=== PATIENT | female | born 1965 | race African-American/Black ===

== ENCOUNTER 2016-08-27 08:11 | Outpatient (CLI) | payer MEDICARE, OTHER ==
[~2016-08-27] VITALS: Ht 160 cm; Wt 45.4 kg
[~2016-08-27 08:11] MED LIST: ALBU2.5V13 NEB; AMLO10TA2 PO; AMLO10TA4 PO; BISA-42 PO; CALC667C6 PO; CARV12.5 PO; CARV25TA2 PO; CARV6.25 PO; CLON0.1T PO; DARB60DI SQ; DIPH25CA58 PO; DOCU-27 PO; DOXY100T PO; FAMO20TA5 PO; FERR-26 PO; FLUT1DIS3 INH; FOLI1TAB16 PO; FURO-68 PO; FURO-69 PO; Guaifenesin PO; HYDR100T24 PO; HYDR25TA9 PO; Hydralazine Hcl PO; IPRA3AMP NEB; IPRA4AER IH; LEVO500T38 PO; LISI-334 PO; Lactulose PO; METO-269 PO; OMEP20CA9 PO; OXYC30TA64 PO; OXYC5TAB PO; OXYC5TAB88 PO; PRED-220 PO; PRED20TA PO; QUET25TA PO; QUET25TA5 PO; SODI650T PO; SPIR50TA2 PO; Sodium Bicarbonate PO; TRAM-29 PO; TRAM50TA PO; TRAZ50TA15 PO; ZOLP10TA PO; ZOLP10TA4 PO
[2016-08-27 08:54] LABS: BASO # 0.1 x10^3/uL (0.0-0.2); BASO % 1 % (0-3); EOS % 2 % (0-3); HEMATOCRIT 28.8 % (36.0-47.0); HEMOGLOBIN 9.5 g/dL (12.0-15.5); LYMPH # 2.2 x10^3/uL (1.0-4.8); LYMPH % 22 % (24-48); MEAN CORPUSCULAR HEMOGLOBIN 34 pg (25-35); MEAN CORPUSCULAR HGB CONC 33 g/dL (31-37); MEAN CORPUSCULAR VOLUME 102 fL (79-100); MONO % 7 % (0-9); NEUT % 69 % (31-73); PLATELET COUNT 238 x10^3/uL (140-400); RED BLOOD COUNT 2.81 x10^6/uL (3.50-5.40); RED CELL DISTRIBUTION WIDTH 17.9 % (11.5-14.5)
[2016-08-27 08:55] VITALS: BP 137/81
[2016-08-27 09:05] LABS: INR 1.1 (0.8-1.1); PROTHROMBIN TIME PATIENT 13.8 SEC (11.7-14.0)
[2016-08-27] MEDS ORDERED: LIDOCAINE 1% / SOD BICARB 8.4% 20 ML VIAL. IJ ONE (11:34)
[2016-08-27] MEDS ORDERED: FENTANYL PF 100 MCG/2 ML VIAL. ONE (12:48)
[2016-08-27] MEDS ORDERED: MIDAZOLAM HCL 2 MG/2 ML VIAL. ONE (12:48)
--- NOTE | 2016-08-27 14:43 | RAD ---
Indication: Ascites. Axial imaging through the abdomen and pelvis was performed without contrast. Correlation is made with prior CT from 02/02/2016. Minimal atelectasis in both lung bases is seen. Trace perihepatic ascites is noted, similar to prior CT. Liver is unremarkable. There is moderate distention to the gallbladder, similar to prior. No stones are detected. The pancreas and spleen are unremarkable. No adrenal mass is detected. The kidneys are unremarkable. The small and large bowel loops appear to be normal caliber. The aorta and iliac vessels are heavily calcified but nonaneurysmal. Imaging through the pelvis shows moderate free fluid. There is no free air. No well-formed fluid collection is identified. Impression: Abdominal and pelvic ascites. No other significant abnormality is identified. PQRS Compliance Statement: One or more of the following individualized dose reduction techniques were utilized for this examination: 1. Automated exposure control 2. Adjustment of the mA and/or kV according to patient size 3. Use of iterative reconstruction technique
[2016-08-27] MEDS ORDERED: OXYC10TA PO (16:09)
== END 2016-08-27 13:35 | disposition home or self-care (01) ==
LOC: INTRAD 08:11
PROVIDERS: ATTEND Internal Medicine Gastroenterology
DX: R18.8 Other ascites (principal)
CPT/HCPCS: 36415; 74150; 85027; 85610

== ENCOUNTER 2016-10-16 16:42 | Emergency (ER) | payer MEDICARE, OTHER ==
[~2016-10-16] VITALS: Ht 160 cm; Wt 42.6 kg
[~2016-10-16 16:42] MED LIST changes: -ALBU2.5V13 NEB; +ALBU2.5V14 NEB; +OXYC10TA PO
[2016-10-16 17:52] VITALS: BP 88/59
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
[2016-10-16] MEDS ORDERED: MORPHINE SULFATE 4 MG/ML DISP.SYRIN. IM ONE (20:15)
[2016-10-16] MEDS ORDERED: OXYC5TAB PO (20:30)
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
== END 2016-10-16 20:45 | disposition home or self-care (01) ==
LOC: ER 16:42
DX: M54.9 Dorsalgia, unspecified (principal); M54.2 Cervicalgia; I12.9 Hypertensive chronic kidney disease with stage 1 through stage 4 chronic kidney disease, or unspecified chronic kidney disease; N18.9 Chronic kidney disease, unspecified; F17.200 Nicotine dependence, unspecified, uncomplicated; F12.10 Cannabis abuse, uncomplicated; G44.319 Acute post-traumatic headache, not intractable; Z88.0 Allergy status to penicillin; Z88.6 Allergy status to analgesic agent; V89.2XXA Person injured in unspecified motor-vehicle accident, traffic, initial encounter; Y92.413 State road as the place of occurrence of the external cause; Y93.89 Activity, other specified; Y99.8 Other external cause status
CPT/HCPCS: 70450; 72072; 72100; 72125; 96372; 99284; J2270

== ENCOUNTER 2017-01-30 09:57 | Inpatient (IN) | payer MEDICARE, OTHER ==
[~2017-01-30] VITALS: Ht 160 cm; Wt 47.7 kg
[2017-01-30] VITALS (12 sets, daily range): BP systolic 98–122; BP diastolic 52–71
[~2017-01-30 09:57] MED LIST changes: +DOCU-109 PO; -DOCU-27 PO; -LEVO500T38 PO; +LEVO500T59 PO; -TRAM-29 PO; +TRAM-48 PO
--- NOTE | 2017-01-30 10:44 | RAD ---
Indication: Shortness of air. Time of exam 10:37 AM Correlation is made with prior study from 02/02/2016. The heart size is stable. There are nodular densities identified in the left midlung field, new since prior exam. Slightly nodular densities in the right lung base and left base near the costophrenic angle are also seen. Upper lung mccarthy are clear. No effusion is seen. Impression: Development of nodular densities in both lungs, new since study one year earlier. Further evaluation with CT of the chest would be useful for better characterization.
--- NOTE | 2017-01-30 10:48 | EKG ---
[facility] [address] [place] [address] Test Date: 2017-01-30 Test Time: 10:24:34 Pat Name: KESHA PERKINS Department: Room: Gender: F [employer] Layer: : 1965 Requested By: YFN BERNSTEIN Order Number: [id number] Reading MD: Rosalva Isaac Measurements Intervals [place] Rate: 91 P: 63 NE: 136 QRS: 22 QRSD: 68 T: 47 QT: 390 QTc: 481 Interpretive Statements SINUS RHYTHM LEFT ATRIAL ABNORMALITY QRS(T) CONTOUR ABNORMALITY CONSIDER ANTEROLATERAL MYOCARDIAL DAMAGE Electronically Signed On 02-02-2017 13:41:38 CDT by Rosalva Isaac
--- NOTE | 2017-01-30 10:51 | PHYS DOC ---
Past Medical History Past Medical History: Hypertension, Liver Disease, Renal Failure Additional Past Medical Histor: Hepatitis C and B, dialysis, drug and ETOH use Past Surgical History: Other Additional Past Surgical Histo: permacath, paracentesis, lt arm fistula Alcohol Use: Occasionally Drug Use: Marijuana Adult General Chief Complaint Chief Complaint: SHORTNESS OF BREATH HPI HPI Patient is a 51 year old -[place] female who presents with was of breath over the last several days. She states this started over the weekend and she's been a dialysis on Saturday and this did not help. States she's had a nonproductive cough and some intermittent pain in her sternal area is been going on for last month. She also complains of back pain that is worse today since she ran out of her oxycodone yesterday. She denies any fevers or chills. She's been using her albuterol inhaler at home and states is not working. Review of Systems Review of Systems Constitutional: Denies fever or chills [] Eyes: Denies change in visual acuity, redness, or eye pain [] HENT: Denies nasal congestion or sore throat [] Respiratory: Positive for cough and shortness of breath [] Cardiovascular: No additional information not addressed in HPI [] GI: Denies abdominal pain, nausea, vomiting, bloody stools or diarrhea [] : Denies dysuria or hematuria [] Musculoskeletal: Denies back pain or joint pain [] Integument: Denies rash or skin lesions [] Neurologic: Denies headache, focal weakness or sensory changes [] Endocrine: Denies polyuria or polydipsia [] Current Medications Current Medications Current Medications Medications (Trade) Dose Ordered Sig/Carmenza Start Time Stop Time Status Last Admin Dose Admin Albuterol/ Ipratropium (Duoneb) 3 ml 1X ONCE 01/30/17 11:00 01/30/17 11:01 DC 01/30/17 11:06 3 ML Morphine Sulfate 2 mg PRN Q15MIN PRN 01/30/17 11:00 01/31/17 10:59 01/30/17 11:22 2 MG Allergies Allergies Allergies Coded Allergies Type Severity Reaction Last Updated Verified Penicillins Allergy Unknown UNKNOWN 08/27/16 Yes acetaminophen Adverse Reaction Severe increased liver enzymes 07/31/15 Yes Physical Exam Physical Exam Constitutional: Well developed, well nourished, no acute distress, non-toxic appearance. [] HENT: Normocephalic, atraumatic, bilateral external ears normal, oropharynx moist, no oral exudates, nose normal. [] Eyes: PERRLA, EOMI, conjunctiva normal, no discharge. [] Neck: Normal range of motion, no tenderness, supple, no stridor. [] Cardiovascular:Heart rate regular rhythm, no murmur [] Lungs & Thorax: Bilateral breath sounds diminished with expiratory wheezing Abdomen: Bowel sounds normal, soft, mild tenderness to palpation in the epigastric area no rebound or guarding, no masses, no pulsatile masses. [] Skin: Warm, dry, no erythema, no rash. [] Back: No tenderness, no CVA tenderness. [] Extremities: No tenderness, no cyanosis, no clubbing, ROM intact, no edema. [] Neurologic: Alert and oriented X 3, normal motor function, normal sensory function, no focal deficits noted. [] Psychologic: Affect normal, judgement normal, mood normal. [] Current Patient Data Vital Signs Vital Signs Date Time Temp Pulse Resp B/P (MAP) Pulse Ox O2 Delivery O2 Flow Rate FiO2 01/30/17 12:01 90 18 85/53 (64) 99 Room Air 01/30/17 10:02 98.1 98.1 Lab Values Laboratory Tests Test 01/30/17 11:15 White Blood Count 23.8 x10^3/uL (4.0-11.0) H Red Blood Count 2.06 x10^6/uL (3.50-5.40) L Hemoglobin 6.7 g/dL (12.0-15.5) *L Hematocrit 20.0 % (36.0-47.0) *L Mean Corpuscular Volume 97 fL (79-100) Mean Corpuscular Hemoglobin 33 pg (25-35) Mean Corpuscular Hemoglobin Concent 34 g/dL (31-37) Red Cell Distribution Width 17.3 % (11.5-14.5) H Platelet Count 243 x10^3/uL (140-400) Neutrophils (%) (Auto) 87 % (31-73) H Lymphocytes (%) (Auto) 7 % (24-48) L Monocytes (%) (Auto) 5 % (0-9) Eosinophils (%) (Auto) 1 % (0-3) Basophils (%) (Auto) 0 % (0-3) Neutrophils # (Auto) 20.8 x10^3uL (1.8-7.7) H Lymphocytes # (Auto) 1.7 x10^3/uL (1.0-4.8) Monocytes # (Auto) 1.2 x10^3/uL (0.0-1.1) H Eosinophils # (Auto) 0.1 x10^3/uL (0.0-0.7) Basophils # (Auto) 0.1 x10^3/uL (0.0-0.2) Platelet Estimate Pending Prothrombin Time 16.5 SEC (11.7-14.0) H Prothrombin Time INR 1.4 (0.8-1.1) H Sodium Level 140 mmol/L (136-145) Potassium Level 4.1 mmol/L (3.5-5.1) Chloride Level 99 mmol/L (98-107) Carbon Dioxide Level 23 mmol/L (21-32) Anion Gap 18 (6-14) H Blood Urea Nitrogen 93 mg/dL (7-20) H Creatinine 7.4 mg/dL (0.6-1.0) H Estimated GFR (Cockcroft-Gault) 7.0 Glucose Level 113 mg/dL (70-99) H Calcium Level 8.1 mg/dL (8.5-10.1) L Magnesium Level 1.7 mg/dL (1.8-2.4) L Total Bilirubin 4.4 mg/dL (0.2-1.0) H Direct Bilirubin 0.6 mg/dL (0.0-0.2) H Aspartate Amino Transferase (AST) 45 U/L (15-37) H Alanine Aminotransferase (ALT) 22 U/L (14-59) Alkaline Phosphatase 185 U/L (46-116) H Creatine Kinase 91 U/L (26-192) Creatine Kinase MB (Mass) 2.5 ng/mL (0.0-3.6) Creatine Kinase MB Relative Index 2.7 % (0-4) Troponin I Quantitative < 0.017 ng/mL (0.000-0.055) IY-Ipe-K-Type Natriuretic Peptide 27179 pg/mL (0-124) H Total Protein 7.0 g/dL (6.4-8.2) Albumin 1.9 g/dL (3.4-5.0) L Lipase 51 U/L (73-393) L Thyroid Stimulating Hormone (TSH) 0.848 uIU/mL (0.358-3.74) Laboratory Tests 01/30/17 11:15 Laboratory Tests 01/30/17 11:15 EKG EKG EKG shows sinus rhythm with rate of [address] elevations or T-wave inversions, normal axis, QTC 481 ms, as interpreted by me. Radiology/Procedures Radiology/Procedures [facility] [address] [place] [address] IMAGING REPORT Signed PATIENT: KESHA PERKINS ACCOUNT: [id number] : 1965 LOCATION: ER AGE: 51 SEX: F EXAM STATUS: PRE ER ORD. PHYSICIAN: YFN BERNSTEIN MD REASON: soa PROCEDURE: PORTABLE CHEST 1V Indication: Shortness of air. Time of exam 10:37 AM Correlation is made with prior study from 02/02/2016. The heart size is stable. There are nodular densities identified in the left midlung field, new since prior exam. Slightly nodular densities in the right lung base and left base near the costophrenic angle are also seen. Upper lung mccarthy are clear. No effusion is seen. Impression: Development of nodular densities in both lungs, new since study one year earlier. Further evaluation with CT of the chest would be useful for better characterization. DICTATED and SIGNED BY: RACHELLE MYERS MD DATE: 01/30/17 1040 CC: SHARAD MURRAY MD; YFN BERNSTEIN MD ~ Impressions: Anemia Shortness of breath End-stage renal disease Chronic pain Course & Med Decision Making Course & Med Decision Making Pertinent Labs and Imaging studies reviewed. (See chart for details) Patient presents with shortness of breath which could be a mild COPD exacerbation. Her hemoglobin 6.7 will go and type and screen and give 2 units of blood. Spoke with Dr. Murray regarding admission. Patient's agreeable plans being admitted with Solu-Medrol, breathing treatments and blood ordered. Critical care time: 55 minutes of critical care time was used on this patient excluding procedures. Dragon Disclaimer Dragon Disclaimer This electronic medical record was generated, in whole or in part, using a voice recognition dictation system. Departure Departure Referrals: SHARAD MURRAY MD (PCP) YFN BERNSTEIN MD Jan 30, 2017 10:51
[2017-01-30] MEDS ORDERED: IPRATRPIUM/ALBUTEROL 0.5/2.5MG 3 ML NEBU. NEB ONE (11:00)
[2017-01-30] MEDS ORDERED: MORPHINE SULFATE 2 MG/ML DISP.SYRIN. IV/SQ PRN (11:00)
[2017-01-30 11:32] LABS: BASO # 0.1 x10^3/uL (0.0-0.2); BASO % 0 % (0-3); EOS % 1 % (0-3); LYMPH # 1.7 x10^3/uL (1.0-4.8); LYMPH % 7 % (24-48); MEAN CORPUSCULAR HEMOGLOBIN 33 pg (25-35); MEAN CORPUSCULAR HGB CONC 34 g/dL (31-37); MEAN CORPUSCULAR VOLUME 97 fL (79-100); MONO % 5 % (0-9); NEUT % 87 % (31-73); PLATELET COUNT 243 x10^3/uL (140-400); RED BLOOD COUNT 2.06 x10^6/uL (3.50-5.40); RED CELL DISTRIBUTION WIDTH 17.3 % (11.5-14.5); WHITE BLOOD COUNT 23.8 x10^3/uL (4.0-11.0)
[2017-01-30 11:35] LABS: CALCIUM 8.1 mg/dL (8.5-10.1); CREATININE 7.4 mg/dL (0.6-1.0); POTASSIUM 4.1 mmol/L (3.5-5.1)
[2017-01-30 11:41] LABS: ALBUMIN 1.9 g/dL (3.4-5.0); DIRECT BILIRUBIN 0.6 mg/dL (0.0-0.2); HEMOGLOBIN 6.7 g/dL (12.0-15.5); MAGNESIUM 1.7 mg/dL (1.8-2.4); TOTAL BILIRUBIN 4.4 mg/dL (0.2-1.0)
[2017-01-30 11:45] LABS: INR 1.4 (0.8-1.1); PROTHROMBIN TIME PATIENT 16.5 SEC (11.7-14.0)
[2017-01-30 11:56] LABS: CKMB MASS 2.5 ng/mL (0.0-3.6)
[2017-01-30] MEDS ORDERED: ONDANSETRON PF 4 MG/2 ML VIAL. IV PRN (12:45)
[2017-01-30 12:57] LABS: ANISOCYTOSIS SLIGHT; PLT ESTIMATE ADEQUATE (ADEQUATE)
[2017-01-30] MEDS: fentaNYL PF VIAL 100 MCG/2 ML VIAL IV PRN ×2 (12:58→14:46)
[2017-01-30] MEDS ORDERED: IPRATRPIUM/ALBUTEROL 0.5/2.5MG 3 ML NEBU. NEB PRN (13:00)
[2017-01-30] MEDS ORDERED: methylPREDNISolone SOD SUCC PF 125 MG/2 ML VIAL. IV ONE (13:00)
--- NOTE | 2017-01-30 14:34 | ACF ---
Admit Criteria Forms Admit Criteria Forms Admit Criteria Forms ANEMIA Clinical Indications for Inpatient Care (Place 'X' for any and all applicable criteria) Ongoing inpatient care may be needed for anemia with 1 or more of the following (1)(2)(3)(4)(18)(37): [X]I. Severe signs or symptoms unresponsive to transfusion or volume replacement, including ANY ONE of the following: []a) Heart failure []b) Chest pain []c) Myocardial ischemia [X]d) Exertional dyspnea []e) Syncope []f) Acute peripheral ischemia (eg, pulseless, cool, mottled, or cyanotic extremity) []g) Other severe signs or symptoms []II. Cognitive impairment []III. Active hemorrhage []IV.Active hemolysis with rapidly progressive anemia []V. Hemodynamic instability Extended stay beyond goal length of stay for the primary condition may be needed until ALL of the following are present (1)(2)(3)(4): []a) Hemodynamic stability []b) Any active blood loss controlled []c) Severe signs or symptoms resolved []d) Mental status normal or at baseline []e) Stable hemoglobin after transfusion []f) Any underlying disorder or complications of treatment controlled The original [employer] content created by [employer] has been revised. The portions of the content which have been revised are identified through the use of italic text or in bold, and [employer] [facility] [email or web address] has neither reviewed nor approved the modified material. All other unmodified content is copyright [employer]. Please see references footnoted in the original [employer] edition 2016 TAYLOR WILLIAM Jan 30, 2017 14:34
[2017-01-30] MEDS ORDERED: ALBUTEROL SULFATE 2.5 MG/3 ML NEBU. NEB PRN (15:45)
[2017-01-30] MEDS ORDERED: oxyCODONE IR 5 MG TABLET PO PRN (15:45)
[2017-01-30] MEDS: IPRATRPIUM/ALBUTEROL 0.5/2.5MG 3 ML NEBU. NEB SCH ×2 (15:53→19:48)
[2017-01-30] MEDS: MORPHINE SULFATE 2 MG/ML DISP.SYRIN. IV PRN ×3 (16:10→21:41)
--- NOTE | 2017-01-30 17:05 | PDOC1 ---
History and Physical Date of Admission Date of Admission DATE: 01/30/17 Identification/Chief Complaint Chief Complaint Shortness of air, fatigue Problems: Source Source: Patient History of Present Illness History of Present Illness Pt states that she noticed acute shortness of air over the past 2-3 days. She has also noticed increased fatigue. Pt has also had all over body pain, was out of her pain medication and knew that she would not be given early refills at the clinic so came to the hospital. She was found to be acutely anemic. Pt has elevated white count but does not have any infectious complaints. She has had some moderate abdominal pain. Past Medical History Cardiovascular: CAD, CHF, HTN, Hyperlipidemia, Other Pulmonary: Asthma, Bronchitis, COPD, Pneumonia, Other GI: GERD Heme/Onc: Anemia NOS Hepatobiliary: Cirrhosis, Hep A/B/C Psych: Anxiety, Addictions, Depression Musculoskeletal: low back pain, Bursitis, Other Rheumatologic: No pertinent hx Infectious disease: Other Renal/: Chronic renal failure, UTI Endocrine: Diabetes, Hyperparathyroidism Past Surgical History Past Surgical History: Other Family History Family History: Diabetes, Heart Disease, Hypertension Social History Smoke: 1 pack per day ALCOHOL: occassional Drugs: None Current Medications Current Medications Current Medications Albuterol/ Ipratropium (Duoneb) 3 ml 1X ONCE NEB Last administered on 11:06; Start 01/30/17 at 11:00; Stop 01/30/17 at 11:01; Status DC Morphine Sulfate 2 mg PRN Q15MIN PRN IV/SQ PAIN GREATER THAN 3/10 Last administered on 01/30/17 11:22; Start 01/30/17 at 11:00; Stop 01/31/17 at 10:59 Ondansetron HCl (Zofran) 4 mg PRN Q8HRS PRN IV NAUSEA/VOMITING Last administered on 01/30/17 16:16; Start 01/30/17 at 12:45; Stop 01/31/17 at 12:44 Fentanyl Citrate (Fentanyl 2ml Vial) 25 mcg PRN Q1HR PRN IV PAIN Last administered on 01/30/17 14:46; Start 01/30/17 at 12:45; Stop 01/30/17 at 15:43 ; Status DC Methylprednisolone Sodium Succinate (SOLU-Medrol 125MG VIAL) 125 mg 1X ONCE IV Last administered on 01/30/17 12:58; Start 01/30/17 at 13:00; Stop 01/30/17 at 13:01; Status DC Albuterol/ Ipratropium (Duoneb) 3 ml Q6HRS PRN NEB soa; Start 01/30/17 at 13:00 ; Stop 01/30/17 at 15:46; Status DC Albuterol/ Ipratropium (Duoneb) 3 ml RTQID NEB Last administered on 01/30/17 15:53; Start 01/30/17 at 16:00 Oxycodone HCl (Roxicodone) 15 mg PRN Q6HRS PRN PO PAIN Last administered on 16:11; Start 01/30/17 at 15:45; Stop 01/30/17 at 17:03; Status DC Budesonide (Pulmicort) 0.5 mg RTBID NEB ; Start 01/30/17 at 20:00 Albuterol Sulfate (Ventolin Neb Soln) 2.5 mg PRN Q4HRS PRN NEB SHORTNESS OF BREATH; Start 01/30/17 at 15:45 Pantoprazole Sodium (Protonix) 40 mg DAILYAC PO ; Start 01/31/17 at 07:30; Stop 01/31/17 at 07:30; Status DC Zolpidem Tartrate (Ambien) 5 mg PRN QHS PRN PO INSOMNIA, MAY REPEAT X1; Start 01/30/17 at 15:45 Morphine Sulfate 2 mg PRN Q2HR PRN IV PAIN not controlled with Oxy Last administered on 01/30/17 16:10; Start 01/30/17 at 15:45 Oxycodone HCl (Roxicodone) 15 mg PRN Q4HRS PRN PO PAIN; Start 01/30/17 at 20:00 Pantoprazole Sodium (Protonix) 40 mg DAILYAC PO ; Start 01/30/17 at 17:30 Guaifenesin (Robitussin) 200 mg PRN Q4HRS PRN PO COUGH; Start 01/30/17 at 17:15 Active Scripts Active Oxycodone Hcl 5 Mg Tablet 5 Mg PO Q4-6HRS PRN Oxycodone Hcl 10 Mg Tablet 1 Tab PO TID Oxycodone Hcl 5 Mg Tablet 15 Mg PO PRN Q6HRS PRN AD Days Duoneb 0.5-3(2.5) Mg/3 Ml (Albuterol/Ipratropium) 3 Ml Ampul.neb 3 Ml NEB RTQID 30 Days Advair 250-50 Diskus (Fluticasone/Salmeterol) 1 Puff Puff 1 Puff INH BID 30 Days Aranesp Syringe (Darbepoetin Norris In Polysorbat) 60 Mcg/0.3 Ml Disp.syrin 60 Mcg SQ WEEKLYHS 30 Days Albuterol Sulfate Conc Neb Soln (Albuterol Sulfate) 2.5 Mg/0.5 Ml Vial.neb 1 Vial NEB Q4HRS PRN Reported Ambien (Zolpidem Tartrate) 10 Mg Tablet 1 Tab PO QHS Omeprazole 20 Mg Capsule.dr 20 Mg PO DAILY Carvedilol 25 Mg Tablet 25 Mg PO BID Amlodipine Besylate 10 Mg Tablet 10 Mg PO DAILY Allergies Allergies: Coded Allergies: Penicillins (Verified Allergy, Unknown, UNKNOWN, 08/27/16) acetaminophen (Verified Adverse Reaction, Severe, increased liver enzymes , 07/31/15) ROS General: YES: Chills, Fatigue, No: Night Sweats PSYCHOLOGICAL ROS: No: Anxiety, Depression Eyes: Yes Decreased vision (following with optho), No Eye Pain HEENT: No: Nasal congestion, Sore Throat ALLERGY AND IMMUNOLOGY: YES: Post Nasal Drip, No: Hives Hematological and Lymphatic: No: Bleeding Problems, Blood Clots Respiratory: YES: Cough, Shortness of breath, No: Sputum Changes Cardiovascular: No Chest Pain, No Palpitations, No Edema Gastrointestinal: Yes Nausea, Yes Abdominal Pain, No Vomiting, No Diarrhea, No Constipation Genitourinary: No Dysuria, No Urgency Musculoskeletal: Yes Joint Pain, Yes Muscle Pain Neurological: No Impaired Coord/balance, No Numbness/Tingling Skin: No Rash, No Skin Lesion Changes Physical Exam General: Alert, Oriented X3, Cooperative, No acute distress HEENT: Atraumatic, PERRLA, EOMI, Mucous membr. moist/pink Lungs: Other (rhonchi throughout) Heart: RRR, no rubs, no gallops, no murmurs Abdomen: Normal bowel sounds, Other (epigastric tenderness) Extremities: No clubbing, No cyanosis, No edema Skin: No rashes, No breakdown, No significant lesion Neuro: Normal speech, Normal tone, Cranial nerves 3-12 NL Psych/Mental Status: Mental status NL, Mood NL Vitals Vitals Vital Signs Date Time Temp Pulse Resp B/P (MAP) Pulse Ox O2 Delivery O2 Flow Rate FiO2 01/30/17 16:26 Room Air 01/30/17 16:11 99 01/30/17 16:04 97.7 93 20 114/63 97.7 Labs Labs Laboratory Tests Test 01/30/17 11:15 01/30/17 16:05 White Blood Count 23.8 x10^3/uL (4.0-11.0) Red Blood Count 2.06 x10^6/uL (3.50-5.40) Hemoglobin 6.7 g/dL (12.0-15.5) Hematocrit 20.0 % (36.0-47.0) Mean Corpuscular Volume 97 fL (79-100) Mean Corpuscular Hemoglobin 33 pg (25-35) Mean Corpuscular Hemoglobin Concent 34 g/dL (31-37) Red Cell Distribution Width 17.3 % (11.5-14.5) Platelet Count 243 x10^3/uL (140-400) Neutrophils (%) (Auto) 87 % (31-73) Lymphocytes (%) (Auto) 7 % (24-48) Monocytes (%) (Auto) 5 % (0-9) Eosinophils (%) (Auto) 1 % (0-3) Basophils (%) (Auto) 0 % (0-3) Neutrophils # (Auto) 20.8 x10^3uL (1.8-7.7) Lymphocytes # (Auto) 1.7 x10^3/uL (1.0-4.8) Monocytes # (Auto) 1.2 x10^3/uL (0.0-1.1) Eosinophils # (Auto) 0.1 x10^3/uL (0.0-0.7) Basophils # (Auto) 0.1 x10^3/uL (0.0-0.2) Segmented Neutrophils % 90 % (35-66) Band Neutrophils % 1 % (0-9) Lymphocytes % 3 % (24-48) Monocytes % 6 % (0-10) Platelet Estimate Adequate (ADEQUATE) Anisocytosis Slight Prothrombin Time 16.5 SEC (11.7-14.0) Prothromb Time International Ratio 1.4 (0.8-1.1) Sodium Level 140 mmol/L (136-145) Potassium Level 4.1 mmol/L (3.5-5.1) Chloride Level 99 mmol/L (98-107) Carbon Dioxide Level 23 mmol/L (21-32) Anion Gap 18 (6-14) Blood Urea Nitrogen 93 mg/dL (7-20) Creatinine 7.4 mg/dL (0.6-1.0) Estimated GFR (Cockcroft-Gault) 7.0 Glucose Level 113 mg/dL (70-99) Calcium Level 8.1 mg/dL (8.5-10.1) Magnesium Level 1.7 mg/dL (1.8-2.4) Total Bilirubin 4.4 mg/dL (0.2-1.0) Direct Bilirubin 0.6 mg/dL (0.0-0.2) Aspartate Amino Transf (AST/SGOT) 45 U/L (15-37) Alanine Aminotransferase (ALT/SGPT) 22 U/L (14-59) Alkaline Phosphatase 185 U/L (46-116) Creatine Kinase 91 U/L (26-192) Creatine Kinase MB (Mass) 2.5 ng/mL (0.0-3.6) Creatine Kinase MB Relative Index 2.7 % (0-4) Troponin I Quantitative < 0.017 ng/mL (0.000-0.055) GZ-Nmv-C-Type Natriuretic Peptide 28877 pg/mL (0-124) Total Protein 7.0 g/dL (6.4-8.2) Albumin 1.9 g/dL (3.4-5.0) Lipase 51 U/L (73-393) Thyroid Stimulating Hormone (TSH) 0.848 uIU/mL (0.358-3.74) Lactic Acid Level 1.2 mmol/L (0.4-2.0) Laboratory Tests Test 01/30/17 11:15 01/30/17 16:05 White Blood Count 23.8 x10^3/uL (4.0-11.0) Red Blood Count 2.06 x10^6/uL (3.50-5.40) Hemoglobin 6.7 g/dL (12.0-15.5) Hematocrit 20.0 % (36.0-47.0) Mean Corpuscular Volume 97 fL (79-100) Mean Corpuscular Hemoglobin 33 pg (25-35) Mean Corpuscular Hemoglobin Concent 34 g/dL (31-37) Red Cell Distribution Width 17.3 % (11.5-14.5) Platelet Count 243 x10^3/uL (140-400) Neutrophils (%) (Auto) 87 % (31-73) Lymphocytes (%) (Auto) 7 % (24-48) Monocytes (%) (Auto) 5 % (0-9) Eosinophils (%) (Auto) 1 % (0-3) Basophils (%) (Auto) 0 % (0-3) Neutrophils # (Auto) 20.8 x10^3uL (1.8-7.7) Lymphocytes # (Auto) 1.7 x10^3/uL (1.0-4.8) Monocytes # (Auto) 1.2 x10^3/uL (0.0-1.1) Eosinophils # (Auto) 0.1 x10^3/uL (0.0-0.7) Basophils # (Auto) 0.1 x10^3/uL (0.0-0.2) Segmented Neutrophils % 90 % (35-66) Band Neutrophils % 1 % (0-9) Lymphocytes % 3 % (24-48) Monocytes % 6 % (0-10) Platelet Estimate Adequate (ADEQUATE) Anisocytosis Slight Prothrombin Time 16.5 SEC (11.7-14.0) Prothromb Time International Ratio 1.4 (0.8-1.1) Sodium Level 140 mmol/L (136-145) Potassium Level 4.1 mmol/L (3.5-5.1) Chloride Level 99 mmol/L (98-107) Carbon Dioxide Level 23 mmol/L (21-32) Anion Gap 18 (6-14) Blood Urea Nitrogen 93 mg/dL (7-20) Creatinine 7.4 mg/dL (0.6-1.0) Estimated GFR (Cockcroft-Gault) 7.0 Glucose Level 113 mg/dL (70-99) Calcium Level 8.1 mg/dL (8.5-10.1) Magnesium Level 1.7 mg/dL (1.8-2.4) Total Bilirubin 4.4 mg/dL (0.2-1.0) Direct Bilirubin 0.6 mg/dL (0.0-0.2) Aspartate Amino Transf (AST/SGOT) 45 U/L (15-37) Alanine Aminotransferase (ALT/SGPT) 22 U/L (14-59) Alkaline Phosphatase 185 U/L (46-116) Creatine Kinase 91 U/L (26-192) Creatine Kinase MB (Mass) 2.5 ng/mL (0.0-3.6) Creatine Kinase MB Relative Index 2.7 % (0-4) Troponin I Quantitative < 0.017 ng/mL (0.000-0.055) UK-Whf-M-Type Natriuretic Peptide 12559 pg/mL (0-124) Total Protein 7.0 g/dL (6.4-8.2) Albumin 1.9 g/dL (3.4-5.0) Lipase 51 U/L (73-393) Thyroid Stimulating Hormone (TSH) 0.848 uIU/mL (0.358-3.74) Lactic Acid Level 1.2 mmol/L (0.4-2.0) VTE Prophylaxis Ordered VTE Prophylaxis Devices: Yes VTE Pharmacological Prophylaxi: No Assessment/Plan Assessment/Plan Pt is a 51yo AAF admitted for acute anemia 1)Acute on chronic anemia- 2/2 CKD, no active bleeding per pt. S/p 2 units PRBCs. CTM 2)ESRD- will consult Renal 3)Cirrhosis 2/2 Hepatitis C and alcoholism- with ascites. Pt wondering if she can get a therapeutic paracentesis, will get U/S to see if there is enough fluid. Most of abdominal area feels more solid with not a large fluid shift 4)GERD 5)OA- pt's home pain medication increased in frequency to Oxycodone 15mg Q4H instead of q6H 6)Tobaccoism- patch started 7)PEM-moderate 8)CHF- diastolic, compensated 9)COPD- will resume pt's nebulizers 10)Lung nodules- will get CT Chest 11)Hx of HTN- pt currently hypotensive; will continue to hold pt's blood pressure medication SHARAD COULTER MD Jan 30, 2017 17:05
[2017-01-30] MEDS: PANTOPRAZOLE 40 MG TABLET.DR. PO SCH (17:15)
[2017-01-30] MEDS: NICOTINE 21MG PATCH. TD SCH (17:15)
[2017-01-30] MEDS: MAG HYDROX/ALUMINUM HYD/SIMETH 30 ML ORAL.SUSP PO PRN ×2 (19:26→21:40)
[2017-01-30] MEDS: BUDESONIDE 0.5 MG/2 ML NEBU. NEB SCH (19:48)
[2017-01-30] MEDS: ZOLPIDEM 5 MG TABLET. PO PRN (21:40)
[2017-01-30] MEDS: oxyCODONE IR 5 MG TABLET PO PRN (21:41)
[2017-01-31] MEDS: MORPHINE SULFATE 2 MG/ML DISP.SYRIN. IV PRN ×7 (00:18→23:41)
[2017-01-31] MEDS: MAG HYDROX/ALUMINUM HYD/SIMETH 30 ML ORAL.SUSP PO PRN ×2 (00:40→21:18)
[2017-01-31] MEDS: oxyCODONE IR 5 MG TABLET PO PRN ×3 (04:28→19:38)
[2017-01-31 06:45] LABS: BASO % 0 % (0-3); EOS % 0 % (0-3); HEMATOCRIT 28.8 % (36.0-47.0); HEMOGLOBIN 9.6 g/dL (12.0-15.5); LYMPH # 1.4 x10^3/uL (1.0-4.8); LYMPH % 7 % (24-48); MEAN CORPUSCULAR HEMOGLOBIN 31 pg (25-35); MEAN CORPUSCULAR HGB CONC 33 g/dL (31-37); MEAN CORPUSCULAR VOLUME 94 fL (79-100); MONO % 2 % (0-9); NEUT % 92 % (31-73); PLATELET COUNT 236 x10^3/uL (140-400); RED BLOOD COUNT 3.08 x10^6/uL (3.50-5.40); RED CELL DISTRIBUTION WIDTH 17.7 % (11.5-14.5); WHITE BLOOD COUNT 21.9 x10^3/uL (4.0-11.0)
[2017-01-31 07:04] LABS: CALCIUM 7.5 mg/dL (8.5-10.1); GFR 6.4
[2017-01-31 07:06] LABS: POTASSIUM 5.6 mmol/L (3.5-5.1)
[2017-01-31 07:20] VITALS: BP 104/60
[2017-01-31] MEDS ORDERED: PANTOPRAZOLE 40 MG TABLET.DR. PO SCH (07:30)
[2017-01-31] MEDS: PANTOPRAZOLE 40 MG TABLET.DR. PO SCH (08:06)
[2017-01-31] MEDS: NICOTINE 21MG PATCH. TD SCH (08:07)
--- NOTE | 2017-01-31 08:49 | PDOC ---
SUBJECTIVE Subjective Pt states that her breathing has improved today. Having IV Morphine has been helpful for her pain. Still having abdominal pain. Still having chest congestion. OBJECTIVE Vital Signs Vital Signs Date Time Temp Pulse Resp B/P (MAP) Pulse Ox O2 Delivery O2 Flow Rate FiO2 01/31/17 08:07 92 Room Air 01/31/17 07:20 98.1 81 20 104/60 (75) 92 Room Air 98.1 01/31/17 05:25 16 Room Air 01/31/17 04:56 Room Air 01/31/17 04:28 16 Room Air 01/31/17 04:26 16 Room Air 01/31/17 03:45 16 Room Air 01/31/17 00:48 14 01/31/17 00:18 16 Room Air 01/30/17 23:09 97.9 95 20 110/71 (84) 99 Room Air 97.9 01/30/17 21:41 18 Room Air 01/30/17 21:41 19 Room Air 01/30/17 20:26 97.7 94 18 112/65 97.7 01/30/17 20:00 Room Air 01/30/17 19:50 100 Room Air 01/30/17 19:49 100 Room Air 01/30/17 19:37 98.3 94 18 113/68 (83) 97 Room Air 98.3 01/30/17 19:37 18 Room Air 01/30/17 19:25 98.3 94 18 113/68 98.3 01/30/17 18:32 99 01/30/17 18:25 97.9 86 19 112/70 97.9 01/30/17 17:27 97.7 83 20 116/63 97.7 01/30/17 17:07 98.2 94 20 108/66 98.2 01/30/17 16:26 Room Air 01/30/17 16:11 99 01/30/17 16:10 99 01/30/17 16:04 97.7 93 20 114/63 97.7 01/30/17 15:55 Room Air 01/30/17 15:13 99 01/30/17 15:13 99 01/30/17 15:00 98.3 94 20 109/60 (76) 97 Room Air 98.3 01/30/17 15:00 98.7 84 20 122/68 (86) 95 Room Air 98.7 01/30/17 14:55 98.3 90 20 109/60 98.3 01/30/17 14:46 99 01/30/17 13:55 97.5 72 17 98/52 97.5 01/30/17 13:48 97.5 89 17 96/56 (69) 99 Room Air 97.5 01/30/17 13:37 98.3 89 16 102/55 98.3 01/30/17 13:33 98.0 89 16 102/55 (71) 100 Room Air 98.0 01/30/17 13:13 100 Room Air 01/30/17 13:05 89 17 100/58 (72) 99 Room Air 01/30/17 12:58 99 01/30/17 12:35 91 16 82/51 (61) 100 Room Air 01/30/17 12:25 92 16 86/54 (65) 99 Room Air 01/30/17 12:01 90 18 85/53 (64) 99 Room Air 01/30/17 11:22 16 01/30/17 11:06 100 Room Air 01/30/17 11:05 80 18 88/52 (64) 100 01/30/17 10:02 98.1 96 26 104/56 (72) 93 Room Air 98.1 I & O Intake and Output 01/31/17 06:59 Intake Total 1005 ml Output Total 0 ml Balance 1005 ml Intake Oral 620 ml Blood Product IV Normal Saline Flush 385 ml Output Urine Total 0 ml # Voids 1 # Bowel Movements 1 PHYSICAL EXAM Physical Exam General: Alert, Oriented X3, Cooperative, No acute distress HEENT: Atraumatic, PERRLA, EOMI, Mucous membr. moist/pink Lungs: Other (rhonchi throughout), some squeaks heard throughout as well Heart: RRR, no rubs, no gallops, no murmurs Abdomen: Normal bowel sounds, Other (epigastric tenderness) Extremities: No clubbing, No cyanosis, No edema Skin: No rashes, No breakdown, No significant lesion Neuro: Normal speech, Normal tone, Cranial nerves 3-12 NL Psych/Mental Status: Mental status NL, Mood NL ASSESSMENT/PLAN Assessment/Plan Pt is a 51yo AAF admitted for acute anemia 1)Acute on chronic anemia- 2/2 CKD, no active bleeding per pt. S/p 2 units PRBCs, Hb improved 2)ESRD- Renal consulted 3)Cirrhosis 2/2 Hepatitis C and alcoholism- with ascites. Pt wondering if she can get a therapeutic paracentesis, U/S ordered, read pending. Most of abdominal area feels more solid with not a large fluid shift 4)GERD 5)OA- pt's home pain medication increased in frequency to Oxycodone 15mg Q4H instead of q6H 6)Tobaccoism- patch started 7)PEM-severe 8)CHF- diastolic, decompensated. Pt is due for dialysis today. 9)COPD- resumed pt's nebulizers, considering starting oral Prednisone 10)Lung nodules- CT Chest ordered, results pending 11)Hx of HTN- pt currently hypotensive; will continue to hold pt's blood pressure medication 12)Leukocytosis- pt not having any other symptoms of infection currently. Blood cultures pending from yesterday. CTM Problems: COMMENT Lab Laboratory Tests Test 01/30/17 11:15 01/30/17 16:05 01/31/17 06:05 White Blood Count 23.8 x10^3/uL (4.0-11.0) 21.9 x10^3/uL (4.0-11.0) Red Blood Count 2.06 x10^6/uL (3.50-5.40) 3.08 x10^6/uL (3.50-5.40) Hemoglobin 6.7 g/dL (12.0-15.5) 9.6 g/dL (12.0-15.5) Hematocrit 20.0 % (36.0-47.0) 28.8 % (36.0-47.0) Mean Corpuscular Volume 97 fL (79-100) 94 fL (79-100) Mean Corpuscular Hemoglobin 33 pg (25-35) 31 pg (25-35) Mean Corpuscular Hemoglobin Concent 34 g/dL (31-37) 33 g/dL (31-37) Red Cell Distribution Width 17.3 % (11.5-14.5) 17.7 % (11.5-14.5) Platelet Count 243 x10^3/uL (140-400) 236 x10^3/uL (140-400) Neutrophils (%) (Auto) 87 % (31-73) 92 % (31-73) Lymphocytes (%) (Auto) 7 % (24-48) 7 % (24-48) Monocytes (%) (Auto) 5 % (0-9) 2 % (0-9) Eosinophils (%) (Auto) 1 % (0-3) 0 % (0-3) Basophils (%) (Auto) 0 % (0-3) 0 % (0-3) Neutrophils # (Auto) 20.8 x10^3uL (1.8-7.7) 20.1 x10^3uL (1.8-7.7) Lymphocytes # (Auto) 1.7 x10^3/uL (1.0-4.8) 1.4 x10^3/uL (1.0-4.8) Monocytes # (Auto) 1.2 x10^3/uL (0.0-1.1) 0.4 x10^3/uL (0.0-1.1) Eosinophils # (Auto) 0.1 x10^3/uL (0.0-0.7) 0.0 x10^3/uL (0.0-0.7) Basophils # (Auto) 0.1 x10^3/uL (0.0-0.2) 0.0 x10^3/uL (0.0-0.2) Segmented Neutrophils % 90 % (35-66) Band Neutrophils % 1 % (0-9) Lymphocytes % 3 % (24-48) Monocytes % 6 % (0-10) Platelet Estimate Adequate (ADEQUATE) Anisocytosis Slight Prothrombin Time 16.5 SEC (11.7-14.0) Prothromb Time International Ratio 1.4 (0.8-1.1) Sodium Level 140 mmol/L (136-145) 135 mmol/L (136-145) Potassium Level 4.1 mmol/L (3.5-5.1) 5.6 mmol/L (3.5-5.1) Chloride Level 99 mmol/L (98-107) 95 mmol/L (98-107) Carbon Dioxide Level 23 mmol/L (21-32) 21 mmol/L (21-32) Anion Gap 18 (6-14) 19 (6-14) Blood Urea Nitrogen 93 mg/dL (7-20) 122 mg/dL (7-20) Creatinine 7.4 mg/dL (0.6-1.0) 8.0 mg/dL (0.6-1.0) Estimated GFR (Cockcroft-Gault) 7.0 6.4 Glucose Level 113 mg/dL (70-99) 164 mg/dL (70-99) Calcium Level 8.1 mg/dL (8.5-10.1) 7.5 mg/dL (8.5-10.1) Magnesium Level 1.7 mg/dL (1.8-2.4) Total Bilirubin 4.4 mg/dL (0.2-1.0) Direct Bilirubin 0.6 mg/dL (0.0-0.2) Aspartate Amino Transf (AST/SGOT) 45 U/L (15-37) Alanine Aminotransferase (ALT/SGPT) 22 U/L (14-59) Alkaline Phosphatase 185 U/L (46-116) Creatine Kinase 91 U/L (26-192) Creatine Kinase MB (Mass) 2.5 ng/mL (0.0-3.6) Creatine Kinase MB Relative Index 2.7 % (0-4) Troponin I Quantitative < 0.017 ng/mL (0.000-0.055) < 0.017 ng/mL (0.000-0.055) VM-Npa-N-Type Natriuretic Peptide 00010 pg/mL (0-124) Total Protein 7.0 g/dL (6.4-8.2) Albumin 1.9 g/dL (3.4-5.0) Lipase 51 U/L (73-393) Thyroid Stimulating Hormone (TSH) 0.848 uIU/mL (0.358-3.74) Lactic Acid Level 1.2 mmol/L (0.4-2.0) SHARAD COULTER MD Jan 31, 2017 08:49
[2017-01-31] MEDS ORDERED: LIDO:MAALOX:DONNATAL 1:1:1 15 ML SINGLE DOSE SWSW ONE (09:00)
[2017-01-31] MEDS: BUDESONIDE 0.5 MG/2 ML NEBU. NEB SCH ×2 (09:06→19:16)
[2017-01-31] MEDS: IPRATRPIUM/ALBUTEROL 0.5/2.5MG 3 ML NEBU. NEB SCH ×4 (09:06→19:16)
--- NOTE | 2017-01-31 09:25 | RAD ---
Complete abdomen ultrasound study History: Abdominal pain. Hepatitis C. Renal failure. Findings: The pancreas is homogeneous without focal enlargement. The intrahepatic portion of the IVC is unremarkable. No focal aneurysmal dilatation of the proximal or mid abdominal aorta is seen. The distal abdominal aorta is obscured by overlying bowel gas. The liver is homogeneous and no focal hepatic mass is seen. Hepatopedal flow is seen within the main portal vein. The liver measures 20.1 cm in length which is mildly enlarged. There is mild gallbladder wall thickening measuring 4 mm. Gallbladder is not abnormally distended. No gallstones are seen. The extra hepatic bile that measures 3.1 mm in caliber which is normal. The spleen measures 8.3 cm in length which is normal and is homogeneous. The length of the right kidney is 8.9 cm and the length of the left kidney is 7.5 cm. Both kidneys are echogenic. These findings may be seen with chronic medical renal disease. No hydronephrosis or perinephric fluid collection is seen on either side. No renal mass is seen on either side. No ascites is seen. IMPRESSION: Mild hepatomegaly. No focal hepatic mass is seen sonographically. Normal size spleen. Gallbladder wall is thickened. This may be seen with passive venous congestion from chronic liver disease but cholecystitis cannot be excluded. The gallbladder is not distended and no gallstones are seen. No dilatation of the extrahepatic bile duct is seen. Atrophic echogenic kidneys consistent chronic medical renal disease. No hydronephrosis.
--- NOTE | 2017-01-31 09:37 | RAD ---
Chest CT without contrast Clinical indications: Nodules seen on chest x-ray. Technique: Noncontrast helical CT scanning of the chest was performed. Without contrast, the sensitivity to detect organ pathology is decreased. PQRS Compliance Statement: One or more of the following individualized dose reduction techniques were utilized for this examination: 1. Automated exposure control 2. Adjustment of the mA and/or kV according to patient size 3. Use of iterative reconstruction technique Comparison: March 11, 2014. Findings: No enlarging thoracic lymphadenopathy is seen. No focal aneurysmal dilatation of the thoracic aorta is seen. The heart size is within normal limits. Calcified atheromatous disease of the coronary arteries is seen. No pericardial effusion is seen. The adrenal glands are not seen on this study. Multiple bilateral noncalcified lung nodules are seen too numerous to count. Some of these lung nodules have a central bronchovascular distribution with some adjacent ill-defined groundglass lung infiltrates. Therefore, they may represent inflammatory or infectious nodules. Metastatic disease is in the differential diagnosis as well. No pleural effusion or pneumothorax is seen. The proximal bronchial tree is patent. There are compression fractures of T7 and T9 which are new. The T7 vertebral body compression fracture is mottled and therefore metastatic disease is possible. IMPRESSION: Multiple bilateral lung nodules which could be inflammatory or infectious or metastatic in nature. New compression fractures of T7 and T9. The T7 compression fracture is mottled and therefore osseous metastatic disease is a possibility. Normal heart size. Calcified atheromatous disease of the coronary arteries.
[2017-01-31 11:20] VITALS: BP 120/66
[2017-01-31] MEDS ORDERED: IV NORMAL SALINE 1000ML BAG 1,000 ML IV PRN ×2 (12:30)
[2017-01-31] MEDS ORDERED: LIDOCAINE 1% PF 2 ML VIAL. ID STA (12:36)
[2017-01-31] MEDS ORDERED: DIALYSIS PATIENT. MC PRN (12:45)
[2017-01-31] MEDS ORDERED: diphenhydrAMINE 50 MG/ML VIAL IV PRN ×2 (12:45)
--- NOTE | 2017-01-31 13:13 | PDOC2 ---
CONSULT Date of Consult Date of Consult DATE: 01/31/17 TIME: 13:09 Reason for Consult Reason for Consult: ESRD Referring Physician Referring Physician: YFN Identification/Chief Complaint Chief Complaint WEAKNESS AND SOB Problems: Source Source: Chart review, Patient History of Present Illness Reason for Visit: THIS IS A 51 YR OLD ADMITTED WITH SOB AND WEAKNESS AND NOTED TO BE VERY ANEMIA. SHE IS FEELING BETTER AFTER RECEIVING PRBC. DENIED ANY BLOOD LOSS. SHE COMPLAINS OF ABD PAIN. 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 SHE HAS ESRD AND IS ON OP HD ON TTS Past Medical History Cardiovascular: CAD, CHF, HTN, Hyperlipidemia, Other Pulmonary: Asthma, Bronchitis, COPD, Pneumonia, Other GI: GERD Heme/Onc: Anemia NOS Hepatobiliary: Cirrhosis, Hep A/B/C Psych: Anxiety, Addictions, Depression Musculoskeletal: low back pain, Bursitis, Other Rheumatologic: No pertinent hx Infectious disease: Other Renal/: Chronic renal failure, UTI Endocrine: Diabetes, Hyperparathyroidism Past Surgical History Past Surgical History: Other Family History Family History: Diabetes, Heart Disease, Hypertension Social History 1 pack per day ALCOHOL: occassional Drugs: None Lives: Alone Current Problem List Problem List Problems Medical Problems: (1) ESRD (end stage renal disease) Status: Acute (2) Shortness of breath Status: Acute Current Medications Current Medications Current Medications Albuterol/ Ipratropium (Duoneb) 3 ml 1X ONCE NEB Last administered on 11:06; Start 01/30/17 at 11:00; Stop 01/30/17 at 11:01; Status DC Morphine Sulfate 2 mg PRN Q15MIN PRN IV/SQ PAIN GREATER THAN 3/10 Last administered on 01/30/17 11:22; Start 01/30/17 at 11:00; Stop 01/30/17 at 17:05 ; Status DC Ondansetron HCl (Zofran) 4 mg PRN Q8HRS PRN IV NAUSEA/VOMITING Last administered on 01/30/17 16:16; Start 01/30/17 at 12:45; Stop 01/31/17 at 12:44 ; Status DC Fentanyl Citrate (Fentanyl 2ml Vial) 25 mcg PRN Q1HR PRN IV PAIN Last administered on 01/30/17 14:46; Start 01/30/17 at 12:45; Stop 01/30/17 at 15:43 ; Status DC Methylprednisolone Sodium Succinate (SOLU-Medrol 125MG VIAL) 125 mg 1X ONCE IV Last administered on 01/30/17 12:58; Start 01/30/17 at 13:00; Stop 01/30/17 at 13:01; Status DC Albuterol/ Ipratropium (Duoneb) 3 ml Q6HRS PRN NEB soa; Start 01/30/17 at 13:00 ; Stop 01/30/17 at 15:46; Status DC Albuterol/ Ipratropium (Duoneb) 3 ml RTQID NEB Last administered on 01/31/17 11:50; Start 01/30/17 at 16:00 Oxycodone HCl (Roxicodone) 15 mg PRN Q6HRS PRN PO PAIN Last administered on 16:11; Start 01/30/17 at 15:45; Stop 01/30/17 at 17:03; Status DC Budesonide (Pulmicort) 0.5 mg RTBID NEB Last administered on 01/31/17 09:06; Start 01/30/17 at 20:00 Albuterol Sulfate (Ventolin Neb Soln) 2.5 mg PRN Q4HRS PRN NEB SHORTNESS OF BREATH; Start 01/30/17 at 15:45 Pantoprazole Sodium (Protonix) 40 mg DAILYAC PO ; Start 01/31/17 at 07:30; Stop 01/31/17 at 07:30; Status DC Zolpidem Tartrate (Ambien) 5 mg PRN QHS PRN PO INSOMNIA, MAY REPEAT X1 Last administered on 01/30/17 21:40; Start 01/30/17 at 15:45 Morphine Sulfate 2 mg PRN Q2HR PRN IV PAIN not controlled with Oxy Last administered on 01/31/17 12:00; Start 01/30/17 at 15:45 Oxycodone HCl (Roxicodone) 15 mg PRN Q4HRS PRN PO PAIN Last administered on 10:02; Start 01/30/17 at 20:00 Pantoprazole Sodium (Protonix) 40 mg DAILYAC PO Last administered on 01/31/17 08:06; Start 01/30/17 at 17:30 Guaifenesin (Robitussin) 200 mg PRN Q4HRS PRN PO COUGH; Start 01/30/17 at 17:15 Nicotine (Nicoderm Cq 21mg) 1 patch DAILY TD Last administered on 01/31/17 08: 07; Start 01/30/17 at 17:30 Al Hydroxide/Mg Hydroxide (Mylanta Plus Xs) 30 ml PRN Q2HR PRN PO HEARTBURN / GAS Last administered on 01/31/17 00:40; Start 01/30/17 at 19:00 Multi-Ingredient Mouthwash/Gargle (Gi Cocktail Single Dose) 15 ml 1X ONCE SWSW Last administered on 01/31/17 10:01; Start 01/31/17 at 09:00; Stop 01/31/17 at 09:01; Status DC Sodium Chloride 1,000 ml @ 1,000 mls/hr Q1H PRN IV hypotension; Start 01/31/17 at 12:30; Stop 01/31/17 at 23:00 Diphenhydramine HCl (Benadryl) 25 mg 1X PRN PRN IV ITCHING; Start 01/31/17 at 12:45; Stop 01/31/17 at 23:00 Diphenhydramine HCl (Benadryl) 25 mg 1X PRN PRN IV ITCHING; Start 01/31/17 at 12:45; Stop 01/31/17 at 23:00 Sodium Chloride 1,000 ml @ 400 mls/hr Q2H30M PRN IV PATENCY; Start 01/31/17 at 12:30; Stop 02/01/17 at 23:00 Info (PHARMACY MONITORING -- do not chart) 1 each PRN DAILY PRN MC SEE COMMENTS ; Start 01/31/17 at 12:45 Lidocaine HCl (Xylocaine-Mpf 1% Vial) 0.5 ml 1X STAT ID Last administered on 13:01; Start 01/31/17 at 12:36; Stop 01/31/17 at 12:50; Status DC Active Scripts Active Oxycodone Hcl 5 Mg Tablet 5 Mg PO Q4-6HRS PRN Oxycodone Hcl 10 Mg Tablet 1 Tab PO TID Oxycodone Hcl 5 Mg Tablet 15 Mg PO PRN Q6HRS PRN AD Days Duoneb 0.5-3(2.5) Mg/3 Ml (Albuterol/Ipratropium) 3 Ml Ampul.neb 3 Ml NEB RTQID 30 Days Advair 250-50 Diskus (Fluticasone/Salmeterol) 1 Puff Puff 1 Puff INH BID 30 Days Aranesp Syringe (Darbepoetin Norris In Polysorbat) 60 Mcg/0.3 Ml Disp.syrin 60 Mcg SQ WEEKLYHS 30 Days Albuterol Sulfate Conc Neb Soln (Albuterol Sulfate) 2.5 Mg/0.5 Ml Vial.neb 1 Vial NEB Q4HRS PRN Reported Ambien (Zolpidem Tartrate) 10 Mg Tablet 1 Tab PO QHS Omeprazole 20 Mg Capsule.dr 20 Mg PO DAILY Carvedilol 25 Mg Tablet 25 Mg PO BID Amlodipine Besylate 10 Mg Tablet 10 Mg PO DAILY Allergies Allergies: Coded Allergies: Penicillins (Verified Allergy, Unknown, UNKNOWN, 08/27/16) acetaminophen (Verified Adverse Reaction, Severe, increased liver enzymes , 07/31/15) ROS General: YES: Fatigue, Malaise, Appetite PSYCHOLOGICAL ROS: YES: Anxiety Eyes: Yes Decreased vision HEENT: YES: Heacaches Respiratory: YES: Cough, Shortness of breath Cardiovascular: yes Lt Headedness Gastrointestinal: Yes Constipation Genitourinary: YES Other (ANURIA) Musculoskeletal: Yes Muscular Weakness Skin: Yes Dry Skin Physical Exam General: Alert, Oriented X3, Cooperative, No acute distress HEENT: Atraumatic, EOMI Lungs: Normal air movement Heart: Regular rate, Normal S1, Normal S2 Abdomen: Normal bowel sounds, Soft, No tenderness Extremities: No clubbing, No edema Skin: No breakdown Neuro: Normal speech, Cranial nerves 3-12 NL Psych/Mental Status: Mental status NL, Mood NL MUSCULOSKELETAL: No joint tenderness, No deformity Vitals VITALS Vital Signs Date Time Temp Pulse Resp B/P (MAP) Pulse Ox O2 Delivery O2 Flow Rate FiO2 01/31/17 12:00 97 Room Air 01/31/17 11:20 97.6 81 20 120/66 (84) 97.6 Labs Labs Laboratory Tests Test 01/30/17 11:15 01/30/17 16:05 01/31/17 06:05 White Blood Count 23.8 x10^3/uL (4.0-11.0) 21.9 x10^3/uL (4.0-11.0) Red Blood Count 2.06 x10^6/uL (3.50-5.40) 3.08 x10^6/uL (3.50-5.40) Hemoglobin 6.7 g/dL (12.0-15.5) 9.6 g/dL (12.0-15.5) Hematocrit 20.0 % (36.0-47.0) 28.8 % (36.0-47.0) Mean Corpuscular Volume 97 fL (79-100) 94 fL (79-100) Mean Corpuscular Hemoglobin 33 pg (25-35) 31 pg (25-35) Mean Corpuscular Hemoglobin Concent 34 g/dL (31-37) 33 g/dL (31-37) Red Cell Distribution Width 17.3 % (11.5-14.5) 17.7 % (11.5-14.5) Platelet Count 243 x10^3/uL (140-400) 236 x10^3/uL (140-400) Neutrophils (%) (Auto) 87 % (31-73) 92 % (31-73) Lymphocytes (%) (Auto) 7 % (24-48) 7 % (24-48) Monocytes (%) (Auto) 5 % (0-9) 2 % (0-9) Eosinophils (%) (Auto) 1 % (0-3) 0 % (0-3) Basophils (%) (Auto) 0 % (0-3) 0 % (0-3) Neutrophils # (Auto) 20.8 x10^3uL (1.8-7.7) 20.1 x10^3uL (1.8-7.7) Lymphocytes # (Auto) 1.7 x10^3/uL (1.0-4.8) 1.4 x10^3/uL (1.0-4.8) Monocytes # (Auto) 1.2 x10^3/uL (0.0-1.1) 0.4 x10^3/uL (0.0-1.1) Eosinophils # (Auto) 0.1 x10^3/uL (0.0-0.7) 0.0 x10^3/uL (0.0-0.7) Basophils # (Auto) 0.1 x10^3/uL (0.0-0.2) 0.0 x10^3/uL (0.0-0.2) Segmented Neutrophils % 90 % (35-66) Band Neutrophils % 1 % (0-9) Lymphocytes % 3 % (24-48) Monocytes % 6 % (0-10) Platelet Estimate Adequate (ADEQUATE) Anisocytosis Slight Prothrombin Time 16.5 SEC (11.7-14.0) Prothromb Time International Ratio 1.4 (0.8-1.1) Sodium Level 140 mmol/L (136-145) 135 mmol/L (136-145) Potassium Level 4.1 mmol/L (3.5-5.1) 5.6 mmol/L (3.5-5.1) Chloride Level 99 mmol/L (98-107) 95 mmol/L (98-107) Carbon Dioxide Level 23 mmol/L (21-32) 21 mmol/L (21-32) Anion Gap 18 (6-14) 19 (6-14) Blood Urea Nitrogen 93 mg/dL (7-20) 122 mg/dL (7-20) Creatinine 7.4 mg/dL (0.6-1.0) 8.0 mg/dL (0.6-1.0) Estimated GFR (Cockcroft-Gault) 7.0 6.4 Glucose Level 113 mg/dL (70-99) 164 mg/dL (70-99) Calcium Level 8.1 mg/dL (8.5-10.1) 7.5 mg/dL (8.5-10.1) Magnesium Level 1.7 mg/dL (1.8-2.4) Total Bilirubin 4.4 mg/dL (0.2-1.0) Direct Bilirubin 0.6 mg/dL (0.0-0.2) Aspartate Amino Transf (AST/SGOT) 45 U/L (15-37) Alanine Aminotransferase (ALT/SGPT) 22 U/L (14-59) Alkaline Phosphatase 185 U/L (46-116) Creatine Kinase 91 U/L (26-192) Creatine Kinase MB (Mass) 2.5 ng/mL (0.0-3.6) Creatine Kinase MB Relative Index 2.7 % (0-4) Troponin I Quantitative < 0.017 ng/mL (0.000-0.055) < 0.017 ng/mL (0.000-0.055) [id number]-Nlr-G-Type Natriuretic Peptide 24839 pg/mL (0-124) Total Protein 7.0 g/dL (6.4-8.2) Albumin 1.9 g/dL (3.4-5.0) Lipase 51 U/L (73-393) Thyroid Stimulating Hormone (TSH) 0.848 uIU/mL (0.358-3.74) Lactic Acid Level 1.2 mmol/L (0.4-2.0) Laboratory Tests Test 01/30/17 16:05 01/31/17 06:05 Lactic Acid Level 1.2 mmol/L (0.4-2.0) White Blood Count 21.9 x10^3/uL (4.0-11.0) Red Blood Count 3.08 x10^6/uL (3.50-5.40) Hemoglobin 9.6 g/dL (12.0-15.5) Hematocrit 28.8 % (36.0-47.0) Mean Corpuscular Volume 94 fL (79-100) Mean Corpuscular Hemoglobin 31 pg (25-35) Mean Corpuscular Hemoglobin Concent 33 g/dL (31-37) Red Cell Distribution Width 17.7 % (11.5-14.5) Platelet Count 236 x10^3/uL (140-400) Neutrophils (%) (Auto) 92 % (31-73) Lymphocytes (%) (Auto) 7 % (24-48) Monocytes (%) (Auto) 2 % (0-9) Eosinophils (%) (Auto) 0 % (0-3) Basophils (%) (Auto) 0 % (0-3) Neutrophils # (Auto) 20.1 x10^3uL (1.8-7.7) Lymphocytes # (Auto) 1.4 x10^3/uL (1.0-4.8) Monocytes # (Auto) 0.4 x10^3/uL (0.0-1.1) Eosinophils # (Auto) 0.0 x10^3/uL (0.0-0.7) Basophils # (Auto) 0.0 x10^3/uL (0.0-0.2) Sodium Level 135 mmol/L (136-145) Potassium Level 5.6 mmol/L (3.5-5.1) Chloride Level 95 mmol/L (98-107) Carbon Dioxide Level 21 mmol/L (21-32) Anion Gap 19 (6-14) Blood Urea Nitrogen 122 mg/dL (7-20) Creatinine 8.0 mg/dL (0.6-1.0) Estimated GFR (Cockcroft-Gault) 6.4 Glucose Level 164 mg/dL (70-99) Calcium Level 7.5 mg/dL (8.5-10.1) Troponin I Quantitative < 0.017 ng/mL (0.000-0.055) Assessment/Plan Assessment/Plan IMP ESRD ANEMIA LUNG NODULES ? METASTATIC DZ LIVER CIRRHOSIS PLAN HD TODAY UF TO ADDY BAUGH LUNG NODULE WORK UP GI WORK UP VÍCTOR PERRY MD Jan 31, 2017 13:13
[2017-01-31 19:40] VITALS: BP 133/66
[2017-01-31] MEDS ORDERED: DARBEPOETIN ALFA 60 MCG/0.3 ML DISP.SYRIN. SQ SCH (21:00)
[2017-01-31 23:35] VITALS: BP 135/81
[2017-01-31] MEDS: ZOLPIDEM 5 MG TABLET. PO PRN (23:40)
[2017-02-01 07:00] VITALS: BP 125/63
[2017-02-01] MEDS: IPRATRPIUM/ALBUTEROL 0.5/2.5MG 3 ML NEBU. NEB SCH (07:55)
[2017-02-01] MEDS: BUDESONIDE 0.5 MG/2 ML NEBU. NEB SCH (07:55)
[2017-02-01] MEDS ORDERED: LEVO250T25 PO (08:24)
[2017-02-01] MEDS ORDERED: OXYC5TAB PO (08:24)
--- NOTE | 2017-02-01 08:37 | PDOC3 ---
Discharge Summary* Date of Admission: Jan 30, 2017 Date of Discharge: Feb 01, 2017 Admitting Diagnosis Anemia, Shortness of breath Problems: Final Diagnosis Acute on chronic anemia s/p 2 units PRBCs, ESRD, Cirrhosis 2/2 Hepatitis C and alcoholism, GERD, OA, Tobaccoism, PEM-severe, CHF- diastolic initially decompensated, COPD, Lung Nodules, Hx HTN, Leukocytosis, Thoracic vertebra compression fractures, thickened gallbladder wall CONSULTS Renal Consults put in for GI, Pulmonary, Neurosurgery but pt did not want to stay for their evaluation Procedures CXR- new development of nodular densities in both lungs Abdominal U/S- no ascites. Hepatomegaly. Thickened gallbladder wall but no stones seen CT Chest- multiple bilateral lung nodules which could be inflammatory, infectious or metastatic in nature. Compression fracture T7 and T9. T7 is mottled, could be osseous metastatic disease. Brief Hospital Course *Patient is refusing to stay for further workup or treatment. Long discussion was had with patient of the importance of her staying; concerns with lung nodules which could be infectious, inflammatory or metastatic. Pt has new compression fractures, one of which could be an osseous metastasis. Pt has abdominal pain and has thickened gallbladder wall. Elevated white count. Pt refuses to stay and says that she will follow up with me in clinic next week to get referrals DISCHARGE PHYSICAL EXAM General: Alert, Oriented X3, Cooperative, No acute distress HEENT: Atraumatic, PERRLA, EOMI, Mucous membr. moist/pink Lungs: Other (rhonchi throughout), some squeaks heard throughout as well Heart: RRR, no rubs, no gallops, no murmurs Abdomen: Normal bowel sounds, Other (epigastric tenderness) Extremities: No clubbing, No cyanosis, No edema Skin: No rashes, No breakdown, No significant lesion Neuro: Normal speech, Normal tone, Cranial nerves 3-12 NL Psych/Mental Status: Mental status NL, Mood NL Pt is a 51yo AAF admitted for acute anemia 1)Acute on chronic anemia- 2/2 CKD, no active bleeding per pt. S/p 2 units PRBCs, Hb improved 2)ESRD- Renal following, pt received HD yesterday 3)Cirrhosis 2/2 Hepatitis C and alcoholism- Pt wondering if she can get a therapeutic paracentesis, U/S ordered and showed no acute ascites to be drained. 4)GERD 5)OA- pt's home pain medication increased in frequency to Oxycodone 15mg Q4H instead of q6H 6)Tobaccoism- patch started 7)PEM-severe 8)CHF- diastolic, decompensated initially. Improved with HD 9)COPD- resumed pt's nebulizers 10)Lung nodules- CT Chest ordered. Many nodules which could be infectious vs inflammatory vs neoplastic. Pt refuses to stay for further workup. Will start treatment with Levaquin and put in referral to Pulmonary outpatient 11)Hx of HTN- pt currently hypotensive; will continue to hold pt's blood pressure medication 12)Leukocytosis- with unknown source of infection. Possible PNA, possible cholecystitis. Pt has been afebrile. Blood cultures neg x1 day. Starting Levaquin today. Will get GI followup outpatient as pt refuses to stay 13)Thoracic compression fractures- will refer pt to neurosurgery outpatient Disposition/Orders: D/C to Home CONDITION AT DISCHARGE: Stable Diet: Regular Scheduled Amlodipine Besylate (Amlodipine Besylate), 10 MG PO DAILY, (Reported) Carvedilol (Carvedilol), 25 MG PO BID, (Reported) Darbepoetin Norris In Polysorbat (Aranesp Syringe), 60 MCG SQ WEEKLYHS Fluticasone/Salmeterol (Advair 250-50 Diskus), 1 PUFF INH BID Ipratropium/Albuterol Sulfate (Duoneb 0.5-3(2.5) Mg/3 Ml), 3 ML NEB RTQID Omeprazole (Omeprazole), 20 MG PO DAILY, (Reported) Oxycodone Hcl (Oxycodone Hcl), 1 TAB PO TID Zolpidem Tartrate (Ambien), 1 TAB PO QHS, (Reported) Scheduled PRN Albuterol Sulfate (Albuterol Sulfate Conc Neb Soln), 1 VIAL NEB Q4HRS PRN for wheezing/SOA/cough Oxycodone Hcl (Oxycodone Hcl), 15 MG PO PRN Q6HRS PRN for PAIN Oxycodone Hcl (Oxycodone Hcl), 5 MG PO Q4-6HRS PRN for PAIN PCP Follow up with Dr. Coulter early next week Time Spent Total time spent with patient [] minutes for coordination of care, counseling, and education. SHARAD COULTER MD Feb 01, 2017 08:37
[2017-02-01] MEDS: oxyCODONE IR 5 MG TABLET PO PRN (09:21)
[2017-02-01] MEDS: PANTOPRAZOLE 40 MG TABLET.DR. PO SCH (09:22)
[2017-02-01] MEDS: NICOTINE 21MG PATCH. TD SCH (09:22)
--- NOTE | 2017-02-01 09:56 | PDOC2 ---
CONSULT Date of Consult Date of Consult DATE: 02/01/17 TIME: 09:47 Reason for Consult Reason for Consult: abnormal ct chest Referring Physician Referring Physician: Dr Murray History of Present Illness Reason for Visit: Pt states that she noticed acute shortness of air over the past 2-3 days. She has also noticed increased fatigue. Pt has also had all over body pain, was out of her pain medication and knew that she would not be given early refills at the clinic so came to the hospital. She was found to be acutely anemic. Pt has elevated white count but does not have any infectious complaints. She has had some moderate abdominal pain., abdominal distension. Cough ,non productive. She also has unexplained wt loss. no fever, chills. Past Medical History Cardiovascular: CAD, CHF, HTN, Hyperlipidemia, Other Pulmonary: Asthma, Bronchitis, COPD, Pneumonia, Other GI: GERD Heme/Onc: Anemia NOS Hepatobiliary: Cirrhosis, Hep A/B/C Psych: Anxiety, Addictions, Depression Musculoskeletal: low back pain, Bursitis, Other Rheumatologic: No pertinent hx Infectious disease: Other Renal/: Chronic renal failure, UTI Endocrine: Diabetes, Hyperparathyroidism Past Surgical History Past Surgical History: Other Family History Family History: Diabetes, Heart Disease, Hypertension Social History 1 pack per day ALCOHOL: occassional Drugs: None Lives: Alone Current Problem List Problem List Problems Medical Problems: (1) ESRD (end stage renal disease) Status: Acute (2) Shortness of breath Status: Acute Current Medications Current Medications Current Medications Albuterol/ Ipratropium (Duoneb) 3 ml 1X ONCE NEB Last administered on 11:06; Start 01/30/17 at 11:00; Stop 01/30/17 at 11:01; Status DC Morphine Sulfate 2 mg PRN Q15MIN PRN IV/SQ PAIN GREATER THAN 3/10 Last administered on 01/30/17 11:22; Start 01/30/17 at 11:00; Stop 01/30/17 at 17:05 ; Status DC Ondansetron HCl (Zofran) 4 mg PRN Q8HRS PRN IV NAUSEA/VOMITING Last administered on 01/30/17 16:16; Start 01/30/17 at 12:45; Stop 01/31/17 at 12:44 ; Status DC Fentanyl Citrate (Fentanyl 2ml Vial) 25 mcg PRN Q1HR PRN IV PAIN Last administered on 01/30/17 14:46; Start 01/30/17 at 12:45; Stop 01/30/17 at 15:43 ; Status DC Methylprednisolone Sodium Succinate (SOLU-Medrol 125MG VIAL) 125 mg 1X ONCE IV Last administered on 01/30/17 12:58; Start 01/30/17 at 13:00; Stop 01/30/17 at 13:01; Status DC Albuterol/ Ipratropium (Duoneb) 3 ml Q6HRS PRN NEB soa; Start 01/30/17 at 13:00 ; Stop 01/30/17 at 15:46; Status DC Albuterol/ Ipratropium (Duoneb) 3 ml RTQID NEB Last administered on 02/01/17 07:55; Start 01/30/17 at 16:00 Oxycodone HCl (Roxicodone) 15 mg PRN Q6HRS PRN PO PAIN Last administered on 16:11; Start 01/30/17 at 15:45; Stop 01/30/17 at 17:03; Status DC Budesonide (Pulmicort) 0.5 mg RTBID NEB Last administered on 02/01/17 07:55; Start 01/30/17 at 20:00 Albuterol Sulfate (Ventolin Neb Soln) 2.5 mg PRN Q4HRS PRN NEB SHORTNESS OF BREATH; Start 01/30/17 at 15:45 Pantoprazole Sodium (Protonix) 40 mg DAILYAC PO ; Start 01/31/17 at 07:30; Stop 01/31/17 at 07:30; Status DC Zolpidem Tartrate (Ambien) 5 mg PRN QHS PRN PO INSOMNIA, MAY REPEAT X1 Last administered on 01/31/17 23:40; Start 01/30/17 at 15:45 Morphine Sulfate 2 mg PRN Q2HR PRN IV PAIN not controlled with Oxy Last administered on 01/31/17 23:41; Start 01/30/17 at 15:45 Oxycodone HCl (Roxicodone) 15 mg PRN Q4HRS PRN PO PAIN Last administered on 09:21; Start 01/30/17 at 20:00 Pantoprazole Sodium (Protonix) 40 mg DAILYAC PO Last administered on 02/01/17 09:22; Start 01/30/17 at 17:30 Guaifenesin (Robitussin) 200 mg PRN Q4HRS PRN PO COUGH; Start 01/30/17 at 17:15 Nicotine (Nicoderm Cq 21mg) 1 patch DAILY TD Last administered on 02/01/17 09: 22; Start 01/30/17 at 17:30 Al Hydroxide/Mg Hydroxide (Mylanta Plus Xs) 30 ml PRN Q2HR PRN PO HEARTBURN / GAS Last administered on 01/31/17 21:18; Start 01/30/17 at 19:00 Multi-Ingredient Mouthwash/Gargle (Gi Cocktail Single Dose) 15 ml 1X ONCE SWSW Last administered on 01/31/17 10:01; Start 01/31/17 at 09:00; Stop 01/31/17 at 09:01; Status DC Sodium Chloride 1,000 ml @ 1,000 mls/hr Q1H PRN IV hypotension; Start 01/31/17 at 12:30; Stop 01/31/17 at 23:01; Status DC Diphenhydramine HCl (Benadryl) 25 mg 1X PRN PRN IV ITCHING; Start 01/31/17 at 12:45; Stop 01/31/17 at 23:01; Status DC Diphenhydramine HCl (Benadryl) 25 mg 1X PRN PRN IV ITCHING; Start 01/31/17 at 12:45; Stop 01/31/17 at 23:01; Status DC Sodium Chloride 1,000 ml @ 400 mls/hr Q2H30M PRN IV PATENCY; Start 01/31/17 at 12:30; Stop 02/01/17 at 23:00 Info (PHARMACY MONITORING -- do not chart) 1 each PRN DAILY PRN MC SEE COMMENTS ; Start 01/31/17 at 12:45 Lidocaine HCl (Xylocaine-Mpf 1% Vial) 0.5 ml 1X STAT ID Last administered on 13:01; Start 01/31/17 at 12:36; Stop 01/31/17 at 12:50; Status DC Darbepoetin Norris (Aranesp) 60 mcg WEEKLYHS SQ Last administered on 01/31/17 21 :20; Start 01/31/17 at 21:00 Levofloxacin (Levaquin) 500 mg 1X ONCE PO Last administered on 02/01/17 09:22 ; Start 02/01/17 at 08:15; Stop 02/01/17 at 08:16; Status DC Levofloxacin (Levaquin) 250 mg QODAY PO ; Start 02/03/17 at 09:00 Active Scripts Active Oxycodone Hcl 5 Mg Tablet 5 Mg PO Q4-6HRS PRN Oxycodone Hcl 10 Mg Tablet 1 Tab PO TID Oxycodone Hcl 5 Mg Tablet 15 Mg PO PRN Q6HRS PRN AD Days Duoneb 0.5-3(2.5) Mg/3 Ml (Albuterol/Ipratropium) 3 Ml Ampul.neb 3 Ml NEB RTQID 30 Days Advair 250-50 Diskus (Fluticasone/Salmeterol) 1 Puff Puff 1 Puff INH BID 30 Days Aranesp Syringe (Darbepoetin Norris In Polysorbat) 60 Mcg/0.3 Ml Disp.syrin 60 Mcg SQ WEEKLYHS 30 Days Albuterol Sulfate Conc Neb Soln (Albuterol Sulfate) 2.5 Mg/0.5 Ml Vial.neb 1 Vial NEB Q4HRS PRN Reported Ambien (Zolpidem Tartrate) 10 Mg Tablet 1 Tab PO QHS Omeprazole 20 Mg Capsule.dr 20 Mg PO DAILY Carvedilol 25 Mg Tablet 25 Mg PO BID Amlodipine Besylate 10 Mg Tablet 10 Mg PO DAILY Allergies Allergies: Coded Allergies: Penicillins (Verified Allergy, Unknown, UNKNOWN, 08/27/16) acetaminophen (Verified Adverse Reaction, Severe, increased liver enzymes , 07/31/15) ROS General: YES: Fatigue Respiratory: YES: Cough, Shortness of breath Skin: Yes Dry Skin Physical Exam General: Alert, Oriented X3 Heart: Regular rate, Normal S1, Normal S2 Abdomen: Normal bowel sounds, Soft Extremities: No clubbing, No cyanosis, No edema Neuro: Normal gait MUSCULOSKELETAL: No joint tenderness Vitals VITALS Vital Signs Date Time Temp Pulse Resp B/P (MAP) Pulse Ox O2 Delivery O2 Flow Rate FiO2 02/01/17 09:21 94 Room Air 02/01/17 07:00 98.1 97 18 125/63 (83) 98.1 Labs Labs Laboratory Tests Test 01/30/17 11:15 01/30/17 16:05 01/31/17 06:05 White Blood Count 23.8 x10^3/uL (4.0-11.0) 21.9 x10^3/uL (4.0-11.0) Red Blood Count 2.06 x10^6/uL (3.50-5.40) 3.08 x10^6/uL (3.50-5.40) Hemoglobin 6.7 g/dL (12.0-15.5) 9.6 g/dL (12.0-15.5) Hematocrit 20.0 % (36.0-47.0) 28.8 % (36.0-47.0) Mean Corpuscular Volume 97 fL (79-100) 94 fL (79-100) Mean Corpuscular Hemoglobin 33 pg (25-35) 31 pg (25-35) Mean Corpuscular Hemoglobin Concent 34 g/dL (31-37) 33 g/dL (31-37) Red Cell Distribution Width 17.3 % (11.5-14.5) 17.7 % (11.5-14.5) Platelet Count 243 x10^3/uL (140-400) 236 x10^3/uL (140-400) Neutrophils (%) (Auto) 87 % (31-73) 92 % (31-73) Lymphocytes (%) (Auto) 7 % (24-48) 7 % (24-48) Monocytes (%) (Auto) 5 % (0-9) 2 % (0-9) Eosinophils (%) (Auto) 1 % (0-3) 0 % (0-3) Basophils (%) (Auto) 0 % (0-3) 0 % (0-3) Neutrophils # (Auto) 20.8 x10^3uL (1.8-7.7) 20.1 x10^3uL (1.8-7.7) Lymphocytes # (Auto) 1.7 x10^3/uL (1.0-4.8) 1.4 x10^3/uL (1.0-4.8) Monocytes # (Auto) 1.2 x10^3/uL (0.0-1.1) 0.4 x10^3/uL (0.0-1.1) Eosinophils # (Auto) 0.1 x10^3/uL (0.0-0.7) 0.0 x10^3/uL (0.0-0.7) Basophils # (Auto) 0.1 x10^3/uL (0.0-0.2) 0.0 x10^3/uL (0.0-0.2) Segmented Neutrophils % 90 % (35-66) Band Neutrophils % 1 % (0-9) Lymphocytes % 3 % (24-48) Monocytes % 6 % (0-10) Platelet Estimate Adequate (ADEQUATE) Anisocytosis Slight Prothrombin Time 16.5 SEC (11.7-14.0) Prothromb Time International Ratio 1.4 (0.8-1.1) Sodium Level 140 mmol/L (136-145) 135 mmol/L (136-145) Potassium Level 4.1 mmol/L (3.5-5.1) 5.6 mmol/L (3.5-5.1) Chloride Level 99 mmol/L (98-107) 95 mmol/L (98-107) Carbon Dioxide Level 23 mmol/L (21-32) 21 mmol/L (21-32) Anion Gap 18 (6-14) 19 (6-14) Blood Urea Nitrogen 93 mg/dL (7-20) 122 mg/dL (7-20) Creatinine 7.4 mg/dL (0.6-1.0) 8.0 mg/dL (0.6-1.0) Estimated GFR (Cockcroft-Gault) 7.0 6.4 Glucose Level 113 mg/dL (70-99) 164 mg/dL (70-99) Calcium Level 8.1 mg/dL (8.5-10.1) 7.5 mg/dL (8.5-10.1) Magnesium Level 1.7 mg/dL (1.8-2.4) Total Bilirubin 4.4 mg/dL (0.2-1.0) Direct Bilirubin 0.6 mg/dL (0.0-0.2) Aspartate Amino Transf (AST/SGOT) 45 U/L (15-37) Alanine Aminotransferase (ALT/SGPT) 22 U/L (14-59) Alkaline Phosphatase 185 U/L (46-116) Creatine Kinase 91 U/L (26-192) Creatine Kinase MB (Mass) 2.5 ng/mL (0.0-3.6) Creatine Kinase MB Relative Index 2.7 % (0-4) Troponin I Quantitative < 0.017 ng/mL (0.000-0.055) < 0.017 ng/mL (0.000-0.055) AW-Bwy-B-Type Natriuretic Peptide 92942 pg/mL (0-124) Total Protein 7.0 g/dL (6.4-8.2) Albumin 1.9 g/dL (3.4-5.0) Lipase 51 U/L (73-393) Thyroid Stimulating Hormone (TSH) 0.848 uIU/mL (0.358-3.74) Lactic Acid Level 1.2 mmol/L (0.4-2.0) Assessment/Plan Assessment/Plan 1) Abnormal ct chest with bilateral nodules, interstitial and alveolar infiltrates. Inflammatory vs metastatic 2). Compression FX, particularly T-7. suspect mets 3)Acute on chronic anemia- 2/2 CKD, no active bleeding per pt. S/p 2 units PRBCs. 4)ESRD- 5)Cirrhosis 2/2 Hepatitis C and alcoholism- with ascites. Pt wondering if she can get a therapeutic paracentesis, will get U/S to see if there is enough fluid. Most of abdominal area feels more solid with not a large fluid shift 6)GERD 7)Tobaccoism- suspect COPD 8)CHF- diastolic, compensated 9)COPD- PLAN 1. antibiotic 2. If she decides to stay, would recommend biopsy of T-7 Fx 3. f/U CT Chest in 4-6 weeks 4. Tobacco cessation 5. Renal, oncology recommendations RAI RAY MD Feb 01, 2017 09:56
[2017-02-01 11:00] VITALS: BP 146/69
== END 2017-02-01 10:55 | disposition home or self-care (01) | DRG 291 ==
LOC: ER 09:57 → 6 SOUTH 12:43
PROVIDERS: ADMIT Family Medicine; ATTEND Family Medicine
PROC: 30233N1 Transfusion of Nonautologous Red Blood Cells into Peripheral Vein, Percutaneous Approach (ICD-10-PCS; principal; 2017-01-30)
DX: I50.33 Acute on chronic diastolic (congestive) heart failure (principal); N18.6 End stage renal disease; E43 Unspecified severe protein-calorie malnutrition; M48.54XA Collapsed vertebra, not elsewhere classified, thoracic region, initial encounter for fracture; I13.2 Hypertensive heart and chronic kidney disease with heart failure and with stage 5 chronic kidney disease, or end stage renal disease; Z68.1 Body mass index [BMI] 19.9 or less, adult; B19.10 Unspecified viral hepatitis B without hepatic coma; D63.1 Anemia in chronic kidney disease; B19.20 Unspecified viral hepatitis C without hepatic coma; E78.5 Hyperlipidemia, unspecified; F17.210 Nicotine dependence, cigarettes, uncomplicated; D72.829 Elevated white blood cell count, unspecified; I25.10 Atherosclerotic heart disease of native coronary artery without angina pectoris; Z60.2 Problems related to living alone; K70.31 Alcoholic cirrhosis of liver with ascites; M54.5 Low back pain; J44.9 Chronic obstructive pulmonary disease, unspecified; K21.9 Gastro-esophageal reflux disease without esophagitis; E11.22 Type 2 diabetes mellitus with diabetic chronic kidney disease; E21.3 Hyperparathyroidism, unspecified; F32.9 Major depressive disorder, single episode, unspecified; F41.9 Anxiety disorder, unspecified; Z82.49 Family history of ischemic heart disease and other diseases of the circulatory system; Z83.3 Family history of diabetes mellitus; Z87.01 Personal history of pneumonia (recurrent); Z87.440 Personal history of urinary (tract) infections; Z88.0 Allergy status to penicillin; Z88.1 Allergy status to other antibiotic agents; Z99.2 Dependence on renal dialysis; M19.90 Unspecified osteoarthritis, unspecified site; Z71.6 Tobacco abuse counseling
CPT/HCPCS: 36415; 71010; 71250; 76700; 80048; 80076; 82553; 83605; 83690; 83735; 83880; 84443; 84484; 85007; 85027; 85610; 86850; 86900; 86901; 86920; 87040; 93005; 94640; 94760; 96374; 96375; 96376; A6539; J0881; J2270; J2405; J2930; J3010; J7620; J7626; P9016; 99291-25

== ENCOUNTER → 2017-03-18 | Outpatient (CLI) | payer MEDICARE, OTHER ==
[~2017-03-18] MED LIST changes: +LEVO250T25 PO; -OXYC5TAB PO; +OXYC5TAB95 PO
== END | disposition home or self-care (01) ==
LOC: MRI 08:16
PROVIDERS: ATTEND Family Medicine

== ENCOUNTER 2017-04-27 12:15 | Emergency (ER) | payer MEDICARE, OTHER ==
[2017-04-27 13:34] VITALS: BP 171/81
[2017-04-27] MEDS ORDERED: NALOXONE 0.4 MG/ML VIAL. ONE (14:03)
--- NOTE | 2017-04-27 14:12 | PHYS DOC ---
Past Medical History Past Medical History: Hypertension, Liver Disease, Renal Failure Additional Past Medical Histor: Hepatitis C and B, dialysis, drug and ETOH use Past Surgical History: Other Additional Past Surgical Histo: permacath, paracentesis, lt arm fistula Alcohol Use: Occasionally Drug Use: Marijuana Adult General Chief Complaint Chief Complaint: FATIGUE HPI HPI Patient is a 51 year old F who presents with increased sleepiness and weakness. Patient was brought in by EMS for increased sleepiness and weakness and altered mental status. Patient has a history of taking pain medication for her chronic body pain. Family is at bedside and do not know who called EMS and the patient does not know who called EMS. Patient is somnolent but is arousable and when she wakes up she states she wants more pain medication. Patient denies any trauma. Patient denies any fevers, chest pain, shortness of breath. Patient states she has generalized body pain. Review of Systems Review of Systems Review of systems are limited secondary to patient's clinical condition Current Medications Current Medications Current Medications Medications (Trade) Dose Ordered Sig/Carmenza Start Time Stop Time Status Last Admin Dose Admin Ibuprofen (Motrin) 800 mg 1X ONCE 04/27/17 19:00 04/27/17 19:01 DC Naloxone HCl (Narcan) 0.4 mg 1X ONCE 04/27/17 14:15 04/27/17 14:16 DC 04/27/17 14:47 0.4 MG Allergies Allergies Allergies Coded Allergies Type Severity Reaction Last Updated Verified Penicillins Allergy Unknown UNKNOWN 08/27/16 Yes acetaminophen Adverse Reaction Severe increased liver enzymes 07/31/15 Yes Physical Exam Physical Exam GEN.: Somnolent but arousable with verbal stimuli HEENT: Head is normocephalic, atraumatic NECK: Supple. LUNGS: CTAB. HEART: RRR, S1, S2 present. Peripheral pulses intact ABDOMEN: Soft, nontender. Positive bowel sounds. EXTREMITIES: Without any cyanosis. NEUROLOGIC: AOx2 PSYCHIATRIC: Normal affect SKIN: No ulcerations Current Patient Data Vital Signs Vital Signs Date Time Temp Pulse Resp B/P (MAP) Pulse Ox O2 Delivery O2 Flow Rate FiO2 04/27/17 13:34 99.5 88 16 96 Room Air 99.5 Lab Values Laboratory Tests Test 04/27/17 14:40 04/27/17 16:30 White Blood Count 9.7 x10^3/uL (4.0-11.0) Red Blood Count 3.02 x10^6/uL (3.50-5.40) L Hemoglobin 10.0 g/dL (12.0-15.5) L Hematocrit 29.8 % (36.0-47.0) L Mean Corpuscular Volume 99 fL (79-100) Mean Corpuscular Hemoglobin 33 pg (25-35) Mean Corpuscular Hemoglobin Concent 34 g/dL (31-37) Red Cell Distribution Width 17.3 % (11.5-14.5) H Platelet Count 177 x10^3/uL (140-400) Neutrophils (%) (Auto) 73 % (31-73) Lymphocytes (%) (Auto) 19 % (24-48) L Monocytes (%) (Auto) 7 % (0-9) Eosinophils (%) (Auto) 1 % (0-3) Basophils (%) (Auto) 1 % (0-3) Neutrophils # (Auto) 7.0 x10^3uL (1.8-7.7) Lymphocytes # (Auto) 1.8 x10^3/uL (1.0-4.8) Monocytes # (Auto) 0.6 x10^3/uL (0.0-1.1) Eosinophils # (Auto) 0.1 x10^3/uL (0.0-0.7) Basophils # (Auto) 0.1 x10^3/uL (0.0-0.2) Sodium Level 141 mmol/L (136-145) Potassium Level 3.7 mmol/L (3.5-5.1) Chloride Level 100 mmol/L (98-107) Carbon Dioxide Level 28 mmol/L (21-32) Anion Gap 13 (6-14) Blood Urea Nitrogen 61 mg/dL (7-20) H Creatinine 6.2 mg/dL (0.6-1.0) H Estimated GFR (Cockcroft-Gault) 8.5 Glucose Level 106 mg/dL (70-99) H Calcium Level 8.8 mg/dL (8.5-10.1) Troponin I Quantitative < 0.017 ng/mL (0.000-0.055) Laboratory Tests 04/27/17 14:40 Laboratory Tests 04/27/17 16:30 EKG EKG [] Radiology/Procedures Radiology/Procedures X-ray right elbow negative[] Course & Med Decision Making Course & Med Decision Making Pertinent Labs and Imaging studies reviewed. (See chart for details) Patient was seen and examined CBC, CMP, chest x-ray, EKG, CT scan of head were ordered 1530: Patient was reevaluated after receiving Narcan which she is much more alert and agitated 1600: Patient is calm and alert and oriented 3 and wanting to leave and the patient has refused lab work and an EKG. After talking with the patient for a period of time she is agreed for the lab work and EKG to take her potassium levels since she missed dialysis today. 1732: Earlier when the patient was combative after receiving Narcan she had fallen on her right elbow complained of some pain. On reexamination patient still am planning of point tenderness with decreased range of motion to her right elbow therefore x-rays been ordered. 190: Elbow x-ray unremarkable MDM: After reviewing the chart, CC/HPI/PMH, physical exam, [lab results], [ radiological results], I do not believe the patient has emergent medical condition warranting further workup and/or admission at this time. After the patient received Narcan should become more alert and oriented. On reexamination the patient is a no 3. Recommended short-term follow-up with PCP in one to 2 days. After reviewing her lab work I do not believe the patient needs emergent dialysis. Additional verbal discharge instructions were provided to the patient and that if symptoms get worse or any new symptoms arise that are worrisome to the patient she is to return to the emergency room immediately [] Dragon Disclaimer Dragon Disclaimer This electronic medical record was generated, in whole or in part, using a voice recognition dictation system. Departure Departure Impression: Primary Impression: Opiate abuse, episodic Additional Impressions: Altered mental status Right elbow pain Disposition: 01 HOME, SELF-CARE Condition: IMPROVED Referrals: SHARAD COULTER MD (PCP) Patient Instructions: Altered Mental Status Additional Instructions: Please follow up with your family doctor next one to 2 days Problem Qualifiers BEBETO BARCENAS DO Apr 27, 2017 14:12
[2017-04-27] MEDS ORDERED: NALOXONE 0.4 MG/ML VIAL. IV ONE (14:15)
[2017-04-27 14:47] LABS: BASO # 0.1 x10^3/uL (0.0-0.2); BASO % 1 % (0-3); EOS % 1 % (0-3); HEMATOCRIT 29.8 % (36.0-47.0); LYMPH # 1.8 x10^3/uL (1.0-4.8); LYMPH % 19 % (24-48); MEAN CORPUSCULAR HEMOGLOBIN 33 pg (25-35); MEAN CORPUSCULAR HGB CONC 34 g/dL (31-37); MEAN CORPUSCULAR VOLUME 99 fL (79-100); MONO % 7 % (0-9); NEUT % 73 % (31-73); PLATELET COUNT 177 x10^3/uL (140-400); RED BLOOD COUNT 3.02 x10^6/uL (3.50-5.40); RED CELL DISTRIBUTION WIDTH 17.3 % (11.5-14.5); WHITE BLOOD COUNT 9.7 x10^3/uL (4.0-11.0)
--- NOTE | 2017-04-27 14:48 | RAD ---
PA and lateral chest radiographs 04/27/2017 Clinical history: Weakness. PA and lateral digital radiographs of the chest were obtained. Comparison study is dated 01/30/2017. The cardiac silhouette is normal in size. The thoracic aorta is mildly tortuous. Right basilar subsegmental atelectasis is noted. No area of consolidation is seen. No pleural effusion or pneumothorax is noted. The osseous structures are unchanged. Impression: Right basilar subsegmental atelectasis. No area of consolidation is seen.
--- NOTE | 2017-04-27 15:15 | RAD ---
CT HEAD WO CONTRAST dated 04/27/2017 1:50 PM Indication: Mental status change, altered mental statusaltered mental status, weakness post hydrocoden. Comparison: 10/16/2016 Technique: Contiguous axial imaging the head was performed from skull base to vertex. No contrast administered. One or more of the following individualized dose reduction techniques were utilized for this examination: 1. Automated exposure control 2. Adjustment of the mA and/or kV according to patient size 3. Use of iterative reconstruction technique Findings: Ventricles and sulci are mildly prominent for age. No midline shift or mass effect. Mild patchy low density in the deep/subcortical periventricular white matter, similar to prior study. No hemorrhage or extra-axial collection. Posterior fossa and brainstem unremarkable. Visualized paranasal sinuses and mastoid air cells are clear. There is a remote medial orbital wall blowout fracture on the right, unchanged. IMPRESSION: 1. No evidence of acute intracranial hemorrhage or mass. 2. Mild chronic small vessel ischemic changes and atrophy, similar to prior study. 3. Remote medial orbital wall blowout fracture on the right, unchanged. Electronically signed by: Marty Williamson MD (04/27/2017 3:12 PM) [facility] [place]
[2017-04-27 16:48] LABS: CALCIUM 8.8 mg/dL (8.5-10.1); CREATININE 6.2 mg/dL (0.6-1.0); GFR 8.5; POTASSIUM 3.7 mmol/L (3.5-5.1)
--- NOTE | 2017-04-27 18:53 | RAD ---
Three-view right elbow radiographs 04/27/2017 CLINICAL HISTORY: Fall with right elbow pain. AP, lateral and oblique digital radiographs of the right elbow were obtained. No fracture or dislocation of the right elbow is seen. Mild to moderate degenerative changes are seen involving the right elbow joint. There is no radiographic evidence of a joint effusion. IMPRESSION: No fracture or dislocation of the right elbow is seen. Electronically signed by: Boyd Valentine MD (04/27/2017 6:50 PM) [facility]
[2017-04-27] MEDS ORDERED: IBUPROFEN 800 MG TABLET. PO ONE (19:00)
--- NOTE | 2017-04-28 12:44 | EKG ---
[facility] [address] [place] [address] Test Date: 2017-04-27 Test Time: 16:06:54 Pat Name: KESHA PERKINS Department: Room: Gender: F Feeder/Folder: : 1965 Requested By: BEBETO BARCENAS Order Number: [id number] Reading MD: Rosalva Isaac Measurements Intervals [place] Rate: 100 P: 70 WV: 146 QRS: 2 QRSD: 72 T: 59 QT: 350 QTc: 455 Interpretive Statements SINUS RHYTHM LEFT ATRIAL ABNORMALITY QRS(T) CONTOUR ABNORMALITY CONSISTENT WITH SEPTAL INFARCT AGE UNDETERMINED Electronically Signed On 04-29-2017 12:05:35 CDT by Rosalva Isaac
== END 2017-04-27 19:39 | disposition home or self-care (01) ==
LOC: ER 12:15
DX: F11.10 Opioid abuse, uncomplicated (principal); R41.82 Altered mental status, unspecified; M25.521 Pain in right elbow; I12.0 Hypertensive chronic kidney disease with stage 5 chronic kidney disease or end stage renal disease; N18.6 End stage renal disease; G89.29 Other chronic pain; F12.10 Cannabis abuse, uncomplicated; Z99.2 Dependence on renal dialysis; Z88.0 Allergy status to penicillin; Z88.8 Allergy status to other drugs, medicaments and biological substances
CPT/HCPCS: 36415; 70450; 71020; 73080; 80048; 84484; 85025; 93005; 96374; 99285; J2310

== ENCOUNTER 2017-05-09 10:07 | Inpatient (IN) | payer MEDICARE, OTHER ==
[~2017-05-09] VITALS: Ht 160 cm; Wt 53.6 kg
[2017-05-09] MEDS: fentaNYL PF VIAL 100 MCG/2 ML VIAL IV PRN ×2 (12:12→15:30)
[2017-05-09 12:26] LABS: BASO % 0 % (0-3); EOS % 0 % (0-3); HEMATOCRIT 25.2 % (36.0-47.0); HEMOGLOBIN 8.4 g/dL (12.0-15.5); LYMPH # 1.9 x10^3/uL (1.0-4.8); LYMPH % 11 % (24-48); MEAN CORPUSCULAR HEMOGLOBIN 32 pg (25-35); MEAN CORPUSCULAR HGB CONC 33 g/dL (31-37); MEAN CORPUSCULAR VOLUME 96 fL (79-100); MONO % 5 % (0-9); NEUT % 83 % (31-73); PLATELET COUNT 310 x10^3/uL (140-400); RED BLOOD COUNT 2.64 x10^6/uL (3.50-5.40); RED CELL DISTRIBUTION WIDTH 16.1 % (11.5-14.5); WHITE BLOOD COUNT 18.1 x10^3/uL (4.0-11.0)
[2017-05-09 12:39] LABS: CALCIUM 6.2 mg/dL (8.5-10.1); CREATININE 10.5 mg/dL (0.6-1.0); GFR 4.7; POTASSIUM 4.4 mmol/L (3.5-5.1)
[2017-05-09 12:45] LABS: ALBUMIN 1.8 g/dL (3.4-5.0); ALBUMIN/GLOBULIN RATIO 0.3 (1.0-1.7); TOTAL BILIRUBIN 0.9 mg/dL (0.2-1.0)
[2017-05-09 13:00] LABS: ANISOCYTOSIS SLIGHT; PLT ESTIMATE ADEQUATE (ADEQUATE)
[2017-05-09] MEDS ORDERED: IV NORMAL SALINE 500ML BAG 250 ML IV ONE (13:45)
--- NOTE | 2017-05-09 13:52 | RAD ---
Portable chest, 05/09/2017: History: Cough, congestion Comparison is made to a study from 04/27/2017. The heart size and pulmonary vascularity are normal. No pulmonary infiltrates are seen. There is no evidence of pleural fluid. IMPRESSION: No acute cardiopulmonary abnormality is detected.
[2017-05-09] MEDS ORDERED: ONDANSETRON PF 4 MG/2 ML VIAL. IV PRN (14:00)
--- NOTE | 2017-05-09 14:12 | EKG ---
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
[2017-05-09] MEDS ORDERED: CALCIUM GLUCONATE 1,000 MG/10 ML VIAL. IV ONE (14:30)
--- NOTE | 2017-05-09 14:30 | PHYS DOC ---
Past Medical History Past Medical History: Hypertension, Liver Disease, Renal Failure Additional Past Medical Histor: Hepatitis C and B, dialysis, drug and ETOH use Past Surgical History: Other Additional Past Surgical Histo: permacath, paracentesis, lt arm fistula Alcohol Use: Occasionally Drug Use: Marijuana Adult General Chief Complaint Chief Complaint: WEAKNESS/GENERALIZED HPI HPI Patient is a 51 year old female who presents with generalized weakness & back pain. She is a poor historian, has difficulty describing symptoms or duration. She had a previous hospital admission in 02/2017 in which she was found to have pulmonary nodules & thoracic compression fractures concerning for pathologic fracture/spinal metastatic lesion. She left the hospital AMA at that time & has not yet followed up for MRI that was ordered. She states she has becomes progressively more weak, particularly in her bilateral lower extremities. She states pain is severe in mid-lower back. She has difficulty caring for herself & does not feel safe at home despite having a stone hand who assists her at times. She denies fevers/chills, abdominal pain, vomiting, diarrhea, unilateral numbness/weakness, bowel/bladder incontinence/retention, saddle anesthesia. She denies recent trauma, though she was seen here last week after a fall. PCP is Dr. Murray. Review of Systems Review of Systems Constitutional: Denies fever or chills, reports generalized weakness. Eyes: Denies change in visual acuity HENT: Denies nasal congestion or sore throat Respiratory: Denies cough or shortness of breath Cardiovascular: Denies chest pain or edema GI: Denies abdominal pain, nausea, vomiting, bloody stools or diarrhea : Denies dysuria or hematuria Musculoskeletal: Reports back pain & elbow pain Integument: Denies rash or skin lesions Neurologic: Denies headache, focal weakness or sensory changes Current Medications Current Medications Current Medications Medications (Trade) Dose Ordered Sig/Carmenza Start Time Stop Time Status Last Admin Dose Admin Fentanyl Citrate (Fentanyl 2ml Vial) 50 mcg PRN Q15MIN PRN 05/09/17 10:45 05/10/17 10:44 05/09/17 15:30 50 MCG Allergies Allergies Allergies Coded Allergies Type Severity Reaction Last Updated Verified Penicillins Allergy Unknown UNKNOWN 08/27/16 Yes acetaminophen Adverse Reaction Severe increased liver enzymes 07/31/15 Yes Physical Exam Physical Exam Constitutional: thin, frail, appears older than stated age, no acute distress, non-toxic appearance. HENT: Normocephalic, atraumatic, bilateral external ears normal, oropharynx moist, nose normal. Eyes: PERRLA, EOMI, conjunctiva normal, no discharge. Neck: supple, no stridor. no midline c-spine tenderness. Cardiovascular: RRR, no murmurs, no edema. Lungs & Thorax: LCTAB, no wheezing, no respiratory distress. Abdomen: soft, nontender, nondistended. Skin: Warm, dry, no erythema, no rash. Back: diffuse thoracic spine tenderness, no step offs. Extremities: right elbow mild swelling & tenderness diffusely over joint, no shoulder or wrist tenderness, limited ROM to elbow secondary to pain, radial pulse 2+, radial/median/ulnar nerve sensory & motor function intact. Neurologic: Alert and oriented X 3, CN2-12 grossly intact, symmetric strength/ sensation to upper & lower extrmities, no focal deficits noted. Psychologic: Affect normal, judgement normal, mood normal. Current Patient Data Vital Signs Vital Signs Date Time Temp Pulse Resp B/P (MAP) Pulse Ox O2 Delivery O2 Flow Rate FiO2 05/09/17 13:02 77 19 98 05/09/17 12:12 Room Air 05/09/17 10:25 97.6 144/66 (92) 97.6 Lab Values Laboratory Tests Test 05/09/17 12:05 White Blood Count 18.1 x10^3/uL (4.0-11.0) H Red Blood Count 2.64 x10^6/uL (3.50-5.40) L Hemoglobin 8.4 g/dL (12.0-15.5) L Hematocrit 25.2 % (36.0-47.0) L Mean Corpuscular Volume 96 fL (79-100) Mean Corpuscular Hemoglobin 32 pg (25-35) Mean Corpuscular Hemoglobin Concent 33 g/dL (31-37) Red Cell Distribution Width 16.1 % (11.5-14.5) H Platelet Count 310 x10^3/uL (140-400) Neutrophils (%) (Auto) 83 % (31-73) H Lymphocytes (%) (Auto) 11 % (24-48) L Monocytes (%) (Auto) 5 % (0-9) Eosinophils (%) (Auto) 0 % (0-3) Basophils (%) (Auto) 0 % (0-3) Neutrophils # (Auto) 15.1 x10^3uL (1.8-7.7) H Lymphocytes # (Auto) 1.9 x10^3/uL (1.0-4.8) Monocytes # (Auto) 1.0 x10^3/uL (0.0-1.1) Eosinophils # (Auto) 0.1 x10^3/uL (0.0-0.7) Basophils # (Auto) 0.0 x10^3/uL (0.0-0.2) Segmented Neutrophils % 82 % (35-66) H Lymphocytes % 14 % (24-48) L Monocytes % 4 % (0-10) Hypersegmented Neutrophils Present Platelet Estimate Adequate (ADEQUATE) Giant Platelets Occ Anisocytosis Slight Sodium Level 133 mmol/L (136-145) L Potassium Level 4.4 mmol/L (3.5-5.1) Chloride Level 94 mmol/L (98-107) L Carbon Dioxide Level 22 mmol/L (21-32) Anion Gap 17 (6-14) H Blood Urea Nitrogen 75 mg/dL (7-20) H Creatinine 10.5 mg/dL (0.6-1.0) H Estimated GFR (Cockcroft-Gault) 4.7 BUN/Creatinine Ratio 7 (6-20) Glucose Level 119 mg/dL (70-99) H Calcium Level 6.2 mg/dL (8.5-10.1) L Iron Level 41 ug/dL (50-170) L Total Iron Binding Capacity 172 ug/dL (250-450) L Iron Saturation 24 % (15-34) Ferritin 197 ng/mL (8-252) Total Bilirubin 0.9 mg/dL (0.2-1.0) Aspartate Amino Transferase (AST) 32 U/L (15-37) Alanine Aminotransferase (ALT) 20 U/L (14-59) Alkaline Phosphatase 163 U/L (46-116) H Troponin I Quantitative < 0.017 ng/mL (0.000-0.055) PD-Swe-T-Type Natriuretic Peptide 6708 pg/mL (0-124) H Total Protein 7.0 g/dL (6.4-8.2) Albumin 1.8 g/dL (3.4-5.0) L Albumin/Globulin Ratio 0.3 (1.0-1.7) L Vitamin B12 Level 386 pg/mL (247-911) Serum Folate 4.65 ng/ml (3.2-20.0) Laboratory Tests 05/09/17 12:05 Laboratory Tests 05/09/17 12:05 EKG EKG interpreted by me: Normal sinus rhythm rate 67, no ST elevation, T waves inverted without ST depression in leads V1 and V2, normal intervals, no ectopy[] Radiology/Procedures Radiology/Procedures PROCEDURE: CHEST AP ONLY Portable chest, 05/09/2017: History: Cough, congestion Comparison is made to a study from 04/27/2017. The heart size and pulmonary vascularity are normal. No pulmonary infiltrates are seen. There is no evidence of pleural fluid. IMPRESSION: No acute cardiopulmonary abnormality is detected. DICTATED and SIGNED BY: KATHY DORADO MD DATE: 05/09/17 1225[] Course & Med Decision Making Course & Med Decision Making Pertinent Labs and Imaging studies reviewed. (See chart for details) The patient presents with generalized weakness, severe back pain. She had previous incomplete workup with possible spinal metastatic disease. Provided pain medication here. Labs show leukocytosis, anemia, hypocalcemia, elevated alkaline phosphatase. She had elbow pain & swelling, reviewed x-ray from previous visit which showed no evidence of fracture or dislocation. Discussed with Dr. Pereira on behalf of Dr. Murray. He agrees to accept for admission to inpatient status. We will obtain urgent MRI of her thoracic spine today for further evaluation of spinal lesions. Patient agrees with plan of care. She is admitted in stable condition. Dragon Disclaimer Dragon Disclaimer This electronic medical record was generated, in whole or in part, using a voice recognition dictation system. Departure Departure Impression: Primary Impression: Back pain Additional Impressions: Weakness Leukocytosis Compression fracture of thoracic vertebra ESRD (end stage renal disease) on dialysis Disposition: ADMITTED INPATIENT Admitting Physician: Mick Saravia Condition: GUARDED Referrals: MICK MURRAY MD (PCP) Problem Qualifiers FABIAN BELLO MD May 09, 2017 14:30
--- NOTE | 2017-05-09 15:42 | RAD ---
MRI thoracic spine 05/09/2017 CLINICAL INDICATION: Generalized weakness, history of carcinoma. Evaluate for metastatic disease. COMPARISON: None. TECHNIQUE: Multiplanar, multisequence MR imaging of the thoracic spine was obtained without contrast according to standard protocol. FINDINGS: Thoracic spine: There is a moderate central superior endplate compression deformity at T9 with anterior vertebral body T1 hypointensity and associated increase STIR/T2 signal. There is no evidence of abnormal signal extending into the epidural space or posterior elements. There is a moderate chronic appearing compression deformity anterior T7. Thoracic cord is normal in size and signal. There is focal kyphosis centered at T7, likely related to the compression deformity. The paraspinal soft tissues are unremarkable. There is multilevel thoracic spondylosis with a small probable disc osteophyte complex at T7-T8 resulting in effacement of the anterior thecal sac with no significant spinal canal narrowing. No significant thoracic neural foraminal narrowing. There is multilevel cervical spondylosis with posterior disc bulging most prominent at C3-C4 resulting in at least [id number] spinal canal narrowing and at C6-C7 also resulting in at least mild to moderate spinal canal narrowing IMPRESSION: 1. Acute to subacute appearing moderate compression deformity at T9 with no evidence of significant retropulsion. There is no evidence of underlying metastasis, however cannot be completely excluded. Follow-up MRI with contrast in 3 months is recommended. 2. Old moderate compression deformity at T7. 3. Posterior cervical disc bulging resulting in moderate to moderate spinal canal narrowing, as detailed. Electronically signed by: Say Uriarte MD (05/09/2017 3:38 PM) [id number]
[2017-05-09] MEDS: MORPHINE SULFATE 4 MG/ML DISP.SYRIN. IV PRN ×3 (16:27→23:31)
[2017-05-09 16:46] VITALS: BP 89/53
[2017-05-09] MEDS ORDERED: ALBUTEROL SULFATE 2.5 MG/3 ML NEBU. NEB PRN (17:15)
[2017-05-09 17:26] LABS: % SAT IRON 24 % (15-34); IRON,SERUM 41 ug/dL (50-170)
[2017-05-09] MEDS: oxyCODONE IR 5 MG TABLET PO PRN (17:51)
[2017-05-09 18:00] LABS: FOLATE 4.65 ng/ml (3.2-20.0)
[2017-05-09 19:00] VITALS: BP 99/54
[2017-05-09] MEDS: BUDESONIDE 0.5 MG/2 ML NEBU. NEB SCH (19:57)
[2017-05-09] MEDS: IPRATRPIUM/ALBUTEROL 0.5/2.5MG 3 ML NEBU. NEB SCH (19:57)
[2017-05-09 23:00] VITALS: BP 96/51
[2017-05-09] MEDS: ZOLPIDEM 5 MG TABLET. PO SCH (23:30)
[2017-05-10] MEDS: oxyCODONE IR 5 MG TABLET PO PRN ×4 (02:36→21:06)
[2017-05-10 03:00] VITALS: BP 90/52
[2017-05-10 04:41] LABS: BASO % 0 % (0-3); EOS % 0 % (0-3); HEMATOCRIT 23.5 % (36.0-47.0); HEMOGLOBIN 7.8 g/dL (12.0-15.5); LYMPH # 2.4 x10^3/uL (1.0-4.8); LYMPH % 16 % (24-48); MEAN CORPUSCULAR HEMOGLOBIN 32 pg (25-35); MEAN CORPUSCULAR HGB CONC 33 g/dL (31-37); MEAN CORPUSCULAR VOLUME 96 fL (79-100); MONO % 6 % (0-9); NEUT % 78 % (31-73); PLATELET COUNT 291 x10^3/uL (140-400); RED BLOOD COUNT 2.44 x10^6/uL (3.50-5.40); RED CELL DISTRIBUTION WIDTH 16.8 % (11.5-14.5); WHITE BLOOD COUNT 15.3 x10^3/uL (4.0-11.0)
[2017-05-10 04:59] LABS: CALCIUM 6.1 mg/dL (8.5-10.1); GFR 4.4; POTASSIUM 3.9 mmol/L (3.5-5.1)
[2017-05-10] MEDS: MORPHINE SULFATE 4 MG/ML DISP.SYRIN. IV PRN (05:50)
[2017-05-10 07:00] VITALS: BP 93/52
[2017-05-10] MEDS: BUDESONIDE 0.5 MG/2 ML NEBU. NEB SCH ×2 (07:44→19:04)
[2017-05-10] MEDS: IPRATRPIUM/ALBUTEROL 0.5/2.5MG 3 ML NEBU. NEB SCH ×4 (07:44→19:04)
[2017-05-10 08:03] LABS: PLT ESTIMATE ADEQUATE (ADEQUATE)
[2017-05-10] MEDS: PANTOPRAZOLE 40 MG TABLET.DR. PO SCH (08:11)
--- NOTE | 2017-05-10 09:01 | PDOC1 ---
History and Physical Date of Admission Date of Admission 05/09/17 Identification/Chief Complaint Chief Complaint pain and weakness in back, caregiver unable to care for her, missed dialysis Problems: Source Source: Chart review, Patient History of Present Illness History of Present Illness Patient is a 51 year old female who presents with generalized weakness & back pain. She has ESRD and was to dialyze but was too weak to go, she normally does a Tues, Thrus, Sat schedule. She has difficulty describing symptoms or duration but she had a previous hospital admission in 02/2017 in which she was found to have pulmonary nodules & thoracic compression fractures concerning for pathologic fracture/spinal metastatic lesion. She left the hospital AMA at that time & has not yet followed up for MRI that was ordered despite being scheduled several times for it. She states she has becomes progressively more weak, particularly in her bilateral lower extremities. She states pain is severe in mid-lower back. She has difficulty caring for herself & does not feel safe at home despite having a bus steward who assists her at times. She denies fevers/chills, abdominal pain, vomiting, diarrhea, unilateral numbness/ weakness, bowel/bladder incontinence/retention, saddle anesthesia. She denies recent trauma, though she was seen here last week after a fall. PCP is Dr. Murray. Past Medical History Cardiovascular: CAD, CHF, HTN, Hyperlipidemia, Other Pulmonary: Asthma, Bronchitis, COPD, Pneumonia, Other GI: GERD Heme/Onc: Anemia NOS Hepatobiliary: Cirrhosis, Hep A/B/C Psych: Anxiety, Addictions, Depression Rheumatologic: No pertinent hx Infectious disease: Other Renal/: Chronic renal failure, UTI Endocrine: Diabetes, Hyperparathyroidism Past Surgical History Past Surgical History: Other Family History Family History: Diabetes, Heart Disease, Hypertension Social History ALCOHOL: occassional Drugs: None Current Problem List Problem List Problems Medical Problems: (1) Back pain Status: Acute (2) ESRD (end stage renal disease) on dialysis Status: Acute Current Medications Current Medications Current Medications Medications (Trade) Dose Ordered Sig/Carmenza Start Time Stop Time Status Last Admin Dose Admin Albuterol Sulfate (Ventolin Neb Soln) 2.5 mg PRN Q4HRS PRN 05/09/17 17:15 Albuterol/ Ipratropium (Duoneb) 3 ml RTQID 05/09/17 20:00 05/10/17 07:44 3 ML Budesonide (Pulmicort) 0.5 mg RTBID 05/09/17 20:00 05/10/17 07:44 0.5 MG Calcium Gluconate (Calcium Gluconate) 1,000 mg 1X ONCE 05/09/17 14:30 05/09/17 14:31 DC 05/09/17 15:25 1,000 MG Fentanyl Citrate (Fentanyl 2ml Vial) 50 mcg PRN Q15MIN PRN 05/09/17 10:45 05/10/17 10:44 05/09/17 15:30 50 MCG Morphine Sulfate 2 mg PRN Q2HR PRN 05/09/17 14:00 05/10/17 13:59 05/10/17 05:50 2 MG Ondansetron HCl (Zofran) 4 mg PRN Q8HRS PRN 05/09/17 14:00 05/10/17 13:59 Oxycodone HCl (Roxicodone) 15 mg PRN Q4HRS PRN 05/09/17 17:00 05/10/17 08:11 15 MG Pantoprazole Sodium (Protonix) 40 mg DAILYAC 05/10/17 07:30 05/10/17 08:11 40 MG Sodium Chloride 250 ml @ 0 mls/hr 1X ONCE 05/09/17 13:45 05/09/17 13:51 DC 05/09/17 13:45 250 MLS/HR Zolpidem Tartrate (Ambien) 5 mg QHS 05/09/17 21:00 05/09/17 23:30 5 MG Allergies Allergies Allergies Coded Allergies Type Severity Reaction Last Updated Verified Penicillins Allergy Unknown UNKNOWN 08/27/16 Yes acetaminophen Adverse Reaction Severe increased liver enzymes 07/31/15 Yes ROS Review of System CONSTITUTIONAL: No fever or chills EYES: No recent changes SKIN: No rash or itching CARDIOVASCULAR: No chest pain, syncope, palpitations, or edema RESPIRATORY: No SOB or cough GASTROINTESTINAL: No nausea, vomiting or abdominal pain NEUROLOGICAL: No headaches ENDOCRINE: No cold or heat intolerance GENITOURINARY: on dialysis MUSCULOSKELETAL: positive for back pain LYMPHATICS: No enlarged lymph nodes PSYCHIATRIC: No anxiety or depression Physical Exam Physical Exam GEN.: No apparent distress comfortably laying in bed. Alert and oriented. HEENT: Head is normocephalic, atraumatic NECK: Supple. LUNGS: Clear to auscultation. HEART: RRR, S1, S2 present. Peripheral pulses intact ABDOMEN: Soft, nontender. Positive bowel sounds. EXTREMITIES: Without any cyanosis. NEUROLOGIC: Normal speech, normal tone PSYCHIATRIC: Normal affect, normal mood. SKIN: No ulcerations MS: tenderness over thoracic spine, needs some assist to sit, able to weight bear and stand but weak Vitals Vitals Vital Signs Date Time Temp Pulse Resp B/P (MAP) Pulse Ox O2 Delivery O2 Flow Rate FiO2 05/10/17 08:11 Room Air 05/10/17 07:46 94 05/10/17 07:00 97.9 79 19 93/52 (66) 97.9 Labs Labs Laboratory Tests Test 05/09/17 12:05 05/10/17 04:20 White Blood Count 18.1 x10^3/uL (4.0-11.0) 15.3 x10^3/uL (4.0-11.0) Red Blood Count 2.64 x10^6/uL (3.50-5.40) 2.44 x10^6/uL (3.50-5.40) Hemoglobin 8.4 g/dL (12.0-15.5) 7.8 g/dL (12.0-15.5) Hematocrit 25.2 % (36.0-47.0) 23.5 % (36.0-47.0) Mean Corpuscular Volume 96 fL (79-100) 96 fL (79-100) Mean Corpuscular Hemoglobin 32 pg (25-35) 32 pg (25-35) Mean Corpuscular Hemoglobin Concent 33 g/dL (31-37) 33 g/dL (31-37) Red Cell Distribution Width 16.1 % (11.5-14.5) 16.8 % (11.5-14.5) Platelet Count 310 x10^3/uL (140-400) 291 x10^3/uL (140-400) Neutrophils (%) (Auto) 83 % (31-73) 78 % (31-73) Lymphocytes (%) (Auto) 11 % (24-48) 16 % (24-48) Monocytes (%) (Auto) 5 % (0-9) 6 % (0-9) Eosinophils (%) (Auto) 0 % (0-3) 0 % (0-3) Basophils (%) (Auto) 0 % (0-3) 0 % (0-3) Neutrophils # (Auto) 15.1 x10^3uL (1.8-7.7) 11.9 x10^3uL (1.8-7.7) Lymphocytes # (Auto) 1.9 x10^3/uL (1.0-4.8) 2.4 x10^3/uL (1.0-4.8) Monocytes # (Auto) 1.0 x10^3/uL (0.0-1.1) 0.9 x10^3/uL (0.0-1.1) Eosinophils # (Auto) 0.1 x10^3/uL (0.0-0.7) 0.1 x10^3/uL (0.0-0.7) Basophils # (Auto) 0.0 x10^3/uL (0.0-0.2) 0.0 x10^3/uL (0.0-0.2) Segmented Neutrophils % 82 % (35-66) 74 % (35-66) Lymphocytes % 14 % (24-48) 18 % (24-48) Monocytes % 4 % (0-10) 5 % (0-10) Hypersegmented Neutrophils Present Platelet Estimate Adequate (ADEQUATE) Adequate (ADEQUATE) Giant Platelets Occ Anisocytosis Slight Sodium Level 133 mmol/L (136-145) 136 mmol/L (136-145) Potassium Level 4.4 mmol/L (3.5-5.1) 3.9 mmol/L (3.5-5.1) Chloride Level 94 mmol/L (98-107) 97 mmol/L (98-107) Carbon Dioxide Level 22 mmol/L (21-32) 23 mmol/L (21-32) Anion Gap 17 (6-14) 16 (6-14) Blood Urea Nitrogen 75 mg/dL (7-20) 80 mg/dL (7-20) Creatinine 10.5 mg/dL (0.6-1.0) 11.0 mg/dL (0.6-1.0) Estimated GFR (Cockcroft-Gault) 4.7 4.4 BUN/Creatinine Ratio 7 (6-20) Glucose Level 119 mg/dL (70-99) 110 mg/dL (70-99) Calcium Level 6.2 mg/dL (8.5-10.1) 6.1 mg/dL (8.5-10.1) Iron Level 41 ug/dL (50-170) Total Iron Binding Capacity 172 ug/dL (250-450) Iron Saturation 24 % (15-34) Ferritin 197 ng/mL (8-252) Total Bilirubin 0.9 mg/dL (0.2-1.0) Aspartate Amino Transf (AST/SGOT) 32 U/L (15-37) Alanine Aminotransferase (ALT/SGPT) 20 U/L (14-59) Alkaline Phosphatase 163 U/L (46-116) Troponin I Quantitative < 0.017 ng/mL (0.000-0.055) XX-Zdn-[id number]-Type Natriuretic Peptide 6708 pg/mL (0-124) Total Protein 7.0 g/dL (6.4-8.2) Albumin 1.8 g/dL (3.4-5.0) Albumin/Globulin Ratio 0.3 (1.0-1.7) Vitamin B12 Level 386 pg/mL (247-911) Serum Folate 4.65 ng/ml (3.2-20.0) Band Neutrophils % 3 % (0-9) Laboratory Tests Test 05/09/17 12:05 05/10/17 04:20 White Blood Count 18.1 x10^3/uL (4.0-11.0) 15.3 x10^3/uL (4.0-11.0) Red Blood Count 2.64 x10^6/uL (3.50-5.40) 2.44 x10^6/uL (3.50-5.40) Hemoglobin 8.4 g/dL (12.0-15.5) 7.8 g/dL (12.0-15.5) Hematocrit 25.2 % (36.0-47.0) 23.5 % (36.0-47.0) Mean Corpuscular Volume 96 fL (79-100) 96 fL (79-100) Mean Corpuscular Hemoglobin 32 pg (25-35) 32 pg (25-35) Mean Corpuscular Hemoglobin Concent 33 g/dL (31-37) 33 g/dL (31-37) Red Cell Distribution Width 16.1 % (11.5-14.5) 16.8 % (11.5-14.5) Platelet Count 310 x10^3/uL (140-400) 291 x10^3/uL (140-400) Neutrophils (%) (Auto) 83 % (31-73) 78 % (31-73) Lymphocytes (%) (Auto) 11 % (24-48) 16 % (24-48) Monocytes (%) (Auto) 5 % (0-9) 6 % (0-9) Eosinophils (%) (Auto) 0 % (0-3) 0 % (0-3) Basophils (%) (Auto) 0 % (0-3) 0 % (0-3) Neutrophils # (Auto) 15.1 x10^3uL (1.8-7.7) 11.9 x10^3uL (1.8-7.7) Lymphocytes # (Auto) 1.9 x10^3/uL (1.0-4.8) 2.4 x10^3/uL (1.0-4.8) Monocytes # (Auto) 1.0 x10^3/uL (0.0-1.1) 0.9 x10^3/uL (0.0-1.1) Eosinophils # (Auto) 0.1 x10^3/uL (0.0-0.7) 0.1 x10^3/uL (0.0-0.7) Basophils # (Auto) 0.0 x10^3/uL (0.0-0.2) 0.0 x10^3/uL (0.0-0.2) Segmented Neutrophils % 82 % (35-66) 74 % (35-66) Lymphocytes % 14 % (24-48) 18 % (24-48) Monocytes % 4 % (0-10) 5 % (0-10) Hypersegmented Neutrophils Present Platelet Estimate Adequate (ADEQUATE) Adequate (ADEQUATE) Giant Platelets Occ Anisocytosis Slight Sodium Level 133 mmol/L (136-145) 136 mmol/L (136-145) Potassium Level 4.4 mmol/L (3.5-5.1) 3.9 mmol/L (3.5-5.1) Chloride Level 94 mmol/L (98-107) 97 mmol/L (98-107) Carbon Dioxide Level 22 mmol/L (21-32) 23 mmol/L (21-32) Anion Gap 17 (6-14) 16 (6-14) Blood Urea Nitrogen 75 mg/dL (7-20) 80 mg/dL (7-20) Creatinine 10.5 mg/dL (0.6-1.0) 11.0 mg/dL (0.6-1.0) Estimated GFR (Cockcroft-Gault) 4.7 4.4 BUN/Creatinine Ratio 7 (6-20) Glucose Level 119 mg/dL (70-99) 110 mg/dL (70-99) Calcium Level 6.2 mg/dL (8.5-10.1) 6.1 mg/dL (8.5-10.1) Iron Level 41 ug/dL (50-170) Total Iron Binding Capacity 172 ug/dL (250-450) Iron Saturation 24 % (15-34) Ferritin 197 ng/mL (8-252) Total Bilirubin 0.9 mg/dL (0.2-1.0) Aspartate Amino Transf (AST/SGOT) 32 U/L (15-37) Alanine Aminotransferase (ALT/SGPT) 20 U/L (14-59) Alkaline Phosphatase 163 U/L (46-116) Troponin I Quantitative < 0.017 ng/mL (0.000-0.055) TA-Pvs-V-Type Natriuretic Peptide 6708 pg/mL (0-124) Total Protein 7.0 g/dL (6.4-8.2) Albumin 1.8 g/dL (3.4-5.0) Albumin/Globulin Ratio 0.3 (1.0-1.7) Vitamin B12 Level 386 pg/mL (247-911) Serum Folate 4.65 ng/ml (3.2-20.0) Band Neutrophils % 3 % (0-9) Images Images IMPRESSION: 1. Acute to subacute appearing moderate compression deformity at T9 with no evidence of significant retropulsion. There is no evidence of underlying metastasis, however cannot be completely excluded. Follow-up MRI with contrast in 3 months is recommended. 2. Old moderate compression deformity at T7. 3. Posterior cervical disc bulging resulting in moderate to moderate spinal canal narrowing, as detailed. PROCEDURE: CHEST AP ONLY Portable chest, 05/09/2017: History: Cough, congestion Comparison is made to a study from 04/27/2017. The heart size and pulmonary vascularity are normal. No pulmonary infiltrates are seen. There is no evidence of pleural fluid. IMPRESSION: No acute cardiopulmonary abnormality is detected. VTE Prophylaxis Ordered VTE Prophylaxis Devices: Yes VTE Pharmacological Prophylaxi: Yes Assessment/Plan Assessment/Plan spinal compression fractures with weakness, ESRD on dialysis, severe hypocalcemia due to severe protein malnutrition. Admitted for pain control, imaging studies to determine source of weakness, dialysis, PT, OT, nutritional support Guadalupe REBOLLEDO MD May 10, 2017 09:01
[2017-05-10] MEDS: AMINO AC 3%/ELECTROLYTE/GLYCER 1,000 ML IV SCH (10:16)
[2017-05-10] MEDS: HEPARIN PF for SUB-Q USE 5,000 UNIT/0.5 ML VIAL. SQ SCH ×2 (10:23→21:13)
[2017-05-10 11:00] VITALS: BP 88/48
--- NOTE | 2017-05-10 11:14 | PDOC2 ---
CONSULT Date of Consult Date of Consult DATE: 05/10/17 TIME: 11:10 Reason for Consult Reason for Consult: YFN Referring Physician Referring Physician: ESRD Identification/Chief Complaint Chief Complaint WEAKNESS AND BACK PAIN Problems: Source Source: Chart review, Patient History of Present Illness Reason for Visit: THIS IS A 51 YR OLD ESRD PT ADMITTED WITH WEAKNESS AND BACK PAIN. SHE IS NOTED TO HAVE A THORACIC SPINE FX. THERE IS CONCERNS OF MET DZ. HE OP HD IS ON TTS. SHE MISSED HER TX YESTERDAY. LABS ARE C/W ESRD Past Medical History Cardiovascular: CAD, CHF, HTN, Hyperlipidemia, Other Pulmonary: Asthma, Bronchitis, COPD, Pneumonia, Other GI: GERD Heme/Onc: Anemia NOS Hepatobiliary: Cirrhosis, Hep A/B/C Psych: Anxiety, Addictions, Depression Musculoskeletal: low back pain, Bursitis, Other Rheumatologic: No pertinent hx Infectious disease: Other Renal/: Chronic renal failure, UTI Endocrine: Diabetes, Hyperparathyroidism Past Surgical History Past Surgical History: Other Family History Family History: Diabetes, Heart Disease, Hypertension Social History ALCOHOL: occassional Drugs: None Lives: Alone Current Problem List Problem List Problems Medical Problems: (1) Back pain Status: Acute (2) ESRD (end stage renal disease) on dialysis Status: Acute Current Medications Current Medications Current Medications Fentanyl Citrate (Fentanyl 2ml Vial) 50 mcg PRN Q15MIN PRN IV PAIN GREATER THAN 3/10 Last administered on 05/09/17 15:30; Start 05/09/17 at 10:45; Stop 05/10/17 at 10:44; Status DC Sodium Chloride 250 ml @ 0 mls/hr 1X ONCE IV Last administered on 05/09/17 13 :45; Start 05/09/17 at 13:45; Stop 05/09/17 at 13:51; Status DC Ondansetron HCl (Zofran) 4 mg PRN Q8HRS PRN IV NAUSEA/VOMITING; Start 05/09/17 at 14:00; Stop 05/10/17 at 13:59 Morphine Sulfate 2 mg PRN Q2HR PRN IV PAIN Last administered on 05/10/17 05:50 ; Start 05/09/17 at 14:00; Stop 05/10/17 at 13:59 Calcium Gluconate (Calcium Gluconate) 1,000 mg 1X ONCE IV Last administered on 05/09/17 15:25; Start 05/09/17 at 14:30; Stop 05/09/17 at 14:31; Status DC Albuterol/ Ipratropium (Duoneb) 3 ml RTQID NEB Last administered on 05/10/17 07:44; Start 05/09/17 at 20:00 Oxycodone HCl (Roxicodone) 15 mg PRN Q4HRS PRN PO PAIN Last administered on 08:11; Start 05/09/17 at 17:00 Albuterol Sulfate (Ventolin Neb Soln) 2.5 mg PRN Q4HRS PRN NEB COUGH/WHEEZING; Start 05/09/17 at 17:15 Budesonide (Pulmicort) 0.5 mg RTBID NEB Last administered on 05/10/17 07:44; Start 05/09/17 at 20:00 Pantoprazole Sodium (Protonix) 40 mg DAILYAC PO Last administered on 05/10/17 08:11; Start 05/10/17 at 07:30 Zolpidem Tartrate (Ambien) 5 mg QHS PO Last administered on 05/09/17 23:30; Start 05/09/17 at 21:00 Heparin Sodium (Porcine) (Heparin Sq) 5,000 unit Q12HR SQ Last administered on 05/10/17 10:23; Start 05/10/17 at 10:00 Amino Acids/ Glycerin/ Electrolytes 1,000 ml @ 80 mls/hr [id number] IV Last administered on 05/10/17 10:16; Start 05/10/17 at 09:15 Active Scripts Active Oxycodone Hcl 5 Mg Tablet 15 Mg PO PRN Q4HRS PRN 30 Days Levaquin (Levofloxacin) 250 Mg Tablet 250 Mg PO QODAY 6 Days Duoneb 0.5-3(2.5) Mg/3 Ml (Albuterol/Ipratropium) 3 Ml Ampul.neb 3 Ml NEB RTQID 30 Days Advair 250-50 Diskus (Fluticasone/Salmeterol) 1 Puff Puff 1 Puff INH BID 30 Days Aranesp Syringe (Darbepoetin Norris In Polysorbat) 60 Mcg/0.3 Ml Disp.syrin 60 Mcg SQ WEEKLYHS 30 Days Albuterol Sulfate Conc Neb Soln (Albuterol Sulfate) 2.5 Mg/0.5 Ml Vial.neb 1 Vial NEB Q4HRS PRN Reported Ambien (Zolpidem Tartrate) 10 Mg Tablet 1 Tab PO QHS Omeprazole 20 Mg Capsule.dr 20 Mg PO DAILY Allergies Allergies: Coded Allergies: Penicillins (Verified Allergy, Unknown, UNKNOWN, 08/27/16) acetaminophen (Verified Adverse Reaction, Severe, increased liver enzymes , 07/31/15) ROS General: YES: Fatigue, Malaise, Appetite PSYCHOLOGICAL ROS: YES: Anxiety, Depression Eyes: Yes Decreased vision HEENT: YES: Heacaches Respiratory: YES: Cough, Shortness of breath Cardiovascular: yes Orthopnea Gastrointestinal: Yes Constipation Genitourinary: YES Other (ANURIA) Musculoskeletal: Yes Joint Stiffness, Yes Muscular Weakness, Yes Other (BACK PAIN) Neurological: Yes Weakness Skin: Yes Dry Skin Physical Exam General: Alert, Oriented X3, Cooperative, No acute distress HEENT: PERRLA Lungs: Clear to auscultation Heart: Regular rate, Normal S1, Normal S2 Abdomen: Normal bowel sounds, Soft, No tenderness Extremities: No clubbing Skin: No breakdown Neuro: Normal speech, Cranial nerves 3-12 NL Psych/Mental Status: Mental status NL, Mood NL MUSCULOSKELETAL: No deformity, No swelling Vitals VITALS Vital Signs Date Time Temp Pulse Resp B/P (MAP) Pulse Ox O2 Delivery O2 Flow Rate FiO2 05/10/17 10:23 Room Air 05/10/17 07:46 94 05/10/17 07:00 97.9 79 19 93/52 (66) 97.9 Labs Labs Laboratory Tests Test 05/09/17 12:05 05/10/17 04:20 White Blood Count 18.1 x10^3/uL (4.0-11.0) 15.3 x10^3/uL (4.0-11.0) Red Blood Count 2.64 x10^6/uL (3.50-5.40) 2.44 x10^6/uL (3.50-5.40) Hemoglobin 8.4 g/dL (12.0-15.5) 7.8 g/dL (12.0-15.5) Hematocrit 25.2 % (36.0-47.0) 23.5 % (36.0-47.0) Mean Corpuscular Volume 96 fL (79-100) 96 fL (79-100) Mean Corpuscular Hemoglobin 32 pg (25-35) 32 pg (25-35) Mean Corpuscular Hemoglobin Concent 33 g/dL (31-37) 33 g/dL (31-37) Red Cell Distribution Width 16.1 % (11.5-14.5) 16.8 % (11.5-14.5) Platelet Count 310 x10^3/uL (140-400) 291 x10^3/uL (140-400) Neutrophils (%) (Auto) 83 % (31-73) 78 % (31-73) Lymphocytes (%) (Auto) 11 % (24-48) 16 % (24-48) Monocytes (%) (Auto) 5 % (0-9) 6 % (0-9) Eosinophils (%) (Auto) 0 % (0-3) 0 % (0-3) Basophils (%) (Auto) 0 % (0-3) 0 % (0-3) Neutrophils # (Auto) 15.1 x10^3uL (1.8-7.7) 11.9 x10^3uL (1.8-7.7) Lymphocytes # (Auto) 1.9 x10^3/uL (1.0-4.8) 2.4 x10^3/uL (1.0-4.8) Monocytes # (Auto) 1.0 x10^3/uL (0.0-1.1) 0.9 x10^3/uL (0.0-1.1) Eosinophils # (Auto) 0.1 x10^3/uL (0.0-0.7) 0.1 x10^3/uL (0.0-0.7) Basophils # (Auto) 0.0 x10^3/uL (0.0-0.2) 0.0 x10^3/uL (0.0-0.2) Segmented Neutrophils % 82 % (35-66) 74 % (35-66) Lymphocytes % 14 % (24-48) 18 % (24-48) Monocytes % 4 % (0-10) 5 % (0-10) Hypersegmented Neutrophils Present Platelet Estimate Adequate (ADEQUATE) Adequate (ADEQUATE) Giant Platelets Occ Anisocytosis Slight Sodium Level 133 mmol/L (136-145) 136 mmol/L (136-145) Potassium Level 4.4 mmol/L (3.5-5.1) 3.9 mmol/L (3.5-5.1) Chloride Level 94 mmol/L (98-107) 97 mmol/L (98-107) Carbon Dioxide Level 22 mmol/L (21-32) 23 mmol/L (21-32) Anion Gap 17 (6-14) 16 (6-14) Blood Urea Nitrogen 75 mg/dL (7-20) 80 mg/dL (7-20) Creatinine 10.5 mg/dL (0.6-1.0) 11.0 mg/dL (0.6-1.0) Estimated GFR (Cockcroft-Gault) 4.7 4.4 BUN/Creatinine Ratio 7 (6-20) Glucose Level 119 mg/dL (70-99) 110 mg/dL (70-99) Calcium Level 6.2 mg/dL (8.5-10.1) 6.1 mg/dL (8.5-10.1) Iron Level 41 ug/dL (50-170) Total Iron Binding Capacity 172 ug/dL (250-450) Iron Saturation 24 % (15-34) Ferritin 197 ng/mL (8-252) Total Bilirubin 0.9 mg/dL (0.2-1.0) Aspartate Amino Transf (AST/SGOT) 32 U/L (15-37) Alanine Aminotransferase (ALT/SGPT) 20 U/L (14-59) Alkaline Phosphatase 163 U/L (46-116) Troponin I Quantitative < 0.017 ng/mL (0.000-0.055) LA-Gph-P-Type Natriuretic Peptide 6708 pg/mL (0-124) Total Protein 7.0 g/dL (6.4-8.2) Albumin 1.8 g/dL (3.4-5.0) Albumin/Globulin Ratio 0.3 (1.0-1.7) Vitamin B12 Level 386 pg/mL (247-911) Serum Folate 4.65 ng/ml (3.2-20.0) Band Neutrophils % 3 % (0-9) Laboratory Tests Test 05/09/17 12:05 05/10/17 04:20 White Blood Count 18.1 x10^3/uL (4.0-11.0) 15.3 x10^3/uL (4.0-11.0) Red Blood Count 2.64 x10^6/uL (3.50-5.40) 2.44 x10^6/uL (3.50-5.40) Hemoglobin 8.4 g/dL (12.0-15.5) 7.8 g/dL (12.0-15.5) Hematocrit 25.2 % (36.0-47.0) 23.5 % (36.0-47.0) Mean Corpuscular Volume 96 fL (79-100) 96 fL (79-100) Mean Corpuscular Hemoglobin 32 pg (25-35) 32 pg (25-35) Mean Corpuscular Hemoglobin Concent 33 g/dL (31-37) 33 g/dL (31-37) Red Cell Distribution Width 16.1 % (11.5-14.5) 16.8 % (11.5-14.5) Platelet Count 310 x10^3/uL (140-400) 291 x10^3/uL (140-400) Neutrophils (%) (Auto) 83 % (31-73) 78 % (31-73) Lymphocytes (%) (Auto) 11 % (24-48) 16 % (24-48) Monocytes (%) (Auto) 5 % (0-9) 6 % (0-9) Eosinophils (%) (Auto) 0 % (0-3) 0 % (0-3) Basophils (%) (Auto) 0 % (0-3) 0 % (0-3) Neutrophils # (Auto) 15.1 x10^3uL (1.8-7.7) 11.9 x10^3uL (1.8-7.7) Lymphocytes # (Auto) 1.9 x10^3/uL (1.0-4.8) 2.4 x10^3/uL (1.0-4.8) Monocytes # (Auto) 1.0 x10^3/uL (0.0-1.1) 0.9 x10^3/uL (0.0-1.1) Eosinophils # (Auto) 0.1 x10^3/uL (0.0-0.7) 0.1 x10^3/uL (0.0-0.7) Basophils # (Auto) 0.0 x10^3/uL (0.0-0.2) 0.0 x10^3/uL (0.0-0.2) Segmented Neutrophils % 82 % (35-66) 74 % (35-66) Lymphocytes % 14 % (24-48) 18 % (24-48) Monocytes % 4 % (0-10) 5 % (0-10) Hypersegmented Neutrophils Present Platelet Estimate Adequate (ADEQUATE) Adequate (ADEQUATE) Giant Platelets Occ Anisocytosis Slight Sodium Level 133 mmol/L (136-145) 136 mmol/L (136-145) Potassium Level 4.4 mmol/L (3.5-5.1) 3.9 mmol/L (3.5-5.1) Chloride Level 94 mmol/L (98-107) 97 mmol/L (98-107) Carbon Dioxide Level 22 mmol/L (21-32) 23 mmol/L (21-32) Anion Gap 17 (6-14) 16 (6-14) Blood Urea Nitrogen 75 mg/dL (7-20) 80 mg/dL (7-20) Creatinine 10.5 mg/dL (0.6-1.0) 11.0 mg/dL (0.6-1.0) Estimated GFR (Cockcroft-Gault) 4.7 4.4 BUN/Creatinine Ratio 7 (6-20) Glucose Level 119 mg/dL (70-99) 110 mg/dL (70-99) Calcium Level 6.2 mg/dL (8.5-10.1) 6.1 mg/dL (8.5-10.1) Iron Level 41 ug/dL (50-170) Total Iron Binding Capacity 172 ug/dL (250-450) Iron Saturation 24 % (15-34) Ferritin 197 ng/mL (8-252) Total Bilirubin 0.9 mg/dL (0.2-1.0) Aspartate Amino Transf (AST/SGOT) 32 U/L (15-37) Alanine Aminotransferase (ALT/SGPT) 20 U/L (14-59) Alkaline Phosphatase 163 U/L (46-116) Troponin I Quantitative < 0.017 ng/mL (0.000-0.055) QG-Hiw-C-Type Natriuretic Peptide 6708 pg/mL (0-124) Total Protein 7.0 g/dL (6.4-8.2) Albumin 1.8 g/dL (3.4-5.0) Albumin/Globulin Ratio 0.3 (1.0-1.7) Vitamin B12 Level 386 pg/mL (247-911) Serum Folate 4.65 ng/ml (3.2-20.0) Band Neutrophils % 3 % (0-9) Assessment/Plan Assessment/Plan IMP ESRD ANEMIA MALNUTRITION SPINE FX HTN MILD LEUCOCYTOSIS PLAN PPN HD TODAY UF TO DW NEXT HD TOMORROW - BACK TO TTS SCHEDULE ENC COMPLIANCE VÍCTOR SKELTON MD May 10, 2017 11:14
[2017-05-10] MEDS ORDERED: IV NORMAL SALINE 1000ML BAG 1,000 ML IV PRN ×2 (11:37)
[2017-05-10] MEDS ORDERED: LIDOCAINE 1% PF 2 ML VIAL. ID STA (11:37)
[2017-05-10] MEDS ORDERED: diphenhydrAMINE 50 MG/ML VIAL IV PRN ×2 (11:45)
[2017-05-10] MEDS ORDERED: DIALYSIS PATIENT. MC PRN (11:45)
[2017-05-10 16:42] VITALS: BP 128/70
[2017-05-10 19:00] VITALS: BP 128/61
[2017-05-10] MEDS ORDERED: DARBEPOETIN ALFA 60 MCG/0.3 ML DISP.SYRIN. SQ SCH (21:00)
[2017-05-10] MEDS: ZOLPIDEM 5 MG TABLET. PO SCH (21:06)
[2017-05-10 23:00] VITALS: BP 109/56
[2017-05-11] MEDS: AMINO AC 3%/ELECTROLYTE/GLYCER 1,000 ML IV SCH ×2 (02:26→17:21)
[2017-05-11] MEDS: oxyCODONE IR 5 MG TABLET PO PRN ×5 (02:26→22:06)
[2017-05-11 03:00] VITALS: BP 120/62
[2017-05-11 07:00] VITALS: BP 101/49
[2017-05-11] MEDS: IPRATRPIUM/ALBUTEROL 0.5/2.5MG 3 ML NEBU. NEB SCH ×4 (07:10→19:02)
[2017-05-11] MEDS: BUDESONIDE 0.5 MG/2 ML NEBU. NEB SCH ×2 (07:11→19:03)
[2017-05-11] MEDS: PANTOPRAZOLE 40 MG TABLET.DR. PO SCH ×2 (07:30→12:44)
[2017-05-11] MEDS ORDERED: LIDOCAINE 1% PF 2 ML VIAL. ONE ×2 (08:21→08:30)
[2017-05-11] MEDS: HEPARIN PF for SUB-Q USE 5,000 UNIT/0.5 ML VIAL. SQ SCH ×3 (09:00→22:15)
--- NOTE | 2017-05-11 09:08 | PDOC ---
PROGRESS NOTES Subjective Subjective Patient in middle of dialysis. Feels better. C/O right elbow pain. Low grade fever noted. Previous CT chest shows multiple lung nodules. Objective Objective Vital Signs Date Time Temp Pulse Resp B/P (MAP) Pulse Ox O2 Delivery O2 Flow Rate FiO2 05/11/17 08:57 Room Air 05/11/17 07:11 96 05/11/17 07:00 98.8 79 19 101/49 (66) 98.8 Physical Exam Abdomen: Normal bowel sounds Extremities: No edema, Other (Right elbow swelling and pain) General: Alert Lungs: Clear to auscultation Assessment Assessment Problems Medical Problems: (1) Back pain Status: Acute (2) ESRD (end stage renal disease) on dialysis Status: Acute Spinal compression fractures with weakness, ESRD on dialysis, Severe hypocalcemia due to severe protein malnutrition. Hx of lung masses Plan Plan of Care Repeat CT chest Repeat right elbow xray Continue PT/OT Monitor low grade fever Continue routine Dialysis consider pulm eval pending new CT chest Comment Review of Relevant I have reviewed the following items issac (where applicable) has been applied. Labs Laboratory Tests Test 05/09/17 12:05 05/10/17 04:20 White Blood Count 18.1 x10^3/uL (4.0-11.0) 15.3 x10^3/uL (4.0-11.0) Red Blood Count 2.64 x10^6/uL (3.50-5.40) 2.44 x10^6/uL (3.50-5.40) Hemoglobin 8.4 g/dL (12.0-15.5) 7.8 g/dL (12.0-15.5) Hematocrit 25.2 % (36.0-47.0) 23.5 % (36.0-47.0) Mean Corpuscular Volume 96 fL (79-100) 96 fL (79-100) Mean Corpuscular Hemoglobin 32 pg (25-35) 32 pg (25-35) Mean Corpuscular Hemoglobin Concent 33 g/dL (31-37) 33 g/dL (31-37) Red Cell Distribution Width 16.1 % (11.5-14.5) 16.8 % (11.5-14.5) Platelet Count 310 x10^3/uL (140-400) 291 x10^3/uL (140-400) Neutrophils (%) (Auto) 83 % (31-73) 78 % (31-73) Lymphocytes (%) (Auto) 11 % (24-48) 16 % (24-48) Monocytes (%) (Auto) 5 % (0-9) 6 % (0-9) Eosinophils (%) (Auto) 0 % (0-3) 0 % (0-3) Basophils (%) (Auto) 0 % (0-3) 0 % (0-3) Neutrophils # (Auto) 15.1 x10^3uL (1.8-7.7) 11.9 x10^3uL (1.8-7.7) Lymphocytes # (Auto) 1.9 x10^3/uL (1.0-4.8) 2.4 x10^3/uL (1.0-4.8) Monocytes # (Auto) 1.0 x10^3/uL (0.0-1.1) 0.9 x10^3/uL (0.0-1.1) Eosinophils # (Auto) 0.1 x10^3/uL (0.0-0.7) 0.1 x10^3/uL (0.0-0.7) Basophils # (Auto) 0.0 x10^3/uL (0.0-0.2) 0.0 x10^3/uL (0.0-0.2) Segmented Neutrophils % 82 % (35-66) 74 % (35-66) Lymphocytes % 14 % (24-48) 18 % (24-48) Monocytes % 4 % (0-10) 5 % (0-10) Hypersegmented Neutrophils Present Platelet Estimate Adequate (ADEQUATE) Adequate (ADEQUATE) Giant Platelets Occ Anisocytosis Slight Sodium Level 133 mmol/L (136-145) 136 mmol/L (136-145) Potassium Level 4.4 mmol/L (3.5-5.1) 3.9 mmol/L (3.5-5.1) Chloride Level 94 mmol/L (98-107) 97 mmol/L (98-107) Carbon Dioxide Level 22 mmol/L (21-32) 23 mmol/L (21-32) Anion Gap 17 (6-14) 16 (6-14) Blood Urea Nitrogen 75 mg/dL (7-20) 80 mg/dL (7-20) Creatinine 10.5 mg/dL (0.6-1.0) 11.0 mg/dL (0.6-1.0) Estimated GFR (Cockcroft-Gault) 4.7 4.4 BUN/Creatinine Ratio 7 (6-20) Glucose Level 119 mg/dL (70-99) 110 mg/dL (70-99) Calcium Level 6.2 mg/dL (8.5-10.1) 6.1 mg/dL (8.5-10.1) Iron Level 41 ug/dL (50-170) Total Iron Binding Capacity 172 ug/dL (250-450) Iron Saturation 24 % (15-34) Ferritin 197 ng/mL (8-252) Total Bilirubin 0.9 mg/dL (0.2-1.0) Aspartate Amino Transf (AST/SGOT) 32 U/L (15-37) Alanine Aminotransferase (ALT/SGPT) 20 U/L (14-59) Alkaline Phosphatase 163 U/L (46-116) Troponin I Quantitative < 0.017 ng/mL (0.000-0.055) TW-Wba-C-Type Natriuretic Peptide 6708 pg/mL (0-124) Total Protein 7.0 g/dL (6.4-8.2) Albumin 1.8 g/dL (3.4-5.0) Albumin/Globulin Ratio 0.3 (1.0-1.7) Vitamin B12 Level 386 pg/mL (247-911) Serum Folate 4.65 ng/ml (3.2-20.0) Band Neutrophils % 3 % (0-9) Medications Current Medications Fentanyl Citrate (Fentanyl 2ml Vial) 50 mcg PRN Q15MIN PRN IV PAIN GREATER THAN 3/10 Last administered on 05/09/17 15:30; Start 05/09/17 at 10:45; Stop 05/10/17 at 10:44; Status DC Sodium Chloride 250 ml @ 0 mls/hr 1X ONCE IV Last administered on 05/09/17 13 :45; Start 05/09/17 at 13:45; Stop 05/09/17 at 13:51; Status DC Ondansetron HCl (Zofran) 4 mg PRN Q8HRS PRN IV NAUSEA/VOMITING; Start 05/09/17 at 14:00; Stop 05/10/17 at 13:59; Status DC Morphine Sulfate 2 mg PRN Q2HR PRN IV PAIN Last administered on 05/10/17 05:50 ; Start 05/09/17 at 14:00; Stop 05/10/17 at 13:59; Status DC Calcium Gluconate (Calcium Gluconate) 1,000 mg 1X ONCE IV Last administered on 05/09/17 15:25; Start 05/09/17 at 14:30; Stop 05/09/17 at 14:31; Status DC Albuterol/ Ipratropium (Duoneb) 3 ml RTQID NEB Last administered on 05/11/17 07:10; Start 05/09/17 at 20:00 Oxycodone HCl (Roxicodone) 15 mg PRN Q4HRS PRN PO PAIN Last administered on 17:18; Start 05/09/17 at 17:00; Stop 05/10/17 at 20:27; Status DC Albuterol Sulfate (Ventolin Neb Soln) 2.5 mg PRN Q4HRS PRN NEB COUGH/WHEEZING; Start 05/09/17 at 17:15 Budesonide (Pulmicort) 0.5 mg RTBID NEB Last administered on 05/11/17 07:11; Start 05/09/17 at 20:00 Pantoprazole Sodium (Protonix) 40 mg DAILYAC PO Last administered on 05/10/17 08:11; Start 05/10/17 at 07:30 Zolpidem Tartrate (Ambien) 5 mg QHS PO Last administered on 05/10/17 21:06; Start 05/09/17 at 21:00 Heparin Sodium (Porcine) (Heparin Sq) 5,000 unit Q12HR SQ Last administered on 05/10/17 21:13; Start 05/10/17 at 10:00 Amino Acids/ Glycerin/ Electrolytes 1,000 ml @ 80 mls/hr [id number] IV Last administered on 05/11/17 02:26; Start 05/10/17 at 09:15 Darbepoetin Norris (Aranesp) 60 mcg WEEKLYHS SQ Last administered on 05/10/17 21 :06; Start 05/10/17 at 21:00 Sodium Chloride 1,000 ml @ 1,000 mls/hr Q1H PRN IV hypotension; Start 05/10/17 at 11:37; Stop 05/10/17 at 17:36; Status DC Diphenhydramine HCl (Benadryl) 25 mg 1X PRN PRN IV ITCHING; Start 05/10/17 at 11:45; Stop 05/11/17 at 11:44 Diphenhydramine HCl (Benadryl) 25 mg 1X PRN PRN IV ITCHING; Start 05/10/17 at 11:45; Stop 05/11/17 at 11:44 Sodium Chloride 1,000 ml @ 400 mls/hr Q2H30M PRN IV PATENCY; Start 05/10/17 at 11:37; Stop 05/10/17 at 23:36; Status DC Info (PHARMACY MONITORING -- do not chart) 1 each PRN DAILY PRN MC SEE COMMENTS ; Start 05/10/17 at 11:45 Lidocaine HCl (Xylocaine-Mpf 1% Vial) 0.5 ml 1X STAT ID ; Start 05/10/17 at 11: 37; Stop 05/10/17 at 11:45; Status DC Oxycodone HCl (Roxicodone) 20 mg PRN Q4HRS PRN PO PAIN Last administered on t 08:57; Start 05/10/17 at 20:30 Lidocaine HCl (Xylocaine-Mpf 1% Vial) 2 ml STK-MED ONCE .ROUTE ; Start 05/11/17 at 08:21; Stop 05/11/17 at 08:22; Status DC Active Scripts Active Oxycodone Hcl 5 Mg Tablet 15 Mg PO PRN Q4HRS PRN 30 Days Levaquin (Levofloxacin) 250 Mg Tablet 250 Mg PO QODAY 6 Days Duoneb 0.5-3(2.5) Mg/3 Ml (Albuterol/Ipratropium) 3 Ml Ampul.neb 3 Ml NEB RTQID 30 Days Advair 250-50 Diskus (Fluticasone/Salmeterol) 1 Puff Puff 1 Puff INH BID 30 Days Aranesp Syringe (Darbepoetin Norris In Polysorbat) 60 Mcg/0.3 Ml Disp.syrin 60 Mcg SQ WEEKLYHS 30 Days Albuterol Sulfate Conc Neb Soln (Albuterol Sulfate) 2.5 Mg/0.5 Ml Vial.neb 1 Vial NEB Q4HRS PRN Reported Ambien (Zolpidem Tartrate) 10 Mg Tablet 1 Tab PO QHS Omeprazole 20 Mg Capsule.dr 20 Mg PO DAILY Vitals/I & O Vital Sign - Last 24 Hours 05/10/17 05/10/17 05/10/17 05/10/17 11:00 11:20 16:42 17:18 Temp 98.2 97.9 98.2 97.9 Pulse 73 85 Resp 19 16 B/P (MAP) 88/48 (61) 128/70 (89) Pulse Ox 99 O2 Delivery Nasal Cannula Room Air Room Air 05/10/17 05/10/17 05/10/17 05/10/17 19:00 19:06 19:07 19:11 Temp 100.0 100.0 Pulse 81 Resp 16 B/P (MAP) 128/61 (83) Pulse Ox 96 98 98 O2 Delivery Room Air Room Air Room Air Room Air 05/10/17 05/10/17 05/10/17 05/11/17 19:50 21:06 23:00 02:26 Temp 100.9 100.9 Pulse 57 Resp 16 B/P (MAP) 109/56 (73) Pulse Ox 98 92 92 O2 Delivery Room Air Room Air Room Air Room Air 05/11/17 05/11/17 05/11/17 05/11/17 03:00 03:26 07:00 07:11 Temp 100.6 98.8 100.6 98.8 Pulse 86 79 Resp 16 19 B/P (MAP) 120/62 (81) 101/49 (66) Pulse Ox 95 95 96 96 O2 Delivery Room Air Room Air Room Air Room Air 05/11/17 08:57 O2 Delivery Room Air Nutrition Consultation Dietary Evaluation: Recommendations by RD: Increase Calorie Intake, Protein supplementation, PPN/ TPN Comments: magic cup bid: 290kcal, 9 g protein/serving ppn @ 80 ml/ hr Expected Outcomes/Goals: to meet > 75% est nutr needs via po intake Malnutrition Findings: Body Fat Depletion (Non Severe: Mild Depletion Weight Status: Appropriate ANTHONY CHAMPAGNE MD May 11, 2017 09:08
--- NOTE | 2017-05-11 10:03 | PDOC ---
Dialysis Progress Note Dialysis Note Dialysis Note Seen on Hemodialysis, tolerating treatment Well Vitals on Hemodialysis: 103/46 76 afeb General Appearance: Awake: Alert Oriented x 3 Neck: No JVD or JVP Chest: CTA Atif Heart: S1 S2 Abdomen - Soft NTND Extremities - No Edema ESRD: Dialysis as below F 180 NR 3.0 Hrs 3 K 3.5 Ca 140 Na 40 HC03 Qb 350 + Qd 500+ Heparin 0 Units Uf 3-4 Kgs or to dry weight as tolerated May give 25-50 gms of 25% Albumin if needed to maintain Hemodynamic stability Treatment plan reviewed and discussed with tag maker Vitals Vital Signs Vital Signs Date Time Temp Pulse Resp B/P (MAP) Pulse Ox O2 Delivery O2 Flow Rate FiO2 05/11/17 08:57 Room Air 05/11/17 07:11 96 05/11/17 07:00 98.8 79 19 101/49 (66) 98.8 Labs Last Labs Laboratory Tests Test 05/09/17 12:05 05/10/17 04:20 White Blood Count 18.1 x10^3/uL (4.0-11.0) 15.3 x10^3/uL (4.0-11.0) Red Blood Count 2.64 x10^6/uL (3.50-5.40) 2.44 x10^6/uL (3.50-5.40) Hemoglobin 8.4 g/dL (12.0-15.5) 7.8 g/dL (12.0-15.5) Hematocrit 25.2 % (36.0-47.0) 23.5 % (36.0-47.0) Mean Corpuscular Volume 96 fL (79-100) 96 fL (79-100) Mean Corpuscular Hemoglobin 32 pg (25-35) 32 pg (25-35) Mean Corpuscular Hemoglobin Concent 33 g/dL (31-37) 33 g/dL (31-37) Red Cell Distribution Width 16.1 % (11.5-14.5) 16.8 % (11.5-14.5) Platelet Count 310 x10^3/uL (140-400) 291 x10^3/uL (140-400) Neutrophils (%) (Auto) 83 % (31-73) 78 % (31-73) Lymphocytes (%) (Auto) 11 % (24-48) 16 % (24-48) Monocytes (%) (Auto) 5 % (0-9) 6 % (0-9) Eosinophils (%) (Auto) 0 % (0-3) 0 % (0-3) Basophils (%) (Auto) 0 % (0-3) 0 % (0-3) Neutrophils # (Auto) 15.1 x10^3uL (1.8-7.7) 11.9 x10^3uL (1.8-7.7) Lymphocytes # (Auto) 1.9 x10^3/uL (1.0-4.8) 2.4 x10^3/uL (1.0-4.8) Monocytes # (Auto) 1.0 x10^3/uL (0.0-1.1) 0.9 x10^3/uL (0.0-1.1) Eosinophils # (Auto) 0.1 x10^3/uL (0.0-0.7) 0.1 x10^3/uL (0.0-0.7) Basophils # (Auto) 0.0 x10^3/uL (0.0-0.2) 0.0 x10^3/uL (0.0-0.2) Segmented Neutrophils % 82 % (35-66) 74 % (35-66) Lymphocytes % 14 % (24-48) 18 % (24-48) Monocytes % 4 % (0-10) 5 % (0-10) Hypersegmented Neutrophils Present Platelet Estimate Adequate (ADEQUATE) Adequate (ADEQUATE) Giant Platelets Occ Anisocytosis Slight Sodium Level 133 mmol/L (136-145) 136 mmol/L (136-145) Potassium Level 4.4 mmol/L (3.5-5.1) 3.9 mmol/L (3.5-5.1) Chloride Level 94 mmol/L (98-107) 97 mmol/L (98-107) Carbon Dioxide Level 22 mmol/L (21-32) 23 mmol/L (21-32) Anion Gap 17 (6-14) 16 (6-14) Blood Urea Nitrogen 75 mg/dL (7-20) 80 mg/dL (7-20) Creatinine 10.5 mg/dL (0.6-1.0) 11.0 mg/dL (0.6-1.0) Estimated GFR (Cockcroft-Gault) 4.7 4.4 BUN/Creatinine Ratio 7 (6-20) Glucose Level 119 mg/dL (70-99) 110 mg/dL (70-99) Calcium Level 6.2 mg/dL (8.5-10.1) 6.1 mg/dL (8.5-10.1) Iron Level 41 ug/dL (50-170) Total Iron Binding Capacity 172 ug/dL (250-450) Iron Saturation 24 % (15-34) Ferritin 197 ng/mL (8-252) Total Bilirubin 0.9 mg/dL (0.2-1.0) Aspartate Amino Transf (AST/SGOT) 32 U/L (15-37) Alanine Aminotransferase (ALT/SGPT) 20 U/L (14-59) Alkaline Phosphatase 163 U/L (46-116) Troponin I Quantitative < 0.017 ng/mL (0.000-0.055) EJ-[id number]-B-Type Natriuretic Peptide 6708 pg/mL (0-124) Total Protein 7.0 g/dL (6.4-8.2) Albumin 1.8 g/dL (3.4-5.0) Albumin/Globulin Ratio 0.3 (1.0-1.7) Vitamin B12 Level 386 pg/mL (247-911) Serum Folate 4.65 ng/ml (3.2-20.0) Band Neutrophils % 3 % (0-9) Assessment Assessment Problems Medical Problems: (1) Back pain Status: Acute (2) ESRD (end stage renal disease) on dialysis Status: Acute Problems: Plan Plan of Care Problems Medical Problems: (1) Back pain Status: Acute (2) ESRD (end stage renal disease) on dialysis Status: Acute MONICA MARTIN MD May 11, 2017 10:03
[2017-05-11] MEDS ORDERED: DIALYSIS PATIENT. MC PRN (12:15)
--- NOTE | 2017-05-11 14:31 | RAD ---
Right elbow, 3 views, 05/11/2017: Comparison is made to a study from 04/27/2017. The bony structures are demineralized. There is a moderate-sized elbow joint effusion. The patient is somewhat rotated on the AP view. There are subtle cortical discontinuities along the humeral margins just superior to the medial and lateral humeral epicondyles. A nondisplaced fracture is suspected. There is moderate subcutaneous edema medially. IMPRESSION: 1. Moderate sized elbow joint effusion. 2. Probable nondisplaced supracondylar lower distal humeral fracture. CT scanning may be useful for further evaluation, if clinically indicated.
--- NOTE | 2017-05-11 15:15 | RAD ---
MR lumbar spine, 05/11/2017: History: Chronic back pain Imaging was performed in sagittal and angled axial planes utilizing T1 weighted, T2 weighted and STIR sequences. There is a mild Schmorl's node deformity along the superior endplate at L2-3. The lumbar vertebral heights are otherwise well-maintained. There is loss of signal strength arising from the lowest 4 lumbar discs compatible with disc degeneration and/or desiccation. No significant posterior disc bulge or protrusion is present at the L1-2 level. The conus is unremarkable. At L2-3 there is a small right anterolateral epidural density extending superiorly from the posterior disc margin. The appearance is that of a small extruded disc fragment. There is no significant associated central spinal stenosis. The neural foramina are well maintained. At L3-4 there is a small posterior disc protrusion, left greater than right. The central spinal canal is not significant stenotic measuring 10 mm in AP diameter at the midline. The disc protrusion in conjunction with facet joint arthropathy is causing moderate foraminal narrowing, worse on the left. At L4-5 there is a moderate broad-based posterior disc extrusion which in conjunction with facet joint arthropathy is causing moderate bilateral foraminal encroachment. The central spinal canal measures 9 mm in AP diameter at the midline. At L5-S1 there is moderate posterior disc bulging at the midline. There are mild degenerative changes involving the facet joints. There is mild associated inferior foraminal narrowing. The central spinal canal is well-preserved. IMPRESSION: Moderate multilevel degenerative changes with moderate foraminal encroachment at several levels as described above. No high-grade central spinal stenosis is evident.
--- NOTE | 2017-05-11 18:57 | PDOC ---
PULMONARY PROGRESS NOTES Vitals Vital Signs Date Time Temp Pulse Resp B/P (MAP) Pulse Ox O2 Delivery O2 Flow Rate FiO2 05/11/17 18:29 Room Air 05/11/17 14:12 95 05/11/17 13:10 16 05/11/17 07:00 98.8 79 101/49 (66) 98.8 General: Alert, Oriented X4, No acute distress, Mild Distress Lungs: Clear Cardiovascular: S1 Abdomen: Soft, Non-tender Extremities: No Edema Labs Laboratory Tests Test 05/10/17 04:20 05/11/17 10:35 White Blood Count 15.3 x10^3/uL (4.0-11.0) Red Blood Count 2.44 x10^6/uL (3.50-5.40) Hemoglobin 7.8 g/dL (12.0-15.5) Hematocrit 23.5 % (36.0-47.0) Mean Corpuscular Volume 96 fL (79-100) Mean Corpuscular Hemoglobin 32 pg (25-35) Mean Corpuscular Hemoglobin Concent 33 g/dL (31-37) Red Cell Distribution Width 16.8 % (11.5-14.5) Platelet Count 291 x10^3/uL (140-400) Neutrophils (%) (Auto) 78 % (31-73) Lymphocytes (%) (Auto) 16 % (24-48) Monocytes (%) (Auto) 6 % (0-9) Eosinophils (%) (Auto) 0 % (0-3) Basophils (%) (Auto) 0 % (0-3) Neutrophils # (Auto) 11.9 x10^3uL (1.8-7.7) Lymphocytes # (Auto) 2.4 x10^3/uL (1.0-4.8) Monocytes # (Auto) 0.9 x10^3/uL (0.0-1.1) Eosinophils # (Auto) 0.1 x10^3/uL (0.0-0.7) Basophils # (Auto) 0.0 x10^3/uL (0.0-0.2) Segmented Neutrophils % 74 % (35-66) Band Neutrophils % 3 % (0-9) Lymphocytes % 18 % (24-48) Monocytes % 5 % (0-10) Platelet Estimate Adequate (ADEQUATE) Sodium Level 136 mmol/L (136-145) Potassium Level 3.9 mmol/L (3.5-5.1) Chloride Level 97 mmol/L (98-107) Carbon Dioxide Level 23 mmol/L (21-32) Anion Gap 16 (6-14) Blood Urea Nitrogen 80 mg/dL (7-20) Creatinine 11.0 mg/dL (0.6-1.0) Estimated GFR (Cockcroft-Gault) 4.4 Glucose Level 110 mg/dL (70-99) Calcium Level 6.1 mg/dL (8.5-10.1) Albumin 2.1 g/dL (3.4-5.0) Laboratory Tests Test 05/11/17 10:35 Albumin 2.1 g/dL (3.4-5.0) Medications Active Scripts Medications Dose Route/Sig Max Daily Dose Days Date Category Oxycodone Hcl 5 Mg Tablet 15 Mg PO PRN Q4HRS PRN 30 02/01/17 Rx Levaquin (Levofloxacin) 250 Mg Tablet 250 Mg PO QODAY 6 02/01/17 Rx Ambien (Zolpidem Tartrate) 10 Mg Tablet 1 Tab PO QHS 12/06/15 Reported Omeprazole 20 Mg Capsule.dr 20 Mg PO DAILY 09/15/15 Reported Duoneb 0.5-3(2.5) Mg/3 Ml (Albuterol/Ipratropium) 3 Ml Ampul.neb 3 Ml NEB RTQID 30 08/08/15 Rx Advair 250-50 Diskus (Fluticasone/Salmeterol) 1 Puff Puff 1 Puff INH BID 30 08/26/14 Rx Aranesp Syringe (Darbepoetin Norris In Polysorbat) 60 Mcg/0.3 Ml Disp.syrin 60 Mcg SQ WEEKLYHS 30 08/26/14 Rx Albuterol Sulfate Conc Neb Soln (Albuterol Sulfate) 2.5 Mg/0.5 Ml Vial.neb 1 Vial NEB Q4HRS PRN 08/23/14 Rx Impression . FULL CONSULT DICTATED THANKS CT REVIEWED NO INFILTRATES/ NO SIGNIFICANT NODULES AECOPD ONEIDA WHARTON MD May 11, 2017 18:57
[2017-05-11 19:00] VITALS: BP 93/51
[2017-05-11] MEDS: ZOLPIDEM 5 MG TABLET. PO SCH (22:54)
[2017-05-11 23:00] VITALS: BP 112/59
[2017-05-12] MEDS: oxyCODONE IR 5 MG TABLET PO PRN ×3 (02:31→11:55)
[2017-05-12 03:00] VITALS: BP_SYST 110; BP_SYST 119; BP_DIAS 63; BP_DIAS 71
[2017-05-12] MEDS: AMINO AC 3%/ELECTROLYTE/GLYCER 1,000 ML IV SCH (04:47)
[2017-05-12 05:41] LABS: HEMATOCRIT 25.1 % (36.0-47.0); HEMOGLOBIN 8.1 g/dL (12.0-15.5); RED BLOOD COUNT 2.59 x10^6/uL (3.50-5.40); RED CELL DISTRIBUTION WIDTH 16.4 % (11.5-14.5); WHITE BLOOD COUNT 12.3 x10^3/uL (4.0-11.0)
[2017-05-12 06:22] LABS: MAGNESIUM 1.9 mg/dL (1.8-2.4); PHOSPHORUS 2.3 mg/dL (2.6-4.7)
[2017-05-12 07:00] VITALS: BP 113/58
[2017-05-12] MEDS: IPRATRPIUM/ALBUTEROL 0.5/2.5MG 3 ML NEBU. NEB SCH (07:16)
--- NOTE | 2017-05-12 07:33 | CONS ---
DATE OF CONSULTATION: 05/11/2017 ATTENDING PHYSICIAN: Dr. Pereira. REASON FOR CONSULTATION: The patient is seen in pulmonary consultation at the request of Dr. Tristan for previously abnormal CT of the chest revealing multiple pulmonary nodules. HISTORY OF PRESENT ILLNESS: The patient is a 51-year-old female, presenting with some weakness and lower back pain. She was last seen on 02/01/2017. At that time, she left AMA. She had abnormal CT of the chest revealing some bilateral nodules, interstitial and alveolar type of infiltrates. The patient was scheduled to undergo repeat scan. I do not believe that she was followed up in the past. I was asked to see her in consultation. She denies fever or chills. She continues to smoke. She does have some increasing shortness of breath, cough, mostly nonproductive. I reviewed her current CT. The CT showed marked improvement in the previously seen infiltrates and nodules. I suspect all this was either based upon inflammation or infectious etiology. PAST MEDICAL HISTORY: Coronary artery disease, heart failure, hypertension, hyperlipidemia, COPD, chronic bronchitis, previous pneumonia, gastric esophageal reflux, hepatitis, cirrhosis, drug addiction, depression, anxiety, chronic renal failure, on hemodialysis. PAST SURGICAL HISTORY: No recent major surgeries. CURRENT MEDICATIONS: List was reviewed. ALLERGIES: PENICILLIN AND ACETAMINOPHEN. SOCIAL HISTORY: She continues to smoke. REVIEW OF SYSTEMS: As indicated above. Otherwise, a 10-point system was reviewed and negative. PHYSICAL EXAMINATION: GENERAL: She is in no respiratory distress. VITAL SIGNS: Stable. O2 saturation on room air is 95%. HEENT: Eyes: The sclerae were nonicteric. NECK: Jugular venous distention was not elevated. No lymphadenopathy. LUNGS: Adequate airway flow with no wheezes. CARDIOVASCULAR: Regular rate and rhythm with S1 and S2, no S3. ABDOMEN: Soft, nontender, nondistended. EXTREMITIES: No clubbing, cyanosis or edema. NEUROLOGIC: The patient was awake, alert, following commands. A detailed neuro exam was not performed. IMPRESSION: 1. Previously abnormal CT of the chest dated 02/01/2017 revealing bilateral pulmonary infiltrates and nodules. New CT was personally reviewed and it has improved. I do not see any significant nodules. Final report from Radiology is unavailable at this time. 2. Acute exacerbation of chronic obstructive pulmonary disease. 3. End-stage renal disease, on hemodialysis. 4. Spinal compression fracture. 5. Severe protein malnutrition. PLAN: 1. From a Pulmonary standpoint of view, the patient is doing well. I do not recommend additional antibiotics. 2. The patient is instructed on the importance of discontinuing tobacco use. 3. Would avoid steroids to prevent further bone destruction. 4. Continue nebulized treatments. I do appreciate the privilege in sharing in the patient's care. ONEIDA WHARTON MD DR: NELLY/teo JOB#: [id number] / [id number]
[2017-05-12] MEDS: PANTOPRAZOLE 40 MG TABLET.DR. PO SCH (07:48)
[2017-05-12] MEDS: HEPARIN PF for SUB-Q USE 5,000 UNIT/0.5 ML VIAL. SQ SCH (07:51)
[2017-05-12] MEDS: BUDESONIDE 0.5 MG/2 ML NEBU. NEB SCH (08:39)
--- NOTE | 2017-05-12 08:59 | RAD ---
CT of the chest without contrast, 05/11/2017: History: Lung mass Noncontrast scans were obtained and compared to a study from 01/31/2017. Small subpleural blebs and scars are present in the pulmonary apices. There are a few scattered linear parenchymal scars in both lungs. Multiple ill-defined bilateral parenchymal opacities seen in both lungs on the previous study have nearly completely resolved. There is only a mild residual elongated parenchymal opacity in the right lung base posteriorly extending into the posterior costophrenic angle. It contains air bronchograms. This may be due to atelectasis, scarring or residual infiltrate. No pleural fluid is seen. There is moderate calcific plaquing of the thoracic aorta and its branches. No aortic aneurysm is evident. Several scattered coronary artery calcifications are noted. The heart is not enlarged. Stable benign-appearing mediastinal lymph nodes are again noted. A T7 vertebral compression fracture is unchanged. A T9 vertebral compression fracture has progressed slightly. There is now sclerosis within that vertebral body compatible with reparative change. There are scattered spurs in the spine. IMPRESSION: 1. Nearly complete clearing of the numerous bilateral irregular pulmonary opacities since 01/31/2017, compatible with resolving pneumonia. 2. Minimal residual atelectasis/infiltrate or scarring in the right lung base posteriorly. 3. Moderate calcific plaquing of the aorta and coronary arteries. 4. T7 and T9 vertebral compression fractures. PQRS Compliance Statement: One or more of the following individualized dose reduction techniques were utilized for this examination: 1. Automated exposure control 2. Adjustment of the mA and/or kV according to patient size 3. Use of iterative reconstruction technique
[2017-05-12 10:50] VITALS: BP 130/70
--- NOTE | 2017-05-12 11:52 | PDOC ---
SUBJECTIVE ROS ESRD Doing and feeling better today - no further discomfort at AV Access site CVS: no Orthopnea, no CP RESP: no SOB, no LANGSTON GI: no Nausea, no Vomiting : no Dysuria, no Urgency OBJECTIVE Vital Signs Vital Signs Date Time Temp Pulse Resp B/P (MAP) Pulse Ox O2 Delivery O2 Flow Rate FiO2 05/12/17 10:50 98.4 80 16 130/70 (90) 95 Room Air 98.4 PHYSICAL EXAM Physical Exam GEN: Awake, Oriented x 3, In no distress EYES: Vision Unchanged, Conjunctiva Normal EN: No EN Drainage, Mucous Membranes moist NECK: no JVD, min JVP, Supple, no Thyromegaly CVS: S1S2, + Murmur, No Gallop, No Rub,no Edema RESP: no Rales, no Rhonchi,no Acc. Muscle Use GI: BS + ve, NO Bruit, Non Tender, Non Distended : no CVA tenderness, no Suprapubic Tenderness DIAGNOSIS/ASSESSMENT Assessment & Plan ESRD: Current fluid and E-lyte status does not necessitate emergent need for dialysis. Will re-evaluate for dialysis in the am and continue on TTSat schedule. ANEMIA; Aranap as ordered, Transfuse with next HD as needed; Follow OP EPO protocol HTN: Current BP meds as reviewed. See orders for changes. BONE & MINERAL: lowish Phos ntoed - I anticipate this to ^ as she goes home to her regular det Discussed Plan of Care with pt at bedside - OK to D/c Home from renal standpoint Problems: COMMENT/RELEVANT DATA Meds Current Medications Medications (Trade) Dose Ordered Sig/[place] Start Time Stop Time Status Last Admin Dose Admin Albuterol Sulfate (Ventolin Neb Soln) 2.5 mg PRN Q4HRS PRN 05/09/17 17:15 Albuterol/ Ipratropium (Duoneb) 3 ml RTQID 05/09/17 20:00 05/12/17 07:16 3 ML Amino Acids/ Glycerin/ Electrolytes 1,000 ml @ 80 mls/hr [id number] 05/10/17 09:15 05/12/17 04:47 80 MLS/HR Budesonide (Pulmicort) 0.5 mg RTBID 05/09/17 20:00 05/12/17 08:39 0.5 MG Calcium Gluconate (Calcium Gluconate) 1,000 mg 1X ONCE 05/09/17 14:30 05/09/17 14:31 DC 05/09/17 15:25 1,000 MG Darbepoetin Norris (Aranesp) 60 mcg WEEKLYHS 05/10/17 21:00 05/10/17 21:06 60 MCG Diphenhydramine HCl (Benadryl) 25 mg 1X PRN PRN 05/10/17 11:45 05/11/17 11:44 DC Fentanyl Citrate (Fentanyl 2ml Vial) 50 mcg PRN Q15MIN PRN 05/09/17 10:45 05/10/17 10:44 DC 05/09/17 15:30 50 MCG Heparin Sodium (Porcine) (Heparin Sq) 5,000 unit Q12HR 05/10/17 10:00 05/11/17 22:15 5,000 UNIT Info (PHARMACY MONITORING -- do not chart) 1 each PRN DAILY PRN 05/11/17 12:15 Lidocaine HCl (Xylocaine-Mpf 1% Vial) 2 ml STK-MED ONCE 05/11/17 08:21 05/11/17 08:22 DC Morphine Sulfate 2 mg PRN Q2HR PRN 05/09/17 14:00 05/10/17 13:59 DC 05/10/17 05:50 2 MG Ondansetron HCl (Zofran) 4 mg PRN Q8HRS PRN 05/09/17 14:00 05/10/17 13:59 DC Oxycodone HCl (Roxicodone) 20 mg PRN Q4HRS PRN 05/10/17 20:30 05/12/17 07:49 20 MG Pantoprazole Sodium (Protonix) 40 mg DAILYAC 05/10/17 07:30 05/12/17 07:48 40 MG Sodium Chloride 1,000 ml @ 400 mls/hr Q2H30M PRN 05/10/17 11:37 05/10/17 23:36 DC Zolpidem Tartrate (Ambien) 5 mg QHS 05/09/17 21:00 05/11/17 22:54 5 MG Lab Laboratory Tests Test 05/12/17 05:16 White Blood Count 12.3 x10^3/uL (4.0-11.0) Red Blood Count 2.59 x10^6/uL (3.50-5.40) Hemoglobin 8.1 g/dL (12.0-15.5) Hematocrit 25.1 % (36.0-47.0) Mean Corpuscular Volume 97 fL (79-100) Mean Corpuscular Hemoglobin 31 pg (25-35) Mean Corpuscular Hemoglobin Concent 32 g/dL (31-37) Red Cell Distribution Width 16.4 % (11.5-14.5) Platelet Count 162 x10^3/uL (140-400) Phosphorus Level 2.3 mg/dL (2.6-4.7) Magnesium Level 1.9 mg/dL (1.8-2.4) Creatine Kinase 86 U/L (26-192) MONICA MARTIN MD May 12, 2017 11:52
--- NOTE | 2017-05-12 12:05 | DS ---
DATE OF DISCHARGE: 05/12/2017 DATE OF ADMISSION: 05/09/2017 DATE OF DISCHARGE: 05/12/2017 ADMITTING DIAGNOSIS: T-spine compression fracture. DISMISSAL DIAGNOSES: T-spine compression fracture. SECONDARY DIAGNOSES: 1. Right elbow fracture. 2. End-stage renal disease, on dialysis. 3. Severe protein malnutrition. 4. Hypocalcemia. 5. Coronary artery disease. 6. History of congestive heart failure. 7. Hypertension. 8. Hyperlipidemia. 9. Asthma. 10. Chronic obstructive pulmonary disease. 11. Anemia. 12. Cirrhosis of liver. 13. History of polysubstance abuse. 14. Major depression. 15. Type 2 diabetes. 16. Hyperparathyroidism. HISTORY OF PRESENT ILLNESS AND HOSPITAL COURSE: This patient is a 51-year-old -[place] female who comes in with generalized weakness and back pain, was found to have a new compression fracture and was admitted to the hospital for pain control and PT and OT modalities. The patient improved to the point where she was able to tolerate diet and ambulate independently with a walker. The patient did have a repeat CAT scan to rule out advancement of pulmonary nodules and this was stable. PLAN: To discharge the patient to home with previous home medications, which include chronic pain treatment and follow up with Dr. Murray in 1 week. She does have a right elbow fracture, which we placed in a sling and will follow up with orthopedic surgery as an outpatient. ANTHONY CHAMPAGNE MD DR: MEL/teo JOB#: [id number] / [id number]
[2017-07-08] MEDS ORDERED: OXYC5TAB95 PO (14:20)
[2017-07-08] MEDS ORDERED: OMEP20CA9 PO (14:23)
== END 2017-05-12 14:05 | disposition home health service (06) | DRG 551 ==
LOC: ER 10:07 → 5 NORTH 13:19
PROVIDERS: ADMIT Family Medicine; ATTEND Family Medicine
PROC: 5A1D70Z Performance of Urinary Filtration, Intermittent, Less than 6 Hours Per Day (ICD-10-PCS; principal; 2017-05-09)
DX: S22.009A Unspecified fracture of unspecified thoracic vertebra, initial encounter for closed fracture (principal); E43 Unspecified severe protein-calorie malnutrition; I13.2 Hypertensive heart and chronic kidney disease with heart failure and with stage 5 chronic kidney disease, or end stage renal disease; E11.22 Type 2 diabetes mellitus with diabetic chronic kidney disease; B19.10 Unspecified viral hepatitis B without hepatic coma; E83.51 Hypocalcemia; N18.6 End stage renal disease; J44.1 Chronic obstructive pulmonary disease with (acute) exacerbation; S42.401A Unspecified fracture of lower end of right humerus, initial encounter for closed fracture; D64.9 Anemia, unspecified; D72.829 Elevated white blood cell count, unspecified; E21.3 Hyperparathyroidism, unspecified; E78.5 Hyperlipidemia, unspecified; B19.20 Unspecified viral hepatitis C without hepatic coma; F17.200 Nicotine dependence, unspecified, uncomplicated; F32.9 Major depressive disorder, single episode, unspecified; F41.9 Anxiety disorder, unspecified; J45.909 Unspecified asthma, uncomplicated; I25.10 Atherosclerotic heart disease of native coronary artery without angina pectoris; I50.9 Heart failure, unspecified; K21.9 Gastro-esophageal reflux disease without esophagitis; K74.60 Unspecified cirrhosis of liver; Z87.440 Personal history of urinary (tract) infections; Z87.01 Personal history of pneumonia (recurrent); Z99.2 Dependence on renal dialysis; Z82.49 Family history of ischemic heart disease and other diseases of the circulatory system; Z83.3 Family history of diabetes mellitus; Z88.0 Allergy status to penicillin; Z88.8 Allergy status to other drugs, medicaments and biological substances; Z68.20 Body mass index [BMI] 20.0-20.9, adult
CPT/HCPCS: 36415; 71010; 71250; 72146; 72148; 73080; 80048; 80053; 82040; 82550; 82607; 82728; 82746; 83540; 83550; 83735; 83880; 84100; 84484; 85007; 85025; 85027; 93005; 94250; 94640; 94760; J0610; J0881; J2270; J3010; J7040; J7620; J7626

== ENCOUNTER 2017-05-25 15:10 | Emergency (ER) | payer MEDICARE, OTHER ==
[~2017-05-25] VITALS: Ht 160 cm; Wt 47.6 kg
[2017-05-25] MEDS: fentaNYL PF VIAL 100 MCG/2 ML VIAL IV PRN ×2 (16:51→17:08)
[2017-05-25 16:53] LABS: BASO # 0.1 x10^3/uL (0.0-0.2); BASO % 1 % (0-3); EOS % 2 % (0-3); HEMOGLOBIN 10.2 g/dL (12.0-15.5); LYMPH # 2.7 x10^3/uL (1.0-4.8); LYMPH % 28 % (24-48); MEAN CORPUSCULAR HEMOGLOBIN 32 pg (25-35); MEAN CORPUSCULAR HGB CONC 33 g/dL (31-37); MEAN CORPUSCULAR VOLUME 96 fL (79-100); MONO % 12 % (0-9); NEUT % 58 % (31-73); PLATELET COUNT 262 x10^3/uL (140-400); RED BLOOD COUNT 3.21 x10^6/uL (3.50-5.40); RED CELL DISTRIBUTION WIDTH 17.3 % (11.5-14.5); WHITE BLOOD COUNT 9.5 x10^3/uL (4.0-11.0)
[2017-05-25 17:13] LABS: CALCIUM 8.7 mg/dL (8.5-10.1); CREATININE 6.8 mg/dL (0.6-1.0); GFR 7.7
[2017-05-25 17:18] LABS: ALBUMIN 1.9 g/dL (3.4-5.0); ALBUMIN/GLOBULIN RATIO 0.3 (1.0-1.7); MAGNESIUM 1.8 mg/dL (1.8-2.4); TOTAL BILIRUBIN 2.9 mg/dL (0.2-1.0)
[2017-05-25] MEDS ORDERED: oxyCODONE IR 5 MG TABLET PO ONE (18:00)
--- NOTE | 2017-05-25 18:51 | RAD ---
Left upper extremity venous duplex study 05/25/2017 CLINICAL HISTORY: Left forearm swelling. TECHNIQUE: Using a combination of real-time ultrasound imaging and color-flow and pulse doppler Imaging techniques along with graded compression and augmentation, duplex evaluation of the major venous structures of the left upper extremity to include the left internal jugular and left subclavian veins was performed. Multiple images were obtained. FINDINGS: There is no sonographic evidence of venous thrombosis involving the visualized venous structures of the left upper extremity. A patent fistula is seen within the left forearm. IMPRESSION: There is no sonographic evidence of venous thrombosis involving the visualized venous structures of the left upper extremity. Electronically signed by: Boyd Valentine MD (05/25/2017 6:48 PM) [facility]
[2017-05-25] MEDS ORDERED: OXYC5CAP PO (19:01)
--- NOTE | 2017-05-25 19:02 | PHYS DOC ---
Past Medical History Past Medical History: Hypertension, Liver Disease, Renal Failure, Other Additional Past Medical Histor: Hepatitis C and B, dialysis, drug and ETOH use Past Surgical History: Other Additional Past Surgical Histo: permacath, paracentesis, lt arm fistula Additional Information: 1 PPD Alcohol Use: None Additional Information: STOPPED DRINKING 6 MONTHS AGO, "DRINKS A LITTLE WINE" Drug Use: Marijuana Adult General Chief Complaint Chief Complaint: OTHER COMPLAINTS HPI HPI Patient is a 51 year old female who presents with generalized pain. The patient states she has pain all over for unknown duration of time. Pain greatest in left upper extremity over AV fistula, patient notes thumb swelling. She also has known distal humerus supracondylar fracture of right elbow which is still painful, being managed with supportive care. She denies recent trauma to her upper extremities. Denies chest pain, abdominal pain, shortness of breath. She has ESRD on hemodialysis, usual days //Saturday, skipped regular dialysis this morning. Denies fevers/chills, nausea/vomiting, diarrhea , extremity numbness/weakness. PCP is Dr. Murray. Review of Systems Review of Systems Constitutional: Denies fever or chills Eyes: Denies change in visual acuity HENT: Denies nasal congestion or sore throat Respiratory: Denies cough or shortness of breath Cardiovascular: Denies chest pain or edema GI: Denies abdominal pain, nausea, vomiting Musculoskeletal: Denies back pain, reports extremity pain & "pain all over" Integument: Denies rash Neurologic: Denies headache, focal weakness or sensory changes Current Medications Current Medications Current Medications Medications (Trade) Dose Ordered Sig/[facility] Start Time Stop Time Status Last Admin Dose Admin Fentanyl Citrate (Fentanyl 2ml Vial) 50 mcg PRN Q15MIN PRN 05/25/17 16:00 05/25/17 19:33 DC 05/25/17 17:08 50 MCG Oxycodone HCl (Roxicodone) 5 mg 1X ONCE 05/25/17 18:00 05/25/17 18:01 DC 05/25/17 18:04 5 MG Allergies Allergies Allergies Coded Allergies Type Severity Reaction Last Updated Verified Penicillins Allergy Unknown UNKNOWN 08/27/16 Yes acetaminophen Adverse Reaction Severe increased liver enzymes 07/31/15 Yes Physical Exam Physical Exam Constitutional: thin, frail, appears older than stated age, no acute distress, non-toxic appearance. HENT: Normocephalic, atraumatic, bilateral external ears normal, oropharynx moist, nose normal. Eyes: conjunctiva normal, no discharge. Neck: supple, no stridor. Cardiovascular: RRR, no murmurs, no edema. Lungs & Thorax: LCTAB, no wheezing, no respiratory distress. Abdomen: soft, nontender, nondistended. no masses or pulsatile masses, no rebound/guarding Skin: Warm, dry, no erythema, no rash. Back: No focal spinal tenderness. Extremities: right elbow tenderness & tenderness with palpation over left forearm AV fistula, palpable thrill, distally neurovascularly intact to bilateral upper extremities, no calf tenderness bilaterally, lower extremity distal pulses intact Neurologic: Alert and oriented X 3, symmetric strength/sensation to upper & lower extremities, no focal deficits noted. Psychologic: Affect normal, judgement normal, mood normal. Current Patient Data Vital Signs Vital Signs Date Time Temp Pulse Resp B/P (MAP) Pulse Ox O2 Delivery O2 Flow Rate FiO2 05/25/17 19:06 98 196/84 (121) 98 Room Air 05/25/17 18:04 20 05/25/17 15:47 98.1 98.1 Lab Values Laboratory Tests Test 05/25/17 16:45 White Blood Count 9.5 x10^3/uL (4.0-11.0) Red Blood Count 3.21 x10^6/uL (3.50-5.40) L Hemoglobin 10.2 g/dL (12.0-15.5) L Hematocrit 31.0 % (36.0-47.0) L Mean Corpuscular Volume 96 fL (79-100) Mean Corpuscular Hemoglobin 32 pg (25-35) Mean Corpuscular Hemoglobin Concent 33 g/dL (31-37) Red Cell Distribution Width 17.3 % (11.5-14.5) H Platelet Count 262 x10^3/uL (140-400) Neutrophils (%) (Auto) 58 % (31-73) Lymphocytes (%) (Auto) 28 % (24-48) Monocytes (%) (Auto) 12 % (0-9) H Eosinophils (%) (Auto) 2 % (0-3) Basophils (%) (Auto) 1 % (0-3) Neutrophils # (Auto) 5.5 x10^3uL (1.8-7.7) Lymphocytes # (Auto) 2.7 x10^3/uL (1.0-4.8) Monocytes # (Auto) 1.1 x10^3/uL (0.0-1.1) Eosinophils # (Auto) 0.2 x10^3/uL (0.0-0.7) Basophils # (Auto) 0.1 x10^3/uL (0.0-0.2) Sodium Level 138 mmol/L (136-145) Potassium Level 4.0 mmol/L (3.5-5.1) Chloride Level 94 mmol/L (98-107) L Carbon Dioxide Level 27 mmol/L (21-32) Anion Gap 17 (6-14) H Blood Urea Nitrogen 52 mg/dL (7-20) H Creatinine 6.8 mg/dL (0.6-1.0) H Estimated GFR (Cockcroft-Gault) 7.7 BUN/Creatinine Ratio 8 (6-20) Glucose Level 93 mg/dL (70-99) Calcium Level 8.7 mg/dL (8.5-10.1) Magnesium Level 1.8 mg/dL (1.8-2.4) Total Bilirubin 2.9 mg/dL (0.2-1.0) H Aspartate Amino Transferase (AST) 52 U/L (15-37) H Alanine Aminotransferase (ALT) 17 U/L (14-59) Alkaline Phosphatase 218 U/L (46-116) H Troponin I Quantitative < 0.017 ng/mL (0.000-0.055) [id number] Natriuretic Peptide 6461 pg/mL (0-124) H Total Protein 8.0 g/dL (6.4-8.2) Albumin 1.9 g/dL (3.4-5.0) L Albumin/Globulin Ratio 0.3 (1.0-1.7) L Laboratory Tests 05/25/17 16:45 Laboratory Tests 05/25/17 16:45 EKG EKG [] Radiology/Procedures Radiology/Procedures PROCEDURE: VENOUS UPPER EXTREMITY LEFT Left upper extremity venous duplex study 05/25/2017 CLINICAL HISTORY: Left forearm swelling. TECHNIQUE: Using a combination of real-time ultrasound imaging and color-flow and pulse doppler Imaging techniques along with graded compression and augmentation, duplex evaluation of the major venous structures of the left upper extremity to include the left internal jugular and left subclavian veins was performed. Multiple images were obtained. FINDINGS: There is no sonographic evidence of venous thrombosis involving the visualized venous structures of the left upper extremity. A patent fistula is seen within the left forearm. IMPRESSION: There is no sonographic evidence of venous thrombosis involving the visualized venous structures of the left upper extremity. Electronically signed by: Boyd Valentine MD (05/25/2017 6:48 PM) [facility] DICTATED and SIGNED BY: BOYD VALENTINE MD DATE: 05/25/171845 CXR: interpreted by me: no cardiomegaly, no infiltrate, no pneumothorax.[] Course & Med Decision Making Course & Med Decision Making Pertinent Labs and Imaging studies reviewed. (See chart for details) The patient presents with generalized pain. Well appearing with stable vitals ( slightly tachycardic low 100s on arrival, but improving to low 90s without specific intervention), no evidence of fluid overload with normal respirations, normal oxygen saturation on room air, resting comfortably in the room. Normal WBC, no infection identified. Gave IV & oral pain medication. She had no evidence of acute traumatic injury, labs appear abnormal but consistent with her known chronic medical conditions. No indication for emergent dialysis today. Recommend rest, call dialysis center on Saturday AM for make up appointment that day, follow up with primary care for pain management. Come back for severe shortness of breath or chest pain, severe abdominal pain, focal neuro deficit, any otherwise worsening condition. Discharged home in stable condition. [] Dragon Disclaimer Dragon Disclaimer This electronic medical record was generated, in whole or in part, using a voice recognition dictation system. Departure Departure Impression: Primary Impression: Chronic pain Additional Impressions: Upper extremity pain End stage chronic kidney disease Disposition: HOME, SELF-CARE Condition: STABLE Referrals: SHARAD MURRAY MD (PCP) Patient Instructions: Chronic Pain Management Additional Instructions: You were seen in the emergency department today for pain. There were no serious abnormalities identified on your lab tests today. Be sure to attend dialysis regularly. You should call on Saturday because he missed today. You can take the prescribed pain medication but this is a very limited quantity because we did not find a significant cause for your pain and ongoing pain should be managed by your doctor. Scripts Oxycodone Hcl (OXYCODONE HCL) 5 Mg Capsule 5 MG PO Q8HRS Y for PAIN, #6 TAB 0 Refills Prov: FABIAN BELLO MD 05/25/17 Problem Qualifiers FABIAN BELLO MD May 25, 2017 19:02
[2017-05-25 19:06] VITALS: BP 196/84
--- NOTE | 2017-05-26 08:41 | RAD ---
AP portable chest radiograph 05/25/2017 Clinical History: Cough and chest pain for 2 days. An AP portable erect digital radiograph of the chest was obtained. Comparison study is dated 05/09/2017. The cardiac silhouette is borderline enlarged. The thoracic aorta is mildly tortuous. Atherosclerotic calcification of the thoracic aorta is seen. Right basilar subsegmental atelectasis is noted. No area of consolidation is seen. No pneumothorax or pleural effusion is noted. The osseous structures are unchanged. Impression: Right basilar subsegmental atelectasis. No area of consolidation is seen.
--- NOTE | 2017-05-26 12:14 | EKG ---
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
== END 2017-05-25 19:23 | disposition home or self-care (01) ==
LOC: ER 15:10
DX: I12.0 Hypertensive chronic kidney disease with stage 5 chronic kidney disease or end stage renal disease (principal); N18.6 End stage renal disease; G89.29 Other chronic pain; M79.642 Pain in left hand; R10.84 Generalized abdominal pain; Z99.2 Dependence on renal dialysis; F17.200 Nicotine dependence, unspecified, uncomplicated; Z88.0 Allergy status to penicillin; Z88.6 Allergy status to analgesic agent
CPT/HCPCS: 36415; 71010; 80053; 83735; 83880; 84484; 85025; 93005; 93971; 96374; 99285; J3010

== ENCOUNTER 2017-07-19 10:33 | Inpatient (IN) | payer MEDICARE, OTHER ==
[~2017-07-19] VITALS: Ht 160 cm; Wt 54.0 kg
[~2017-07-19 10:33] MED LIST changes: +OXYC5CAP PO
[2017-07-19] MEDS ORDERED: IV NORMAL SALINE 1000ML BAG 1,000 ML IV SCH (10:54)
[2017-07-19] MEDS ORDERED: ONDANSETRON PF 4 MG/2 ML VIAL. IV ONE (11:00)
--- NOTE | 2017-07-19 11:25 | RAD ---
Left knee, 3 views, 07/19/2017: History: Fall, knee pain The bony structures are demineralized. No acute fracture or dislocation is identified. The knee joint space is well-preserved. No large joint effusion is evident. Extensive arterial calcifications are noted. IMPRESSION: No acute bony abnormality is detected.
[2017-07-19] MEDS: fentaNYL PF VIAL 100 MCG/2 ML VIAL IV PRN ×4 (11:42→13:47)
[2017-07-19 11:59] LABS: BASO # 0.1 x10^3/uL (0.0-0.2); BASO % 1 % (0-3); EOS % 0 % (0-3); HEMATOCRIT 39.8 % (36.0-47.0); HEMOGLOBIN 12.4 g/dL (12.0-15.5); LYMPH # 1.2 x10^3/uL (1.0-4.8); LYMPH % 8 % (24-48); MEAN CORPUSCULAR HEMOGLOBIN 30 pg (25-35); MEAN CORPUSCULAR HGB CONC 31 g/dL (31-37); MEAN CORPUSCULAR VOLUME 95 fL (79-100); MONO % 4 % (0-9); NEUT % 87 % (31-73); PLATELET COUNT 202 x10^3/uL (140-400); RED CELL DISTRIBUTION WIDTH 17.7 % (11.5-14.5); WHITE BLOOD COUNT 14.9 x10^3/uL (4.0-11.0)
[2017-07-19 12:13] LABS: ALBUMIN 2.2 g/dL (3.4-5.0); ALBUMIN/GLOBULIN RATIO 0.4 (1.0-1.7); CALCIUM 8.1 mg/dL (8.5-10.1); CREATININE 9.4 mg/dL (0.6-1.0); GFR 5.3; TOTAL BILIRUBIN 0.7 mg/dL (0.2-1.0); TOTAL PROTEIN 8.2 g/dL (6.4-8.2)
--- NOTE | 2017-07-19 12:15 | PHYS DOC ---
Past Medical History Past Medical History: Hypertension, Liver Disease, Renal Failure, Other Additional Past Medical Histor: Hepatitis C and B, dialysis, drug and ETOH use Past Surgical History: Other Additional Past Surgical Histo: permacath, paracentesis, lt arm fistula Alcohol Use: Occasionally Drug Use: Marijuana Adult General Chief Complaint Chief Complaint: MECHANICAL FALL HPI HPI Patient is a 52 year old female who presents with complaint of left-sided knee pain. The patient experienced 2 falls yesterday due to difficulty with walking and chronic arthritis. The patient states that she hit her left knee as a result of her fall and states that she has not been able to bear weight on this extremity since she has fallen. Patient rates her pain currently is 10 out of 10. Patient denies hitting her head or losing consciousness. Patient brought to the emergency department by her family. They state that the patient is unable to walk under her own power and is requiring full assistance which they are unable to provide at home. Patient has history of end-stage renal disease and undergoes dialysis on Saturday, , and Saturday. Patient last had dialysis on July 16, 2017. Patient does admit to generalized weakness but denies any abdominal pain. Review of Systems Review of Systems Constitutional: Generalized weakness, denies fever or chills [] Eyes: Denies change in visual acuity, redness, or eye pain [] HENT: Denies nasal congestion or sore throat [] Respiratory: Denies cough or shortness of breath [] Cardiovascular: Denies chest pain or edema[] GI: Denies abdominal pain, nausea, vomiting, bloody stools or diarrhea [] : Denies dysuria or hematuria [] Musculoskeletal: Left knee pain, chronic right elbow pain from previous injury[] Integument: Denies rash or skin lesions [] Neurologic: Denies headache, focal weakness or sensory changes [] All other systems were reviewed and found to be within normal limits, except as documented in this note. Current Medications Current Medications Current Medications Medications (Trade) Dose Ordered Sig/Carmenza Start Time Stop Time Status Last Admin Dose Admin Calcium Gluconate (Calcium Gluconate) 1,000 mg 1X ONCE 07/19/17 12:30 07/19/17 12:31 DC Fentanyl Citrate (Fentanyl 2ml Vial) 50 mcg PRN Q15MIN PRN 07/19/17 11:00 07/20/17 10:59 07/19/17 13:06 50 MCG Ondansetron HCl (Zofran) 4 mg 1X ONCE 07/19/17 11:00 07/19/17 11:06 DC 07/19/17 11:41 4 MG Sodium Chloride 1,000 ml @ 75 mls/hr [id number] 07/19/17 10:54 07/20/17 00:13 07/19/17 11:43 75 MLS/HR Allergies Allergies Allergies Coded Allergies Type Severity Reaction Last Updated Verified Penicillins Allergy Intermediate UNKNOWN 07/19/17 Yes acetaminophen Adverse Reaction Severe increased liver enzymes 07/19/17 Yes Physical Exam Physical Exam Constitutional: Alert, afebrile, appears in moderate discomfort. [] HENT: Normocephalic, atraumatic, bilateral external ears normal, oropharynx moist, no oral exudates, nose normal. [] Eyes: PERRLA, EOMI, conjunctiva normal, no discharge. [] Neck: Normal range of motion, no tenderness, supple, no stridor. [] Cardiovascular:Heart rate regular rhythm, no murmur [] Lungs & Thorax: Bilateral breath sounds clear to auscultation [] Abdomen: Bowel sounds normal, soft, no tenderness, no masses, no pulsatile masses. [] Skin: Warm, dry, no erythema, no rash. [] Back: No tenderness, no CVA tenderness. [] Extremities: Chronic right elbow deformity, swelling present to bilateral knees which appears chronic, diffuse tenderness to palpation over left knee joint, limited range of motion secondary to pain. [] Neurologic: Alert and oriented X 3, normal motor function, normal sensory function, no focal deficits noted. [] Current Patient Data Vital Signs Vital Signs Date Time Temp Pulse Resp B/P (MAP) Pulse Ox O2 Delivery O2 Flow Rate FiO2 07/19/17 13:06 16 97 Room Air 07/19/17 10:40 97.7 88 212/93 (132) 97.7 Lab Values Laboratory Tests Test 07/19/17 11:30 White Blood Count 14.9 x10^3/uL (4.0-11.0) H Red Blood Count 4.20 x10^6/uL (3.50-5.40) Hemoglobin 12.4 g/dL (12.0-15.5) Hematocrit 39.8 % (36.0-47.0) Mean Corpuscular Volume 95 fL (79-100) Mean Corpuscular Hemoglobin 30 pg (25-35) Mean Corpuscular Hemoglobin Concent 31 g/dL (31-37) Red Cell Distribution Width 17.7 % (11.5-14.5) H Platelet Count 202 x10^3/uL (140-400) Neutrophils (%) (Auto) 87 % (31-73) H Lymphocytes (%) (Auto) 8 % (24-48) L Monocytes (%) (Auto) 4 % (0-9) Eosinophils (%) (Auto) 0 % (0-3) Basophils (%) (Auto) 1 % (0-3) Neutrophils # (Auto) 13.0 x10^3uL (1.8-7.7) H Lymphocytes # (Auto) 1.2 x10^3/uL (1.0-4.8) Monocytes # (Auto) 0.6 x10^3/uL (0.0-1.1) Eosinophils # (Auto) 0.0 x10^3/uL (0.0-0.7) Basophils # (Auto) 0.1 x10^3/uL (0.0-0.2) Segmented Neutrophils % 83 % (35-66) H Lymphocytes % 10 % (24-48) L Monocytes % 7 % (0-10) Toxic Vacuolation Slight Platelet Estimate Adequate (ADEQUATE) Anisocytosis Slight Sodium Level 133 mmol/L (136-145) L Potassium Level 6.6 mmol/L (3.5-5.1) *H Chloride Level 96 mmol/L (98-107) L Carbon Dioxide Level 24 mmol/L (21-32) Anion Gap 13 (6-14) Blood Urea Nitrogen 68 mg/dL (7-20) H Creatinine 9.4 mg/dL (0.6-1.0) H Estimated GFR (Cockcroft-Gault) 5.3 BUN/Creatinine Ratio 7 (6-20) Glucose Level 134 mg/dL (70-99) H Calcium Level 8.1 mg/dL (8.5-10.1) L Total Bilirubin 0.7 mg/dL (0.2-1.0) Aspartate Amino Transferase (AST) 37 U/L (15-37) Alanine Aminotransferase (ALT) 24 U/L (14-59) Alkaline Phosphatase 267 U/L (46-116) H Total Protein 8.2 g/dL (6.4-8.2) Albumin 2.2 g/dL (3.4-5.0) L Albumin/Globulin Ratio 0.4 (1.0-1.7) L Laboratory Tests 07/19/17 11:30 Laboratory Tests 07/19/17 11:30 EKG EKG Interpreted by me: Heart rate 87, sinus rhythm, hyperacute T waves, no acute ST elevations or depressions[] Radiology/Procedures Radiology/Procedures [facility] [address] [place] [address] IMAGING REPORT Signed PATIENT: KESHA PERKINS ACCOUNT: [id number] : 1965 LOCATION: ER AGE: 52 SEX: F EXAM STATUS: PRE ER ORD. PHYSICIAN: MILTON JURADO MD REASON: left knee pain status post fall PROCEDURE: KNEE LEFT 3V Left knee, 3 views, 07/19/2017: History: Fall, knee pain The bony structures are demineralized. No acute fracture or dislocation is identified. The knee joint space is well-preserved. No large joint effusion is evident. Extensive arterial calcifications are noted. IMPRESSION: No acute bony abnormality is detected. DICTATED and SIGNED BY: KATHY DORADO MD DATE: 07/19/17 1120 CC: MICK MURRAY MD; MILTON JURADO MD ~ [] Course & Med Decision Making Course & Med Decision Making Pertinent Labs and Imaging studies reviewed. (See chart for details) Patient started on IV fentanyl for treatment of left knee pain. Patient's x- rays negative for acute fracture. Patient continues to complain of severe pain to the left knee at this time. Patient also found to have hyperacute T waves on her EKG. Patient's potassium level was found to be 6.6. Patient thus was started on IV calcium gluconate and I contacted Dr. Lowery of nephrology who stated he would plan for dialysis for the patient today. Patient admitted to Dr. Murray. Batool Disclaimer Batool Disclaimer This electronic medical record was generated, in whole or in part, using a voice recognition dictation system. Departure Departure Impression: Primary Impression: Hyperkalemia Additional Impressions: End stage renal disease Left knee pain Severe protein-calorie malnutrition Frequent falls Generalized weakness Disposition: 09 ADMITTED INPATIENT Admitting Physician: Mick Saravia Condition: GUARDED Referrals: MICK MURRAY MD (PCP) Problem Qualifiers Additional Impressions: Left knee pain Chronicity: acute Qualified Codes: M25.562 - Pain in left knee MILTON JURADO MD Jul 19, 2017 12:15
[2017-07-19 12:18] LABS: POTASSIUM 6.6 mmol/L (3.5-5.1)
[2017-07-19] MEDS ORDERED: CALCIUM GLUCONATE 1,000 MG/10 ML VIAL. IVP ONE (12:30)
[2017-07-19 13:14] LABS: PLT ESTIMATE ADEQUATE (ADEQUATE)
[2017-07-19 13:15] LABS: ANISOCYTOSIS SLIGHT; TOXIC VACUOLATION SLIGHT
[2017-07-19] MEDS ORDERED: ONDANSETRON PF 4 MG/2 ML VIAL. IV PRN (14:00)
--- NOTE | 2017-07-19 14:38 | EKG ---
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
[2017-07-19] MEDS: oxyCODONE IR 5 MG TABLET PO PRN ×2 (16:06→22:11)
[2017-07-19] MEDS ORDERED: IV NORMAL SALINE 1000ML BAG 1,000 ML IV PRN (16:28)
[2017-07-19] MEDS ORDERED: DIALYSIS PATIENT. MC PRN (16:30)
[2017-07-19] MEDS ORDERED: NON FORMULARY ITEM (Albuterol Sulfate (Albuterol Sulfate Conc Neb Soln) 1 VIAL) NEB PRN (16:30)
[2017-07-19] MEDS ORDERED: 0.9 % SODIUM CHLORIDE 10 ML DISP.SYRIN. IV PRN ×2 (16:30)
[2017-07-19] MEDS ORDERED: diphenhydrAMINE 50 MG/ML VIAL IV PRN ×2 (16:30)
[2017-07-19] MEDS ORDERED: ALBUTEROL SULFATE 2.5 MG/3 ML NEBU. NEB PRN (16:45)
[2017-07-19 17:00] VITALS: BP 152/92
[2017-07-19] MEDS: IPRATRPIUM/ALBUTEROL 0.5/2.5MG 3 ML NEBU. NEB SCH ×2 (17:00→20:00)
[2017-07-19] MEDS: PANTOPRAZOLE 40 MG TABLET.DR. PO SCH (17:50)
[2017-07-19] MEDS ORDERED: CARV25TA2 PO (17:55)
[2017-07-19] MEDS ORDERED: CARVEDILOL 12.5 MG TABLET. PO SCH (18:00)
[2017-07-19 19:00] VITALS: BP 133/75
[2017-07-19] MEDS: BUDESONIDE 0.5 MG/2 ML NEBU. NEB SCH (20:00)
[2017-07-19] MEDS ORDERED: DARBEPOETIN ALFA 60 MCG/0.3 ML DISP.SYRIN. SQ SCH (21:00)
[2017-07-19] MEDS ORDERED: NON FORMULARY ITEM (Fluticasone/Salmeterol (Advair 250-50 Diskus) 1 PUFF) INH SCH (21:00)
[2017-07-19] MEDS: ZOLPIDEM 5 MG TABLET. PO PRN (22:11)
[2017-07-19 23:00] VITALS: BP 141/68
[2017-07-20 03:00] VITALS: BP 160/80
[2017-07-20] MEDS: oxyCODONE IR 5 MG TABLET PO PRN ×4 (04:10→22:05)
[2017-07-20 07:00] VITALS: BP 181/96
[2017-07-20] MEDS: IPRATRPIUM/ALBUTEROL 0.5/2.5MG 3 ML NEBU. NEB SCH ×4 (08:00→19:44)
[2017-07-20] MEDS: BUDESONIDE 0.5 MG/2 ML NEBU. NEB SCH ×2 (08:00→19:44)
[2017-07-20] MEDS: PANTOPRAZOLE 40 MG TABLET.DR. PO SCH ×2 (08:07→16:16)
[2017-07-20] MEDS: CARVEDILOL 12.5 MG TABLET. PO SCH ×2 (08:08→16:16)
--- NOTE | 2017-07-20 09:13 | PDOC1 ---
History and Physical Date of Admission Date of Admission DATE: 07/19/17 Identification/Chief Complaint Chief Complaint Knee pain and fall Problems: Source Source: Patient History of Present Illness History of Present Illness Pt is well known to me and follows with me outpatient. She was seen on Saturday for a hospital follow up and was doing well at that time. Pt's blood pressure was elevated at that time and with history of missed HD in the past, was questioned if she had missed any recent sessions which pt said she had not. Pt says she went home and had a fall on the driveway later that day, hitting her left knee. Knee pain so intense that she was unable to go to HD on . Of note, pt's story changed often when talking to her this morning. She was disoriented on events and timelines, thinking that she was admitted to the hospital on Saturday, and fell asleep while talking to me several times... all while stating multiple times that she needs more pain medication. Discussed with pt that she knows that I will not increase her pain medication from what she is currently getting as I do not feel comfortable giving her more pain medicine. It has been discussed that she can find another provider to give her the increased doses that she is requesting for several years now, but pt has not wanted to find a new provider. Upon arrival to the ER she was found to have elevated blood pressure and elevated K. Pt was admitted for HD. Past Medical History Cardiovascular: CAD, CHF, HTN, Hyperlipidemia, Other Pulmonary: Asthma, Bronchitis, COPD, Pneumonia, Other GI: GERD, Peptic Ulcer disease Heme/Onc: Anemia NOS Hepatobiliary: Cirrhosis, Hep A/B/C Psych: Anxiety, Addictions, Depression Musculoskeletal: low back pain, Bursitis, Osteoarthritis, Other Rheumatologic: No pertinent hx Infectious disease: Other ENT: No pertinent hx Renal/: Chronic renal failure Endocrine: Hyperparathyroidism Dermatology: No pertinent hx Past Surgical History Past Surgical History: Other (AV Fistula) Family History Family History: Diabetes, Heart Disease, Hypertension Social History Smoke: 1 pack per day ALCOHOL: occassional Drugs: Other (history of) Current Problem List Problem List Problems Medical Problems: (1) End stage renal disease Status: Acute (2) Frequent falls Status: Acute (3) Generalized weakness Status: Acute (4) Hyperkalemia Status: Acute (5) Left knee pain Status: Acute (6) Severe protein-calorie malnutrition Status: Acute Problems: Current Medications Current Medications Current Medications Sodium Chloride 1,000 ml @ 75 mls/hr [id number] IV Last administered on 11:43; Start 07/19/17 at 10:54; Stop 07/19/17 at 18:15; Status DC Fentanyl Citrate (Fentanyl 2ml Vial) 50 mcg PRN Q15MIN PRN IV PAIN GREATER THAN 3/10 Last administered on 07/19/17 13:47; Start 07/19/17 at 11:00; Stop 07/20/17 at 10:59 Ondansetron HCl (Zofran) 4 mg 1X ONCE IV Last administered on 07/19/17 11:41 ; Start 07/19/17 at 11:00; Stop 07/19/17 at 11:06; Status DC Calcium Gluconate (Calcium Gluconate) 1,000 mg 1X ONCE IVP Last administered on 07/19/17 13:48; Start 07/19/17 at 12:30; Stop 07/19/17 at 12:31; Status DC Ondansetron HCl (Zofran) 4 mg PRN Q8HRS PRN IV NAUSEA/VOMITING; Start at 14:00; Stop 07/20/17 at 13:59 Oxycodone HCl (Roxicodone) 20 mg PRN Q6HRS PRN PO PAIN Last administered on 04:10; Start 07/19/17 at 14:00 Darbepoetin Norris (Aranesp) 60 mcg Fr SQ ; Start 07/19/17 at 21:00 Albuterol/ Ipratropium (Duoneb) 3 ml RTQID NEB ; Start 07/19/17 at 17:00 Non-Formulary Medication 1 vial Q4HRS PRN NEB wheezing/SOA/cough; Start at 16:30; Stop 07/19/17 at 16:42; Status DC Non-Formulary Medication 1 puff BID INH ; Start 07/19/17 at 21:00; Stop at 21:00; Status DC Pantoprazole Sodium (Protonix) 40 mg BIDAC PO Last administered on 07/20/17 08:07; Start 07/19/17 at 16:30 Zolpidem Tartrate (Ambien) 5 mg PRN QHS PRN PO INSOMNIA Last administered on 22:11; Start 07/19/17 at 16:30 Sodium Chloride 1,000 ml @ 1,000 mls/hr Q1H PRN IV hypotension; Start at 16:28; Stop 07/19/17 at 22:27; Status DC Diphenhydramine HCl (Benadryl) 25 mg 1X PRN PRN IV ITCHING; Start 07/19/17 at 16:30; Stop 07/20/17 at 16:29 Diphenhydramine HCl (Benadryl) 25 mg 1X PRN PRN IV ITCHING; Start 07/19/17 at 16:30; Stop 07/20/17 at 16:29 Sodium Chloride (Normal Saline Flush) 10 ml 1X PRN PRN IV AP catheter pack; Start 07/19/17 at 16:30; Stop 07/20/17 at 16:29 Sodium Chloride (Normal Saline Flush) 10 ml 1X PRN PRN IV WOOD ENGRAVER catheter pack; Start 07/19/17 at 16:30; Stop 07/20/17 at 16:29 Info (PHARMACY MONITORING -- do not chart) 1 each PRN DAILY PRN MC SEE COMMENTS ; Start 07/19/17 at 16:30 Albuterol Sulfate (Ventolin Neb Soln) 2.5 mg PRN Q4HRS PRN NEB SHORTNESS OF BREATH; Start 07/19/17 at 16:45 Budesonide (Pulmicort) 0.5 mg RTBID NEB ; Start 07/19/17 at 20:00 Carvedilol (Coreg) 12.5 mg BIDWMEALS PO ; Start 07/19/17 at 18:00; Stop at 18:00; Status DC Carvedilol (Coreg) 25 mg BIDWMEALS PO Last administered on 07/20/17 08:08; Start 07/19/17 at 18:00 Active Scripts Active Omeprazole 20 Mg Capsule.dr 1 Cap PO BID Oxycodone Hcl 5 Mg Tablet 20 Mg PO PRN Q6HRS PRN 30 Days Duoneb 0.5-3(2.5) Mg/3 Ml (Albuterol/Ipratropium) 3 Ml Ampul.neb 3 Ml NEB RTQID 30 Days Advair 250-50 Diskus (Fluticasone/Salmeterol) 1 Puff Puff 1 Puff INH BID 30 Days Aranesp Syringe (Darbepoetin Norris In Polysorbat) 60 Mcg/0.3 Ml Disp.syrin 60 Mcg SQ WEEKLYHS 30 Days Albuterol Sulfate Conc Neb Soln (Albuterol Sulfate) 2.5 Mg/0.5 Ml Vial.neb 1 Vial NEB Q4HRS PRN Reported Carvedilol 25 Mg Tablet 25 Mg PO BIDWMEALS Ambien (Zolpidem Tartrate) 10 Mg Tablet 1 Tab PO QHS Allergies Allergies: Coded Allergies: Penicillins (Verified Allergy, Intermediate, UNKNOWN, 07/19/17) acetaminophen (Verified Adverse Reaction, Severe, increased liver enzymes , 07/19/17) ROS General: No: Chills, Night Sweats PSYCHOLOGICAL ROS: No: Anxiety, Depression Eyes: No Decreased vision, No Eye Pain HEENT: No: Nasal congestion, Sore Throat ALLERGY AND IMMUNOLOGY: No: Hives, Post Nasal Drip Hematological and Lymphatic: No: Bleeding Problems, Blood Clots Respiratory: YES: Cough, No: Shortness of breath, Sputum Changes Cardiovascular: yes Chest Pain, No Palpitations, No Edema Gastrointestinal: No Nausea, No Vomiting, No Abdominal Pain, No Diarrhea, No Constipation Genitourinary: No Dysuria, No Urgency Musculoskeletal: Yes Gait Disturbance, Yes Joint Pain, Yes Muscle Pain Neurological: Yes Impaired Coord/balance, Yes Weakness, No Numbness/Tingling Skin: No Rash, No Skin Lesion Changes Physical Exam General: Alert, Cooperative, mild distress HEENT: Atraumatic, PERRLA, EOMI, Mucous membr. moist/pink Lungs: Other (crackles throughout) Heart: RRR, no rubs, no gallops, no murmurs Abdomen: Normal bowel sounds, No tenderness, Other (splenomegaly, distended, no fluid shift) Extremities: No clubbing, No cyanosis, No edema Skin: No rashes, No breakdown, No significant lesion Neuro: Normal speech, Cranial nerves 3-12 NL Psych/Mental Status: Mood NL, Other (pt perseverating on pain) Vitals Vitals Vital Signs Date Time Temp Pulse Resp B/P (MAP) Pulse Ox O2 Delivery O2 Flow Rate FiO2 07/20/17 08:11 98 Room Air 07/20/17 08:08 100 181/86 07/20/17 07:00 97.9 18 97.9 Labs Labs Laboratory Tests Test 07/19/17 11:30 White Blood Count 14.9 x10^3/uL (4.0-11.0) Red Blood Count 4.20 x10^6/uL (3.50-5.40) Hemoglobin 12.4 g/dL (12.0-15.5) Hematocrit 39.8 % (36.0-47.0) Mean Corpuscular Volume 95 fL (79-100) Mean Corpuscular Hemoglobin 30 pg (25-35) Mean Corpuscular Hemoglobin Concent 31 g/dL (31-37) Red Cell Distribution Width 17.7 % (11.5-14.5) Platelet Count 202 x10^3/uL (140-400) Neutrophils (%) (Auto) 87 % (31-73) Lymphocytes (%) (Auto) 8 % (24-48) Monocytes (%) (Auto) 4 % (0-9) Eosinophils (%) (Auto) 0 % (0-3) Basophils (%) (Auto) 1 % (0-3) Neutrophils # (Auto) 13.0 x10^3uL (1.8-7.7) Lymphocytes # (Auto) 1.2 x10^3/uL (1.0-4.8) Monocytes # (Auto) 0.6 x10^3/uL (0.0-1.1) Eosinophils # (Auto) 0.0 x10^3/uL (0.0-0.7) Basophils # (Auto) 0.1 x10^3/uL (0.0-0.2) Segmented Neutrophils % 83 % (35-66) Lymphocytes % 10 % (24-48) Monocytes % 7 % (0-10) Toxic Vacuolation Slight Platelet Estimate Adequate (ADEQUATE) Anisocytosis Slight Sodium Level 133 mmol/L (136-145) Potassium Level 6.6 mmol/L (3.5-5.1) Chloride Level 96 mmol/L (98-107) Carbon Dioxide Level 24 mmol/L (21-32) Anion Gap 13 (6-14) Blood Urea Nitrogen 68 mg/dL (7-20) Creatinine 9.4 mg/dL (0.6-1.0) Estimated GFR (Cockcroft-Gault) 5.3 BUN/Creatinine Ratio 7 (6-20) Glucose Level 134 mg/dL (70-99) Calcium Level 8.1 mg/dL (8.5-10.1) Total Bilirubin 0.7 mg/dL (0.2-1.0) Aspartate Amino Transf (AST/SGOT) 37 U/L (15-37) Alanine Aminotransferase (ALT/SGPT) 24 U/L (14-59) Alkaline Phosphatase 267 U/L (46-116) Total Protein 8.2 g/dL (6.4-8.2) Albumin 2.2 g/dL (3.4-5.0) Albumin/Globulin Ratio 0.4 (1.0-1.7) Laboratory Tests Test 07/19/17 11:30 White Blood Count 14.9 x10^3/uL (4.0-11.0) Red Blood Count 4.20 x10^6/uL (3.50-5.40) Hemoglobin 12.4 g/dL (12.0-15.5) Hematocrit 39.8 % (36.0-47.0) Mean Corpuscular Volume 95 fL (79-100) Mean Corpuscular Hemoglobin 30 pg (25-35) Mean Corpuscular Hemoglobin Concent 31 g/dL (31-37) Red Cell Distribution Width 17.7 % (11.5-14.5) Platelet Count 202 x10^3/uL (140-400) Neutrophils (%) (Auto) 87 % (31-73) Lymphocytes (%) (Auto) 8 % (24-48) Monocytes (%) (Auto) 4 % (0-9) Eosinophils (%) (Auto) 0 % (0-3) Basophils (%) (Auto) 1 % (0-3) Neutrophils # (Auto) 13.0 x10^3uL (1.8-7.7) Lymphocytes # (Auto) 1.2 x10^3/uL (1.0-4.8) Monocytes # (Auto) 0.6 x10^3/uL (0.0-1.1) Eosinophils # (Auto) 0.0 x10^3/uL (0.0-0.7) Basophils # (Auto) 0.1 x10^3/uL (0.0-0.2) Segmented Neutrophils % 83 % (35-66) Lymphocytes % 10 % (24-48) Monocytes % 7 % (0-10) Toxic Vacuolation Slight Platelet Estimate Adequate (ADEQUATE) Anisocytosis Slight Sodium Level 133 mmol/L (136-145) Potassium Level 6.6 mmol/L (3.5-5.1) Chloride Level 96 mmol/L (98-107) Carbon Dioxide Level 24 mmol/L (21-32) Anion Gap 13 (6-14) Blood Urea Nitrogen 68 mg/dL (7-20) Creatinine 9.4 mg/dL (0.6-1.0) Estimated GFR (Cockcroft-Gault) 5.3 BUN/Creatinine Ratio 7 (6-20) Glucose Level 134 mg/dL (70-99) Calcium Level 8.1 mg/dL (8.5-10.1) Total Bilirubin 0.7 mg/dL (0.2-1.0) Aspartate Amino Transf (AST/SGOT) 37 U/L (15-37) Alanine Aminotransferase (ALT/SGPT) 24 U/L (14-59) Alkaline Phosphatase 267 U/L (46-116) Total Protein 8.2 g/dL (6.4-8.2) Albumin 2.2 g/dL (3.4-5.0) Albumin/Globulin Ratio 0.4 (1.0-1.7) VTE Prophylaxis Ordered VTE Prophylaxis Devices: Yes VTE Pharmacological Prophylaxi: No Assessment/Plan Assessment/Plan Pt is a 52yo AAF who presented to ER with knee pain and was admitted for hyperkalemia 1)Hyperkalemia- 2/2 missed HD. Nephrology following. Pt received HD yesterday and will be getting HD again today. 2)HTN- currently uncontrolled, likely 2/2 missed HD sessions. Currently receiving Carvedilol 25mg BID. Norvasc recently restarted in clinic so will restart during her hospitalization. 3)ESRD- see above 4)Hx anemia- mixed iron deficiency, chronic kidney disease and GI bleeds. Pt recently admitted for significant GI bleed from duodenal ulcers requiring blood transfusion. Hb currently stable. Receiving Aranesp 5)CHF- diastolic, decompensated. Expect to improve with HD 6)Recent GI blood- from duodenal ulcers. Omeprazole switched to Pantoprazole during hospitalization. 7)COPD- currently well controlled. Pt continued on nebulizer treatments 8)PEM- severe 9)Leukocytosis- chronic. With some of pt's confusion, blood culture ordered to rule out bacteremia although pt is not clinically presenting with any other signs or symptoms of infection 10)Cirrhosis- 2/2 Hepatitis C 11)Chronic pain- 2/2 arthritis, recent fall, subacute right elbow fracture. Pt is aware that I am not going to increase her pain medication, currently receiving Oxycodone 20mg q6H -will get PT/OT to work with pt as she has had recent falls and states that she can not currently walk due to pain SHARAD COULTER MD Jul 20, 2017 09:13
[2017-07-20] MEDS ORDERED: IV NORMAL SALINE 1000ML BAG 1,000 ML IV PRN ×2 (10:08)
[2017-07-20] MEDS: amLODIPine BESYLATE 10 MG TABLET PO SCH (10:10)
[2017-07-20] MEDS: DICLOFENAC SODIUM 1% TOPICAL GEL 100GM TUBE. TP SCH ×2 (10:10→21:00)
[2017-07-20] MEDS ORDERED: ALBUMIN HUMAN 25% 200 ML IV PRN (10:15)
[2017-07-20] MEDS ORDERED: diphenhydrAMINE 50 MG/ML VIAL IV PRN ×2 (10:15)
[2017-07-20] MEDS ORDERED: LABETALOL 20 MG/4 ML DISP.SYRIN. IVP PRN (10:15)
[2017-07-20] MEDS ORDERED: DIALYSIS PATIENT. MC PRN (10:15)
[2017-07-20] MEDS ORDERED: cloNIDine HCL 0.1 MG TABLET PO PRN (10:15)
[2017-07-20 11:00] VITALS: BP 146/69
[2017-07-20 11:48] LABS: CALCIUM 7.4 mg/dL (8.5-10.1); CREATININE 6.4 mg/dL (0.6-1.0); GFR 8.2
[2017-07-20 15:15] VITALS: BP 119/66
[2017-07-20] MEDS: NICOTINE 21MG PATCH. TD SCH (16:53)
[2017-07-20 19:00] VITALS: BP 93/50
[2017-07-20] MEDS: ZOLPIDEM 5 MG TABLET. PO PRN (22:05)
--- NOTE | 2017-07-20 22:30 | CONS ---
DATE OF CONSULTATION: 07/20/2017 REASON FOR CONSULTATION: Renal failure. HISTORY OF PRESENT ILLNESS: This is a 52-year-old female with end-stage renal disease in the setting of hypertensive nephrosclerosis. The patient missed her dialysis treatment on the day prior to admission. On presentation, she was found to be hyperkalemic and needed dialysis. She has undergone acute dialysis of the same. She typically undergoes dialysis on Saturday, and Saturday schedule. PAST MEDICAL HISTORY: 1. Hypertension, end-stage renal disease, hemodialysis dependent, on Saturday, and Saturday. 2. Congestive cardiomyopathy in the setting of coronary artery disease. 3. Hyperlipidemia. 4. COPD. 5. Peptic ulcer disease. 6. GE reflux disease 7. Anemia of chronic kidney disease. 8. Cirrhosis of the liver. 9. Depression and anxiety. 10. Degenerative arthritis. ALLERGIES: PENICILLIN AND ACETAMINOPHEN. MEDICATIONS: Per med sheet. FAMILY HISTORY: Noncontributory. SOCIAL HISTORY: The patient resides with assistance. She smokes one pack of cigarettes a day and occasional alcohol use. REVIEW OF SYSTEMS: No headaches, sinus problem, nasal drainage, epistaxis, change in vision or hearing. No difficulty swallowing. No fever, chills, cough, sputum production, or hemoptysis. No chest pain, shortness of breath, PND, orthopnea, dyspnea on exertion. No abdominal pain. No upper or lower gastrointestinal blood loss. No nausea, vomiting, diarrhea, seizures or malignancies. She has bilateral arm and leg discomfort. PHYSICAL EXAMINATION: GENERAL APPEARANCE: The patient is awake and conversant. She is cachectic. HEENT: ____. Eyes are sunken. NECK: No increased JVD. No thyromegaly, mass or adenopathy.. LUNGS: Clear. CARDIAC: Without S3 or rub. ABDOMEN: Soft, nontender, no bruits. EXTREMITIES: Without edema. NEUROLOGIC: Nonfocal localizing. PSYCHIATRIC: Somewhat dysphoric. Fair attention to detail. LABORATORY DATA: White count 14.9, hemoglobin 12.4, hematocrit 39.8. Potassium 6.6, CO2 24, calcium 8.1 and GFR 5.3. IMPRESSION: 1. End-stage renal disease secondary to hypertensive nephrosclerosis. 2. Missed dialysis treatment. 3. Hyperkalemia due to missed dialysis. 4. Generalized weakness. RECOMMENDATIONS: 1. Ongoing dialysis. We will continue with dialysis Saturday, and Saturday. 2. Epogen as needed for anemia of chronic kidney disease. Currently, hemoglobin is 12.4. We will not utilize Epogen.. 3. Phosphate binder as needed. 4. We will follow. ANTHONY MISTRY MD DR: LOYDA/teo JOB#: [id number] / [id number]
[2017-07-20 23:00] VITALS: BP 113/61
[2017-07-21 03:00] VITALS: BP 104/62
[2017-07-21] MEDS: oxyCODONE IR 5 MG TABLET PO PRN ×4 (04:22→22:11)
[2017-07-21 04:53] LABS: BASO % 0 % (0-3); EOS % 1 % (0-3); HEMATOCRIT 33.5 % (36.0-47.0); HEMOGLOBIN 11.1 g/dL (12.0-15.5); LYMPH # 2.1 x10^3/uL (1.0-4.8); LYMPH % 20 % (24-48); MEAN CORPUSCULAR HEMOGLOBIN 31 pg (25-35); MEAN CORPUSCULAR HGB CONC 33 g/dL (31-37); MEAN CORPUSCULAR VOLUME 94 fL (79-100); MONO % 11 % (0-9); NEUT % 68 % (31-73); PLATELET COUNT 144 x10^3/uL (140-400); RED BLOOD COUNT 3.56 x10^6/uL (3.50-5.40); RED CELL DISTRIBUTION WIDTH 17.6 % (11.5-14.5); WHITE BLOOD COUNT 10.7 x10^3/uL (4.0-11.0)
[2017-07-21 05:05] LABS: CALCIUM 7.2 mg/dL (8.5-10.1); GFR 14.1; POTASSIUM 3.5 mmol/L (3.5-5.1)
[2017-07-21 07:00] VITALS: BP 137/66
[2017-07-21] MEDS: BUDESONIDE 0.5 MG/2 ML NEBU. NEB SCH ×2 (07:41→20:00)
[2017-07-21] MEDS: IPRATRPIUM/ALBUTEROL 0.5/2.5MG 3 ML NEBU. NEB SCH ×4 (07:41→20:00)
[2017-07-21] MEDS: PANTOPRAZOLE 40 MG TABLET.DR. PO SCH ×2 (09:58→16:13)
[2017-07-21] MEDS: amLODIPine BESYLATE 10 MG TABLET PO SCH (09:59)
[2017-07-21] MEDS: NICOTINE 21MG PATCH. TD SCH (09:59)
[2017-07-21] MEDS: CARVEDILOL 12.5 MG TABLET. PO SCH ×2 (09:59→16:13)
[2017-07-21] MEDS: DICLOFENAC SODIUM 1% TOPICAL GEL 100GM TUBE. TP SCH ×2 (09:59→19:49)
[2017-07-21 11:00] VITALS: BP 113/77
--- NOTE | 2017-07-21 12:22 | PDOC ---
SUBJECTIVE Subjective Pt states that she is in excruciating pain and can not walk. Pt refused physical therapy yesterday, which pt denies. Stressed the importance of doing physical therapy; pt states that she is willing to do. Requesting more pain medication. Discussed with pt, again, that I am not comfortable giving her more pain medicine. Will give her an additional dose of medicine with physical therapy today but she will be DC'd on her normal amounts. Pt c/o most pain in her right elbow from previous fracture and left knee. Pt missed her appointment with Dr. Jim this Saturday; will have him see her while she is here. OBJECTIVE Vital Signs Vital Signs Date Time Temp Pulse Resp B/P (MAP) Pulse Ox O2 Delivery O2 Flow Rate FiO2 07/21/17 11:00 97.5 99 18 113/77 (89) 97 Room Air 97.5 07/21/17 09:59 98 137/66 07/21/17 09:59 98 137/66 07/21/17 09:59 96 Room Air 07/21/17 08:00 Room Air 07/21/17 07:45 96 Room Air 07/21/17 07:00 97.9 98 18 137/66 (89) 95 Room Air 97.9 07/21/17 04:22 20 Room Air 07/21/17 03:00 97.7 89 17 104/62 (76) 97 Room Air 97.7 07/20/17 23:00 97.7 87 17 113/61 (78) 96 Room Air 97.7 07/20/17 22:05 18 Room Air 07/20/17 20:20 Room Air 07/20/17 19:44 Room Air 07/20/17 19:00 98.1 84 17 93/50 (64) 95 Room Air 98.1 07/20/17 17:22 Room Air 07/20/17 16:16 95 119/66 07/20/17 16:16 Room Air 07/20/17 15:15 98.1 95 18 119/66 (83) 95 Room Air 98.1 I & O Intake and Output 07/21/17 07:00 Intake Total 1570 ml Output Total 150 ml Balance 1420 ml Intake Oral 1570 ml Output Urine Total 150 ml PHYSICAL EXAM Physical Exam General: Alert, Cooperative, NAD, cachectic HEENT: Atraumatic, PERRLA, EOMI, Mucous membr. moist/pink Lungs: crackles left upper lobe, otherwise clear, regular breathing rate and effort Heart: RRR, no rubs, no gallops, no murmurs Abdomen: Normal bowel sounds, No tenderness, Other (splenomegaly, distended, no fluid shift) Extremities: No clubbing, No cyanosis, No edema Skin: No rashes, No breakdown, No significant lesion Neuro: Normal speech, Cranial nerves 3-12 NL Psych/Mental Status: Mood NL, Other (pt perseverating on pain) ASSESSMENT/PLAN Assessment/Plan Pt is a 52yo AAF who presented to ER with knee pain after fall and was admitted for hyperkalemia 1)Hyperkalemia- 2/2 missed HD. Nephrology following. Electrolyte abnormalities improved after HD 2)HTN- well controlled after HD sessions. Currently receiving Carvedilol 25mg BID and Norvasc 10mg 3)ESRD- see above 4)Hx anemia- mixed iron deficiency, chronic kidney disease and GI bleeds. Pt recently admitted for significant GI bleed from duodenal ulcers requiring blood transfusion. Hb currently stable. Receiving Aranesp 5)CHF- diastolic, now compensated. Improved after HD 6)Recent GI blood- from duodenal ulcers. Omeprazole switched to Pantoprazole during hospitalization. 7)COPD- currently well controlled. Pt continued on nebulizer treatments 8)PEM- severe 9)Leukocytosis- resolved. Because of pt's initial confusion, blood culture was ordered which has showed no growth. 10)Cirrhosis- 2/2 Hepatitis C 11)Chronic pain- 2/2 arthritis, recent fall, subacute right elbow fracture. Pt is aware that I am not going to increase her pain medication, currently receiving Oxycodone 20mg q6H. Will have Ortho come see pt as she missed her visit this last week -will get PT/OT to work with pt as she has had recent falls and states that she can not currently walk due to pain. Pt is aware she will either be DC'd to home with physical therapy or will go to SNF for physical therapy. Pt willing to work with PT/OT today after refusing yesterday Problems: COMMENT Lab Laboratory Tests Test 07/21/17 04:05 White Blood Count 10.7 x10^3/uL (4.0-11.0) Red Blood Count 3.56 x10^6/uL (3.50-5.40) Hemoglobin 11.1 g/dL (12.0-15.5) Hematocrit 33.5 % (36.0-47.0) Mean Corpuscular Volume 94 fL (79-100) Mean Corpuscular Hemoglobin 31 pg (25-35) Mean Corpuscular Hemoglobin Concent 33 g/dL (31-37) Red Cell Distribution Width 17.6 % (11.5-14.5) Platelet Count 144 x10^3/uL (140-400) Neutrophils (%) (Auto) 68 % (31-73) Lymphocytes (%) (Auto) 20 % (24-48) Monocytes (%) (Auto) 11 % (0-9) Eosinophils (%) (Auto) 1 % (0-3) Basophils (%) (Auto) 0 % (0-3) Neutrophils # (Auto) 7.2 x10^3uL (1.8-7.7) Lymphocytes # (Auto) 2.1 x10^3/uL (1.0-4.8) Monocytes # (Auto) 1.2 x10^3/uL (0.0-1.1) Eosinophils # (Auto) 0.1 x10^3/uL (0.0-0.7) Basophils # (Auto) 0.0 x10^3/uL (0.0-0.2) Sodium Level 141 mmol/L (136-145) Potassium Level 3.5 mmol/L (3.5-5.1) Chloride Level 104 mmol/L (98-107) Carbon Dioxide Level 30 mmol/L (21-32) Anion Gap 7 (6-14) Blood Urea Nitrogen 16 mg/dL (7-20) Creatinine 4.0 mg/dL (0.6-1.0) Estimated GFR (Cockcroft-Gault) 14.1 Glucose Level 127 mg/dL (70-99) Calcium Level 7.2 mg/dL (8.5-10.1) SHARAD COULTER MD Jul 21, 2017 12:22
[2017-07-21] MEDS ORDERED: oxyCODONE IR 5 MG TABLET PO ONE (12:30)
[2017-07-21 15:00] VITALS: BP 101/57
--- NOTE | 2017-07-21 15:29 | RAD ---
2 views right humerus 07/21/2017 Clinical indication: Humeral fracture. Comparison: Right elbow 07/06/2017 Findings: There is a persistent impacted fracture of the distal humerus with moderate ulnar subluxation of the distal fracture fragment best seen on the frontal view. No acute fracture of the humeral diaphysis. There is a large elbow joint effusion. Impression: 1. Persistent impacted and subluxed fracture of the distal humerus. 2. No new acute fracture.
[2017-07-21 19:00] VITALS: BP 112/67
[2017-07-21] MEDS: ZOLPIDEM 5 MG TABLET. PO PRN (22:16)
[2017-07-21 22:57] VITALS: BP 110/55
[2017-07-22 03:00] VITALS: BP 133/75
[2017-07-22] MEDS: oxyCODONE IR 5 MG TABLET PO PRN ×3 (04:19→17:34)
[2017-07-22 06:54] LABS: CALCIUM 7.6 mg/dL (8.5-10.1); CREATININE 6.5 mg/dL (0.6-1.0); GFR 8.1; POTASSIUM 4.3 mmol/L (3.5-5.1)
[2017-07-22 07:00] VITALS: BP 110/64
[2017-07-22] MEDS: IPRATRPIUM/ALBUTEROL 0.5/2.5MG 3 ML NEBU. NEB SCH ×4 (07:42→19:50)
[2017-07-22] MEDS: BUDESONIDE 0.5 MG/2 ML NEBU. NEB SCH ×2 (07:42→19:50)
[2017-07-22] MEDS ORDERED: IV NORMAL SALINE 1000ML BAG 1,000 ML IV PRN ×2 (08:03)
[2017-07-22] MEDS: PANTOPRAZOLE 40 MG TABLET.DR. PO SCH ×2 (08:06→16:21)
[2017-07-22] MEDS: CARVEDILOL 12.5 MG TABLET. PO SCH ×2 (08:08→16:22)
[2017-07-22] MEDS ORDERED: LABETALOL 20 MG/4 ML DISP.SYRIN. IVP PRN (08:15)
[2017-07-22] MEDS ORDERED: diphenhydrAMINE 50 MG/ML VIAL IV PRN ×2 (08:15)
[2017-07-22] MEDS ORDERED: cloNIDine HCL 0.1 MG TABLET PO PRN (08:15)
[2017-07-22] MEDS ORDERED: DIALYSIS PATIENT. MC PRN (08:15)
[2017-07-22] MEDS ORDERED: ALBUMIN HUMAN 25% 200 ML IV PRN (08:15)
--- NOTE | 2017-07-22 08:49 | PDOC ---
SUBJECTIVE Subjective Pt states that she is doing a little better today. Participated in physical therapy yesterday. Lizzy diallo is starting to help a little. Ortho to be seeing pt today. Pt is not wanting to go to SNF, although this was recommended by physical therapy. She is requesting walker with seat and bedside commode for when she goes home. OBJECTIVE Vital Signs Vital Signs Date Time Temp Pulse Resp B/P (MAP) Pulse Ox O2 Delivery O2 Flow Rate FiO2 07/22/17 08:08 94 110/64 07/22/17 07:42 95 Room Air 07/22/17 04:19 18 94 Room Air 07/22/17 03:00 97.5 95 20 133/75 (94) 94 Room Air 97.5 07/21/17 23:11 18 94 Room Air 07/21/17 22:57 97.5 89 18 110/55 (73) 93 Room Air 97.5 07/21/17 22:11 18 99 Room Air 07/21/17 21:33 99 Room Air 07/21/17 20:00 Room Air 07/21/17 19:00 97.7 94 18 112/67 (82) 93 Room Air 97.7 07/21/17 16:38 100 Room Air 07/21/17 16:14 Room Air 07/21/17 16:13 98 101/57 07/21/17 15:00 97.9 98 18 101/57 (72) 90 Room Air 97.9 07/21/17 14:31 Room Air 07/21/17 13:23 Room Air 07/21/17 11:00 97.5 99 18 113/77 (89) 97 Room Air 97.5 07/21/17 09:59 98 137/66 07/21/17 09:59 98 137/66 07/21/17 09:59 96 Room Air I & O Intake and Output 07/22/17 07:00 Intake Total 1880 ml Balance 1880 ml Intake Oral 1880 ml # Voids 2 # Bowel Movements 1 PHYSICAL EXAM Physical Exam General: Alert, Cooperative, NAD, cachectic HEENT: Atraumatic, PERRLA, EOMI, Mucous membr. moist/pink Lungs: regular breathing rate and effort, CTAB Heart: RRR, no rubs, no gallops, systolic ejection murmur Abdomen: Normal bowel sounds, No tenderness, Other (splenomegaly, distended, no fluid shift) Extremities: No clubbing, No cyanosis, swollen right elbow Skin: No rashes, No breakdown, No significant lesion Neuro: Normal speech, Cranial nerves 3-12 NL Psych/Mental Status: Mood NL, Other (pt perseverating on pain) ASSESSMENT/PLAN Assessment/Plan Pt is a 52yo AAF who presented to ER with knee pain after fall and was admitted for hyperkalemia 1)Hyperkalemia- 2/2 missed HD. Nephrology following. Electrolyte abnormalities improved after HD. Pt normally gets HD T/U/Sat 2)HTN- well controlled after HD sessions. Currently receiving Carvedilol 25mg BID and Norvasc 10mg 3)ESRD- see above 4)Hx anemia- mixed iron deficiency, chronic kidney disease and GI bleeds. Pt recently admitted for significant GI bleed from duodenal ulcers requiring blood transfusion. Hb currently stable. Receiving Aranesp 5)CHF- diastolic, now compensated. Improved after HD 6)Recent GI blood- from duodenal ulcers. Omeprazole switched to Pantoprazole during hospitalization. 7)COPD- currently well controlled. Pt continued on nebulizer treatments 8)PEM- severe 9)Leukocytosis- resolved. Because of pt's initial confusion, blood culture was ordered which has showed no growth. 10)Cirrhosis- 2/2 Hepatitis C 11)Chronic pain- 2/2 arthritis, recent fall, subacute right elbow fracture. Pt is aware that I am not going to increase her pain medication, currently receiving Oxycodone 20mg q6H. Will have Ortho come see pt as she missed her visit this last week. PT has recommended SNF but pt is not willing to do this. She has refused home physical therapy in the past even though she could benefit from it. Pt requesting walker and bedside commode, will have hand bindery assembly worker come by and see pt Problems: COMMENT Lab Laboratory Tests Test 07/22/17 06:10 Sodium Level 142 mmol/L (136-145) Potassium Level 4.3 mmol/L (3.5-5.1) Chloride Level 105 mmol/L (98-107) Carbon Dioxide Level 29 mmol/L (21-32) Anion Gap 8 (6-14) Blood Urea Nitrogen 33 mg/dL (7-20) Creatinine 6.5 mg/dL (0.6-1.0) Estimated GFR (Cockcroft-Gault) 8.1 Glucose Level 120 mg/dL (70-99) Calcium Level 7.6 mg/dL (8.5-10.1) SHARAD COULTER MD Jul 22, 2017 08:49
[2017-07-22] MEDS: NICOTINE 21MG PATCH. TD SCH (09:24)
[2017-07-22] MEDS: DICLOFENAC SODIUM 1% TOPICAL GEL 100GM TUBE. TP SCH ×2 (09:25→21:00)
--- NOTE | 2017-07-22 09:27 | PDOC ---
SUBJECTIVE ROS F/up for ESRD and related co-morbidities was setup for HD for today but pt refused. claiming she goes on TTSat schedule; waiting on Ortho CVS: no Orthopnea, no CP RESP: no SOB, no [place] GI: no Nausea, no Vomiting : no Dysuria, no Urgency OBJECTIVE Vital Signs Vital Signs Date Time Temp Pulse Resp B/P (MAP) Pulse Ox O2 Delivery O2 Flow Rate FiO2 07/22/17 08:08 94 110/64 07/22/17 07:42 95 Room Air 07/22/17 07:00 98.1 19 98.1 I & 0 Intake and Output 07/22/17 07:00 Intake Total 1880 ml Balance 1880 ml Intake Oral 1880 ml # Voids 2 # Bowel Movements 1 PHYSICAL EXAM Physical Exam GEN: Awake, Oriented x 2, In no distress EYES: Vision Unchanged, Conjunctiva Normal EN: No EN Drainage, Mucous Membranes moist NECK: no JVD, min JVP, Supple, no Thyromegaly CVS: S1S2, + Murmur, No Gallop, No Rub,no Edema RESP: no Rales, no Rhonchi,no Acc. Muscle Use GI: BS + ve, NO Bruit, Non Tender, Non Distended : no CVA tenderness, no Suprapubic Tenderness DIAGNOSIS/ASSESSMENT Assessment & Plan ESRD: Remains HD dependent; Current fluid and E-lyte status does not necessitate emergent need for dialysis. Will re-evaluate for dialysis in the am and continue on TTSat schedule as per OP schedule. Lowish Parminder on lab - pt is asymptomatic - presumably from Low alb; will check Alb , mag etc again low alb - suspect a result of Liver Dz./ cirrhosis. Unkonwn PO intake ANEMIA; (hgb dropped) Aranap as ordered, Transfuse with next HD as needed HTN: Current BP meds as reviewed. See orders for changes. BONE & MINERAL: follow phos Discussed Plan of Care with pt at bedside - re-emphasized compliance with OP HD schedule and she would like to have HD here tomorrow prior to leaving Problems: COMMENT/RELEVANT DATA Meds Current Medications Medications (Trade) Dose Ordered Sig/Carmenza Start Time Stop Time Status Last Admin Dose Admin Albumin Human 200 ml @ 200 mls/hr 1X PRN PRN 07/22/17 08:15 07/22/17 14:14 Albuterol Sulfate (Ventolin Neb Soln) 2.5 mg PRN Q4HRS PRN 07/19/17 16:45 Albuterol/ Ipratropium (Duoneb) 3 ml RTQID 07/19/17 17:00 07/22/17 07:42 3 ML Amlodipine Besylate (Norvasc) 10 mg DAILY 07/20/17 10:00 07/21/17 09:59 10 MG Budesonide (Pulmicort) 0.5 mg RTBID 07/19/17 20:00 07/22/17 07:42 0.5 MG Calcium Gluconate (Calcium Gluconate) 1,000 mg 1X ONCE 07/19/17 12:30 07/19/17 12:31 DC 07/19/17 13:48 1,000 MG Carvedilol (Coreg) 25 mg BIDWMEALS 07/19/17 18:00 07/22/17 08:08 25 MG Clonidine HCl (Catapres) 0.1 mg 1X PRN PRN 07/22/17 08:15 07/23/17 08:14 Darbepoetin Norris (Aranesp) 60 mcg Fr 07/19/17 21:00 Diclofenac Sodium (Voltaren) 1 garrison BID 07/20/17 09:30 07/21/17 19:49 1 GARRISON Diphenhydramine HCl (Benadryl) 25 mg 1X PRN PRN 07/22/17 08:15 07/23/17 08:14 Fentanyl Citrate (Fentanyl 2ml Vial) 50 mcg PRN Q15MIN PRN 07/19/17 11:00 07/20/17 10:59 DC 07/19/17 13:47 50 MCG Info (PHARMACY MONITORING -- do not chart) 1 each PRN DAILY PRN 07/22/17 08:15 UNV Labetalol HCl (Normodyne) 10 mg PRN Q1HR PRN 07/22/17 08:15 07/23/17 08:14 Nicotine (Nicoderm Cq 21mg) 1 patch DAILY 07/20/17 17:30 07/21/17 09:59 1 PATCH Non-Formulary Medication 1 puff BID 07/19/17 21:00 07/19/17 21:00 DC Ondansetron HCl (Zofran) 4 mg PRN Q8HRS PRN 07/19/17 14:00 07/20/17 13:59 DC Oxycodone HCl (Roxicodone) 10 mg 1X ONCE 07/21/17 12:30 07/21/17 12:31 DC 07/21/17 13:23 10 MG Pantoprazole Sodium (Protonix) 40 mg BIDAC 07/19/17 16:30 07/22/17 08:06 40 MG Sodium Chloride 1,000 ml @ 400 mls/hr Q2H30M PRN 07/22/17 08:03 07/22/17 20:02 Sodium Chloride (Normal Saline Flush) 10 ml 1X PRN PRN 07/19/17 16:30 07/20/17 16:29 DC Zolpidem Tartrate (Ambien) 5 mg PRN QHS PRN 07/19/17 16:30 07/21/17 22:16 5 MG Lab Laboratory Tests Test 07/22/17 06:10 Sodium Level 142 mmol/L (136-145) Potassium Level 4.3 mmol/L (3.5-5.1) Chloride Level 105 mmol/L (98-107) Carbon Dioxide Level 29 mmol/L (21-32) Anion Gap 8 (6-14) Blood Urea Nitrogen 33 mg/dL (7-20) Creatinine 6.5 mg/dL (0.6-1.0) Estimated GFR (Cockcroft-Gault) 8.1 Glucose Level 120 mg/dL (70-99) Calcium Level 7.6 mg/dL (8.5-10.1) MONICA MARTIN MD Jul 22, 2017 09:27
[2017-07-22 11:00] VITALS: BP 130/67
[2017-07-22] MEDS: amLODIPine BESYLATE 10 MG TABLET PO SCH (12:13)
[2017-07-22 15:00] VITALS: BP 142/62
[2017-07-22 19:00] VITALS: BP 109/66
[2017-07-22] MEDS: ZOLPIDEM 5 MG TABLET. PO PRN (20:59)
[2017-07-22 23:00] VITALS: BP 102/58
[2017-07-23] MEDS: oxyCODONE IR 5 MG TABLET PO PRN ×3 (02:11→14:12)
[2017-07-23 03:00] VITALS: BP 127/69
[2017-07-23 07:00] VITALS: BP 127/66
[2017-07-23] MEDS: PANTOPRAZOLE 40 MG TABLET.DR. PO SCH (07:24)
[2017-07-23] MEDS ORDERED: IV NORMAL SALINE 1000ML BAG 1,000 ML IV PRN ×2 (07:38)
[2017-07-23] MEDS ORDERED: DIALYSIS PATIENT. MC PRN ×2 (07:45)
[2017-07-23] MEDS: BUDESONIDE 0.5 MG/2 ML NEBU. NEB SCH (08:00)
[2017-07-23] MEDS: IPRATRPIUM/ALBUTEROL 0.5/2.5MG 3 ML NEBU. NEB SCH ×3 (08:12→16:00)
[2017-07-23] MEDS: NICOTINE 21MG PATCH. TD SCH (08:15)
[2017-07-23] MEDS: DICLOFENAC SODIUM 1% TOPICAL GEL 100GM TUBE. TP SCH (08:16)
[2017-07-23] MEDS ORDERED: DICL100G18 TP (08:44)
[2017-07-23] MEDS ORDERED: AMLO10TA2 PO (08:44)
--- NOTE | 2017-07-23 08:45 | PDOC3 ---
*Discharge Summary* Date of Admission: Jul 19, 2017 Date of Discharge: Jul 23, 2017 Admitting Diagnosis Problems Medical Problems: (1) End stage renal disease Status: Acute (2) Frequent falls Status: Acute (3) Generalized weakness Status: Acute (4) Hyperkalemia Status: Acute (5) Left knee pain Status: Acute (6) Severe protein-calorie malnutrition Status: Acute Problems: Final Diagnosis Hyperkalemia- 2/2 missed HD, HTN, ESRD, Hx anemia- mixed iron deficiency, CKD and recent GI bleed, CHF- diastolic initially decompensated, Recent GI bleed, COPD, PEM-severe, Leukocytosis- resolved, Cirrhosis- 2/2 Hepatitis C, Chronic pain, elbow fracture, left knee pain CONSULTS Renal Ortho Procedures Knee xray- no acute findings Humerus xray- persistent impacted and subluxed fracture of distal humerus. No new acute fracture. Large elbow joint effusion. Brief Hospital Course DISCHARGE PHYSICAL EXAM General: Alert, Cooperative, NAD, cachectic HEENT: Atraumatic, PERRLA, EOMI, Mucous membr. moist/pink Lungs: regular breathing rate and effort, rhonchi in lower lobes bilaterally Heart: RRR, no rubs, no gallops, systolic ejection murmur Abdomen: Normal bowel sounds, No tenderness, Other (splenomegaly, distended, no fluid shift) Extremities: No clubbing, No cyanosis, swollen right elbow Skin: No rashes, No breakdown, No significant lesion Neuro: Normal speech, Cranial nerves 3-12 NL Psych/Mental Status: Mood NL, Other (pt perseverating on pain) Pt is a 52yo AAF who presented to ER with knee pain after fall and was admitted for hyperkalemia and fluid overload 1)Hyperkalemia- 2/2 missed HD. Nephrology following. Electrolyte abnormalities improved after HD. Pt normally gets HD T/U/Sat 2)HTN- well controlled after HD sessions. Was also receiving Carvedilol 25mg BID and Norvasc 10mg 3)ESRD- see above 4)Hx anemia- mixed iron deficiency, chronic kidney disease and GI bleeds. Pt recently admitted for significant GI bleed from duodenal ulcers requiring blood transfusion. Hb currently stable. Receiving Aranesp 5)CHF- diastolic, now compensated. Improved after HD 6)Recent GI blood- from duodenal ulcers. Omeprazole switched to Pantoprazole during hospitalization. 7)COPD- currently well controlled. Pt continued on nebulizer treatments 8)PEM- severe 9)Leukocytosis- resolved. Because of pt's initial confusion, blood culture was ordered which has showed no growth. 10)Cirrhosis- 2/2 Hepatitis C 11)Chronic pain- 2/2 arthritis, recent fall, subacute right elbow fracture. Ortho evaluated pt while in hospital and did not recommend any further intervention for pt's elbow. Pt received steroid injection in left knee. Pt regularly requests increased pain medication outpatient and did the same during her stay in the hospital. Pt is well aware that I am not going to increase her pain medication, currently receiving Oxycodone 20mg q6H, and we have discussed her getting in to see another provider for further pain management which she has not been willing to do. On discharge today, pt states that she would be willing to meet with pain management. PT has recommended SNF but pt is not willing to do this. Pt has refused home physical therapy in the past even though she could benefit from it; refused physical therapy several times this admission. Pt requesting walker and bedside commode; scripts written. 12)Hyperglycemia- HbA1C was 4.6 this admission. Disposition/Orders: D/C to Home CONDITION AT DISCHARGE: Improved, Stable Diet: Renal Home Meds Active Scripts Omeprazole (OMEPRAZOLE) 20 Mg Capsule.dr, 1 CAP PO BID, #30 CAP 5 Refills Prov:SHARAD COULTER MD 07/08/17 Oxycodone Hcl (OXYCODONE HCL) 5 Mg Tablet, 20 MG PO PRN Q6HRS Y for PAIN for 30 Days, TAB Prov:SHARAD COULTER MD 07/08/17 Ipratropium/Albuterol Sulfate (DUONEB 0.5-3(2.5) MG/3 ML) 3 Ml Ampul.neb, 3 ML NEB RTQID for 30 Days Prov:SHARAD HILL MD 08/08/15 Fluticasone/Salmeterol (ADVAIR 250-50 DISKUS) 1 Puff Puff, 1 PUFF INH BID for 30 Days, INHALER Prov:SHARAD HILL MD 08/26/14 Darbepoetin Norris In Polysorbat (ARANESP SYRINGE) 60 Mcg/0.3 Ml Disp.syrin, 60 MCG SQ WEEKLYHS for 30 Days, DIS.SYR Prov:SHARAD HILL MD 08/26/14 Albuterol Sulfate (ALBUTEROL SULFATE CONC NEB SOLN) 2.5 Mg/0.5 Ml Vial.neb, 1 VIAL NEB Q4HRS Y for wheezing/SOA/cough, #60 VIAL 1 Refill Prov:SHARAD HILL MD 08/23/14 Reported Medications Carvedilol (CARVEDILOL) 25 Mg Tablet, 25 MG PO BIDWMEALS for htn, TAB 07/19/17 Zolpidem Tartrate (AMBIEN) 10 Mg Tablet, 1 TAB PO QHS for sleep, #30 TAB 12/06/15 Scheduled Carvedilol (Carvedilol), 25 MG PO BIDWMEALS, (Reported) Darbepoetin Norris In Polysorbat (Aranesp Syringe), 60 MCG SQ WEEKLYHS Fluticasone/Salmeterol (Advair 250-50 Diskus), 1 PUFF INH BID Ipratropium/Albuterol Sulfate (Duoneb 0.5-3(2.5) Mg/3 Ml), 3 ML NEB RTQID Omeprazole (Omeprazole), 1 CAP PO BID Zolpidem Tartrate (Ambien), 1 TAB PO QHS, (Reported) Scheduled PRN Albuterol Sulfate (Albuterol Sulfate Conc Neb Soln), 1 VIAL NEB Q4HRS PRN for wheezing/SOA/cough Oxycodone Hcl (Oxycodone Hcl), 20 MG PO PRN Q6HRS PRN for PAIN PCP Follow up with Dr. Coulter within 10-14 days of discharge Time Spent Total time spent with patient [] minutes for coordination of care, counseling, and education. SHARAD COULTER MD Jul 23, 2017 08:45
[2017-07-23] MEDS ORDERED: LIDOCAINE 1% PF 2 ML VIAL. INJ ONE (09:00)
[2017-07-23] MEDS ORDERED: methylPREDNISolone ACETATE 80 MG/ML VIAL. IM ONE (09:00)
--- NOTE | 2017-07-23 09:26 | CONS ---
DATE OF CONSULTATION: 07/23/2017 REFERRING PROVIDER: Mick Murray M.D. CONSULTING PROVIDER: Jesse Grey M.D. REASON FOR CONSULTATION: Right distal humerus fracture and left knee pain. CHIEF COMPLAINT: Right elbow pain. HISTORY OF PRESENT ILLNESS: The patient is a 52-year-old with multiple medical comorbidities, who had a fall in April and possibly some subsequent falls; she is uncertain as to the exact timeframe. She has noted increasing elbow deformity and pain. She has had clinic appointments scheduled with us, but has not kept any of these appointments. She tells me her elbow hurts constantly at baseline. It does radiate up and down her arm, it is worse with movement. She denies any abnormal sensations in her fingers, though. She is also complaining of left knee pain on the front of her knee as well as on the medial side. It is worse with any attempted weightbearing. She had a fall and landed onto the front of her flexed knee recently. Pain does radiate up and down her leg. There has not been any swelling. ALLERGIES: 1. PENICILLIN. 2. ACETAMINOPHEN. REVIEW OF SYSTEMS: Twelve-point review of systems is negative, except as per the HPI. PAST MEDICAL HISTORY: Significant for hypertension, liver disease, renal failure, dialysis, hepatitis B, hepatitis C and drug and alcohol abuse. PAST SURGICAL HISTORY: Fistulas, paracentesis and Perm-A-Cath. SOCIAL HISTORY: Uses alcohol and does admit to using marijuana. FAMILY HISTORY: Noncontributory. PHYSICAL EXAMINATION: GENERAL: The patient is alert and oriented. Speech is clear. She is examined lying in the hospital bed. HEENT: Head normocephalic, atraumatic. Extraocular muscles are intact. CARDIOVASCULAR: Regular rate and rhythm. Radial pulses 2+. Dorsalis pedis weak, but palpable bilaterally. LUNGS: Respirations are unlabored, with symmetric chest rise. ABDOMEN: Soft, nondistended. EXTREMITIES: Examination of the right upper extremity reveals fullness and mild gross deformity of her right elbow. Decreased active range of motion of the right elbow. Normal sensation, median, radial and ulnar nerves. Motor is intact, median, radial and ulnar nerves as well. She is tender around her right elbow. Examination of her bilateral lower extremities reveals no obvious effusion in either knee. Both knees are stable to varus and valgus. She has no range of motion from 10 degrees to 90 degrees at her knee. She is able to actively extend. Palpably, her extensor mechanism is intact. She is tender over her anterior knee in general and her medial compartment. IMAGING: X-rays from 04/27/2017, 05/11/2017, 07/06/2017 and 07/21/2017 of her elbow were reviewed and interpreted by myself. The reports for these studies were also reviewed. She has a coronoid fracture apparent in the early series. The transverse supracondylar fracture really was not apparent until May. There has been some increased callus formation since then, but it has collapsed somewhat. X-rays of her knee were interpreted by myself. Nonweightbearing x-rays revealed mild degenerative changes. IMPRESSION: 1. Right distal humerus fracture, closed. 2. Left knee degenerative joint disease. PLAN: I did discuss this patient with Dr. Murray as well as Dr. Devin Brambila. Given her multiple medical comorbidities and the fracture pattern, there really is no good surgical option in terms of treating her fracture. I think allowing her gentle use of the arm would be appropriate. She should follow up in clinic regarding her elbow fracture. Regarding her knee, we discussed different treatment options and in the end, she elected to receive a cortisone injection. We will have those supplies delivered to bedside and be back later for the knee injection. JESSE GREY MD DR: AUTUMN/teo JOB#: [id number] / [id number]
--- NOTE | 2017-07-23 10:12 | PDOC ---
Dialysis Progress Note Dialysis Note Dialysis Note Seen on Hemodialysis, tolerating treatment Okay so far Vitals on Hemodialysis: 116/61 85 98.2 General Appearance: Awake: Alert Oriented x 3 Neck: No JVD or JVP Chest: CTA Atif Heart: S1 S2 Abdomen - Soft NTND Extremities - No Edema ESRD : Dialysis as below F 180 NR 3.0 Hrs 3 K 2.5 Ca 140 Na 35 HC03 Qb 350 + Qd 500+ Heparin 0 Units Uf 1 Kgs or to dry weight as tolerated May give 25-50 gms of 25% Albumin if needed to maintain Hemodynamic stability Treatment plan reviewed and discussed with lead project manager Vitals Vital Signs Vital Signs Date Time Temp Pulse Resp B/P (MAP) Pulse Ox O2 Delivery O2 Flow Rate FiO2 07/23/17 08:15 98 Room Air 07/23/17 08:14 18 07/23/17 07:00 98.6 88 127/66 (86) 98.6 Labs Last Labs Laboratory Tests Test 07/22/17 06:10 Sodium Level 142 mmol/L (136-145) Potassium Level 4.3 mmol/L (3.5-5.1) Chloride Level 105 mmol/L (98-107) Carbon Dioxide Level 29 mmol/L (21-32) Anion Gap 8 (6-14) Blood Urea Nitrogen 33 mg/dL (7-20) Creatinine 6.5 mg/dL (0.6-1.0) Estimated GFR (Cockcroft-Gault) 8.1 Glucose Level 120 mg/dL (70-99) Calcium Level 7.6 mg/dL (8.5-10.1) Assessment Assessment Problems Medical Problems: (1) End stage renal disease Status: Acute (2) Frequent falls Status: Acute (3) Generalized weakness Status: Acute (4) Hyperkalemia Status: Acute (5) Left knee pain Status: Acute (6) Severe protein-calorie malnutrition Status: Acute Problems: Plan Plan of Care Problems Medical Problems: (1) End stage renal disease Status: Acute (2) Frequent falls Status: Acute (3) Generalized weakness Status: Acute (4) Hyperkalemia Status: Acute (5) Left knee pain Status: Acute (6) Severe protein-calorie malnutrition Status: Acute MONICA MARTIN MD Jul 23, 2017 10:12
[2017-07-23 13:16] VITALS: BP 166/84
[2017-07-23] MEDS: CARVEDILOL 12.5 MG TABLET. PO SCH (13:23)
[2017-07-23] MEDS: amLODIPine BESYLATE 10 MG TABLET PO SCH (13:25)
[2017-07-23 15:00] VITALS: BP 130/80
--- NOTE | 2017-07-23 15:11 | PDOC4 ---
PROCEDURE Procedure After informed consent was obtained the left knee at the lateral infrapatellar portal was injected with a mixture of 80 mg of Depo-Medrol and 2 mL's of 1% lidocaine under sterile conditions. She tolerated the procedure well. Area was cleansed with alcohol and a dressing was applied. ABRAHAM FAJARDO APRN Jul 23, 2017 15:11
== END 2017-07-23 16:15 | disposition home or self-care (01) | DRG 640 ==
LOC: ER 10:33 → 5 NORTH 13:33 → ER 14:23
PROVIDERS: ADMIT Family Medicine; ATTEND Family Medicine
PROC: 5A1D70Z Performance of Urinary Filtration, Intermittent, Less than 6 Hours Per Day (ICD-10-PCS; 2017-07-19)
PROC: 5A1D70Z Performance of Urinary Filtration, Intermittent, Less than 6 Hours Per Day (ICD-10-PCS; 2017-07-20)
PROC: 5A1D70Z Performance of Urinary Filtration, Intermittent, Less than 6 Hours Per Day (ICD-10-PCS; 2017-07-22)
PROC: 3E0U3BZ Introduction of Anesthetic Agent into Joints, Percutaneous Approach (ICD-10-PCS; principal; 2017-07-23)
PROC: 3E0U33Z Introduction of Anti-inflammatory into Joints, Percutaneous Approach (ICD-10-PCS; 2017-07-23)
PROC: 5A1D70Z Performance of Urinary Filtration, Intermittent, Less than 6 Hours Per Day (ICD-10-PCS; 2017-07-23)
DX: E87.5 Hyperkalemia (principal); E43 Unspecified severe protein-calorie malnutrition; I13.2 Hypertensive heart and chronic kidney disease with heart failure and with stage 5 chronic kidney disease, or end stage renal disease; R64 Cachexia; I42.0 Dilated cardiomyopathy; N18.6 End stage renal disease; I50.33 Acute on chronic diastolic (congestive) heart failure; S42.401A Unspecified fracture of lower end of right humerus, initial encounter for closed fracture; D63.1 Anemia in chronic kidney disease; W18.39XA Other fall on same level, initial encounter; B19.20 Unspecified viral hepatitis C without hepatic coma; D72.829 Elevated white blood cell count, unspecified; E78.5 Hyperlipidemia, unspecified; F12.90 Cannabis use, unspecified, uncomplicated; F17.210 Nicotine dependence, cigarettes, uncomplicated; G89.29 Other chronic pain; I25.10 Atherosclerotic heart disease of native coronary artery without angina pectoris; J44.9 Chronic obstructive pulmonary disease, unspecified; F10.11 Alcohol abuse, in remission; F32.9 Major depressive disorder, single episode, unspecified; F41.9 Anxiety disorder, unspecified; K21.9 Gastro-esophageal reflux disease without esophagitis; K74.60 Unspecified cirrhosis of liver; M17.12 Unilateral primary osteoarthritis, left knee; R29.6 Repeated falls; W18.30XA Fall on same level, unspecified, initial encounter; Z82.49 Family history of ischemic heart disease and other diseases of the circulatory system; Z83.3 Family history of diabetes mellitus; Z87.11 Personal history of peptic ulcer disease; Z91.81 History of falling; Z99.2 Dependence on renal dialysis; Z88.0 Allergy status to penicillin; Z88.8 Allergy status to other drugs, medicaments and biological substances; Z87.01 Personal history of pneumonia (recurrent); Z68.21 Body mass index [BMI] 21.0-21.9, adult; Y93.89 Activity, other specified; Y92.89 Other specified places as the place of occurrence of the external cause; Y99.8 Other external cause status; Z91.15 Patient's noncompliance with renal dialysis
CPT/HCPCS: 36415; 73060; 73562; 80048; 80053; 83036; 84484; 85007; 85025; 87040; 93005; 94640; 94760; 96374; J0610; J1040; J2405; J3010; J7030; J7620; J7626; 99285-25

== ENCOUNTER 2017-09-19 12:42 | Inpatient (IN) | payer MEDICARE, OTHER ==
[2017-09-19] MEDS ORDERED: CONTRAST GIVEN MC (14:30)
[2017-09-19] MEDS: IOHEXOL 300 MG/ML 100ML VIAL. IV (14:30)
[2017-09-19] MEDS: ONDANSETRON PF 4 MG/2 ML VIAL. IV (14:59)
[2017-09-19] MEDS: fentaNYL PF VIAL 100 MCG/2 ML VIAL IV ×5 (15:00→23:21)
[2017-09-19] MEDS: methylPREDNISolone SOD SUCC PF 125 MG/2 ML VIAL. IV (15:03)
[2017-09-19 15:31] LABS: ADD MAN DIFF? NO
[2017-09-19] MEDS: ALBUTEROL SULFATE 2.5 MG/3 ML NEBU. NEB (15:33)
[2017-09-19] MEDS: IPRATRPIUM/ALBUTEROL 0.5/2.5MG 3 ML NEBU. NEB ×2 (15:33→23:36)
[2017-09-19 15:42] LABS: BASO # 0.1 x10^3/uL (0.0-0.2); BASO % 1 % (0-3); EOS % 0 % (0-3); HEMATOCRIT 33.1 % (36.0-47.0); HEMOGLOBIN 10.9 g/dL (12.0-15.5); LYMPH # 1.9 x10^3/uL (1.0-4.8); LYMPH % 19 % (24-48); MEAN CORPUSCULAR HEMOGLOBIN 31 pg (25-35); MEAN CORPUSCULAR HGB CONC 33 g/dL (31-37); MEAN CORPUSCULAR VOLUME 92 fL (79-100); MONO # 0.9 x10^3/uL (0.0-1.1); MONO % 8 % (0-9); NEUT # 7.3 x10^3uL (1.8-7.7); NEUT % 72 % (31-73); PLATELET COUNT 324 x10^3/uL (140-400); RED BLOOD COUNT 3.59 x10^6/uL (3.50-5.40); RED CELL DISTRIBUTION WIDTH 18.2 % (11.5-14.5); WHITE BLOOD COUNT 10.2 x10^3/uL (4.0-11.0)
[2017-09-19] MEDS ORDERED: ONDANSETRON PF 4 MG/2 ML VIAL. IV (15:45)
[2017-09-19 15:46] LABS: INFLUENZA A PATIENT NEGATIVE (NEGATIVE); INFLUENZA B PATIENT NEGATIVE (NEGATIVE); OBC FLU VALID
[2017-09-19 16:05] LABS: LACTIC ACID 1.7 mmol/L (0.4-2.0)
[2017-09-19 16:07] LABS: INR 1.2 (0.8-1.1); PARTIAL THROMBOPLASTIN TIME 32 SEC (24-38); PROTHROMBIN TIME PATIENT 14.5 SEC (11.7-14.0)
[2017-09-19 16:08] LABS: TROPONINI < 0.017 ng/mL (0.000-0.055)
[2017-09-19 16:09] LABS: NT-PRO BNP 3643 pg/mL (0-124)
[2017-09-19 16:09] LABS: ANION GAP 11 (6-14); BLOOD UREA NITROGEN 41 mg/dL (7-20); BUN/CREATININE RATIO 7 (6-20); CALCIUM 8.4 mg/dL (8.5-10.1); CARBON DIOXIDE 29 mmol/L (21-32); CHLORIDE 98 mmol/L (98-107); GFR 8.8; GLUCOSE 127 mg/dL (70-99); SODIUM 138 mmol/L (136-145)
[2017-09-19 16:14] LABS: ALBUMIN 2.2 g/dL (3.4-5.0); ALBUMIN/GLOBULIN RATIO 0.3 (1.0-1.7); ALK PHOS 337 U/L (46-116); ALT (SGPT) 19 U/L (14-59); AST (SGOT) 47 U/L (15-37); LIPASE 87 U/L (73-393); MAGNESIUM 1.9 mg/dL (1.8-2.4); TOTAL BILIRUBIN 0.4 mg/dL (0.2-1.0); TOTAL PROTEIN 9.1 g/dL (6.4-8.2)
[2017-09-19] MEDS ORDERED: PIPERACILLIN/TAZOBACTAM 3.375 GM in IV NORMAL SALINE 50ML 50 ML IV (17:15)
[2017-09-19] MEDS: PIPERACILLIN/TAZOBACTAM 2.25 GM in IV NORMAL SALINE 50ML 50 ML IV (18:26)
[2017-09-19] MEDS ORDERED: ALBUTEROL SULFATE 2.5 MG/3 ML NEBU. NEB (23:00)
[2017-09-19] MEDS ORDERED: ZOLPIDEM 5 MG TABLET. PO (23:00)
[2017-09-19] MEDS: BUDESONIDE 0.5 MG/2 ML NEBU. NEB (23:00)
[2017-09-19] MEDS: ZOLPIDEM 5 MG TABLET. PO (23:21)
[2017-09-20] MEDS: oxyCODONE IR 5 MG TABLET PO ×4 (00:08→19:41)
[2017-09-20] MEDS: fentaNYL PF VIAL 100 MCG/2 ML VIAL IV ×9 (02:16→23:25)
[2017-09-20] MEDS: IPRATRPIUM/ALBUTEROL 0.5/2.5MG 3 ML NEBU. NEB ×4 (07:24→18:30)
[2017-09-20] MEDS: BUDESONIDE 0.5 MG/2 ML NEBU. NEB ×3 (07:25→18:31)
[2017-09-20] MEDS: PANTOPRAZOLE 40 MG TABLET.DR. PO (08:11)
[2017-09-20] MEDS: CARVEDILOL 12.5 MG TABLET. PO ×2 (08:11→17:00)
[2017-09-20] MEDS: amLODIPine BESYLATE 10 MG TABLET PO (08:12)
[2017-09-20] MEDS: traMADol 50 MG TABLET PO (08:49)
[2017-09-20] MEDS: DICLOFENAC SODIUM 1% TOPICAL GEL 100GM TUBE. TP ×2 (08:50→20:32)
[2017-09-20 09:15] LABS: ADD MAN DIFF? NO
[2017-09-20 09:20] LABS: BASO % 0 % (0-3); EOS % 0 % (0-3); HEMATOCRIT 30.9 % (36.0-47.0); HEMOGLOBIN 9.9 g/dL (12.0-15.5); LYMPH # 1.2 x10^3/uL (1.0-4.8); LYMPH % 9 % (24-48); MEAN CORPUSCULAR HEMOGLOBIN 29 pg (25-35); MEAN CORPUSCULAR HGB CONC 32 g/dL (31-37); MEAN CORPUSCULAR VOLUME 92 fL (79-100); MONO # 1.1 x10^3/uL (0.0-1.1); MONO % 8 % (0-9); NEUT % 84 % (31-73); PLATELET COUNT 298 x10^3/uL (140-400); RED BLOOD COUNT 3.35 x10^6/uL (3.50-5.40); RED CELL DISTRIBUTION WIDTH 17.9 % (11.5-14.5); WHITE BLOOD COUNT 14.4 x10^3/uL (4.0-11.0)
[2017-09-20 09:32] LABS: ANION GAP 12 (6-14); BLOOD UREA NITROGEN 50 mg/dL (7-20); CALCIUM 8.3 mg/dL (8.5-10.1); CARBON DIOXIDE 27 mmol/L (21-32); CHLORIDE 97 mmol/L (98-107); GFR 7.4; GLUCOSE 109 mg/dL (70-99); POTASSIUM 4.6 mmol/L (3.5-5.1); SODIUM 136 mmol/L (136-145)
[2017-09-20] MEDS ORDERED: IV NORMAL SALINE 1000ML BAG 1,000 ML IV ×2 (10:31)
[2017-09-20] MEDS ORDERED: DIALYSIS PATIENT. MC (10:45)
[2017-09-20] MEDS ORDERED: diphenhydrAMINE 50 MG/ML VIAL IV ×2 (10:45)
[2017-09-20] MEDS: ZOLPIDEM 5 MG TABLET. PO (20:28)
[2017-09-21] MEDS: oxyCODONE IR 5 MG TABLET PO ×5 (00:13→22:14)
[2017-09-21] MEDS: fentaNYL PF VIAL 100 MCG/2 ML VIAL IV ×7 (02:00→23:29)
[2017-09-21 06:47] LABS: HEMATOCRIT 31.3 % (36.0-47.0); HEMOGLOBIN 9.6 g/dL (12.0-15.5); MEAN CORPUSCULAR HEMOGLOBIN 29 pg (25-35); MEAN CORPUSCULAR HGB CONC 31 g/dL (31-37); MEAN CORPUSCULAR VOLUME 96 fL (79-100); PLATELET COUNT 281 x10^3/uL (140-400); RED BLOOD COUNT 3.25 x10^6/uL (3.50-5.40); RED CELL DISTRIBUTION WIDTH 18.5 % (11.5-14.5); WHITE BLOOD COUNT 8.3 x10^3/uL (4.0-11.0)
[2017-09-21 07:11] LABS: ANION GAP 7 (6-14); BLOOD UREA NITROGEN 18 mg/dL (7-20); CARBON DIOXIDE 32 mmol/L (21-32); CHLORIDE 101 mmol/L (98-107); CREATININE 3.4 mg/dL (0.6-1.0); GLUCOSE 125 mg/dL (70-99); POTASSIUM 3.7 mmol/L (3.5-5.1); SODIUM 140 mmol/L (136-145)
[2017-09-21] MEDS: BUDESONIDE 0.5 MG/2 ML NEBU. NEB ×2 (08:00→19:37)
[2017-09-21] MEDS: IPRATRPIUM/ALBUTEROL 0.5/2.5MG 3 ML NEBU. NEB ×4 (08:00→19:36)
[2017-09-21] MEDS: CARVEDILOL 12.5 MG TABLET. PO ×2 (08:07→16:53)
[2017-09-21] MEDS: amLODIPine BESYLATE 10 MG TABLET PO (08:08)
[2017-09-21] MEDS: PANTOPRAZOLE 40 MG TABLET.DR. PO (08:08)
[2017-09-21] MEDS: DICLOFENAC SODIUM 1% TOPICAL GEL 100GM TUBE. TP ×2 (08:10→21:00)
[2017-09-21] MEDS ORDERED: LIDOCAINE 1% PF 2 ML VIAL. ×2 (08:27→08:30)
[2017-09-21] MEDS ORDERED: IV NORMAL SALINE 1000ML BAG 1,000 ML IV (14:51)
[2017-09-21] MEDS: LACTOBACILLUS RHAMNOSUS GG 1 CAPSULE. PO ×2 (14:52→20:51)
[2017-09-21] MEDS ORDERED: DIALYSIS PATIENT. MC (15:00)
[2017-09-21] MEDS: ZOLPIDEM 5 MG TABLET. PO (20:52)
[2017-09-22] MEDS: fentaNYL PF VIAL 100 MCG/2 ML VIAL IV ×6 (01:28→14:02)
[2017-09-22] MEDS: oxyCODONE IR 5 MG TABLET PO ×4 (06:12→21:48)
[2017-09-22] MEDS: BUDESONIDE 0.5 MG/2 ML NEBU. NEB ×2 (07:27→20:06)
[2017-09-22] MEDS: IPRATRPIUM/ALBUTEROL 0.5/2.5MG 3 ML NEBU. NEB ×4 (07:27→20:06)
[2017-09-22] MEDS: amLODIPine BESYLATE 10 MG TABLET PO (08:25)
[2017-09-22] MEDS: CARVEDILOL 12.5 MG TABLET. PO ×2 (08:26→17:00)
[2017-09-22] MEDS: LACTOBACILLUS RHAMNOSUS GG 1 CAPSULE. PO ×2 (08:26→20:04)
[2017-09-22] MEDS: DICLOFENAC SODIUM 1% TOPICAL GEL 100GM TUBE. TP ×2 (08:26→20:05)
[2017-09-22] MEDS: PANTOPRAZOLE 40 MG TABLET.DR. PO (08:26)
[2017-09-22] MEDS: guaiFENesin DM 200MG/20MG 10 ML SYRUP PO ×3 (11:46→19:58)
[2017-09-22] MEDS: AZITHROMYCIN 250 MG TABLET. PO (11:47)
[2017-09-22] MEDS: traMADol 50 MG TABLET PO (20:03)
[2017-09-22] MEDS: ZOLPIDEM 5 MG TABLET. PO (20:03)
[2017-09-23] MEDS: oxyCODONE IR 5 MG TABLET PO ×2 (01:47→07:31)
[2017-09-23] MEDS: AZITHROMYCIN 250 MG TABLET. PO (07:30)
[2017-09-23] MEDS: guaiFENesin DM 200MG/20MG 10 ML SYRUP PO (07:30)
[2017-09-23] MEDS: PANTOPRAZOLE 40 MG TABLET.DR. PO (07:30)
[2017-09-23] MEDS: LACTOBACILLUS RHAMNOSUS GG 1 CAPSULE. PO (07:30)
[2017-09-23] MEDS: CARVEDILOL 12.5 MG TABLET. PO (07:30)
[2017-09-23] MEDS: amLODIPine BESYLATE 10 MG TABLET PO (07:31)
[2017-09-23] MEDS: DICLOFENAC SODIUM 1% TOPICAL GEL 100GM TUBE. TP (07:31)
[2017-09-23] MEDS: IPRATRPIUM/ALBUTEROL 0.5/2.5MG 3 ML NEBU. NEB ×2 (07:36→11:19)
[2017-09-23] MEDS: BUDESONIDE 0.5 MG/2 ML NEBU. NEB (08:00)
[2017-09-23] MEDS ORDERED: MAGNESIUM SULFATE 2GM 50 ML IV (10:00)
[2017-09-26] MEDS ORDERED: DARBEPOETIN ALFA 60 MCG/0.3 ML DISP.SYRIN. SQ (21:00)
== END 2017-09-23 12:34 | disposition home health service (06) | DRG 177 ==
LOC: ER 12:42 → 5 NORTH 15:03
DX: J15.6 Pneumonia due to other Gram-negative bacteria (principal); J96.01 Acute respiratory failure with hypoxia; E43 Unspecified severe protein-calorie malnutrition; I13.2 Hypertensive heart and chronic kidney disease with heart failure and with stage 5 chronic kidney disease, or end stage renal disease; N18.6 End stage renal disease; I50.33 Acute on chronic diastolic (congestive) heart failure; J44.1 Chronic obstructive pulmonary disease with (acute) exacerbation; J44.0 Chronic obstructive pulmonary disease with (acute) lower respiratory infection; J98.11 Atelectasis; D63.8 Anemia in other chronic diseases classified elsewhere; Z68.20 Body mass index [BMI] 20.0-20.9, adult; E78.5 Hyperlipidemia, unspecified; F17.200 Nicotine dependence, unspecified, uncomplicated; F41.9 Anxiety disorder, unspecified; G89.29 Other chronic pain; I25.10 Atherosclerotic heart disease of native coronary artery without angina pectoris; J18.9 Pneumonia, unspecified organism; K21.9 Gastro-esophageal reflux disease without esophagitis; K59.00 Constipation, unspecified; K74.60 Unspecified cirrhosis of liver; Z82.49 Family history of ischemic heart disease and other diseases of the circulatory system; Z83.3 Family history of diabetes mellitus; Z87.11 Personal history of peptic ulcer disease; Z99.2 Dependence on renal dialysis; E21.3 Hyperparathyroidism, unspecified; F10.10 Alcohol abuse, uncomplicated; F12.90 Cannabis use, unspecified, uncomplicated; F32.9 Major depressive disorder, single episode, unspecified; Z88.8 Allergy status to other drugs, medicaments and biological substances; J20.9 Acute bronchitis, unspecified; D63.1 Anemia in chronic kidney disease
CPT/HCPCS: 36415; 71045; 74177; 80048; 80053; 83605; 83690; 83735; 83880; 84484; 85025; 85027; 85610; 85730; 87040; 87804; 87804-59; 93005; 94640; 94760; 96374; 96375; 97116-GP; 97162-GP; 97165-GO; 97535-GO; 99285; 99285-25; J2405; J2543; J2930; J3010; J7613; J7620; J7626; Q0144; Q9967

== ENCOUNTER → 2017-12-06 | Outpatient (CLI) | payer MEDICARE, OTHER | END | disposition home or self-care (01) | LOC: CT 15:34 | DX: K74.60 Unspecified cirrhosis of liver (principal); K76.6 Portal hypertension; I25.10 Atherosclerotic heart disease of native coronary artery without angina pectoris | CPT/HCPCS: 71250 ==

== ENCOUNTER 2018-03-17 09:21 | Emergency (ER) | payer MEDICARE, OTHER ==
[~2018-03-17] VITALS: Ht 152.4 cm; Wt 45.4 kg
[~2018-03-17 09:21] MED LIST changes: +AMOX1TAB10 PO; +DICL100G18 TP; -FERR-26 PO; +FERR325T14 PO; +GUAI120L35 PO; +GUAI5SYR PO; -IPRA3AMP NEB; +IPRA3AMP29 NEB; +LEVO750T31 PO; +MELO7.5T29 PO; -SPIR50TA2 PO; +SPIR50TA4 PO; +TRAZ-85 PO; -TRAZ50TA15 PO
[2018-03-17] MEDS ORDERED: IPRATRPIUM/ALBUTEROL 0.5/2.5MG 3 ML NEBU. NEB ONE (10:15)
[2018-03-17] MEDS ORDERED: traMADol 50 MG TABLET PO ONE (10:15)
[2018-03-17] MEDS ORDERED: LIDOCAINE (700MG/PATCH) PATCH. TD SCH (11:00)
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
[2018-03-17 12:21] VITALS: BP 170/79
[2018-03-17] MEDS ORDERED: TRAM50TA PO (12:35)
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
--- NOTE | 2018-03-18 07:31 | EKG ---
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
== END 2018-03-17 12:50 | disposition home or self-care (01) ==
LOC: ER 09:21
DX: S20.211A Contusion of right front wall of thorax, initial encounter (principal); S70.01XA Contusion of right hip, initial encounter; I10 Essential (primary) hypertension; N19 Unspecified kidney failure; Z98.890 Other specified postprocedural states; Z99.2 Dependence on renal dialysis; Z88.6 Allergy status to analgesic agent; V49.59XA Passenger injured in collision with other motor vehicles in traffic accident, initial encounter; Y93.89 Activity, other specified; Y92.488 Other paved roadways as the place of occurrence of the external cause; Y99.8 Other external cause status
CPT/HCPCS: 71046; 73502; 93005; 99284; J7620

== ENCOUNTER 2018-04-01 08:56 | Inpatient (IN) | payer MEDICARE, OTHER ==
[~2018-04-01] VITALS: Ht 162.6 cm; Wt 48.3 kg
[2018-04-01] VITALS (12 sets, daily range): BP systolic 78–131; BP diastolic 48–67
[~2018-04-01 08:56] MED LIST changes: -AMLO10TA2 PO; +AMLO10TA6 PO
[2018-04-01] MEDS ORDERED: PIPERACILLIN/TAZOBACTAM 3.375 GM in IV NORMAL SALINE 50ML 50 ML IV ONE (09:15)
--- NOTE | 2018-04-01 09:21 | PHYS DOC ---
Past Medical History Past Medical History: Hypertension, Liver Disease, Renal Failure, Other Additional Past Medical Histor: Hepatitis C and B, dialysis, drug and ETOH use Past Surgical History: Other Additional Past Surgical Histo: permacath, paracentesis, lt arm fistula,L HIP Alcohol Use: None Drug Use: Marijuana Adult General Chief Complaint Chief Complaint: ALTERED MENTAL STATUS HPI HPI Patient is a 52-year-old -[place] female with a complex medical history , including ESRD, viral hepatitis with cirrhosis, alcoholism and substance abuse , and history of noncompliance, who presents to the emergency department via EMS with altered mental status. Apparently her friend called EMS. The patient is lethargic, and noted to be febrile. She does not have any pain. It is unknown when her last dialysis was, but she was discharged from this facility at the end of last week. EMS did report the patient has not had dialysis in a while. She is unable to verbalize any complaints. She appears mild to moderately dyspneic, is having scattered rhonchi. Notes available from her recent hospital stay as well as recent results have been reviewed. Review of Systems Review of Systems Unable to obtain review of systems secondary to altered mental status. Current Medications Current Medications Current Medications Medications (Trade) Dose Ordered Sig/Carmenza Start Time Stop Time Status Last Admin Dose Admin Piperacillin Sod/ Tazobactam Sod 3.375 gm/Sodium Chloride 50 ml @ 100 mls/hr 1X ONCE 04/01/18 09:15 04/01/18 09:44 DC 04/01/18 09:23 100 MLS/HR Allergies Allergies Allergies Coded Allergies Type Severity Reaction Last Updated Verified No Known Medication Allergies Allergy Unknown 02/17/18 Yes acetaminophen Adverse Reaction Severe increased liver enzymes 07/19/17 Yes Physical Exam Physical Exam PHYSICAL EXAM: CONSTITUTIONAL: Lethargic, thin appearing. HEAD: normocephalic, atraumatic EENT: PERRL, EOMI. Conjunctivae normal color, sclerae non-icteric; moist mucous membranes. NECK: Supple, non-tender; no meningismus. There is mild JVD. LUNGS: There are coarse breath sounds in all lung mccarthy, with scattered rales present throughout. HEART: Regular rate and rhythm, no audible murmur CHEST: No deformity; non-tender ABDOMEN: The abdomen is soft, there is mild tenderness to palpation diffusely in the abdomen, most prominent in the right upper abdomen, without rebound or guarding. The remainder of the abdomen is soft and relatively non-tender, no masses or bruits. EXTREM: Normal ROM; no deformity, no calf tenderness. Normal pulses palpable in all extremities. There is mild bilateral pedal edema. There is a fistula in the left forearm, without any surrounding rash or erythema. SKIN: No rash; no diaphoresis NEURO: Patient is lethargic, but arousable. She is oriented to person, and place. She moves all extremities. CN's grossly intact; strength grossly intact without focal deficit. BACK: No CVA TTP. Current Patient Data Vital Signs Vital Signs Date Time Temp Pulse Resp B/P (MAP) Pulse Ox O2 Delivery O2 Flow Rate FiO2 04/01/18 10:25 104 20 96 04/01/18 09:49 Nasal Cannula 4.0 04/01/18 08:56 102.7 149/79 (102) 102.7 Lab Values Laboratory Tests Test 04/01/18 09:03 04/01/18 09:15 04/01/18 09:25 04/01/18 10:40 O2 Saturation 91 % (92-99) L Arterial Blood pH 7.29 (7.35-7.45) L Arterial Blood pCO2 at Patient Temp 46 mmHg (35-46) Arterial Blood pO2 at Patient Temp 64 mmHg (75-108) L Arterial Blood HCO3 22 mmol/L (21-28) Arterial Blood Base Excess -5 mmol/L (-3-3) L FiO2 36 White Blood Count 21.3 x10^3/uL (4.0-11.0) H Red Blood Count 3.19 x10^6/uL (3.50-5.40) L Hemoglobin 10.0 g/dL (12.0-15.5) L Hematocrit 30.8 % (36.0-47.0) L Mean Corpuscular Volume 97 fL (79-100) # Mean Corpuscular Hemoglobin 32 pg (25-35) Mean Corpuscular Hemoglobin Concent 33 g/dL (31-37) Red Cell Distribution Width 16.0 % (11.5-14.5) H Platelet Count 300 x10^3/uL (140-400) Neutrophils (%) (Auto) 86 % (31-73) H Lymphocytes (%) (Auto) 5 % (24-48) L Monocytes (%) (Auto) 9 % (0-9) Eosinophils (%) (Auto) 0 % (0-3) Basophils (%) (Auto) 0 % (0-3) Neutrophils # (Auto) 18.3 x10^3uL (1.8-7.7) H Lymphocytes # (Auto) 1.0 x10^3/uL (1.0-4.8) Monocytes # (Auto) 1.9 x10^3/uL (0.0-1.1) H Eosinophils # (Auto) 0.0 x10^3/uL (0.0-0.7) Basophils # (Auto) 0.1 x10^3/uL (0.0-0.2) Platelet Estimate Pending Prothrombin Time 13.7 SEC (11.7-14.0) Prothrombin Time INR 1.1 (0.8-1.1) Sodium Level 135 mmol/L (136-145) L Potassium Level 5.0 mmol/L (3.5-5.1) Chloride Level 98 mmol/L (98-107) Carbon Dioxide Level 23 mmol/L (21-32) Anion Gap 14 (6-14) 17 mmol/L (6-14) H Blood Urea Nitrogen 73 mg/dL (7-20) H Creatinine 11.6 mg/dL (0.6-1.0) H Estimated GFR (Cockcroft-Gault) 4.1 BUN/Creatinine Ratio 6 (6-20) Glucose Level 121 mg/dL (70-99) H 117 mg/dL (70-99) H Lactic Acid Level 1.2 mmol/L (0.4-2.0) Calcium Level 7.7 mg/dL (8.5-10.1) L Magnesium Level 1.8 mg/dL (1.8-2.4) Total Bilirubin 0.6 mg/dL (0.2-1.0) Aspartate Amino Transferase (AST) 51 U/L (15-37) H Alanine Aminotransferase (ALT) 33 U/L (14-59) Alkaline Phosphatase 259 U/L (46-116) H Ammonia 14 mcmol/L (11-34) Creatine Kinase 299 U/L (26-192) H Creatine Kinase MB (Mass) 8.6 ng/mL (0.0-3.6) H Creatine Kinase MB Relative Index 2.9 % (0-4) Troponin I Quantitative 0.060 ng/mL (0.000-0.055) WK-Haw-A-Type Natriuretic Peptide > 50518 pg/mL (0-124) H Total Protein 8.0 g/dL (6.4-8.2) Albumin 2.9 g/dL (3.4-5.0) L Albumin/Globulin Ratio 0.6 (1.0-1.7) L Lipase 147 U/L (73-393) Thyroid Stimulating Hormone (TSH) 0.473 uIU/mL (0.358-3.74) Free Thyroxine 1.20 ng/dL (0.76-1.46) Ethyl Alcohol Level < 10 mg/dL (0-10) POC Hemoglobin 9.5 g/dL (12-15) L POC Hematocrit 28 % (36-40) L POC Sodium 138 mmol/L (135-145) POC Potassium 5.1 mmol/L (3.5-5.0) H POC Chloride 105 mmol/L (98-110) POC Total CO2 23 mmol/L (23-32) POC Blood Urea Nitrogen 63 mg/dL (8-26) H POC Creatinine 11.0 mg/dL (0.5-1.4) H POC Ionized Calcium ([place]) 0.92 mmol/L (1.13-1.32) L Urine Collection Type U cath Urine Color [place] Urine Clarity Clear Urine pH 5.[address] 1.025 Urine Protein 100 mg/dL (NEG-TRACE) Urine Glucose (UA) Negative mg/dL (NEG) Urine Ketones (Stick) Negative mg/dL (NEG) Urine Blood Negative (NEG) Urine Nitrite Negative (NEG) Urine Bilirubin Small (NEG) Urine Urobilinogen Dipstick 0.2 mg/dL (0.2 mg/dL) Urine Leukocyte Esterase Small (NEG) Urine RBC Occ /HPF (0-2) Urine WBC 1-4 /HPF (0-4) Urine Squamous Epithelial Cells Mod /LPF Urine Bacteria Few /HPF (0-FEW) Urine Mucus Slight /LPF Stool Occult Blood Negative (NEG) Laboratory Tests 04/01/18 09:15 Laboratory Tests 04/01/18 09:15 04/01/18 09:25 EKG EKG [Normal sinus rhythm at a rate of 109 beats for minute, left axis deviation, normal intervals, mildly prominent anterior T waves without acute ischemic ST/T changes.] Radiology/Procedures Radiology/Procedures [PROCEDURE: PORTABLE CHEST 1V PORTABLE CHEST 1V dated 04/01/2018 9:03 AM. Comparison: 03/27/2018 Clinical Indication: SHORTNESS OF BREATH. Findings: Single upright portable exam performed. Heart and mediastinal contours are stable. Prominent linear perihilar markings, unchanged. No new infiltrate or pleural effusion. No pneumothorax. Impression: Perihilar interstitial changes, similar to prior study ] PROCEDURE: ABDOMEN LTD Examination: Ultrasound right upper quadrant abdomen HISTORY: History of right upper quadrant tenderness COMPARISON: 01/31/2017 FINDINGS: Examination limited as patient is uncooperative and would not lay down. Images are performed in sitting position. The pancreas is not well-visualized. The gallbladder is moderately distended. The gallbladder wall thickness measures 1.6 mm. The echogenicity liver grossly appears unremarkable. The partially visualized right kidney appears echogenic. The common bile duct could not be identified. IMPRESSION: 1. Limited examination as patient was uncooperative and images were performed in sitting position. Moderately distended gallbladder. 2. Partially visualized right kidney appears echogenic could be due to medical renal disease. PROCEDURE: CT HEAD WO CONTRAST CT HEAD WO CONTRAST History: Altered mental status Comparison: April 27, 2017 Technique: Noncontrast CT imaging was performed of the head. Exposure: One or more of the following individualized dose reduction techniques were utilized for this examination: 1. Automated exposure control 2. Adjustment of the mA and/or kV according to patient size 3. Use of iterative reconstruction technique. Findings: There is some motion degradation. No acute extra-axial or parenchymal hemorrhage is identified. There is no significant intra-axial mass effect, midline shift, or extra-axial fluid collection. The narvaez-white differentiation of the major vascular territories is preserved. The ventricles, sulci, and cisterns are within normal limits in size and configuration. There is again some scattered ill-defined low-density of the supratentorial white matter bilaterally, not convincingly changed. The mastoid air cells and the visualized paranasal sinuses are aerated. No acute calvarial abnormality is identified. There is atherosclerotic calcification bilateral carotid siphons. Impression: 1. There is no evidence of acute intracranial hemorrhage. There is again some scattered ill-defined low-density of the supratentorial parenchyma, may be due to chronic microvascular ischemic disease versus other white matter disease such as from an inflammatory demyelinating disease. MRI would more accurately evaluate for more recent or acute ischemia if this is of clinical concern. Course & Med Decision Making Course & Med Decision Making Pertinent Labs and Imaging studies reviewed. (See chart for details) [10:00 AM:The patient's condition remains stable. I spoke with the hospitalist , who accepted the patient to the hospital for further evaluation and treatment. 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 CT head and right upper quadrant ultrasound are pending. Some labs are also pending as well , Such as pneumonia and lactic acid. The patient's blood pressure remains 111/ 59 with a heart rate of 105. Given her history of end-stage renal disease, recent noncompliance with dialysis and rales on exam, I do not believe she warrants aggressive fluid hydration at this time. CRITICAL CARE TIME: 45 Minutes, excluding any procedures and care of other patients.] Dragon Disclaimer Dragon Disclaimer This electronic medical record was generated, in whole or in part, using a voice recognition dictation system. Departure Departure Impression: Primary Impression: Sepsis Additional Impressions: Altered mental status ESRD (end stage renal disease) on dialysis Noncompliance Dyspnea Disposition: ADMITTED INPATIENT Admitting Physician: Nette Ritter Condition: GUARDED Referrals: SHARAD COULTER MD (PCP) Problem Qualifiers ABDIRASHID SALDIVAR MD Apr 01, 2018 09:21
[2018-04-01 09:31] LABS: HEMOGLOBIN ISTAT 9.5 g/dL (12-15); ION CA ISTAT 0.92 mmol/L (1.13-1.32); POTASSIUM ISTAT 5.1 mmol/L (3.5-5.0)
[2018-04-01 09:38] LABS: BASE EXCESS ABG -5 mmol/L (-3-3); HCO3 ABG 22 mmol/L (21-28); PCO2 ABG 46 mmHg (35-46); PO2 ABG 64 mmHg (75-108); SAT O2 ABG 91 % (92-99)
[2018-04-01 09:43] LABS: RED BLOOD COUNT 3.19 x10^6/uL (3.50-5.40); WHITE BLOOD COUNT 21.3 x10^3/uL (4.0-11.0)
[2018-04-01 09:44] LABS: BASO # 0.1 x10^3/uL (0.0-0.2); BASO % 0 % (0-3); EOS % 0 % (0-3); HEMATOCRIT 30.8 % (36.0-47.0); LYMPH % 5 % (24-48); MEAN CORPUSCULAR HEMOGLOBIN 32 pg (25-35); MEAN CORPUSCULAR HGB CONC 33 g/dL (31-37); MEAN CORPUSCULAR VOLUME 97 fL (79-100); MONO # 1.9 x10^3/uL (0.0-1.1); MONO % 9 % (0-9); NEUT # 18.3 x10^3uL (1.8-7.7); NEUT % 86 % (31-73); PLATELET COUNT 300 x10^3/uL (140-400)
[2018-04-01 09:44] LABS: FIO2 ABG 36
[2018-04-01 09:47] LABS: CALCIUM 7.7 mg/dL (8.5-10.1); CREATININE 11.6 mg/dL (0.6-1.0); GFR 4.1
[2018-04-01 09:49] LABS: PROTHROMBIN TIME PATIENT 13.7 SEC (11.7-14.0)
--- NOTE | 2018-04-01 09:52 | RAD ---
PORTABLE CHEST 1V dated 04/01/2018 9:03 AM. Comparison: 03/27/2018 Clinical Indication: SHORTNESS OF BREATH. Findings: Single upright portable exam performed. Heart and mediastinal contours are stable. Prominent linear perihilar markings, unchanged. No new infiltrate or pleural effusion. No pneumothorax. Impression: Perihilar interstitial changes, similar to prior study Electronically signed by: Marty Williamson MD (04/01/2018 9:49 AM) [id number]
[2018-04-01 09:53] LABS: ALBUMIN 2.9 g/dL (3.4-5.0); ALBUMIN/GLOBULIN RATIO 0.6 (1.0-1.7); MAGNESIUM 1.8 mg/dL (1.8-2.4); TOTAL BILIRUBIN 0.6 mg/dL (0.2-1.0)
[2018-04-01 10:01] LABS: CREATINE KINASE 299 U/L (26-192)
--- NOTE | 2018-04-01 10:13 | EKG ---
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
--- NOTE | 2018-04-01 10:44 | RAD ---
Examination: Ultrasound right upper quadrant abdomen HISTORY: History of right upper quadrant tenderness COMPARISON: 01/31/2017 FINDINGS: Examination limited as patient is uncooperative and would not lay down. Images are performed in sitting position. The pancreas is not well-visualized. The gallbladder is moderately distended. The gallbladder wall thickness measures 1.6 mm. The echogenicity liver grossly appears unremarkable. The partially visualized right kidney appears echogenic. The common bile duct could not be identified. IMPRESSION: 1. Limited examination as patient was uncooperative and images were performed in sitting position. Moderately distended gallbladder. 2. Partially visualized right kidney appears echogenic could be due to medical renal disease. Electronically signed by: Danilo Alva MD (04/01/2018 10:41 AM) [id number]
[2018-04-01 11:03] LABS: BILIRUBIN,URINE SMALL (NEG); CLARITY,URINE CLEAR; COLOR,URINE AMBER; NITRITE,URINE NEGATIVE (NEG); PH,URINE 5.5; PROTEIN,URINE 100 mg/dL (NEG-TRACE); UROBILINOGEN,URINE 0.2 mg/dL (0.2 mg/dL)
[2018-04-01 11:06] LABS: FECAL OB PT NEGATIVE (NEG)
[2018-04-01 11:25] LABS: BACTERIA,URINE FEW /HPF (0-FEW); RBC,URINE OCC /HPF (0-2); SQUAMOUS EPITHELIAL CELL,UR MOD /LPF
--- NOTE | 2018-04-01 11:37 | RAD ---
CT HEAD WO CONTRAST History: Altered mental status Comparison: April 27, 2017 Technique: Noncontrast CT imaging was performed of the head. Exposure: One or more of the following individualized dose reduction techniques were utilized for this examination: 1. Automated exposure control 2. Adjustment of the mA and/or kV according to patient size 3. Use of iterative reconstruction technique. Findings: There is some motion degradation. No acute extra-axial or parenchymal hemorrhage is identified. There is no significant intra-axial mass effect, midline shift, or extra-axial fluid collection. The narvaez-white differentiation of the major vascular territories is preserved. The ventricles, sulci, and cisterns are within normal limits in size and configuration. There is again some scattered ill-defined low-density of the supratentorial white matter bilaterally, not convincingly changed. The mastoid air cells and the visualized paranasal sinuses are aerated. No acute calvarial abnormality is identified. There is atherosclerotic calcification bilateral carotid siphons. Impression: 1. There is no evidence of acute intracranial hemorrhage. There is again some scattered ill-defined low-density of the supratentorial parenchyma, may be due to chronic microvascular ischemic disease versus other white matter disease such as from an inflammatory demyelinating disease. MRI would more accurately evaluate for more recent or acute ischemia if this is of clinical concern. Electronically signed by: Dayron Piña MD (04/01/2018 11:35 AM) [id number]
[2018-04-01 11:56] LABS: % BANDS 22 % (0-9); % LYMPHS 7 % (24-48); % METAS 1 % (0-0); % MONOS 7 % (0-10); % SEGS 63 % (35-66)
[2018-04-01 11:58] LABS: ANISOCYTOSIS SLIGHT; PLT ESTIMATE ADEQUATE (ADEQUATE); TOXIC GRANULATION SLIGHT
[2018-04-01] MEDS ORDERED: PIP/TAZO PER PHARMACY MC PRN (12:15)
[2018-04-01] MEDS ORDERED: ONDANSETRON PF 4 MG/2 ML VIAL. IV PRN (12:15)
[2018-04-01] MEDS ORDERED: guaiFENesin DM 200MG/20MG 10 ML SYRUP PO PRN (12:15)
[2018-04-01] MEDS ORDERED: traMADol 50 MG TABLET PO PRN (12:15)
--- NOTE | 2018-04-01 12:17 | PDOC1 ---
History and Physical Date of Admission Date of Admission DATE: 04/01/18 TIME: 12:07 Identification/Chief Complaint Chief Complaint Abdominal pain, feeling unwell, SOA Source Source: Caregiver, Chart review, Patient History of Present Illness History of Present Illness Very poorly compliant patient, known to me, 52-year-old cachectic - [place] female who usually loves her narcotics, was just discharged here 4 days ago by a colleague when she was admitted here for the following diagnoses: possible Melena likely chronic anemia, with possible gib and ESRD ERSD ON hd ongoing tobacco use disorder acute on chronic pain, leg pain and back pain, narcotic dependence H/O HEP C cirrhosis non complaint She lives alone at home, I did ask her about family support she cannot give me any answers. I was very giana with my inter action with her at the ER, I did ask her if she was just to be on hospice as seemingly we try to fix her but she doesn't take care of herself at home when she goes home. She denies missing any dialysis, but she sounds very crackly. Chest x-ray actually does not show much of congestive heart failure-maybe she is dehydrated. But labs are quite remarkable for a gap acidosis with an elevated anion gap at 17, creatinine 11, with hyperkalemia 5.1. Ammonia lactate normal, lactate normal at 1.2 CT head shows chronic microvascular small vessel changes Ultrasound of the right upper quadrant limited is negative. Admitted to the ICU because of labs, significant SOA. Renal consulted for dialysis. I have reconciled home meds holding off on some narcotics Past Medical History Cardiovascular: CHF, HTN, Hyperlipidemia Pulmonary: COPD, Pneumonia Heme/Onc: Anemia NOS Hepatobiliary: Cirrhosis, Hep A/B/C Psych: No pertinent hx Musculoskeletal: Other Rheumatologic: No pertinent hx Infectious disease: Other Renal/: Chronic renal failure Endocrine: Hyperparathyroidism Past Surgical History Past Surgical History: Other Family History Family History: Heart Disease, High Cholestrol, Hypertension, Family History Unknown Social History Smoke: No ALCOHOL: none Drugs: None Current Problem List Problem List Problems Medical Problems: (1) Altered mental status Status: Acute (2) Dyspnea Status: Acute (3) ESRD (end stage renal disease) on dialysis Status: Acute (4) Noncompliance Status: Acute Current Medications Current Medications Current Medications Piperacillin Sod/ Tazobactam Sod 3.375 gm/Sodium Chloride 50 ml @ 100 mls/hr 1X ONCE IV Last administered on 04/01/18at 09:23; Start 04/01/18 at 09:15; Stop 04/01/18 at 09:44; Status DC Piperacillin Sod/ Tazobactam Sod (Zosyn Per Pharmacy) 1 each PRN DAILY PRN MC SEE COMMENTS; Start 04/01/18 at 12:15; Status UNV Ondansetron HCl (Zofran) 4 mg PRN Q6HRS PRN IV NAUSEA/VOMITING; Start 04/01/18 at 12:15; Status UNV Fentanyl Citrate (Fentanyl 2ml Vial) 25 mcg PRN Q2HR PRN IV PAIN; Start at 12:15; Status UNV Albuterol/ Ipratropium (Duoneb) 3 ml RTQID NEB ; Start 04/01/18 at 16:00; Status UNV Guaifenesin (Robitussin Dm) 10 ml PRN Q6HRS PRN PO COUGH; Start 04/01/18 at 12: 15; Status UNV Heparin Sodium (Porcine) (Heparin Sq) 5,000 unit Q8HRS SQ ; Start 04/01/18 at 14 :00; Status UNV Active Scripts Active Tramadol Hcl 50 Mg Tablet 50 Mg PO Q6HRS PRN Codeine-Guaifen 10-100 mg/5 ml (Guaifenesin/Codeine Phosphate) 120 Ml Liquid 5 Ml PO Q6HRS PRN Oxycodone Hcl 5 Mg Capsule 20 Mg PO PRN Q4HRS PRN Ambien (Zolpidem Tartrate) 10 Mg Tablet 1 Tab PO QHS Amox Tr-K Clv 500-125 Mg Tab (Amoxicillin/Potassium Clav) 1 Each Tablet 1 Tab PO BID Prednisone (Prednisone) 10 Mg Tablet 10 Mg PO UD Take 5 tablets by mouth daily for 2 days, then take 4 tablets by mouth daily for 2 days, then take 3 tablets by mouth daily for 2 days, then take 2 tablets by mouth daily for 2 days, then take 1 tablets by mouth daily for 2 days, then stop. Guaifenesin Dm Syrup (Guaifenesin/Dextromethorphan) 5 Ml Syrup 10 Ml PO QID Voltaren (Diclofenac Sodium) 100 Gm Gel..gram. 1 Chris TP BID 30 Days Amlodipine Besylate 10 Mg Tablet 10 Mg PO DAILY 30 Days Omeprazole 20 Mg Capsule.dr 1 Cap PO BID Duoneb 0.5-3(2.5) Mg/3 Ml (Albuterol/Ipratropium) 3 Ml Ampul.neb 3 Ml NEB RTQID 30 Days Advair 250-50 Diskus (Fluticasone/Salmeterol) 1 Puff Puff 1 Puff INH BID 30 Days Albuterol Sulfate Conc Neb Soln (Albuterol Sulfate) 2.5 Mg/0.5 Ml Vial.neb 1 Vial NEB Q4HRS PRN Reported Meloxicam 7.5 Mg Tablet 1 Tab PO DAILY Lisinopril 20 Mg Tablet 1 Tab PO DAILY Tramadol Hcl 50 Mg Tablet 50 Mg PO Q6H PRN Carvedilol 25 Mg Tablet 25 Mg PO BIDWMEALS Allergies Allergies: Coded Allergies: No Known Medication Allergies (Verified Allergy, Unknown, 02/17/18) acetaminophen (Verified Adverse Reaction, Severe, increased liver enzymes , 07/19/17) ROS Review of System limited ROS, crackly, SOA Physical Exam General: moderate distress, Other (sounds very crackly, SOA, tachypneic) Lungs: Normal air movement, Other (crAckles on anterior and posterior auscultation, equal air entry) Heart: RRR, no thrills, no rubs, no murmurs Cardiovascular: Other (sinus tachycardia) Breasts: Normal, Rt breast nml w/o mass, Lt breast nml w/o mass, Nipples normal Abdomen: Normal bowel sounds, Soft, Other (tenderness on palpation with voluntary guarding but normoactive bowel sounds) Rectal Exam: not examined Extremities: No clubbing, No cyanosis, No edema, Normal pulses, No tenderness/ swelling Skin: No rashes, No breakdown, No significant lesion Psych/Mental Status: Mental status NL, Mood NL Vitals Vitals Vital Signs Date Time Temp Pulse Resp B/P (MAP) Pulse Ox O2 Delivery O2 Flow Rate FiO2 04/01/18 10:25 104 20 96 04/01/18 09:49 Nasal Cannula 4.0 04/01/18 08:56 102.7 149/79 (102) 102.7 Labs Labs Laboratory Tests Test 04/01/18 09:03 04/01/18 09:15 04/01/18 09:25 04/01/18 10:40 O2 Saturation 91 % (92-99) Arterial Blood pH 7.29 (7.35-7.45) Arterial Blood pCO2 at Patient Temp 46 mmHg (35-46) Arterial Blood pO2 at Patient Temp 64 mmHg (75-108) Arterial Blood HCO3 22 mmol/L (21-28) Arterial Blood Base Excess -5 mmol/L (-3-3) FiO2 36 White Blood Count 21.3 x10^3/uL (4.0-11.0) Red Blood Count 3.19 x10^6/uL (3.50-5.40) Hemoglobin 10.0 g/dL (12.0-15.5) Hematocrit 30.8 % (36.0-47.0) Mean Corpuscular Volume 97 fL (79-100) Mean Corpuscular Hemoglobin 32 pg (25-35) Mean Corpuscular Hemoglobin Concent 33 g/dL (31-37) Red Cell Distribution Width 16.0 % (11.5-14.5) Platelet Count 300 x10^3/uL (140-400) Neutrophils (%) (Auto) 86 % (31-73) Lymphocytes (%) (Auto) 5 % (24-48) Monocytes (%) (Auto) 9 % (0-9) Eosinophils (%) (Auto) 0 % (0-3) Basophils (%) (Auto) 0 % (0-3) Neutrophils # (Auto) 18.3 x10^3uL (1.8-7.7) Lymphocytes # (Auto) 1.0 x10^3/uL (1.0-4.8) Monocytes # (Auto) 1.9 x10^3/uL (0.0-1.1) Eosinophils # (Auto) 0.0 x10^3/uL (0.0-0.7) Basophils # (Auto) 0.1 x10^3/uL (0.0-0.2) Segmented Neutrophils % 63 % (35-66) Band Neutrophils % 22 % (0-9) Lymphocytes % 7 % (24-48) Monocytes % 7 % (0-10) Metamyelocytes % 1 % (0-0) Toxic Granulation Slight Platelet Estimate Adequate (ADEQUATE) Anisocytosis Slight Prothrombin Time 13.7 SEC (11.7-14.0) Prothromb Time International Ratio 1.1 (0.8-1.1) Sodium Level 135 mmol/L (136-145) Potassium Level 5.0 mmol/L (3.5-5.1) Chloride Level 98 mmol/L (98-107) Carbon Dioxide Level 23 mmol/L (21-32) Anion Gap 14 (6-14) 17 mmol/L (6-14) Blood Urea Nitrogen 73 mg/dL (7-20) Creatinine 11.6 mg/dL (0.6-1.0) Estimated GFR (Cockcroft-Gault) 4.1 BUN/Creatinine Ratio 6 (6-20) Glucose Level 121 mg/dL (70-99) 117 mg/dL (70-99) Lactic Acid Level 1.2 mmol/L (0.4-2.0) Calcium Level 7.7 mg/dL (8.5-10.1) Magnesium Level 1.8 mg/dL (1.8-2.4) Total Bilirubin 0.6 mg/dL (0.2-1.0) Aspartate Amino Transf (AST/SGOT) 51 U/L (15-37) Alanine Aminotransferase (ALT/SGPT) 33 U/L (14-59) Alkaline Phosphatase 259 U/L (46-116) Ammonia 14 mcmol/L (11-34) Creatine Kinase 299 U/L (26-192) Creatine Kinase MB (Mass) 8.6 ng/mL (0.0-3.6) Creatine Kinase MB Relative Index 2.9 % (0-4) Troponin I Quantitative 0.060 ng/mL (0.000-0.055) AO-Ksy-L-Type Natriuretic Peptide > 38066 pg/mL (0-124) Total Protein 8.0 g/dL (6.4-8.2) Albumin 2.9 g/dL (3.4-5.0) Albumin/Globulin Ratio 0.6 (1.0-1.7) Lipase 147 U/L (73-393) Thyroid Stimulating Hormone (TSH) 0.473 uIU/mL (0.358-3.74) Free Thyroxine 1.20 ng/dL (0.76-1.46) Ethyl Alcohol Level < 10 mg/dL (0-10) Bedside Hemoglobin 9.5 g/dL (12-15) Bedside Hematocrit 28 % (36-40) Bedside Sodium 138 mmol/L (135-145) Bedside Potassium 5.1 mmol/L (3.5-5.0) Bedside Chloride 105 mmol/L (98-110) Bedside Total CO2 23 mmol/L (23-32) Bedside Blood Urea Nitrogen 63 mg/dL (8-26) Bedside Creatinine 11.0 mg/dL (0.5-1.4) Bedside Ionized Calcium (Catrachita) 0.92 mmol/L (1.13-1.32) Urine Collection Type U cath Urine Color Zuleyka Urine Clarity Clear Urine pH 5.5 Urine Specific [place] 1.025 Urine Protein 100 mg/dL (NEG-TRACE) Urine Glucose (UA) Negative mg/dL (NEG) Urine Ketones (Stick) Negative mg/dL (NEG) Urine Blood Negative (NEG) Urine Nitrite Negative (NEG) Urine Bilirubin Small (NEG) Urine Urobilinogen Dipstick 0.2 mg/dL (0.2 mg/dL) Urine Leukocyte Esterase Small (NEG) Urine RBC Occ /HPF (0-2) Urine WBC 1-4 /HPF (0-4) Urine Squamous Epithelial Cells Mod /LPF Urine Bacteria Few /HPF (0-FEW) Urine Mucus Slight /LPF Stool Occult Blood Negative (NEG) Laboratory Tests Test 04/01/18 09:03 04/01/18 09:15 04/01/18 09:25 04/01/18 10:40 O2 Saturation 91 % (92-99) Arterial Blood pH 7.29 (7.35-7.45) Arterial Blood pCO2 at Patient Temp 46 mmHg (35-46) Arterial Blood pO2 at Patient Temp 64 mmHg (75-108) Arterial Blood HCO3 22 mmol/L (21-28) Arterial Blood Base Excess -5 mmol/L (-3-3) FiO2 36 White Blood Count 21.3 x10^3/uL (4.0-11.0) Red Blood Count 3.19 x10^6/uL (3.50-5.40) Hemoglobin 10.0 g/dL (12.0-15.5) Hematocrit 30.8 % (36.0-47.0) Mean Corpuscular Volume 97 fL (79-100) Mean Corpuscular Hemoglobin 32 pg (25-35) Mean Corpuscular Hemoglobin Concent 33 g/dL (31-37) Red Cell Distribution Width 16.0 % (11.5-14.5) Platelet Count 300 x10^3/uL (140-400) Neutrophils (%) (Auto) 86 % (31-73) Lymphocytes (%) (Auto) 5 % (24-48) Monocytes (%) (Auto) 9 % (0-9) Eosinophils (%) (Auto) 0 % (0-3) Basophils (%) (Auto) 0 % (0-3) Neutrophils # (Auto) 18.3 x10^3uL (1.8-7.7) Lymphocytes # (Auto) 1.0 x10^3/uL (1.0-4.8) Monocytes # (Auto) 1.9 x10^3/uL (0.0-1.1) Eosinophils # (Auto) 0.0 x10^3/uL (0.0-0.7) Basophils # (Auto) 0.1 x10^3/uL (0.0-0.2) Segmented Neutrophils % 63 % (35-66) Band Neutrophils % 22 % (0-9) Lymphocytes % 7 % (24-48) Monocytes % 7 % (0-10) Metamyelocytes % 1 % (0-0) Toxic Granulation Slight Platelet Estimate Adequate (ADEQUATE) Anisocytosis Slight Prothrombin Time 13.7 SEC (11.7-14.0) Prothromb Time International Ratio 1.1 (0.8-1.1) Sodium Level 135 mmol/L (136-145) Potassium Level 5.0 mmol/L (3.5-5.1) Chloride Level 98 mmol/L (98-107) Carbon Dioxide Level 23 mmol/L (21-32) Anion Gap 14 (6-14) 17 mmol/L (6-14) Blood Urea Nitrogen 73 mg/dL (7-20) Creatinine 11.6 mg/dL (0.6-1.0) Estimated GFR (Cockcroft-Gault) 4.1 BUN/Creatinine Ratio 6 (6-20) Glucose Level 121 mg/dL (70-99) 117 mg/dL (70-99) Lactic Acid Level 1.2 mmol/L (0.4-2.0) Calcium Level 7.7 mg/dL (8.5-10.1) Magnesium Level 1.8 mg/dL (1.8-2.4) Total Bilirubin 0.6 mg/dL (0.2-1.0) Aspartate Amino Transf (AST/SGOT) 51 U/L (15-37) Alanine Aminotransferase (ALT/SGPT) 33 U/L (14-59) Alkaline Phosphatase 259 U/L (46-116) Ammonia 14 mcmol/L (11-34) Creatine Kinase 299 U/L (26-192) Creatine Kinase MB (Mass) 8.6 ng/mL (0.0-3.6) Creatine Kinase MB Relative Index 2.9 % (0-4) Troponin I Quantitative 0.060 ng/mL (0.000-0.055) XY-Ogq-M-Type Natriuretic Peptide > 34169 pg/mL (0-124) Total Protein 8.0 g/dL (6.4-8.2) Albumin 2.9 g/dL (3.4-5.0) Albumin/Globulin Ratio 0.6 (1.0-1.7) Lipase 147 U/L (73-393) Thyroid Stimulating Hormone (TSH) 0.473 uIU/mL (0.358-3.74) Free Thyroxine 1.20 ng/dL (0.76-1.46) Ethyl Alcohol Level < 10 mg/dL (0-10) Bedside Hemoglobin 9.5 g/dL (12-15) Bedside Hematocrit 28 % (36-40) Bedside Sodium 138 mmol/L (135-145) Bedside Potassium 5.1 mmol/L (3.5-5.0) Bedside Chloride 105 mmol/L (98-110) Bedside Total CO2 23 mmol/L (23-32) Bedside Blood Urea Nitrogen 63 mg/dL (8-26) Bedside Creatinine 11.0 mg/dL (0.5-1.4) Bedside Ionized Calcium (Catrachita) 0.92 mmol/L (1.13-1.32) Urine Collection Type U cath Urine Color Zuleyka Urine Clarity Clear Urine pH 5.5 Urine Specific [place] 1.025 Urine Protein 100 mg/dL (NEG-TRACE) Urine Glucose (UA) Negative mg/dL (NEG) Urine Ketones (Stick) Negative mg/dL (NEG) Urine Blood Negative (NEG) Urine Nitrite Negative (NEG) Urine Bilirubin Small (NEG) Urine Urobilinogen Dipstick 0.2 mg/dL (0.2 mg/dL) Urine Leukocyte Esterase Small (NEG) Urine RBC Occ /HPF (0-2) Urine WBC 1-4 /HPF (0-4) Urine Squamous Epithelial Cells Mod /LPF Urine Bacteria Few /HPF (0-FEW) Urine Mucus Slight /LPF Stool Occult Blood Negative (NEG) VTE Prophylaxis Ordered VTE Prophylaxis Devices: Yes VTE Pharmacological Prophylaxi: Yes Assessment/Plan Assessment/Plan Sepsis POA ESRD on dialysis question compliance Hyperkalemia Elevated anion gap acidosis Metabolic encephalopathy with normal lactate and normal ammonia and normal CT Cirrhosis Noncompliance Fever, lethargy PLAN: Admit ICU Renal consult for dialysis I have reconciled home meds including her pain medicine Blood cultures if not done at the ER To continue or started empiric Zosyn, this was given at ER. Temperature is 102. We'll consult ID Lactate is normal Ammonia is normal So far no melena reported to me, she was admitted for that 4 days ago. Address the hyperkalemia I am unsure if she missed dialysis PT OT Liquid diet for now she is nauseated and dry heaving then ADA T Further conditions pending above course noncompliance could not be overemphasized with this patient cc 30 SANJANA HENRY MD Apr 01, 2018 12:17
[2018-04-01] MEDS ORDERED: SODIUM POLYSTYRENE SULFONATE 15 GM/60 ML ORAL.SUSP. PO ONE (12:30)
[2018-04-01] MEDS ORDERED: guaiFENesin/CODEINE 100mg/10mg 5 ML LIQUID PO PRN (12:30)
[2018-04-01] MEDS ORDERED: oxyCODONE IR 5 MG TABLET PO PRN (12:30)
[2018-04-01] MEDS ORDERED: ALBUTEROL SULFATE 2.5 MG/3 ML NEBU. NEB PRN (12:30)
[2018-04-01] MEDS: LISINOPRIL 20 MG TABLET PO SCH (12:38)
[2018-04-01] MEDS: CARVEDILOL 12.5 MG TABLET. PO SCH (12:38)
[2018-04-01] MEDS: amLODIPine BESYLATE 10 MG TABLET PO SCH (12:38)
[2018-04-01] MEDS: fentaNYL PF VIAL 100 MCG/2 ML VIAL IV PRN (12:38)
[2018-04-01] MEDS ORDERED: IV NORMAL SALINE 1000ML BAG 1,000 ML IV PRN (12:50)
[2018-04-01] MEDS ORDERED: DIALYSIS PATIENT. MC PRN ×2 (13:00)
[2018-04-01] MEDS: predniSONE 10 MG TABLET PO SCH (13:00)
[2018-04-01] MEDS ORDERED: NOREPINEPHRIN 8MG/250ML PREMIX 250 ML IV ONE (13:15)
--- NOTE | 2018-04-01 13:36 | PDOC ---
Provider Note Provider Note Pt seen consult dictated [id number] IMP: Sepsis Fever leucocytosis dyspnea abdominal pain ESRD on Dialysis Noncomplaince Cirrhosis REC: Cont empiric IV Zosyn will add IV Vanc FU C/S and labs in am D/W family at bedside JOSÉ MIGUEL MARTIN MD Apr 01, 2018 13:36
[2018-04-01] MEDS ORDERED: VANCOMYCIN PER PHARMACY MC PRN (13:45)
[2018-04-01] MEDS ORDERED: VANCOMYCIN 1.25 GM in IV NORMAL SALINE 250ML 250 ML IV ONE (14:00)
[2018-04-01] MEDS: HEPARIN PF for SUB-Q USE 5,000 UNIT/0.5 ML VIAL. SQ SCH ×2 (14:00→22:42)
[2018-04-01] MEDS: IPRATRPIUM/ALBUTEROL 0.5/2.5MG 3 ML NEBU. NEB SCH ×2 (15:36→19:39)
--- NOTE | 2018-04-01 19:04 | CONS ---
DATE OF CONSULTATION: 04/01/2018 REFERRING PHYSICIAN: Dr. Ritter. REASON FOR CONSULTATION: Fever. HISTORY OF PRESENT ILLNESS: A 52-year-old -[place] female with end-stage renal disease, on hemodialysis, cirrhosis, alcoholism, substance abuse, history of noncompliance, recently signed out AMA on 03/28/2018, was brought in to the ER with altered mental status. She was found to be lethargic over the last couple of days and had fever prior to admission . Her niece is at bedside, who mentioned that pt did not want to return to the hospital and said that she was doing better since dc . But then today with altered mental status and generalized weakness was brought to the ED. She had some shortness of breath with cough. She has been missing her dialysis sessions and per her niece at the bedside, is not sure when she had it done the last time. The patient was found to have [id number] dyspnea, some cough, scattered rhonchi. She had leukocytosis, a fever of 102.7, was given a dose of Zosyn in the ER,She was then admitted to ICU. which has been continued. ID has been consulted for antibiotic management. REVIEW OF SYSTEMS: Pt answers only a few questions, BP is around systolics around 70's. The patient was recently signed out AMA on last Saturday at which time, she was admitted for possible melena, possible GI bleed, end-stage renal disease, on hemodialysis, ongoing tobacco use, history of cirrhosis with alcohol use narcotic dependence, chronic on acute pain, history of hepatitis C and history of noncompliance. GI was consulted. The patient had received 2 units of packed RBCs. Yesterday, her hemoglobin was less than 7. PAST MEDICAL HISTORY: CHF, hypertension, hyperlipidemia, end-stage renal disease, on dialysis through left upper extremity fistula, COPD, pneumonia, anemia, cirrhosis, hepatitis C, hyperparathyroidism, chronic anemia, history of noncompliance with dialysis sessions. PAST SURGICAL HISTORY: As per HPI. FAMILY HISTORY: As per HPI. SOCIAL HISTORY: Smoking plus history of alcohol use, history of substance dependence. I do not have the details on the same. CURRENT MEDICATION: IV Zosyn. Other medications reviewed in medication list. ALLERGIES: ACETAMINOPHEN INCREASE LFTs. REVIEW OF SYSTEMS: Limited, but complains of shortness of breath, some abdominal discomfort, fever, weakness, chronic pain. PHYSICAL EXAMINATION: VITAL SIGNS: Temperature 102.7, pulse 104, respiration rate 24, blood pressure 149/79, oxygen saturation 95% on 2 liters. GENERAL: Lethargic female, arousable, answers a few questions, in no acute distress. HEENT: Normocephalic, atraumatic. Sclerae are muddy. No thrush. NECK: Supple, no JVD. LUNGS: Decreased breath sound at the bases. A few scattered rhonchi. HEART: S1, S2, RRR. No murmurs. ABDOMEN: Thin, soft, bowel sounds present. Mildly tender in both upper quadrant and lower quadrant. EXTREMITIES: No edema, no cyanosis. Cachexia. DERM: Dry skin. No generalized rash. No skin breakdown noted or ulcerations noted. [employer] lethargic .,awake,opens eyes, moves all 4 ext PSYCHIATRIC: cooperative LABORATORY DATA: WBC 21.3, hemoglobin 10, hematocrit 30.8, platelets 300, neutrophils 86, bands 22. Sodium 138, potassium 5.1, chloride 105, BUN 73, creatinine 11.6. Calcium 7.7, magnesium 1.8. Total bilirubin 0.6, AST 51, ALT 33, alkaline phosphatase 259. CK 299. Troponin 0.60. BNP 35,000. Total protein 8.0, albumin 2.9, lactate 1.2. Ammonia 14. UA, catheterized wbc's 1-4. She has had alcohol less than 10, HCV positive genotype 1A. MICROBIOLOGY: Blood culture on 03/27/2018, no growth. BC done today IMAGING: Head CT, there was no evidence of acute intracranial hemorrhage. There is scattered ill-defined low density supratentorial parenchyma, may be due to chronic microvascular ischemic disease versus other white matter disease. Chest x-ray shows perihilar interstitial changes similar to prior study. Ultrasound abdomen shows a limited exam as the patient was uncooperative and images were performed in sitting position. Moderately distended gallbladder, partially visualized right kidney appears echogenic, could be due to medical renal disease. IMPRESSION: 1. Fever. 2. Leukocytosis. 3. End-stage renal disease, on hemodialysis with noncompliance. 4. Cirrhosis. 5. Anemia with recent 2 units of packed RBC given during last hospitalization. 6. History of smoking. 7. History of dyspnea. 8. Increased BNP, increased troponin. 9. Abnormal LFTs with normal ammonia. 10. Ultrasound showing distended gallbladder. 11. CT showing no acute changes. 12. Perihilar interstitial pulmonary infiltrates. RECOMMENDATIONS: 1. Continue empiric Zosyn, renal dosing. 2. We will start empiric vancomycin. 3. Follow up cultures and lab in a.m. 4. Continue supportive care. 5. Discussed with niece at bedside. 6. Discussed with RN. Thank you, Dr. Ritter, for consulting Infectious Disease to participate in this patient's care. JOSÉ MIGUEL MARTIN MD DR: KAUSHIK/teo JOB#: [id number] / [id number] RAY
[2018-04-01] MEDS: BUDESONIDE 0.5 MG/2 ML NEBU. NEB SCH (19:39)
[2018-04-01] MEDS: PIPERACILLIN/TAZOBACTAM 2.25 GM in IV NORMAL SALINE 50ML 50 ML IV SCH (19:58)
[2018-04-01] MEDS: DICLOFENAC SODIUM 1% TOPICAL GEL 100GM TUBE. TP SCH (20:50)
[2018-04-01] MEDS: LACTOBACILLUS RHAMNOSUS GG 1 CAPSULE. PO SCH (21:00)
--- NOTE | 2018-04-01 21:03 | RAD ---
Indication:new central line check up TECHNIQUE:Portable AP chest X-ray COMPARISON:Study from the same day earlier FINDINGS: Right catheter is seen with its tip in the SVC. Heart is normal in size. Diffuse bilateral coarse interstitial opacities are seen with medial small focus of patchy opacity in the right lung base. No pneumothorax or pleural effusion. Visualized bony thorax is within normal limits. IMPRESSION: Right IJ catheter with its tip in the mid SVC. Bilateral prominent interstitial opacities maybe secondary to interstitial pulmonary edema or atypical/viral infection. Small focus of patchy opacity in the right lung base may be secondary to aspiration, pneumonia or subsegmental atelectasis. Electronically signed by: Rodney Simeon DO (04/01/2018 9:00 PM) [facility]
[2018-04-01] MEDS: NOREPINEPHRIN 8MG/250ML PREMIX 250 ML IV PRN (22:39)
[2018-04-02] VITALS (24 sets, daily range): BP systolic 77–134; BP diastolic 40–65
[2018-04-02] MEDS: PIPERACILLIN/TAZOBACTAM 2.25 GM in IV NORMAL SALINE 50ML 50 ML IV SCH ×2 (01:14→05:30)
[2018-04-02 05:27] LABS: BASO # 0.1 x10^3/uL (0.0-0.2); BASO % 0 % (0-3); EOS % 0 % (0-3); HEMATOCRIT 24.7 % (36.0-47.0); HEMOGLOBIN 8.1 g/dL (12.0-15.5); LYMPH # 1.7 x10^3/uL (1.0-4.8); LYMPH % 5 % (24-48); MEAN CORPUSCULAR HEMOGLOBIN 32 pg (25-35); MEAN CORPUSCULAR HGB CONC 33 g/dL (31-37); MEAN CORPUSCULAR VOLUME 98 fL (79-100); MONO # 2.9 x10^3/uL (0.0-1.1); MONO % 9 % (0-9); NEUT # 26.4 x10^3uL (1.8-7.7); NEUT % 85 % (31-73); PLATELET COUNT 236 x10^3/uL (140-400); RED BLOOD COUNT 2.53 x10^6/uL (3.50-5.40); RED CELL DISTRIBUTION WIDTH 15.7 % (11.5-14.5)
[2018-04-02] MEDS: fentaNYL PF VIAL 100 MCG/2 ML VIAL IV PRN (05:31)
[2018-04-02] MEDS: HEPARIN PF for SUB-Q USE 5,000 UNIT/0.5 ML VIAL. SQ SCH ×4 (05:44→21:28)
[2018-04-02 06:05] LABS: CALCIUM 8.4 mg/dL (8.5-10.1); CREATININE 5.9 mg/dL (0.6-1.0); POTASSIUM 4.8 mmol/L (3.5-5.1)
[2018-04-02] MEDS: CARVEDILOL 12.5 MG TABLET. PO SCH ×2 (08:00→15:25)
--- NOTE | 2018-04-02 08:05 | PDOC ---
Infectious Disease Note Subjective: Subjective Pt is more alert today on pressors says has abdominal pain no bm since last dc home no nausea or vomiting BC 08/08 GNR ROS: ROS Negative except for above. Vital Signs: Vital Signs Vital Signs Date Time Temp Pulse Resp B/P (MAP) Pulse Ox O2 Delivery O2 Flow Rate FiO2 04/02/18 07:00 98.6 96 22 107/52 (70) 100 Nasal Cannula 2.0 98.6 Physical Exam: PHYSICAL EXAM GENERAL: Lethargic female, arousable, answers a few questions, in no acute distress. HEENT: Normocephalic, atraumatic. Sclerae are muddy. No thrush. NECK: Supple, no JVD. LUNGS: Decreased breath sound at the bases. A few scattered rhonchi. HEART: S1, S2, RRR. No murmurs. ABDOMEN: Thin, soft, bowel sounds present. Mildly tender in both upper quadrant and lower quadrant. EXTREMITIES: No edema, no cyanosis. Cachexia. DERM: Dry skin. No generalized rash. No skin breakdown noted or ulcerations noted. [employer] lethargic .,awake,opens eyes, moves all 4 ext PSYCHIATRIC: cooperative Medications: Inpatient Meds: Current Medications Medications (Trade) Dose Ordered Sig/Carmenza Start Time Stop Time Status Last Admin Dose Admin Albuterol Sulfate (Ventolin Neb Soln) 2.5 mg PRN Q4HRS PRN 04/01/18 12:30 04/01/18 12:35 2.5 MG Albuterol/ Ipratropium (Duoneb) 3 ml RTQID 04/01/18 16:00 04/01/18 19:39 3 ML Amlodipine Besylate (Norvasc) 10 mg DAILY 04/01/18 13:00 Budesonide (Pulmicort) 0.5 mg RTBID 04/01/18 20:00 04/01/18 19:39 0.5 MG Carvedilol (Coreg) 25 mg BIDWMEALS 04/01/18 17:00 Diclofenac Sodium (Voltaren) 1 garrison BID 04/01/18 21:00 Fentanyl Citrate (Fentanyl 2ml Vial) 25 mcg PRN Q2HR PRN 04/01/18 12:15 04/02/18 05:31 25 MCG Guaifenesin (Robitussin Dm) 10 ml PRN Q6HRS PRN 04/01/18 12:15 Guaifenesin/ Codeine Phosphate (Robitussin Ac) 5 ml PRN Q6HRS PRN 04/01/18 12:30 Heparin Sodium (Porcine) (Heparin Sq) 5,000 unit Q8HRS 04/01/18 14:00 04/02/18 05:44 5,000 UNIT Info (PHARMACY MONITORING -- do not chart) 1 each PRN DAILY PRN 04/01/18 13:00 04/01/18 13:00 DC Lactobacillus Rhamnosus (Culturelle) 1 cap BID 04/01/18 21:00 Lisinopril (Prinivil) 20 mg DAILY 04/01/18 13:00 Norepinephrine Bitartrate 250 ml @ 1.875 mls/ hr CONT PRN 04/01/18 22:15 04/01/18 22:39 24.375 MLS/HR Ondansetron HCl (Zofran) 4 mg PRN Q6HRS PRN 04/01/18 12:15 Oxycodone HCl (Roxicodone) 20 mg PRN Q4HRS PRN 04/01/18 12:30 Pantoprazole Sodium (Protonix) 40 mg BIDAC 04/02/18 07:30 Piperacillin Sod/ Tazobactam Sod (Zosyn Per Pharmacy) 1 each PRN DAILY PRN 04/01/18 12:15 Piperacillin Sod/ Tazobactam Sod 2.25 gm/Sodium Chloride 50 ml @ 100 mls/hr Q6HRS 04/01/18 18:00 04/02/18 05:30 100 MLS/HR Piperacillin Sod/ Tazobactam Sod 3.375 gm/Sodium Chloride 50 ml @ 100 mls/hr 1X ONCE 04/01/18 09:15 04/01/18 09:44 DC 04/01/18 09:23 100 MLS/HR Prednisone (Prednisone) 10 mg DAILY 04/01/18 13:00 Sodium Polystyrene Sulfonate (Kayexalate) 15 gm 1X ONCE 04/01/18 12:30 04/01/18 12:31 DC Sodium Chloride 1,000 ml @ 1,000 mls/hr Q1H PRN 04/01/18 12:50 04/01/18 18:54 DC Tramadol HCl (Ultram) 50 mg PRN Q6HRS PRN 04/01/18 12:15 Vancomycin HCl (Vanco Per Pharmacy) 1 each PRN DAILY PRN 04/01/18 13:45 04/01/18 13:49 1 EACH Vancomycin HCl 1.25 gm/Sodium Chloride 250 ml @ 167 mls/hr ONCE ONCE 04/01/18 14:00 04/01/18 15:29 DC 04/01/18 18:03 167 MLS/HR Labs: Lab Laboratory Tests Test 04/01/18 09:03 04/01/18 09:15 04/01/18 09:25 04/01/18 10:40 O2 Saturation 91 % (92-99) Arterial Blood pH 7.29 (7.35-7.45) Arterial Blood pCO2 at Patient Temp 46 mmHg (35-46) Arterial Blood pO2 at Patient Temp 64 mmHg (75-108) Arterial Blood HCO3 22 mmol/L (21-28) Arterial Blood Base Excess -5 mmol/L (-3-3) FiO2 36 White Blood Count 21.3 x10^3/uL (4.0-11.0) Red Blood Count 3.19 x10^6/uL (3.50-5.40) Hemoglobin 10.0 g/dL (12.0-15.5) Hematocrit 30.8 % (36.0-47.0) Mean Corpuscular Volume 97 fL (79-100) Mean Corpuscular Hemoglobin 32 pg (25-35) Mean Corpuscular Hemoglobin Concent 33 g/dL (31-37) Red Cell Distribution Width 16.0 % (11.5-14.5) Platelet Count 300 x10^3/uL (140-400) Neutrophils (%) (Auto) 86 % (31-73) Lymphocytes (%) (Auto) 5 % (24-48) Monocytes (%) (Auto) 9 % (0-9) Eosinophils (%) (Auto) 0 % (0-3) Basophils (%) (Auto) 0 % (0-3) Neutrophils # (Auto) 18.3 x10^3uL (1.8-7.7) Lymphocytes # (Auto) 1.0 x10^3/uL (1.0-4.8) Monocytes # (Auto) 1.9 x10^3/uL (0.0-1.1) Eosinophils # (Auto) 0.0 x10^3/uL (0.0-0.7) Basophils # (Auto) 0.1 x10^3/uL (0.0-0.2) Segmented Neutrophils % 63 % (35-66) Band Neutrophils % 22 % (0-9) Lymphocytes % 7 % (24-48) Monocytes % 7 % (0-10) Metamyelocytes % 1 % (0-0) Toxic Granulation Slight Platelet Estimate Adequate (ADEQUATE) Anisocytosis Slight Prothrombin Time 13.7 SEC (11.7-14.0) Prothromb Time International Ratio 1.1 (0.8-1.1) Sodium Level 135 mmol/L (136-145) Potassium Level 5.0 mmol/L (3.5-5.1) Chloride Level 98 mmol/L (98-107) Carbon Dioxide Level 23 mmol/L (21-32) Anion Gap 14 (6-14) 17 mmol/L (6-14) Blood Urea Nitrogen 73 mg/dL (7-20) Creatinine 11.6 mg/dL (0.6-1.0) Estimated GFR (Cockcroft-Gault) 4.1 BUN/Creatinine Ratio 6 (6-20) Glucose Level 121 mg/dL (70-99) 117 mg/dL (70-99) Lactic Acid Level 1.2 mmol/L (0.4-2.0) Calcium Level 7.7 mg/dL (8.5-10.1) Magnesium Level 1.8 mg/dL (1.8-2.4) Total Bilirubin 0.6 mg/dL (0.2-1.0) Aspartate Amino Transf (AST/SGOT) 51 U/L (15-37) Alanine Aminotransferase (ALT/SGPT) 33 U/L (14-59) Alkaline Phosphatase 259 U/L (46-116) Ammonia 14 mcmol/L (11-34) Creatine Kinase 299 U/L (26-192) Creatine Kinase MB (Mass) 8.6 ng/mL (0.0-3.6) Creatine Kinase MB Relative Index 2.9 % (0-4) Troponin I Quantitative 0.060 ng/mL (0.000-0.055) BE-Ibs-V-Type Natriuretic Peptide > 63078 pg/mL (0-124) Total Protein 8.0 g/dL (6.4-8.2) Albumin 2.9 g/dL (3.4-5.0) Albumin/Globulin Ratio 0.6 (1.0-1.7) Lipase 147 U/L (73-393) Thyroid Stimulating Hormone (TSH) 0.473 uIU/mL (0.358-3.74) Free Thyroxine 1.20 ng/dL (0.76-1.46) Ethyl Alcohol Level < 10 mg/dL (0-10) Bedside Hemoglobin 9.5 g/dL (12-15) Bedside Hematocrit 28 % (36-40) Bedside Sodium 138 mmol/L (135-145) Bedside Potassium 5.1 mmol/L (3.5-5.0) Bedside Chloride 105 mmol/L (98-110) Bedside Total CO2 23 mmol/L (23-32) Bedside Blood Urea Nitrogen 63 mg/dL (8-26) Bedside Creatinine 11.0 mg/dL (0.5-1.4) Bedside Ionized Calcium (Catrachita) 0.92 mmol/L (1.13-1.32) Urine Collection Type U cath Urine Color Zuleyka Urine Clarity Clear Urine pH 5.5 Urine Specific [place] 1.025 Urine Protein 100 mg/dL (NEG-TRACE) Urine Glucose (UA) Negative mg/dL (NEG) Urine Ketones (Stick) Negative mg/dL (NEG) Urine Blood Negative (NEG) Urine Nitrite Negative (NEG) Urine Bilirubin Small (NEG) Urine Urobilinogen Dipstick 0.2 mg/dL (0.2 mg/dL) Urine Leukocyte Esterase Small (NEG) Urine RBC Occ /HPF (0-2) Urine WBC 1-4 /HPF (0-4) Urine Squamous Epithelial Cells Mod /LPF Urine Bacteria Few /HPF (0-FEW) Urine Mucus Slight /LPF Stool Occult Blood Negative (NEG) Test 04/01/18 13:50 04/02/18 05:10 Nasal Screen MRSA (PCR) Negative (Negative) White Blood Count 31.0 x10^3/uL (4.0-11.0) Red Blood Count 2.53 x10^6/uL (3.50-5.40) Hemoglobin 8.1 g/dL (12.0-15.5) Hematocrit 24.7 % (36.0-47.0) Mean Corpuscular Volume 98 fL (79-100) Mean Corpuscular Hemoglobin 32 pg (25-35) Mean Corpuscular Hemoglobin Concent 33 g/dL (31-37) Red Cell Distribution Width 15.7 % (11.5-14.5) Platelet Count 236 x10^3/uL (140-400) Neutrophils (%) (Auto) 85 % (31-73) Lymphocytes (%) (Auto) 5 % (24-48) Monocytes (%) (Auto) 9 % (0-9) Eosinophils (%) (Auto) 0 % (0-3) Basophils (%) (Auto) 0 % (0-3) Neutrophils # (Auto) 26.4 x10^3uL (1.8-7.7) Lymphocytes # (Auto) 1.7 x10^3/uL (1.0-4.8) Monocytes # (Auto) 2.9 x10^3/uL (0.0-1.1) Eosinophils # (Auto) 0.0 x10^3/uL (0.0-0.7) Basophils # (Auto) 0.1 x10^3/uL (0.0-0.2) Sodium Level 135 mmol/L (136-145) Potassium Level 4.8 mmol/L (3.5-5.1) Chloride Level 103 mmol/L (98-107) Carbon Dioxide Level 19 mmol/L (21-32) Anion Gap 13 (6-14) Blood Urea Nitrogen 32 mg/dL (7-20) Creatinine 5.9 mg/dL (0.6-1.0) Estimated GFR (Cockcroft-Gault) 9.0 Glucose Level 106 mg/dL (70-99) Lactic Acid Level 0.6 mmol/L (0.4-2.0) Calcium Level 8.4 mg/dL (8.5-10.1) Micro BC 1/4 GNR ID and SUSIE pending Objective: Assessment: 1. Gram neg bacteremia,source likely GI 2. Fever and Leukocytosis. 3. End-stage renal disease, on hemodialysis with noncompliance. 4. Cirrhosis. 5. Anemia with recent 2 units of packed RBC given during last hospitalization. 6. History of smoking. 7. History of dyspnea. 8. Increased BNP, increased troponin. 9. Abnormal LFTs with normal ammonia. [address] showing no acute changes. 12. Perihilar interstitial pulmonary infiltrates. Plan: Plan of Care 1. DC Zosyn and vancomycin. start empiric merrem 2.Obtain CT abdomen 3. Follow up cultures and lab in a.m. 4. Continue supportive care. 5. Repeat BC in am Discussed with MARIO. JOSÉ MIGUEL MARTIN MD Apr 02, 2018 08:05
[2018-04-02] MEDS: PANTOPRAZOLE 40 MG TABLET.DR. PO SCH ×2 (08:10→15:59)
[2018-04-02] MEDS: predniSONE 10 MG TABLET PO SCH (08:10)
[2018-04-02] MEDS: LACTOBACILLUS RHAMNOSUS GG 1 CAPSULE. PO SCH ×2 (08:11→21:20)
[2018-04-02] MEDS: LISINOPRIL 20 MG TABLET PO SCH (08:45)
[2018-04-02] MEDS: amLODIPine BESYLATE 10 MG TABLET PO SCH (08:45)
[2018-04-02] MEDS: BUDESONIDE 0.5 MG/2 ML NEBU. NEB SCH ×2 (09:17→19:38)
[2018-04-02] MEDS: IPRATRPIUM/ALBUTEROL 0.5/2.5MG 3 ML NEBU. NEB SCH ×4 (09:17→19:38)
--- NOTE | 2018-04-02 10:08 | PDOC2 ---
CONSULT Date of Consult Date of Consult DATE: 04/02/18 TIME: 10:03 Reason for Consult Reason for Consult: ESRD Referring Physician Referring Physician: CARL Identification/Chief Complaint Chief Complaint SOB AND FEVERS Source Source: Chart review History of Present Illness Reason for Visit: THIS IS A 52 YR OLD WITH SOB AND FEVERS. HAS ESRD AND HAS OP HD ON MWF. LAST HD WAS ON . I HAD HER DO HD LAST NIGHT. SHE IS CONFUSED AND NOTED TO HYPOTENSION AND LEUCOCYTOSIS. CXRAY CONCERNING FOR PNEUMONIA. LABS ARE C/W ESRD. CURRENTLY NEEDING PRESSORS Past Medical History Cardiovascular: CHF, HTN, Hyperlipidemia Pulmonary: COPD, Pneumonia Heme/Onc: Anemia NOS Hepatobiliary: Cirrhosis, Hep A/B/C Psych: No pertinent hx Musculoskeletal: Other Rheumatologic: No pertinent hx Infectious disease: Other Renal/: Chronic renal failure Endocrine: Hyperparathyroidism Past Surgical History Past Surgical History: Other Family History Family History: Heart Disease, High Cholestrol, Hypertension, Family History Unknown Social History No ALCOHOL: none Drugs: None Lives: Alone Current Problem List Problem List Problems Medical Problems: (1) Altered mental status Status: Acute (2) Dyspnea Status: Acute (3) ESRD (end stage renal disease) on dialysis Status: Acute (4) Noncompliance Status: Acute Current Medications Current Medications Current Medications Piperacillin Sod/ Tazobactam Sod 3.375 gm/Sodium Chloride 50 ml @ 100 mls/hr 1X ONCE IV Last administered on 04/01/18at 09:23; Start 04/01/18 at 09:15; Stop 04/01/18 at 09:44; Status DC Piperacillin Sod/ Tazobactam Sod (Zosyn Per Pharmacy) 1 each PRN DAILY PRN MC SEE COMMENTS; Start 04/01/18 at 12:15; Stop 04/02/18 at 09:21; Status DC Ondansetron HCl (Zofran) 4 mg PRN Q6HRS PRN IV NAUSEA/VOMITING 1ST CHOICE; Start 04/01/18 at 12:15 Fentanyl Citrate (Fentanyl 2ml Vial) 25 mcg PRN Q2HR PRN IV PAIN MILD Last administered on 04/02/18at 05:31; Start 04/01/18 at 12:15 Albuterol/ Ipratropium (Duoneb) 3 ml RTQID NEB Last administered on 04/02/18at 09:17; Start 04/01/18 at 16:00 Guaifenesin (Robitussin Dm) 10 ml PRN Q6HRS PRN PO COUGH 1ST CHOICE; Start at 12:15 Heparin Sodium (Porcine) (Heparin Sq) 5,000 unit Q8HRS SQ Last administered on 04/02/18at 05:44; Start 04/01/18 at 14:00 Amlodipine Besylate (Norvasc) 10 mg DAILY PO ; Start 04/01/18 at 13:00 Diclofenac Sodium (Voltaren) 1 chris BID TP ; Start 04/01/18 at 21:00 Lisinopril (Prinivil) 20 mg DAILY PO ; Start 04/01/18 at 13:00 Prednisone (Prednisone) 10 mg DAILY PO Last administered on 04/02/18at 08:10; Start 04/01/18 at 13:00 Tramadol HCl (Ultram) 50 mg PRN Q6HRS PRN PO PAIN MILD-MODERATE; Start at 12:15 Carvedilol (Coreg) 25 mg BIDWMEALS PO ; Start 04/01/18 at 17:00 Budesonide (Pulmicort) 0.5 mg RTBID NEB Last administered on 04/02/18at 09:17; Start 04/01/18 at 20:00 Guaifenesin/ Codeine Phosphate (Robitussin Ac) 5 ml PRN Q6HRS PRN PO COUGH 2ND CHOICE; Start 04/01/18 at 12:30 Pantoprazole Sodium (Protonix) 40 mg BIDAC PO Last administered on 04/02/18at 08 :10; Start 04/02/18 at 07:30 Oxycodone HCl (Roxicodone) 20 mg PRN Q4HRS PRN PO PAIN SEVERE Last administered on 04/02/18at 08:10; Start 04/01/18 at 12:30 Sodium Polystyrene Sulfonate (Kayexalate) 15 gm 1X ONCE PO ; Start 04/01/18 at 12:30; Stop 04/01/18 at 12:31; Status DC Piperacillin Sod/ Tazobactam Sod 2.25 gm/Sodium Chloride 50 ml @ 100 mls/hr Q6HRS IV Last administered on 04/02/18at 05:30; Start 04/01/18 at 18:00; Stop at 09:21; Status DC Albuterol Sulfate (Ventolin Neb Soln) 2.5 mg PRN Q4HRS PRN NEB SHORTNESS OF BREATH Last administered on 04/01/18at 12:35; Start 04/01/18 at 12:30 Sodium Chloride 1,000 ml @ 1,000 mls/hr Q1H PRN IV hypotension; Start 04/01/18 at 12:50; Stop 04/01/18 at 18:54; Status DC Info (PHARMACY MONITORING -- do not chart) 1 each PRN DAILY PRN MC SEE COMMENTS ; Start 04/01/18 at 13:00 Info (PHARMACY MONITORING -- do not chart) 1 each PRN DAILY PRN MC SEE COMMENTS ; Start 04/01/18 at 13:00; Stop 04/01/18 at 13:00; Status DC Norepinephrine Bitartrate 250 ml @ 0 mls/hr 1X ONCE IV Last administered on at 13:23; Start 04/01/18 at 13:15; Stop 04/01/18 at 13:16; Status DC Vancomycin HCl (Vanco Per Pharmacy) 1 each PRN DAILY PRN MC SEE COMMENTS Last administered on 04/01/18at 13:49; Start 04/01/18 at 13:45; Stop 04/02/18 at 09:21 ; Status DC Vancomycin HCl 1.25 gm/Sodium Chloride 250 ml @ 167 mls/hr ONCE ONCE IV Last administered on 04/01/18at 18:03; Start 04/01/18 at 14:00; Stop 04/01/18 at 15:29 ; Status DC Lactobacillus Rhamnosus (Culturelle) 1 cap BID PO Last administered on at 08:11; Start 04/01/18 at 21:00 Norepinephrine Bitartrate 250 ml @ 1.875 mls/ hr CONT PRN IV SEE I/O RECORD Last administered on 04/01/18at 22:39; Start 04/01/18 at 22:15 Meropenem 500 mg/ Sodium Chloride 50 ml @ 100 mls/hr DAILY IV ; Start 04/02/18 at 12:00 Active Scripts Active Tramadol Hcl 50 Mg Tablet 50 Mg PO Q6HRS PRN Codeine-Guaifen 10-100 mg/5 ml (Guaifenesin/Codeine Phosphate) 120 Ml Liquid 5 Ml PO Q6HRS PRN Oxycodone Hcl 5 Mg Capsule 20 Mg PO PRN Q4HRS PRN Ambien (Zolpidem Tartrate) 10 Mg Tablet 1 Tab PO QHS Amox Tr-K Clv 500-125 Mg Tab (Amoxicillin/Potassium Clav) 1 Each Tablet 1 Tab PO BID Prednisone (Prednisone) 10 Mg Tablet 10 Mg PO UD Take 5 tablets by mouth daily for 2 days, then take 4 tablets by mouth daily for 2 days, then take 3 tablets by mouth daily for 2 days, then take 2 tablets by mouth daily for 2 days, then take 1 tablets by mouth daily for 2 days, then stop. Guaifenesin Dm Syrup (Guaifenesin/Dextromethorphan) 5 Ml Syrup 10 Ml PO QID Voltaren (Diclofenac Sodium) 100 Gm Gel..gram. 1 Chris TP BID 30 Days Amlodipine Besylate 10 Mg Tablet 10 Mg PO DAILY 30 Days Omeprazole 20 Mg Capsule.dr 1 Cap PO BID Duoneb 0.5-3(2.5) Mg/3 Ml (Albuterol/Ipratropium) 3 Ml Ampul.neb 3 Ml NEB RTQID 30 Days Advair 250-50 Diskus (Fluticasone/Salmeterol) 1 Puff Puff 1 Puff INH BID 30 Days Albuterol Sulfate Conc Neb Soln (Albuterol Sulfate) 2.5 Mg/0.5 Ml Vial.neb 1 Vial NEB Q4HRS PRN Reported Meloxicam 7.5 Mg Tablet 1 Tab PO DAILY Lisinopril 20 Mg Tablet 1 Tab PO DAILY Tramadol Hcl 50 Mg Tablet 50 Mg PO Q6H PRN Carvedilol 25 Mg Tablet 25 Mg PO BIDWMEALS Allergies Allergies: Coded Allergies: No Known Medication Allergies (Verified Allergy, Unknown, 02/17/18) acetaminophen (Verified Adverse Reaction, Severe, increased liver enzymes , 07/19/17) ROS Review of System UNABLE TO OBTAIN Physical Exam General: Cooperative, mild distress HEENT: Atraumatic, PERRLA, EOMI Lungs: Other (RHONCHI AND ? RALES) Heart: Regular rate, Normal S1 Abdomen: Normal bowel sounds, Soft Extremities: No clubbing, Normal pulses Skin: No breakdown Neuro: Other (CONFUSED) Psych/Mental Status: Other (CONFUSED) MUSCULOSKELETAL: No swelling, Other (DIFFUSE MUSCLE ATROHPY, FA AVF WITH A GOOD THRILL AND BRUIT) Vitals VITALS Vital Signs Date Time Temp Pulse Resp B/P (MAP) Pulse Ox O2 Delivery O2 Flow Rate FiO2 04/02/18 09:30 16 100 Nasal Cannula 04/02/18 09:17 5.0 04/02/18 09:00 76 80/40 (53) 04/02/18 07:00 98.6 98.6 Labs Labs Laboratory Tests Test 04/01/18 09:03 04/01/18 09:15 04/01/18 09:25 04/01/18 10:40 O2 Saturation 91 % (92-99) Arterial Blood pH 7.29 (7.35-7.45) Arterial Blood pCO2 at Patient Temp 46 mmHg (35-46) Arterial Blood pO2 at Patient Temp 64 mmHg (75-108) Arterial Blood HCO3 22 mmol/L (21-28) Arterial Blood Base Excess -5 mmol/L (-3-3) FiO2 36 White Blood Count 21.3 x10^3/uL (4.0-11.0) Red Blood Count 3.19 x10^6/uL (3.50-5.40) Hemoglobin 10.0 g/dL (12.0-15.5) Hematocrit 30.8 % (36.0-47.0) Mean Corpuscular Volume 97 fL (79-100) Mean Corpuscular Hemoglobin 32 pg (25-35) Mean Corpuscular Hemoglobin Concent 33 g/dL (31-37) Red Cell Distribution Width 16.0 % (11.5-14.5) Platelet Count 300 x10^3/uL (140-400) Neutrophils (%) (Auto) 86 % (31-73) Lymphocytes (%) (Auto) 5 % (24-48) Monocytes (%) (Auto) 9 % (0-9) Eosinophils (%) (Auto) 0 % (0-3) Basophils (%) (Auto) 0 % (0-3) Neutrophils # (Auto) 18.3 x10^3uL (1.8-7.7) Lymphocytes # (Auto) 1.0 x10^3/uL (1.0-4.8) Monocytes # (Auto) 1.9 x10^3/uL (0.0-1.1) Eosinophils # (Auto) 0.0 x10^3/uL (0.0-0.7) Basophils # (Auto) 0.1 x10^3/uL (0.0-0.2) Segmented Neutrophils % 63 % (35-66) Band Neutrophils % 22 % (0-9) Lymphocytes % 7 % (24-48) Monocytes % 7 % (0-10) Metamyelocytes % 1 % (0-0) Toxic Granulation Slight Platelet Estimate Adequate (ADEQUATE) Anisocytosis Slight Prothrombin Time 13.7 SEC (11.7-14.0) Prothromb Time International Ratio 1.1 (0.8-1.1) Sodium Level 135 mmol/L (136-145) Potassium Level 5.0 mmol/L (3.5-5.1) Chloride Level 98 mmol/L (98-107) Carbon Dioxide Level 23 mmol/L (21-32) Anion Gap 14 (6-14) 17 mmol/L (6-14) Blood Urea Nitrogen 73 mg/dL (7-20) Creatinine 11.6 mg/dL (0.6-1.0) Estimated GFR (Cockcroft-Gault) 4.1 BUN/Creatinine Ratio 6 (6-20) Glucose Level 121 mg/dL (70-99) 117 mg/dL (70-99) Lactic Acid Level 1.2 mmol/L (0.4-2.0) Calcium Level 7.7 mg/dL (8.5-10.1) Magnesium Level 1.8 mg/dL (1.8-2.4) Total Bilirubin 0.6 mg/dL (0.2-1.0) Aspartate Amino Transf (AST/SGOT) 51 U/L (15-37) Alanine Aminotransferase (ALT/SGPT) 33 U/L (14-59) Alkaline Phosphatase 259 U/L (46-116) Ammonia 14 mcmol/L (11-34) Creatine Kinase 299 U/L (26-192) Creatine Kinase MB (Mass) 8.6 ng/mL (0.0-3.6) Creatine Kinase MB Relative Index 2.9 % (0-4) Troponin I Quantitative 0.060 ng/mL (0.000-0.055) XS-Ysc-L-Type Natriuretic Peptide > 04778 pg/mL (0-124) Total Protein 8.0 g/dL (6.4-8.2) Albumin 2.9 g/dL (3.4-5.0) Albumin/Globulin Ratio 0.6 (1.0-1.7) Lipase 147 U/L (73-393) Thyroid Stimulating Hormone (TSH) 0.473 uIU/mL (0.358-3.74) Free Thyroxine 1.20 ng/dL (0.76-1.46) Ethyl Alcohol Level < 10 mg/dL (0-10) Bedside Hemoglobin 9.5 g/dL (12-15) Bedside Hematocrit 28 % (36-40) Bedside Sodium 138 mmol/L (135-145) Bedside Potassium 5.1 mmol/L (3.5-5.0) Bedside Chloride 105 mmol/L (98-110) Bedside Total CO2 23 mmol/L (23-32) Bedside Blood Urea Nitrogen 63 mg/dL (8-26) Bedside Creatinine 11.0 mg/dL (0.5-1.4) Bedside Ionized Calcium (Catrachita) 0.92 mmol/L (1.13-1.32) Urine Collection Type U cath Urine Color Zuleyka Urine Clarity Clear Urine pH 5.5 Urine Specific [place] 1.025 Urine Protein 100 mg/dL (NEG-TRACE) Urine Glucose (UA) Negative mg/dL (NEG) Urine Ketones (Stick) Negative mg/dL (NEG) Urine Blood Negative (NEG) Urine Nitrite Negative (NEG) Urine Bilirubin Small (NEG) Urine Urobilinogen Dipstick 0.2 mg/dL (0.2 mg/dL) Urine Leukocyte Esterase Small (NEG) Urine RBC Occ /HPF (0-2) Urine WBC 1-4 /HPF (0-4) Urine Squamous Epithelial Cells Mod /LPF Urine Bacteria Few /HPF (0-FEW) Urine Mucus Slight /LPF Stool Occult Blood Negative (NEG) Test 04/01/18 13:50 04/02/18 05:10 Nasal Screen MRSA (PCR) Negative (Negative) White Blood Count 31.0 x10^3/uL (4.0-11.0) Red Blood Count 2.53 x10^6/uL (3.50-5.40) Hemoglobin 8.1 g/dL (12.0-15.5) Hematocrit 24.7 % (36.0-47.0) Mean Corpuscular Volume 98 fL (79-100) Mean Corpuscular Hemoglobin 32 pg (25-35) Mean Corpuscular Hemoglobin Concent 33 g/dL (31-37) Red Cell Distribution Width 15.7 % (11.5-14.5) Platelet Count 236 x10^3/uL (140-400) Neutrophils (%) (Auto) 85 % (31-73) Lymphocytes (%) (Auto) 5 % (24-48) Monocytes (%) (Auto) 9 % (0-9) Eosinophils (%) (Auto) 0 % (0-3) Basophils (%) (Auto) 0 % (0-3) Neutrophils # (Auto) 26.4 x10^3uL (1.8-7.7) Lymphocytes # (Auto) 1.7 x10^3/uL (1.0-4.8) Monocytes # (Auto) 2.9 x10^3/uL (0.0-1.1) Eosinophils # (Auto) 0.0 x10^3/uL (0.0-0.7) Basophils # (Auto) 0.1 x10^3/uL (0.0-0.2) Sodium Level 135 mmol/L (136-145) Potassium Level 4.8 mmol/L (3.5-5.1) Chloride Level 103 mmol/L (98-107) Carbon Dioxide Level 19 mmol/L (21-32) Anion Gap 13 (6-14) Blood Urea Nitrogen 32 mg/dL (7-20) Creatinine 5.9 mg/dL (0.6-1.0) Estimated GFR (Cockcroft-Gault) 9.0 Glucose Level 106 mg/dL (70-99) Lactic Acid Level 0.6 mmol/L (0.4-2.0) Calcium Level 8.4 mg/dL (8.5-10.1) Laboratory Tests Test 04/01/18 10:40 04/01/18 13:50 04/02/18 05:10 Urine Collection Type U cath Urine Color Zuleyka Urine Clarity Clear Urine pH 5.5 Urine Specific [place] 1.025 Urine Protein 100 mg/dL (NEG-TRACE) Urine Glucose (UA) Negative mg/dL (NEG) Urine Ketones (Stick) Negative mg/dL (NEG) Urine Blood Negative (NEG) Urine Nitrite Negative (NEG) Urine Bilirubin Small (NEG) Urine Urobilinogen Dipstick 0.2 mg/dL (0.2 mg/dL) Urine Leukocyte Esterase Small (NEG) Urine RBC Occ /HPF (0-2) Urine WBC 1-4 /HPF (0-4) Urine Squamous Epithelial Cells Mod /LPF Urine Bacteria Few /HPF (0-FEW) Urine Mucus Slight /LPF Stool Occult Blood Negative (NEG) Nasal Screen MRSA (PCR) Negative (Negative) White Blood Count 31.0 x10^3/uL (4.0-11.0) Red Blood Count 2.53 x10^6/uL (3.50-5.40) Hemoglobin 8.1 g/dL (12.0-15.5) Hematocrit 24.7 % (36.0-47.0) Mean Corpuscular Volume 98 fL (79-100) Mean Corpuscular Hemoglobin 32 pg (25-35) Mean Corpuscular Hemoglobin Concent 33 g/dL (31-37) Red Cell Distribution Width 15.7 % (11.5-14.5) Platelet Count 236 x10^3/uL (140-400) Neutrophils (%) (Auto) 85 % (31-73) Lymphocytes (%) (Auto) 5 % (24-48) Monocytes (%) (Auto) 9 % (0-9) Eosinophils (%) (Auto) 0 % (0-3) Basophils (%) (Auto) 0 % (0-3) Neutrophils # (Auto) 26.4 x10^3uL (1.8-7.7) Lymphocytes # (Auto) 1.7 x10^3/uL (1.0-4.8) Monocytes # (Auto) 2.9 x10^3/uL (0.0-1.1) Eosinophils # (Auto) 0.0 x10^3/uL (0.0-0.7) Basophils # (Auto) 0.1 x10^3/uL (0.0-0.2) Sodium Level 135 mmol/L (136-145) Potassium Level 4.8 mmol/L (3.5-5.1) Chloride Level 103 mmol/L (98-107) Carbon Dioxide Level 19 mmol/L (21-32) Anion Gap 13 (6-14) Blood Urea Nitrogen 32 mg/dL (7-20) Creatinine 5.9 mg/dL (0.6-1.0) Estimated GFR (Cockcroft-Gault) 9.0 Glucose Level 106 mg/dL (70-99) Lactic Acid Level 0.6 mmol/L (0.4-2.0) Calcium Level 8.4 mg/dL (8.5-10.1) Assessment/Plan Assessment/Plan IMP ESRD HYPOTENSION SEPSIS LEUCOCYTOSIS MALNUTRITION FEVERS ANEMIA POSSIBLE PNEUMONIA PLAN ANTIBIOTICS PRESSORS ARANESP SUPPLEMENTAL O2 HD LAST NIGHT WILL HOLD OFF TODAY DUE TO HYPOTENSION ATTEMPT HD AGAIN IN AM VÍCTOR PERRY MD Apr 02, 2018 10:08
--- NOTE | 2018-04-02 10:50 | PDOC ---
PROGRESS NOTES History of Present Illness History of Present Illness Assessment/Plan Assessment/Plan Sepsis POA ESRD on dialysis Hyperkalemia Elevated anion gap acidosis Metabolic encephalopathy with normal lactate Cirrhosis Noncompliance Fever, lethargy hx alcohol and substance abuse cocaine abuse PLAN: gen surg consult ICU monitoring Renal following hold narcotics due to somnolence Blood cultures empiric Zosyn, this was given at ER. added iv vanc PT OT renal diet educated on noncompliance poor prognosis due to substance abuse cc 34 min Vitals Vitals Vital Signs Date Time Temp Pulse Resp B/P (MAP) Pulse Ox O2 Delivery O2 Flow Rate FiO2 04/02/18 10:00 75 12 95/45 (62) 100 Nasal Cannula 3.0 04/02/18 07:00 98.6 98.6 Physical Exam Physical Exam GENERAL: Lethargic female, arousable, answers a few questions, in no acute distress. HEENT: Normocephalic, atraumatic. Sclerae are muddy. No thrush. NECK: Supple, no JVD. LUNGS: Decreased breath sound at the bases. A few scattered rhonchi. HEART: S1, S2, RRR. No murmurs. ABDOMEN: Thin, soft, bowel sounds present. Mildly tender in both upper quadrant and lower quadrant. EXTREMITIES: No edema, no cyanosis. Cachexia. DERM: Dry skin. No generalized rash. No skin breakdown noted or ulcerations noted. 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 Images are performed in sitting position. The pancreas is not well-visualized. The gallbladder is moderately distended. The gallbladder wall thickness measures 1.6 mm. The echogenicity liver grossly appears unremarkable. The partially visualized right kidney appears echogenic. The common bile duct could not be identified. IMPRESSION: 1. Limited examination as patient was uncooperative and images were performed in sitting position. Moderately distended gallbladder. 2. Partially visualized right kidney appears echogenic could be due to medical renal disease. Electronically signed by: Danilo Alva MD (04/01/2018 10:41 AM) [id number] Laboratory Tests Test 04/01/18 13:50 04/02/18 05:10 Nasal Screen MRSA (PCR) Negative (Negative) White Blood Count 31.0 x10^3/uL (4.0-11.0) Red Blood Count 2.53 x10^6/uL (3.50-5.40) Hemoglobin 8.1 g/dL (12.0-15.5) Hematocrit 24.7 % (36.0-47.0) Mean Corpuscular Volume 98 fL (79-100) Mean Corpuscular Hemoglobin 32 pg (25-35) Mean Corpuscular Hemoglobin Concent 33 g/dL (31-37) Red Cell Distribution Width 15.7 % (11.5-14.5) Platelet Count 236 x10^3/uL (140-400) Neutrophils (%) (Auto) 85 % (31-73) Lymphocytes (%) (Auto) 5 % (24-48) Monocytes (%) (Auto) 9 % (0-9) Eosinophils (%) (Auto) 0 % (0-3) Basophils (%) (Auto) 0 % (0-3) Neutrophils # (Auto) 26.4 x10^3uL (1.8-7.7) Lymphocytes # (Auto) 1.7 x10^3/uL (1.0-4.8) Monocytes # (Auto) 2.9 x10^3/uL (0.0-1.1) Eosinophils # (Auto) 0.0 x10^3/uL (0.0-0.7) Basophils # (Auto) 0.1 x10^3/uL (0.0-0.2) Sodium Level 135 mmol/L (136-145) Potassium Level 4.8 mmol/L (3.5-5.1) Chloride Level 103 mmol/L (98-107) Carbon Dioxide Level 19 mmol/L (21-32) Anion Gap 13 (6-14) Blood Urea Nitrogen 32 mg/dL (7-20) Creatinine 5.9 mg/dL (0.6-1.0) Estimated GFR (Cockcroft-Gault) 9.0 Glucose Level 106 mg/dL (70-99) Lactic Acid Level 0.6 mmol/L (0.4-2.0) Calcium Level 8.4 mg/dL (8.5-10.1) Assessment and Plan Assessmemt and Plan Problems Medical Problems: (1) Altered mental status Status: Acute (2) Dyspnea Status: Acute (3) ESRD (end stage renal disease) on dialysis Status: Acute (4) Noncompliance Status: Acute Comment Review of Relevant I have reviewed the following items issac (where applicable) has been applied. Labs Laboratory Tests Test 04/01/18 09:03 04/01/18 09:15 04/01/18 09:25 04/01/18 10:40 O2 Saturation 91 % (92-99) Arterial Blood pH 7.29 (7.35-7.45) Arterial Blood pCO2 at Patient Temp 46 mmHg (35-46) Arterial Blood pO2 at Patient Temp 64 mmHg (75-108) Arterial Blood HCO3 22 mmol/L (21-28) Arterial Blood Base Excess -5 mmol/L (-3-3) FiO2 36 White Blood Count 21.3 x10^3/uL (4.0-11.0) Red Blood Count 3.19 x10^6/uL (3.50-5.40) Hemoglobin 10.0 g/dL (12.0-15.5) Hematocrit 30.8 % (36.0-47.0) Mean Corpuscular Volume 97 fL (79-100) Mean Corpuscular Hemoglobin 32 pg (25-35) Mean Corpuscular Hemoglobin Concent 33 g/dL (31-37) Red Cell Distribution Width 16.0 % (11.5-14.5) Platelet Count 300 x10^3/uL (140-400) Neutrophils (%) (Auto) 86 % (31-73) Lymphocytes (%) (Auto) 5 % (24-48) Monocytes (%) (Auto) 9 % (0-9) Eosinophils (%) (Auto) 0 % (0-3) Basophils (%) (Auto) 0 % (0-3) Neutrophils # (Auto) 18.3 x10^3uL (1.8-7.7) Lymphocytes # (Auto) 1.0 x10^3/uL (1.0-4.8) Monocytes # (Auto) 1.9 x10^3/uL (0.0-1.1) Eosinophils # (Auto) 0.0 x10^3/uL (0.0-0.7) Basophils # (Auto) 0.1 x10^3/uL (0.0-0.2) Segmented Neutrophils % 63 % (35-66) Band Neutrophils % 22 % (0-9) Lymphocytes % 7 % (24-48) Monocytes % 7 % (0-10) Metamyelocytes % 1 % (0-0) Toxic Granulation Slight Platelet Estimate Adequate (ADEQUATE) Anisocytosis Slight Prothrombin Time 13.7 SEC (11.7-14.0) Prothromb Time International Ratio 1.1 (0.8-1.1) Sodium Level 135 mmol/L (136-145) Potassium Level 5.0 mmol/L (3.5-5.1) Chloride Level 98 mmol/L (98-107) Carbon Dioxide Level 23 mmol/L (21-32) Anion Gap 14 (6-14) 17 mmol/L (6-14) Blood Urea Nitrogen 73 mg/dL (7-20) Creatinine 11.6 mg/dL (0.6-1.0) Estimated GFR (Cockcroft-Gault) 4.1 BUN/Creatinine Ratio 6 (6-20) Glucose Level 121 mg/dL (70-99) 117 mg/dL (70-99) Lactic Acid Level 1.2 mmol/L (0.4-2.0) Calcium Level 7.7 mg/dL (8.5-10.1) Magnesium Level 1.8 mg/dL (1.8-2.4) Total Bilirubin 0.6 mg/dL (0.2-1.0) Aspartate Amino Transf (AST/SGOT) 51 U/L (15-37) Alanine Aminotransferase (ALT/SGPT) 33 U/L (14-59) Alkaline Phosphatase 259 U/L (46-116) Ammonia 14 mcmol/L (11-34) Creatine Kinase 299 U/L (26-192) Creatine Kinase MB (Mass) 8.6 ng/mL (0.0-3.6) Creatine Kinase MB Relative Index 2.9 % (0-4) Troponin I Quantitative 0.060 ng/mL (0.000-0.055) MC-Sxd-Y-Type Natriuretic Peptide > 01029 pg/mL (0-124) Total Protein 8.0 g/dL (6.4-8.2) Albumin 2.9 g/dL (3.4-5.0) Albumin/Globulin Ratio 0.6 (1.0-1.7) Lipase 147 U/L (73-393) Thyroid Stimulating Hormone (TSH) 0.473 uIU/mL (0.358-3.74) Free Thyroxine 1.20 ng/dL (0.76-1.46) Ethyl Alcohol Level < 10 mg/dL (0-10) Bedside Hemoglobin 9.5 g/dL (12-15) Bedside Hematocrit 28 % (36-40) Bedside Sodium 138 mmol/L (135-145) Bedside Potassium 5.1 mmol/L (3.5-5.0) Bedside Chloride 105 mmol/L (98-110) Bedside Total CO2 23 mmol/L (23-32) Bedside Blood Urea Nitrogen 63 mg/dL (8-26) Bedside Creatinine 11.0 mg/dL (0.5-1.4) Bedside Ionized Calcium ([place]) 0.92 mmol/L (1.13-1.32) Urine Collection Type U cath Urine Color [place] Urine Clarity Clear Urine pH 5.5 Urine Specific [place] 1.025 Urine Protein 100 mg/dL (NEG-TRACE) Urine Glucose (UA) Negative mg/dL (NEG) Urine Ketones (Stick) Negative mg/dL (NEG) Urine Blood Negative (NEG) Urine Nitrite Negative (NEG) Urine Bilirubin Small (NEG) Urine Urobilinogen Dipstick 0.2 mg/dL (0.2 mg/dL) Urine Leukocyte Esterase Small (NEG) Urine RBC Occ /HPF (0-2) Urine WBC 1-4 /HPF (0-4) Urine Squamous Epithelial Cells Mod /LPF Urine Bacteria Few /HPF (0-FEW) Urine Mucus Slight /LPF Stool Occult Blood Negative (NEG) Test 04/01/18 13:50 04/02/18 05:10 Nasal Screen MRSA (PCR) Negative (Negative) White Blood Count 31.0 x10^3/uL (4.0-11.0) Red Blood Count 2.53 x10^6/uL (3.50-5.40) Hemoglobin 8.1 g/dL (12.0-15.5) Hematocrit 24.7 % (36.0-47.0) Mean Corpuscular Volume 98 fL (79-100) Mean Corpuscular Hemoglobin 32 pg (25-35) Mean Corpuscular Hemoglobin Concent 33 g/dL (31-37) Red Cell Distribution Width 15.7 % (11.5-14.5) Platelet Count 236 x10^3/uL (140-400) Neutrophils (%) (Auto) 85 % (31-73) Lymphocytes (%) (Auto) 5 % (24-48) Monocytes (%) (Auto) 9 % (0-9) Eosinophils (%) (Auto) 0 % (0-3) Basophils (%) (Auto) 0 % (0-3) Neutrophils # (Auto) 26.4 x10^3uL (1.8-7.7) Lymphocytes # (Auto) 1.7 x10^3/uL (1.0-4.8) Monocytes # (Auto) 2.9 x10^3/uL (0.0-1.1) Eosinophils # (Auto) 0.0 x10^3/uL (0.0-0.7) Basophils # (Auto) 0.1 x10^3/uL (0.0-0.2) Sodium Level 135 mmol/L (136-145) Potassium Level 4.8 mmol/L (3.5-5.1) Chloride Level 103 mmol/L (98-107) Carbon Dioxide Level 19 mmol/L (21-32) Anion Gap 13 (6-14) Blood Urea Nitrogen 32 mg/dL (7-20) Creatinine 5.9 mg/dL (0.6-1.0) Estimated GFR (Cockcroft-Gault) 9.0 Glucose Level 106 mg/dL (70-99) Lactic Acid Level 0.6 mmol/L (0.4-2.0) Calcium Level 8.4 mg/dL (8.5-10.1) Laboratory Tests Test 04/01/18 13:50 04/02/18 05:10 Nasal Screen MRSA (PCR) Negative (Negative) White Blood Count 31.0 x10^3/uL (4.0-11.0) Red Blood Count 2.53 x10^6/uL (3.50-5.40) Hemoglobin 8.1 g/dL (12.0-15.5) Hematocrit 24.7 % (36.0-47.0) Mean Corpuscular Volume 98 fL (79-100) Mean Corpuscular Hemoglobin 32 pg (25-35) Mean Corpuscular Hemoglobin Concent 33 g/dL (31-37) Red Cell Distribution Width 15.7 % (11.5-14.5) Platelet Count 236 x10^3/uL (140-400) Neutrophils (%) (Auto) 85 % (31-73) Lymphocytes (%) (Auto) 5 % (24-48) Monocytes (%) (Auto) 9 % (0-9) Eosinophils (%) (Auto) 0 % (0-3) Basophils (%) (Auto) 0 % (0-3) Neutrophils # (Auto) 26.4 x10^3uL (1.8-7.7) Lymphocytes # (Auto) 1.7 x10^3/uL (1.0-4.8) Monocytes # (Auto) 2.9 x10^3/uL (0.0-1.1) Eosinophils # (Auto) 0.0 x10^3/uL (0.0-0.7) Basophils # (Auto) 0.1 x10^3/uL (0.0-0.2) Sodium Level 135 mmol/L (136-145) Potassium Level 4.8 mmol/L (3.5-5.1) Chloride Level 103 mmol/L (98-107) Carbon Dioxide Level 19 mmol/L (21-32) Anion Gap 13 (6-14) Blood Urea Nitrogen 32 mg/dL (7-20) Creatinine 5.9 mg/dL (0.6-1.0) Estimated GFR (Cockcroft-Gault) 9.0 Glucose Level 106 mg/dL (70-99) Lactic Acid Level 0.6 mmol/L (0.4-2.0) Calcium Level 8.4 mg/dL (8.5-10.1) Microbiology 04/01/18 Blood Culture - Final, Complete Medications Current Medications Piperacillin Sod/ Tazobactam Sod 3.375 gm/Sodium Chloride 50 ml @ 100 mls/hr 1X ONCE IV Last administered on 04/01/18at 09:23; Start 04/01/18 at 09:15; Stop 04/01/18 at 09:44; Status DC Piperacillin Sod/ Tazobactam Sod (Zosyn Per Pharmacy) 1 each PRN DAILY PRN MC SEE COMMENTS; Start 04/01/18 at 12:15; Stop 04/02/18 at 09:21; Status DC Ondansetron HCl (Zofran) 4 mg PRN Q6HRS PRN IV NAUSEA/VOMITING 1ST CHOICE; Start 04/01/18 at 12:15 Fentanyl Citrate (Fentanyl 2ml Vial) 25 mcg PRN Q2HR PRN IV PAIN MILD Last administered on 04/02/18at 05:31; Start 04/01/18 at 12:15 Albuterol/ Ipratropium (Duoneb) 3 ml RTQID NEB Last administered on 04/02/18at 09:17; Start 04/01/18 at 16:00 Guaifenesin (Robitussin Dm) 10 ml PRN Q6HRS PRN PO COUGH 1ST CHOICE; Start at 12:15 Heparin Sodium (Porcine) (Heparin Sq) 5,000 unit Q8HRS SQ Last administered on 04/02/18at 05:44; Start 04/01/18 at 14:00 Amlodipine Besylate (Norvasc) 10 mg DAILY PO ; Start 04/01/18 at 13:00 Diclofenac Sodium (Voltaren) 1 chris BID TP ; Start 04/01/18 at 21:00 Lisinopril (Prinivil) 20 mg DAILY PO ; Start 04/01/18 at 13:00 Prednisone (Prednisone) 10 mg DAILY PO Last administered on 04/02/18at 08:10; Start 04/01/18 at 13:00 Tramadol HCl (Ultram) 50 mg PRN Q6HRS PRN PO PAIN MILD-MODERATE; Start at 12:15 Carvedilol (Coreg) 25 mg BIDWMEALS PO ; Start 04/01/18 at 17:00 Budesonide (Pulmicort) 0.5 mg RTBID NEB Last administered on 04/02/18at 09:17; Start 04/01/18 at 20:00 Guaifenesin/ Codeine Phosphate (Robitussin Ac) 5 ml PRN Q6HRS PRN PO COUGH 2ND CHOICE; Start 04/01/18 at 12:30 Pantoprazole Sodium (Protonix) 40 mg BIDAC PO Last administered on 04/02/18at 08 :10; Start 04/02/18 at 07:30 Oxycodone HCl (Roxicodone) 20 mg PRN Q4HRS PRN PO PAIN SEVERE Last administered on 04/02/18at 08:10; Start 04/01/18 at 12:30 Sodium Polystyrene Sulfonate (Kayexalate) 15 gm 1X ONCE PO ; Start 04/01/18 at 12:30; Stop 04/01/18 at 12:31; Status DC Piperacillin Sod/ Tazobactam Sod 2.25 gm/Sodium Chloride 50 ml @ 100 mls/hr Q6HRS IV Last administered on 04/02/18at 05:30; Start 04/01/18 at 18:00; Stop at 09:21; Status DC Albuterol Sulfate (Ventolin Neb Soln) 2.5 mg PRN Q4HRS PRN NEB SHORTNESS OF BREATH Last administered on 04/01/18at 12:35; Start 04/01/18 at 12:30 Sodium Chloride 1,000 ml @ 1,000 mls/hr Q1H PRN IV hypotension; Start 04/01/18 at 12:50; Stop 04/01/18 at 18:54; Status DC Info (PHARMACY MONITORING -- do not chart) 1 each PRN DAILY PRN MC SEE COMMENTS ; Start 04/01/18 at 13:00 Info (PHARMACY MONITORING -- do not chart) 1 each PRN DAILY PRN MC SEE COMMENTS ; Start 04/01/18 at 13:00; Stop 04/01/18 at 13:00; Status DC Norepinephrine Bitartrate 250 ml @ 0 mls/hr 1X ONCE IV Last administered on at 13:23; Start 04/01/18 at 13:15; Stop 04/01/18 at 13:16; Status DC Vancomycin HCl (Vanco Per Pharmacy) 1 each PRN DAILY PRN MC SEE COMMENTS Last administered on 04/01/18at 13:49; Start 04/01/18 at 13:45; Stop 04/02/18 at 09:21 ; Status DC Vancomycin HCl 1.25 gm/Sodium Chloride 250 ml @ 167 mls/hr ONCE ONCE IV Last administered on 04/01/18at 18:03; Start 04/01/18 at 14:00; Stop 04/01/18 at 15:29 ; Status DC Lactobacillus Rhamnosus (Culturelle) 1 cap BID PO Last administered on at 08:11; Start 04/01/18 at 21:00 Norepinephrine Bitartrate 250 ml @ 1.875 mls/ hr CONT PRN IV SEE I/O RECORD Last administered on 04/01/18at 22:39; Start 04/01/18 at 22:15 Meropenem 500 mg/ Sodium Chloride 50 ml @ 100 mls/hr DAILY IV ; Start 04/02/18 at 12:00 Darbepoetin Norris (Aranesp) 60 mcg WEEKLYHS SQ ; Start 04/02/18 at 21:00 Active Scripts Active Tramadol Hcl 50 Mg Tablet 50 Mg PO Q6HRS PRN Codeine-Guaifen 10-100 mg/5 ml (Guaifenesin/Codeine Phosphate) 120 Ml Liquid 5 Ml PO Q6HRS PRN Oxycodone Hcl 5 Mg Capsule 20 Mg PO PRN Q4HRS PRN Ambien (Zolpidem Tartrate) 10 Mg Tablet 1 Tab PO QHS Amox Tr-K Clv 500-125 Mg Tab (Amoxicillin/Potassium Clav) 1 Each Tablet 1 Tab PO BID Prednisone (Prednisone) 10 Mg Tablet 10 Mg PO UD Take 5 tablets by mouth daily for 2 days, then take 4 tablets by mouth daily for 2 days, then take 3 tablets by mouth daily for 2 days, then take 2 tablets by mouth daily for 2 days, then take 1 tablets by mouth daily for 2 days, then stop. Guaifenesin Dm Syrup (Guaifenesin/Dextromethorphan) 5 Ml Syrup 10 Ml PO QID Voltaren (Diclofenac Sodium) 100 Gm Gel..gram. 1 Chris TP BID 30 Days Amlodipine Besylate 10 Mg Tablet 10 Mg PO DAILY 30 Days Omeprazole 20 Mg Capsule.dr 1 Cap PO BID Duoneb 0.5-3(2.5) Mg/3 Ml (Albuterol/Ipratropium) 3 Ml Ampul.neb 3 Ml NEB RTQID 30 Days Advair 250-50 Diskus (Fluticasone/Salmeterol) 1 Puff Puff 1 Puff INH BID 30 Days Albuterol Sulfate Conc Neb Soln (Albuterol Sulfate) 2.5 Mg/0.5 Ml Vial.neb 1 Vial NEB Q4HRS PRN Reported Meloxicam 7.5 Mg Tablet 1 Tab PO DAILY Lisinopril 20 Mg Tablet 1 Tab PO DAILY Tramadol Hcl 50 Mg Tablet 50 Mg PO Q6H PRN Carvedilol 25 Mg Tablet 25 Mg PO BIDWMEALS Vitals/I & O Vital Sign - Last 24 Hours 04/01/18 04/01/18 04/01/18 04/01/18 12:00 12:00 12:38 12:40 Temp 96.6 96.6 Pulse 94 Resp 18 26 B/P (MAP) 95/50 (65) Pulse Ox 100 95 100 O2 Delivery Nasal Cannula Nasal Cannula Nasal Cannula Nasal Cannula O2 Flow Rate 4.0 2.0 2.0 4.0 04/01/18 04/01/18 04/01/18 04/01/18 13:00 14:00 15:00 15:36 Temp 98.8 98.8 Pulse 88 80 80 Resp 15 18 20 B/P (MAP) 78/48 (58) 94/49 (64) 85/53 (64) Pulse Ox 96 99 94 95 O2 Delivery Nasal Cannula Nasal Cannula Nasal Cannula Nasal Cannula O2 Flow Rate 2.0 2.0 2.0 2.0 04/01/18 04/01/18 04/01/18 04/01/18 16:00 16:00 17:00 18:00 Pulse 87 87 85 Resp 22 24 24 B/P (MAP) 83/50 (61) 88/58 (68) 114/51 (72) Pulse Ox 92 93 99 O2 Delivery Nasal Cannula Nasal Cannula Nasal Cannula Nasal Cannula O2 Flow Rate 2.0 2.0 2.0 3.0 04/01/18 04/01/18 04/01/18 04/01/18 19:00 19:39 20:00 20:00 Temp 96.3 96.3 Pulse 86 88 Resp 30 30 B/P (MAP) 84/67 (73) 102/48 (66) Pulse Ox 97 93 96 O2 Delivery Nasal Cannula Nasal Cannula Nasal Cannula Nasal Cannula O2 Flow Rate 3.0 3.0 2.0 3.0 04/01/18 04/01/18 04/01/18 04/01/18 21:00 22:00 23:00 23:59 Pulse 89 97 99 Resp 32 22 20 B/P (MAP) 117/51 (73) 109/48 (68) 131/64 (86) Pulse Ox 90 96 96 O2 Delivery Nasal Cannula Nasal Cannula Nasal Cannula Nasal Cannula O2 Flow Rate 3.0 4.0 4.0 2.0 04/02/18 04/02/18 04/02/18 04/02/18 00:00 01:00 02:00 03:00 Temp 99.8 99.8 Pulse 97 100 90 92 Resp 26 22 18 28 B/P (MAP) 94/49 (64) 134/65 (88) 109/53 (71) 115/52 (73) Pulse Ox 92 94 94 96 O2 Delivery Nasal Cannula Nasal Cannula Nasal Cannula Nasal Cannula O2 Flow Rate 5.0 5.0 5.0 5.0 04/02/18 04/02/18 04/02/18 04/02/18 04:00 04:00 04:50 05:00 Temp 101.7 101.7 Pulse 106 98 Resp 24 29 B/P (MAP) 126/59 (81) 110/51 (70) Pulse Ox 91 97 97 O2 Delivery Nasal Cannula Nasal Cannula BiPAP/CPAP BiPAP/CPAP O2 Flow Rate 5.0 2.0 04/02/18 04/02/18 04/02/18 04/02/18 05:31 06:00 06:01 07:00 Temp 98.6 98.6 Pulse 104 96 Resp 38 38 18 22 B/P (MAP) 114/60 (78) 107/52 (70) Pulse Ox 91 96 96 100 O2 Delivery Nasal Cannula Nasal Cannula Nasal Cannula Nasal Cannula O2 Flow Rate 5.0 4.0 4.0 2.0 04/02/18 04/02/18 04/02/18 04/02/18 08:00 08:00 08:00 08:10 Pulse 98 Resp 28 22 B/P (MAP) 110/54 (72) Pulse Ox 100 100 O2 Delivery Nasal Cannula Nasal Cannula Nasal Cannula O2 Flow Rate 2.0 2.0 2.0 2.0 04/02/18 04/02/18 04/02/18 04/02/18 09:00 09:17 09:30 10:00 Pulse 76 75 Resp 15 16 12 B/P (MAP) 80/40 (53) 95/45 (62) Pulse Ox 100 100 100 100 O2 Delivery Nasal Cannula Nasal Cannula Nasal Cannula Nasal Cannula O2 Flow Rate 2.0 5.0 3.0 Intake and Output 04/01/18 04/01/18 04/02/18 15:00 23:00 07:00 Intake Total 290 ml 366 ml 50 ml Output Total 0 ml 0 ml 0 ml Balance 290 ml 366 ml 50 ml Nutrition Consultation Dietary Evaluation: Recommendations by RD: Protein supplementation Comments: Continue w/renal diet Will add Nepro TID Expected Outcomes/Goals: PO intake to meet >75% est needs Diet education if pt appropriate Malnutrition Findings: Body Fat Depletion (Non Severe: Mild Depletion Weight Status: Appropriate GABRIELLE JOE MD Apr 02, 2018 10:50
[2018-04-02] MEDS: MEROPENEM 500 MG in IV NORMAL SALINE 50ML 50 ML IV SCH (12:12)
[2018-04-02] MEDS: DICLOFENAC SODIUM 1% TOPICAL GEL 100GM TUBE. TP SCH ×2 (12:12→21:00)
[2018-04-02 12:26] LABS: ALBUMIN 2.8 g/dL (3.4-5.0); DIRECT BILIRUBIN 0.4 mg/dL (0.0-0.2); TOTAL BILIRUBIN 0.7 mg/dL (0.2-1.0); TOTAL PROTEIN 7.3 g/dL (6.4-8.2)
--- NOTE | 2018-04-02 14:16 | PDOC2 ---
CONSULT Date of Consult Date of Consult DATE: 04/02/18 TIME: 14:09 Reason for Consult Reason for Consult: possible GB disease Referring Physician Referring Physician: [email or web address] Identification/Chief Complaint Chief Complaint abdominal pain Source Source: Chart review History of Present Illness Reason for Visit: Louise is a poorly compliant 52 yo lady on HD who comes in with sepsis, pneumonia, missed dialysis and an US showing a moderately distended GB. We are asked to see for the latter Past Medical History Cardiovascular: CHF, HTN, Hyperlipidemia Pulmonary: COPD, Pneumonia Heme/Onc: Anemia NOS Hepatobiliary: Cirrhosis, Hep A/B/C Psych: No pertinent hx Musculoskeletal: Other Rheumatologic: No pertinent hx Infectious disease: Other Renal/: Chronic renal failure Endocrine: Hyperparathyroidism Past Surgical History Past Surgical History: Other Family History Family History: Heart Disease, High Cholestrol, Hypertension, Family History Unknown Social History No ALCOHOL: none Drugs: None Lives: Alone Current Problem List Problem List Problems Medical Problems: (1) Altered mental status Status: Acute (2) Dyspnea Status: Acute (3) ESRD (end stage renal disease) on dialysis Status: Acute (4) Noncompliance Status: Acute Current Medications Current Medications Current Medications Piperacillin Sod/ Tazobactam Sod 3.375 gm/Sodium Chloride 50 ml @ 100 mls/hr 1X ONCE IV Last administered on 04/01/18at 09:23; Start 04/01/18 at 09:15; Stop 04/01/18 at 09:44; Status DC Piperacillin Sod/ Tazobactam Sod (Zosyn Per Pharmacy) 1 each PRN DAILY PRN MC SEE COMMENTS; Start 04/01/18 at 12:15; Stop 04/02/18 at 09:21; Status DC Ondansetron HCl (Zofran) 4 mg PRN Q6HRS PRN IV NAUSEA/VOMITING 1ST CHOICE; Start 04/01/18 at 12:15 Fentanyl Citrate (Fentanyl 2ml Vial) 25 mcg PRN Q2HR PRN IV PAIN MILD Last administered on 04/02/18at 05:31; Start 04/01/18 at 12:15; Stop 04/02/18 at 11:58 ; Status DC Albuterol/ Ipratropium (Duoneb) 3 ml RTQID NEB Last administered on 04/02/18at 13:04; Start 04/01/18 at 16:00 Guaifenesin (Robitussin Dm) 10 ml PRN Q6HRS PRN PO COUGH 1ST CHOICE; Start at 12:15 Heparin Sodium (Porcine) (Heparin Sq) 5,000 unit Q8HRS SQ Last administered on 04/02/18at 05:44; Start 04/01/18 at 14:00 Amlodipine Besylate (Norvasc) 10 mg DAILY PO ; Start 04/01/18 at 13:00 Diclofenac Sodium (Voltaren) 1 chris BID TP Last administered on 04/02/18at 12:12 ; Start 04/01/18 at 21:00 Lisinopril (Prinivil) 20 mg DAILY PO ; Start 04/01/18 at 13:00 Prednisone (Prednisone) 10 mg DAILY PO Last administered on 04/02/18at 08:10; Start 04/01/18 at 13:00 Tramadol HCl (Ultram) 50 mg PRN Q6HRS PRN PO PAIN MILD-MODERATE; Start at 12:15; Stop 04/02/18 at 11:56; Status DC Carvedilol (Coreg) 25 mg BIDWMEALS PO ; Start 04/01/18 at 17:00 Budesonide (Pulmicort) 0.5 mg RTBID NEB Last administered on 04/02/18at 09:17; Start 04/01/18 at 20:00 Guaifenesin/ Codeine Phosphate (Robitussin Ac) 5 ml PRN Q6HRS PRN PO COUGH 2ND CHOICE; Start 04/01/18 at 12:30 Pantoprazole Sodium (Protonix) 40 mg BIDAC PO Last administered on 04/02/18at 08 :10; Start 04/02/18 at 07:30 Oxycodone HCl (Roxicodone) 20 mg PRN Q4HRS PRN PO PAIN SEVERE Last administered on 04/02/18at 08:10; Start 04/01/18 at 12:30; Stop 04/02/18 at 11:56 ; Status DC Sodium Polystyrene Sulfonate (Kayexalate) 15 gm 1X ONCE PO ; Start 04/01/18 at 12:30; Stop 04/01/18 at 12:31; Status DC Piperacillin Sod/ Tazobactam Sod 2.25 gm/Sodium Chloride 50 ml @ 100 mls/hr Q6HRS IV Last administered on 04/02/18at 05:30; Start 04/01/18 at 18:00; Stop at 09:21; Status DC Albuterol Sulfate (Ventolin Neb Soln) 2.5 mg PRN Q4HRS PRN NEB SHORTNESS OF BREATH Last administered on 04/01/18at 12:35; Start 04/01/18 at 12:30 Sodium Chloride 1,000 ml @ 1,000 mls/hr Q1H PRN IV hypotension; Start 04/01/18 at 12:50; Stop 04/01/18 at 18:54; Status DC Info (PHARMACY MONITORING -- do not chart) 1 each PRN DAILY PRN MC SEE COMMENTS ; Start 04/01/18 at 13:00 Info (PHARMACY MONITORING -- do not chart) 1 each PRN DAILY PRN MC SEE COMMENTS ; Start 04/01/18 at 13:00; Stop 04/01/18 at 13:00; Status DC Norepinephrine Bitartrate 250 ml @ 0 mls/hr 1X ONCE IV Last administered on at 13:23; Start 04/01/18 at 13:15; Stop 04/01/18 at 13:16; Status DC Vancomycin HCl (Vanco Per Pharmacy) 1 each PRN DAILY PRN MC SEE COMMENTS Last administered on 04/01/18at 13:49; Start 04/01/18 at 13:45; Stop 04/02/18 at 09:21 ; Status DC Vancomycin HCl 1.25 gm/Sodium Chloride 250 ml @ 167 mls/hr ONCE ONCE IV Last administered on 04/01/18at 18:03; Start 04/01/18 at 14:00; Stop 04/01/18 at 15:29 ; Status DC Lactobacillus Rhamnosus (Culturelle) 1 cap BID PO Last administered on at 08:11; Start 04/01/18 at 21:00 Norepinephrine Bitartrate 250 ml @ 1.875 mls/ hr CONT PRN IV SEE I/O RECORD Last administered on 04/01/18at 22:39; Start 04/01/18 at 22:15 Meropenem 500 mg/ Sodium Chloride 50 ml @ 100 mls/hr DAILY IV Last administered on 04/02/18at 12:12; Start 04/02/18 at 12:00 Darbepoetin Norris (Aranesp) 60 mcg WEEKLYHS SQ ; Start 04/02/18 at 21:00 Active Scripts Active Tramadol Hcl 50 Mg Tablet 50 Mg PO Q6HRS PRN Codeine-Guaifen 10-100 mg/5 ml (Guaifenesin/Codeine Phosphate) 120 Ml Liquid 5 Ml PO Q6HRS PRN Oxycodone Hcl 5 Mg Capsule 20 Mg PO PRN Q4HRS PRN Ambien (Zolpidem Tartrate) 10 Mg Tablet 1 Tab PO QHS Amox Tr-K Clv 500-125 Mg Tab (Amoxicillin/Potassium Clav) 1 Each Tablet 1 Tab PO BID Prednisone (Prednisone) 10 Mg Tablet 10 Mg PO UD Take 5 tablets by mouth daily for 2 days, then take 4 tablets by mouth daily for 2 days, then take 3 tablets by mouth daily for 2 days, then take 2 tablets by mouth daily for 2 days, then take 1 tablets by mouth daily for 2 days, then stop. Guaifenesin Dm Syrup (Guaifenesin/Dextromethorphan) 5 Ml Syrup 10 Ml PO QID Voltaren (Diclofenac Sodium) 100 Gm Gel..gram. 1 Chris TP BID 30 Days Amlodipine Besylate 10 Mg Tablet 10 Mg PO DAILY 30 Days Omeprazole 20 Mg Capsule.dr 1 Cap PO BID Duoneb 0.5-3(2.5) Mg/3 Ml (Albuterol/Ipratropium) 3 Ml Ampul.neb 3 Ml NEB RTQID 30 Days Advair 250-50 Diskus (Fluticasone/Salmeterol) 1 Puff Puff 1 Puff INH BID 30 Days Albuterol Sulfate Conc Neb Soln (Albuterol Sulfate) 2.5 Mg/0.5 Ml Vial.neb 1 Vial NEB Q4HRS PRN Reported Meloxicam 7.5 Mg Tablet 1 Tab PO DAILY Lisinopril 20 Mg Tablet 1 Tab PO DAILY Tramadol Hcl 50 Mg Tablet 50 Mg PO Q6H PRN Carvedilol 25 Mg Tablet 25 Mg PO BIDWMEALS Allergies Allergies: Coded Allergies: No Known Medication Allergies (Verified Allergy, Unknown, 02/17/18) acetaminophen (Verified Adverse Reaction, Severe, increased liver enzymes , 07/19/17) ROS Review of System hard to obtain 2/2 decreased mental status Physical Exam General: Other Lungs: Normal air movement Abdomen: Soft, Other (mildly distended, soft, reducible umbilical hernia) Neuro: Other (lethargic) Vitals VITALS Vital Signs Date Time Temp Pulse Resp B/P (MAP) Pulse Ox O2 Delivery O2 Flow Rate FiO2 04/02/18 13:05 100 Nasal Cannula 2.0 04/02/18 13:00 80 20 107/52 (70) 04/02/18 12:00 98.7 98.7 Labs Labs Laboratory Tests Test 04/01/18 09:03 04/01/18 09:15 04/01/18 09:25 04/01/18 10:40 O2 Saturation 91 % (92-99) Arterial Blood pH 7.29 (7.35-7.45) Arterial Blood pCO2 at Patient Temp 46 mmHg (35-46) Arterial Blood pO2 at Patient Temp 64 mmHg (75-108) Arterial Blood HCO3 22 mmol/L (21-28) Arterial Blood Base Excess -5 mmol/L (-3-3) FiO2 36 White Blood Count 21.3 x10^3/uL (4.0-11.0) Red Blood Count 3.19 x10^6/uL (3.50-5.40) Hemoglobin 10.0 g/dL (12.0-15.5) Hematocrit 30.8 % (36.0-47.0) Mean Corpuscular Volume 97 fL (79-100) Mean Corpuscular Hemoglobin 32 pg (25-35) Mean Corpuscular Hemoglobin Concent 33 g/dL (31-37) Red Cell Distribution Width 16.0 % (11.5-14.5) Platelet Count 300 x10^3/uL (140-400) Neutrophils (%) (Auto) 86 % (31-73) Lymphocytes (%) (Auto) 5 % (24-48) Monocytes (%) (Auto) 9 % (0-9) Eosinophils (%) (Auto) 0 % (0-3) Basophils (%) (Auto) 0 % (0-3) Neutrophils # (Auto) 18.3 x10^3uL (1.8-7.7) Lymphocytes # (Auto) 1.0 x10^3/uL (1.0-4.8) Monocytes # (Auto) 1.9 x10^3/uL (0.0-1.1) Eosinophils # (Auto) 0.0 x10^3/uL (0.0-0.7) Basophils # (Auto) 0.1 x10^3/uL (0.0-0.2) Segmented Neutrophils % 63 % (35-66) Band Neutrophils % 22 % (0-9) Lymphocytes % 7 % (24-48) Monocytes % 7 % (0-10) Metamyelocytes % 1 % (0-0) Toxic Granulation Slight Platelet Estimate Adequate (ADEQUATE) Anisocytosis Slight Prothrombin Time 13.7 SEC (11.7-14.0) Prothromb Time International Ratio 1.1 (0.8-1.1) Sodium Level 135 mmol/L (136-145) Potassium Level 5.0 mmol/L (3.5-5.1) Chloride Level 98 mmol/L (98-107) Carbon Dioxide Level 23 mmol/L (21-32) Anion Gap 14 (6-14) 17 mmol/L (6-14) Blood Urea Nitrogen 73 mg/dL (7-20) Creatinine 11.6 mg/dL (0.6-1.0) Estimated GFR (Cockcroft-Gault) 4.1 BUN/Creatinine Ratio 6 (6-20) Glucose Level 121 mg/dL (70-99) 117 mg/dL (70-99) Lactic Acid Level 1.2 mmol/L (0.4-2.0) Calcium Level 7.7 mg/dL (8.5-10.1) Magnesium Level 1.8 mg/dL (1.8-2.4) Total Bilirubin 0.6 mg/dL (0.2-1.0) Aspartate Amino Transf (AST/SGOT) 51 U/L (15-37) Alanine Aminotransferase (ALT/SGPT) 33 U/L (14-59) Alkaline Phosphatase 259 U/L (46-116) Ammonia 14 mcmol/L (11-34) Creatine Kinase 299 U/L (26-192) Creatine Kinase MB (Mass) 8.6 ng/mL (0.0-3.6) Creatine Kinase MB Relative Index 2.9 % (0-4) Troponin I Quantitative 0.060 ng/mL (0.000-0.055) AO-Nqa-W-Type Natriuretic Peptide > 24349 pg/mL (0-124) Total Protein 8.0 g/dL (6.4-8.2) Albumin 2.9 g/dL (3.4-5.0) Albumin/Globulin Ratio 0.6 (1.0-1.7) Lipase 147 U/L (73-393) Thyroid Stimulating Hormone (TSH) 0.473 uIU/mL (0.358-3.74) Free Thyroxine 1.20 ng/dL (0.76-1.46) Ethyl Alcohol Level < 10 mg/dL (0-10) Bedside Hemoglobin 9.5 g/dL (12-15) Bedside Hematocrit 28 % (36-40) Bedside Sodium 138 mmol/L (135-145) Bedside Potassium 5.1 mmol/L (3.5-5.0) Bedside Chloride 105 mmol/L (98-110) Bedside Total CO2 23 mmol/L (23-32) Bedside Blood Urea Nitrogen 63 mg/dL (8-26) Bedside Creatinine 11.0 mg/dL (0.5-1.4) Bedside Ionized Calcium ([place]) 0.92 mmol/L (1.13-1.32) Urine Collection Type U cath Urine Color [place] Urine Clarity Clear Urine pH 5.5 Urine Specific [place] 1.025 Urine Protein 100 mg/dL (NEG-TRACE) Urine Glucose (UA) Negative mg/dL (NEG) Urine Ketones (Stick) Negative mg/dL (NEG) Urine Blood Negative (NEG) Urine Nitrite Negative (NEG) Urine Bilirubin Small (NEG) Urine Urobilinogen Dipstick 0.2 mg/dL (0.2 mg/dL) Urine Leukocyte Esterase Small (NEG) Urine RBC Occ /HPF (0-2) Urine WBC 1-4 /HPF (0-4) Urine Squamous Epithelial Cells Mod /LPF Urine Bacteria Few /HPF (0-FEW) Urine Mucus Slight /LPF Stool Occult Blood Negative (NEG) Test 04/01/18 13:50 04/02/18 05:10 Nasal Screen MRSA (PCR) Negative (Negative) White Blood Count 31.0 x10^3/uL (4.0-11.0) Red Blood Count 2.53 x10^6/uL (3.50-5.40) Hemoglobin 8.1 g/dL (12.0-15.5) Hematocrit 24.7 % (36.0-47.0) Mean Corpuscular Volume 98 fL (79-100) Mean Corpuscular Hemoglobin 32 pg (25-35) Mean Corpuscular Hemoglobin Concent 33 g/dL (31-37) Red Cell Distribution Width 15.7 % (11.5-14.5) Platelet Count 236 x10^3/uL (140-400) Neutrophils (%) (Auto) 85 % (31-73) Lymphocytes (%) (Auto) 5 % (24-48) Monocytes (%) (Auto) 9 % (0-9) Eosinophils (%) (Auto) 0 % (0-3) Basophils (%) (Auto) 0 % (0-3) Neutrophils # (Auto) 26.4 x10^3uL (1.8-7.7) Lymphocytes # (Auto) 1.7 x10^3/uL (1.0-4.8) Monocytes # (Auto) 2.9 x10^3/uL (0.0-1.1) Eosinophils # (Auto) 0.0 x10^3/uL (0.0-0.7) Basophils # (Auto) 0.1 x10^3/uL (0.0-0.2) Sodium Level 135 mmol/L (136-145) Potassium Level 4.8 mmol/L (3.5-5.1) Chloride Level 103 mmol/L (98-107) Carbon Dioxide Level 19 mmol/L (21-32) Anion Gap 13 (6-14) Blood Urea Nitrogen 32 mg/dL (7-20) Creatinine 5.9 mg/dL (0.6-1.0) Estimated GFR (Cockcroft-Gault) 9.0 Glucose Level 106 mg/dL (70-99) Lactic Acid Level 0.6 mmol/L (0.4-2.0) Calcium Level 8.4 mg/dL (8.5-10.1) Total Bilirubin 0.7 mg/dL (0.2-1.0) Direct Bilirubin 0.4 mg/dL (0.0-0.2) Aspartate Amino Transf (AST/SGOT) 39 U/L (15-37) Alanine Aminotransferase (ALT/SGPT) 24 U/L (14-59) Alkaline Phosphatase 185 U/L (46-116) Total Protein 7.3 g/dL (6.4-8.2) Albumin 2.8 g/dL (3.4-5.0) Laboratory Tests Test 8/29/18 05:10 White Blood Count 31.0 x10^3/uL (4.0-11.0) Red Blood Count 2.53 x10^6/uL (3.50-5.40) Hemoglobin 8.1 g/dL (12.0-15.5) Hematocrit 24.7 % (36.0-47.0) Mean Corpuscular Volume 98 fL (79-100) Mean Corpuscular Hemoglobin 32 pg (25-35) Mean Corpuscular Hemoglobin Concent 33 g/dL (31-37) Red Cell Distribution Width 15.7 % (11.5-14.5) Platelet Count 236 x10^3/uL (140-400) Neutrophils (%) (Auto) 85 % (31-73) Lymphocytes (%) (Auto) 5 % (24-48) Monocytes (%) (Auto) 9 % (0-9) Eosinophils (%) (Auto) 0 % (0-3) Basophils (%) (Auto) 0 % (0-3) Neutrophils # (Auto) 26.4 x10^3uL (1.8-7.7) Lymphocytes # (Auto) 1.7 x10^3/uL (1.0-4.8) Monocytes # (Auto) 2.9 x10^3/uL (0.0-1.1) Eosinophils # (Auto) 0.0 x10^3/uL (0.0-0.7) Basophils # (Auto) 0.1 x10^3/uL (0.0-0.2) Sodium Level 135 mmol/L (136-145) Potassium Level 4.8 mmol/L (3.5-5.1) Chloride Level 103 mmol/L (98-107) Carbon Dioxide Level 19 mmol/L (21-32) Anion Gap 13 (6-14) Blood Urea Nitrogen 32 mg/dL (7-20) Creatinine 5.9 mg/dL (0.6-1.0) Estimated GFR (Cockcroft-Gault) 9.0 Glucose Level 106 mg/dL (70-99) Lactic Acid Level 0.6 mmol/L (0.4-2.0) Calcium Level 8.4 mg/dL (8.5-10.1) Total Bilirubin 0.7 mg/dL (0.2-1.0) Direct Bilirubin 0.4 mg/dL (0.0-0.2) Aspartate Amino Transf (AST/SGOT) 39 U/L (15-37) Alanine Aminotransferase (ALT/SGPT) 24 U/L (14-59) Alkaline Phosphatase 185 U/L (46-116) Total Protein 7.3 g/dL (6.4-8.2) Albumin 2.8 g/dL (3.4-5.0) Images Images GB US reviewed Assessment/Plan Assessment/Plan pneumonia sepsis ESRD on HD hypotension not sure GB is source of sepsis HIDA scan is an option although her current medical status would make surgical intervention hazardous consider IR for cholecystostomy tube if HIDA suggests acute cholecystitis will follow Thanks for consult will d/w NATHEN Zavala MD Apr 02, 2018 14:16
[2018-04-02] MEDS: NOREPINEPHRIN 8MG/250ML PREMIX 250 ML IV PRN (16:30)
[2018-04-02] MEDS ORDERED: DARBEPOETIN ALFA 60 MCG/0.3 ML DISP.SYRIN. SQ SCH (21:00)
[2018-04-03] VITALS (21 sets, daily range): BP systolic 94–161; BP diastolic 46–72
[2018-04-03] MEDS: NOREPINEPHRIN 8MG/250ML PREMIX 250 ML IV PRN (00:41)
[2018-04-03 07:09] LABS: BASO # 0.1 x10^3/uL (0.0-0.2); BASO % 0 % (0-3); EOS % 0 % (0-3); HEMATOCRIT 23.8 % (36.0-47.0); HEMOGLOBIN 7.7 g/dL (12.0-15.5); LYMPH # 2.3 x10^3/uL (1.0-4.8); LYMPH % 7 % (24-48); MEAN CORPUSCULAR HEMOGLOBIN 32 pg (25-35); MEAN CORPUSCULAR HGB CONC 32 g/dL (31-37); MEAN CORPUSCULAR VOLUME 98 fL (79-100); MONO # 2.7 x10^3/uL (0.0-1.1); MONO % 8 % (0-9); NEUT # 27.3 x10^3uL (1.8-7.7); NEUT % 84 % (31-73); PLATELET COUNT 224 x10^3/uL (140-400); RED BLOOD COUNT 2.42 x10^6/uL (3.50-5.40); RED CELL DISTRIBUTION WIDTH 16.2 % (11.5-14.5); WHITE BLOOD COUNT 32.4 x10^3/uL (4.0-11.0)
[2018-04-03 07:19] LABS: ALBUMIN 2.1 g/dL (3.4-5.0); ALBUMIN/GLOBULIN RATIO 0.5 (1.0-1.7); CALCIUM 7.7 mg/dL (8.5-10.1); CREATININE 7.5 mg/dL (0.6-1.0); GFR 6.8; MAGNESIUM 2.1 mg/dL (1.8-2.4); PHOSPHORUS 3.8 mg/dL (2.6-4.7); POTASSIUM 4.3 mmol/L (3.5-5.1); TOTAL BILIRUBIN 0.3 mg/dL (0.2-1.0); TOTAL PROTEIN 6.5 g/dL (6.4-8.2)
[2018-04-03] MEDS: PANTOPRAZOLE 40 MG TABLET.DR. PO SCH ×2 (07:30→18:26)
--- NOTE | 2018-04-03 07:45 | PDOC ---
Infectious Disease Note Subjective: Subjective Pt says has abdominal pain had a bm this am,soft not liquid off pressors no nausea or vomiting ROS: ROS Negative except for above. Vital Signs: Vital Signs Vital Signs Date Time Temp Pulse Resp B/P (MAP) Pulse Ox O2 Delivery O2 Flow Rate FiO2 04/03/18 05:15 94/46 (62) 04/03/18 05:04 80 14 96 Nasal Cannula 2.0 04/03/18 04:00 98.6 98.6 Physical Exam: PHYSICAL EXAM GENERAL: thin alert awake in nad HEENT: Normocephalic, atraumatic. Sclerae are muddy. No thrush. NECK: Supple, no JVD. LUNGS: Decreased breath sound at the bases. A few scattered rhonchi. HEART: S1, S2, RRR. No murmurs. ABDOMEN: Thin, soft, bowel sounds present. Mildly tender in both upper quadrant and lower quadrant. EXTREMITIES: No edema, no cyanosis. thin DERM: Dry skin. No generalized rash. No skin breakdown noted or ulcerations noted. 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 grossly PSYCHIATRIC: cooperative Medications: Inpatient Meds: Current Medications Medications (Trade) Dose Ordered Sig/Carmenza Start Time Stop Time Status Last Admin Dose Admin Albuterol Sulfate (Ventolin Neb Soln) 2.5 mg PRN Q4HRS PRN 04/01/18 12:30 04/01/18 12:35 2.5 MG Albuterol/ Ipratropium (Duoneb) 3 ml RTQID 04/01/18 16:00 04/02/18 19:38 3 ML Amlodipine Besylate (Norvasc) 10 mg DAILY 04/01/18 13:00 Budesonide (Pulmicort) 0.5 mg RTBID 04/01/18 20:00 04/02/18 19:38 0.5 MG Carvedilol (Coreg) 25 mg BIDWMEALS 04/01/18 17:00 Darbepoetin Norris (Aranesp) 60 mcg WEEKLYHS 04/02/18 21:00 04/02/18 21:20 60 MCG Diclofenac Sodium (Voltaren) 1 garrison BID 04/01/18 21:00 04/02/18 12:12 1 GARRISON Fentanyl Citrate (Fentanyl 2ml Vial) 25 mcg PRN Q2HR PRN 04/01/18 12:15 04/02/18 11:58 DC 04/02/18 05:31 25 MCG Guaifenesin (Robitussin Dm) 10 ml PRN Q6HRS PRN 04/01/18 12:15 Guaifenesin/ Codeine Phosphate (Robitussin Ac) 5 ml PRN Q6HRS PRN 04/01/18 12:30 Heparin Sodium (Porcine) (Heparin Sq) 5,000 unit Q8HRS 04/01/18 14:00 04/02/18 16:00 5,000 UNIT Info (PHARMACY MONITORING -- do not chart) 1 each PRN DAILY PRN 04/01/18 13:00 04/01/18 13:00 DC Lactobacillus Rhamnosus (Culturelle) 1 cap BID 04/01/18 21:00 04/02/18 21:20 1 CAP Lisinopril (Prinivil) 20 mg DAILY 04/01/18 13:00 Meropenem 500 mg/ Sodium Chloride 50 ml @ 100 mls/hr DAILY 04/02/18 12:00 04/02/18 12:12 100 MLS/HR Norepinephrine Bitartrate 250 ml @ 1.875 mls/ hr CONT PRN 04/01/18 22:15 04/03/18 00:41 33.75 MLS/HR Ondansetron HCl (Zofran) 4 mg PRN Q6HRS PRN 04/01/18 12:15 Oxycodone HCl (Roxicodone) 20 mg PRN Q4HRS PRN 04/01/18 12:30 04/02/18 11:56 DC 04/02/18 08:10 20 MG Pantoprazole Sodium (Protonix) 40 mg BIDAC 04/02/18 07:30 04/02/18 15:59 40 MG Piperacillin Sod/ Tazobactam Sod (Zosyn Per Pharmacy) 1 each PRN DAILY PRN 04/01/18 12:15 04/02/18 09:21 DC Piperacillin Sod/ Tazobactam Sod 2.25 gm/Sodium Chloride 50 ml @ 100 mls/hr Q6HRS 04/01/18 18:00 04/02/18 09:21 DC 04/02/18 05:30 100 MLS/HR Piperacillin Sod/ Tazobactam Sod 3.375 gm/Sodium Chloride 50 ml @ 100 mls/hr 1X ONCE 04/01/18 09:15 04/01/18 09:44 DC 04/01/18 09:23 100 MLS/HR Prednisone (Prednisone) 10 mg DAILY 04/01/18 13:00 04/02/18 08:10 10 MG Sodium Polystyrene Sulfonate (Kayexalate) 15 gm 1X ONCE 04/01/18 12:30 04/01/18 12:31 DC Sodium Chloride 1,000 ml @ 1,000 mls/hr Q1H PRN 04/01/18 12:50 04/01/18 18:54 DC Tramadol HCl (Ultram) 50 mg PRN Q6HRS PRN 04/01/18 12:15 04/02/18 11:56 DC Vancomycin HCl (Vanco Per Pharmacy) 1 each PRN DAILY PRN 04/01/18 13:45 04/02/18 09:21 DC 04/01/18 13:49 1 EACH Vancomycin HCl 1.25 gm/Sodium Chloride 250 ml @ 167 mls/hr ONCE ONCE 04/01/18 14:00 04/01/18 15:29 DC 04/01/18 18:03 167 MLS/HR Labs: Lab Laboratory Tests Test 04/03/18 06:45 White Blood Count 32.4 x10^3/uL (4.0-11.0) Red Blood Count 2.42 x10^6/uL (3.50-5.40) Hemoglobin 7.7 g/dL (12.0-15.5) Hematocrit 23.8 % (36.0-47.0) Mean Corpuscular Volume 98 fL (79-100) Mean Corpuscular Hemoglobin 32 pg (25-35) Mean Corpuscular Hemoglobin Concent 32 g/dL (31-37) Red Cell Distribution Width 16.2 % (11.5-14.5) Platelet Count 224 x10^3/uL (140-400) Neutrophils (%) (Auto) 84 % (31-73) Lymphocytes (%) (Auto) 7 % (24-48) Monocytes (%) (Auto) 8 % (0-9) Eosinophils (%) (Auto) 0 % (0-3) Basophils (%) (Auto) 0 % (0-3) Neutrophils # (Auto) 27.3 x10^3uL (1.8-7.7) Lymphocytes # (Auto) 2.3 x10^3/uL (1.0-4.8) Monocytes # (Auto) 2.7 x10^3/uL (0.0-1.1) Eosinophils # (Auto) 0.0 x10^3/uL (0.0-0.7) Basophils # (Auto) 0.1 x10^3/uL (0.0-0.2) Sodium Level 139 mmol/L (136-145) Potassium Level 4.3 mmol/L (3.5-5.1) Chloride Level 108 mmol/L (98-107) Carbon Dioxide Level 20 mmol/L (21-32) Anion Gap 11 (6-14) Blood Urea Nitrogen 49 mg/dL (7-20) Creatinine 7.5 mg/dL (0.6-1.0) Estimated GFR (Cockcroft-Gault) 6.8 BUN/Creatinine Ratio 7 (6-20) Glucose Level 105 mg/dL (70-99) Calcium Level 7.7 mg/dL (8.5-10.1) Phosphorus Level 3.8 mg/dL (2.6-4.7) Magnesium Level 2.1 mg/dL (1.8-2.4) Total Bilirubin 0.3 mg/dL (0.2-1.0) Gamma Glutamyl Transpeptidase 225 U/L (5-55) Aspartate Amino Transf (AST/SGOT) 27 U/L (15-37) Alanine Aminotransferase (ALT/SGPT) 20 U/L (14-59) Alkaline Phosphatase 153 U/L (46-116) Total Protein 6.5 g/dL (6.4-8.2) Albumin 2.1 g/dL (3.4-5.0) Albumin/Globulin Ratio 0.5 (1.0-1.7) Micro BC 1/4 GNR ID and SUSIE pending Objective: Assessment: 1. Gram neg bacteremia,source likely GI, ID and SUSIE pending 2. Fever and Leukocytosis. fever resolved 3. End-stage renal disease, on hemodialysis with noncompliance. 4. Cirrhosis. 5. Anemia with recent 2 units of packed RBC given during last hospitalization. 6. History of smoking. 7. History of dyspnea. 8. Increased BNP, increased troponin. 9. abn gb, Abdominal pain 10. Perihilar interstitial pulmonary infiltrates. Plan: Plan of Care 1. cont merrem. add empiric zyvox 2. f/u CT abdomen 3. Follow up cultures and lab in a.m. 4. Continue supportive care. 5. Gen surgery following Discussed with RN. JOSÉ MIGUEL MARTIN MD Apr 03, 2018 07:45
[2018-04-03] MEDS: CARVEDILOL 12.5 MG TABLET. PO SCH ×2 (08:00→18:26)
[2018-04-03] MEDS ORDERED: DIALYSIS PATIENT. MC PRN ×2 (08:15)
[2018-04-03] MEDS: IPRATRPIUM/ALBUTEROL 0.5/2.5MG 3 ML NEBU. NEB SCH ×4 (08:38→20:00)
[2018-04-03] MEDS: BUDESONIDE 0.5 MG/2 ML NEBU. NEB SCH ×2 (08:39→20:00)
--- NOTE | 2018-04-03 08:47 | PDOC ---
PROGRESS NOTES History of Present Illness History of Present Illness Assessment/Plan Assessment/Plan Sepsis POA GRAM NEG RODS on one blood culture ESRD on dialysis Hyperkalemia Elevated anion gap acidosis Metabolic encephalopathy with normal lactate Cirrhosis Noncompliance Fever, lethargy hx alcohol and substance abuse cocaine abuse abnormal gb sono with ruq discomfort hypocalcemia PLAN: replace ca per renal consult GI HIDA CT ABD, CHEST/Pelvis gen surg consult reviewed ICU monitoring Renal following hold narcotics due to somnolence Blood cultures noted pos empiric Zosyn, PT OT renal diet educated on noncompliance urine drug screen repeat blood cult today poor prognosis due to hx substance abuse cc 32 min Vitals Vitals Vital Signs Date Time Temp Pulse Resp B/P (MAP) Pulse Ox O2 Delivery O2 Flow Rate FiO2 04/03/18 08:43 94 Nasal Cannula 2.0 04/03/18 05:15 94/46 (62) 04/03/18 05:04 80 14 04/03/18 04:00 98.6 98.6 Physical Exam Physical Exam GENERAL: Lethargic female, arousable, answers a few questions, in no acute distress. HEENT: Normocephalic, atraumatic. Sclerae are muddy. No thrush. NECK: Supple, no JVD. LUNGS: Decreased breath sound at the bases. A few scattered rhonchi. HEART: S1, S2, RRR. No murmurs. ABDOMEN: Thin, soft, bowel sounds present. Mildly tender in both upper quadrant and lower quadrant. EXTREMITIES: No edema, no cyanosis. Cachexia. DERM: Dry skin. No generalized rash. No skin breakdown noted or ulcerations noted. 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 Comparison: 04/01/2018 Clinical Indication: sepsis. Findings: Single upright portable exam performed. Heart and mediastinal contours are stable. Right internal jugular catheter in place, unchanged. There is patchy and linear perihilar and right basilar opacity, not significantly changed given differences in technique. No new infiltrate or pneumothorax. Impression: No significant interval change compared to 04/01/2018. Electronically signed by: Marty Williamson MD (04/03/2018 9:46 AM) [id number] DICTATED and SIGNED BY: MARTY WILLIAMSON MD DATE: 04/03/18 0945 PATIENT: KESHA PERKINS ACCT: [id number] LOC: 1 [facility] ICU U : [id number] AGE/SX: 52/F ROOM: [facility] REG : 04/01/[address]: SANJANA HENRY MD : 1965 BED: 1 DIS : STATUS: ADM IN TLOC: SPEC #: [id number] SHARONA: 04/01/18 STATUS: COMP REQ #: [id number] RECD: 04/01/18-4 [facility] DR: SANJANA HENRY MD SOURCE: BLOOD ENTR: 04/01/18-[address] [facility] [address]: SHARAD COULTER MD [facility]: CONG MARTIN MD, VENU S MD ORDERED: BCULT Procedure Result BLOOD CULTURE Final GRAM NEGATIVE RODS IN 1 OF 4 BOTTLES (2 SETS DRAWN). [facility] BY Nila MCCULLOUGH. CULTURE HAS BEEN SENT TO [facility] FOR FURTHER IDENTIFICATION. Laboratory Tests Test 04/03/18 06:45 White Blood Count 32.4 x10^3/uL (4.0-11.0) Red Blood Count 2.42 x10^6/uL (3.50-5.40) Hemoglobin 7.7 g/dL (12.0-15.5) Hematocrit 23.8 % (36.0-47.0) Mean Corpuscular Volume 98 fL (79-100) Mean Corpuscular Hemoglobin 32 pg (25-35) Mean Corpuscular Hemoglobin Concent 32 g/dL (31-37) Red Cell Distribution Width 16.2 % (11.5-14.5) Platelet Count 224 x10^3/uL (140-400) Neutrophils (%) (Auto) 84 % (31-73) Lymphocytes (%) (Auto) 7 % (24-48) Monocytes (%) (Auto) 8 % (0-9) Eosinophils (%) (Auto) 0 % (0-3) Basophils (%) (Auto) 0 % (0-3) Neutrophils # (Auto) 27.3 x10^3uL (1.8-7.7) Lymphocytes # (Auto) 2.3 x10^3/uL (1.0-4.8) Monocytes # (Auto) 2.7 x10^3/uL (0.0-1.1) Eosinophils # (Auto) 0.0 x10^3/uL (0.0-0.7) Basophils # (Auto) 0.1 x10^3/uL (0.0-0.2) Sodium Level 139 mmol/L (136-145) Potassium Level 4.3 mmol/L (3.5-5.1) Chloride Level 108 mmol/L (98-107) Carbon Dioxide Level 20 mmol/L (21-32) Anion Gap 11 (6-14) Blood Urea Nitrogen 49 mg/dL (7-20) Creatinine 7.5 mg/dL (0.6-1.0) Estimated GFR (Cockcroft-Gault) 6.8 BUN/Creatinine Ratio 7 (6-20) Glucose Level 105 mg/dL (70-99) Calcium Level 7.7 mg/dL (8.5-10.1) Phosphorus Level 3.8 mg/dL (2.6-4.7) Magnesium Level 2.1 mg/dL (1.8-2.4) Total Bilirubin 0.3 mg/dL (0.2-1.0) Gamma Glutamyl Transpeptidase 225 U/L (5-55) Aspartate Amino Transf (AST/SGOT) 27 U/L (15-37) Alanine Aminotransferase (ALT/SGPT) 20 U/L (14-59) Alkaline Phosphatase 153 U/L (46-116) Total Protein 6.5 g/dL (6.4-8.2) Albumin 2.1 g/dL (3.4-5.0) Albumin/Globulin Ratio 0.5 (1.0-1.7) Assessment and Plan Assessmemt and Plan Problems Medical Problems: (1) Altered mental status Status: Acute (2) Dyspnea Status: Acute (3) ESRD (end stage renal disease) on dialysis Status: Acute (4) Noncompliance Status: Acute Comment Review of Relevant I have reviewed the following items issac (where applicable) has been applied. Labs Laboratory Tests Test 04/01/18 09:03 04/01/18 09:15 04/01/18 09:25 04/01/18 10:40 O2 Saturation 91 % (92-99) Arterial Blood pH 7.29 (7.35-7.45) Arterial Blood pCO2 at Patient Temp 46 mmHg (35-46) Arterial Blood pO2 at Patient Temp 64 mmHg (75-108) Arterial Blood HCO3 22 mmol/L (21-28) Arterial Blood Base Excess -5 mmol/L (-3-3) FiO2 36 White Blood Count 21.3 x10^3/uL (4.0-11.0) Red Blood Count 3.19 x10^6/uL (3.50-5.40) Hemoglobin 10.0 g/dL (12.0-15.5) Hematocrit 30.8 % (36.0-47.0) Mean Corpuscular Volume 97 fL (79-100) Mean Corpuscular Hemoglobin 32 pg (25-35) Mean Corpuscular Hemoglobin Concent 33 g/dL (31-37) Red Cell Distribution Width 16.0 % (11.5-14.5) Platelet Count 300 x10^3/uL (140-400) Neutrophils (%) (Auto) 86 % (31-73) Lymphocytes (%) (Auto) 5 % (24-48) Monocytes (%) (Auto) 9 % (0-9) Eosinophils (%) (Auto) 0 % (0-3) Basophils (%) (Auto) 0 % (0-3) Neutrophils # (Auto) 18.3 x10^3uL (1.8-7.7) Lymphocytes # (Auto) 1.0 x10^3/uL (1.0-4.8) Monocytes # (Auto) 1.9 x10^3/uL (0.0-1.1) Eosinophils # (Auto) 0.0 x10^3/uL (0.0-0.7) Basophils # (Auto) 0.1 x10^3/uL (0.0-0.2) Segmented Neutrophils % 63 % (35-66) Band Neutrophils % 22 % (0-9) Lymphocytes % 7 % (24-48) Monocytes % 7 % (0-10) Metamyelocytes % 1 % (0-0) Toxic Granulation Slight Platelet Estimate Adequate (ADEQUATE) Anisocytosis Slight Prothrombin Time 13.7 SEC (11.7-14.0) Prothromb Time International Ratio 1.1 (0.8-1.1) Sodium Level 135 mmol/L (136-145) Potassium Level 5.0 mmol/L (3.5-5.1) Chloride Level 98 mmol/L (98-107) Carbon Dioxide Level 23 mmol/L (21-32) Anion Gap 14 (6-14) 17 mmol/L (6-14) Blood Urea Nitrogen 73 mg/dL (7-20) Creatinine 11.6 mg/dL (0.6-1.0) Estimated GFR (Cockcroft-Gault) 4.1 BUN/Creatinine Ratio 6 (6-20) Glucose Level 121 mg/dL (70-99) 117 mg/dL (70-99) Lactic Acid Level 1.2 mmol/L (0.4-2.0) Calcium Level 7.7 mg/dL (8.5-10.1) Magnesium Level 1.8 mg/dL (1.8-2.4) Total Bilirubin 0.6 mg/dL (0.2-1.0) Aspartate Amino Transf (AST/SGOT) 51 U/L (15-37) Alanine Aminotransferase (ALT/SGPT) 33 U/L (14-59) Alkaline Phosphatase 259 U/L (46-116) Ammonia 14 mcmol/L (11-34) Creatine Kinase 299 U/L (26-192) Creatine Kinase MB (Mass) 8.6 ng/mL (0.0-3.6) Creatine Kinase MB Relative Index 2.9 % (0-4) Troponin I Quantitative 0.060 ng/mL (0.000-0.055) XS-Mdb-M-Type Natriuretic Peptide > 15971 pg/mL (0-124) Total Protein 8.0 g/dL (6.4-8.2) Albumin 2.9 g/dL (3.4-5.0) Albumin/Globulin Ratio 0.6 (1.0-1.7) Lipase 147 U/L (73-393) Thyroid Stimulating Hormone (TSH) 0.473 uIU/mL (0.358-3.74) Free Thyroxine 1.20 ng/dL (0.76-1.46) Ethyl Alcohol Level < 10 mg/dL (0-10) Bedside Hemoglobin 9.5 g/dL (12-15) Bedside Hematocrit 28 % (36-40) Bedside Sodium 138 mmol/L (135-145) Bedside Potassium 5.1 mmol/L (3.5-5.0) Bedside Chloride 105 mmol/L (98-110) Bedside Total CO2 23 mmol/L (23-32) Bedside Blood Urea Nitrogen 63 mg/dL (8-26) Bedside Creatinine 11.0 mg/dL (0.5-1.4) Bedside Ionized Calcium ([place]) 0.92 mmol/L (1.13-1.32) Urine Collection Type U cath Urine Color [place] Urine Clarity Clear Urine pH 5.5 Urine Specific [place] 1.025 Urine Protein 100 mg/dL (NEG-TRACE) Urine Glucose (UA) Negative mg/dL (NEG) Urine Ketones (Stick) Negative mg/dL (NEG) Urine Blood Negative (NEG) Urine Nitrite Negative (NEG) Urine Bilirubin Small (NEG) Urine Urobilinogen Dipstick 0.2 mg/dL (0.2 mg/dL) Urine Leukocyte Esterase Small (NEG) Urine RBC Occ /HPF (0-2) Urine WBC 1-4 /HPF (0-4) Urine Squamous Epithelial Cells Mod /LPF Urine Bacteria Few /HPF (0-FEW) Urine Mucus Slight /LPF Stool Occult Blood Negative (NEG) Test 04/01/18 13:50 04/02/18 05:10 04/03/18 06:45 Nasal Screen MRSA (PCR) Negative (Negative) White Blood Count 31.0 x10^3/uL (4.0-11.0) 32.4 x10^3/uL (4.0-11.0) Red Blood Count 2.53 x10^6/uL (3.50-5.40) 2.42 x10^6/uL (3.50-5.40) Hemoglobin 8.1 g/dL (12.0-15.5) 7.7 g/dL (12.0-15.5) Hematocrit 24.7 % (36.0-47.0) 23.8 % (36.0-47.0) Mean Corpuscular Volume 98 fL (79-100) 98 fL (79-100) Mean Corpuscular Hemoglobin 32 pg (25-35) 32 pg (25-35) Mean Corpuscular Hemoglobin Concent 33 g/dL (31-37) 32 g/dL (31-37) Red Cell Distribution Width 15.7 % (11.5-14.5) 16.2 % (11.5-14.5) Platelet Count 236 x10^3/uL (140-400) 224 x10^3/uL (140-400) Neutrophils (%) (Auto) 85 % (31-73) 84 % (31-73) Lymphocytes (%) (Auto) 5 % (24-48) 7 % (24-48) Monocytes (%) (Auto) 9 % (0-9) 8 % (0-9) Eosinophils (%) (Auto) 0 % (0-3) 0 % (0-3) Basophils (%) (Auto) 0 % (0-3) 0 % (0-3) Neutrophils # (Auto) 26.4 x10^3uL (1.8-7.7) 27.3 x10^3uL (1.8-7.7) Lymphocytes # (Auto) 1.7 x10^3/uL (1.0-4.8) 2.3 x10^3/uL (1.0-4.8) Monocytes # (Auto) 2.9 x10^3/uL (0.0-1.1) 2.7 x10^3/uL (0.0-1.1) Eosinophils # (Auto) 0.0 x10^3/uL (0.0-0.7) 0.0 x10^3/uL (0.0-0.7) Basophils # (Auto) 0.1 x10^3/uL (0.0-0.2) 0.1 x10^3/uL (0.0-0.2) Sodium Level 135 mmol/L (136-145) 139 mmol/L (136-145) Potassium Level 4.8 mmol/L (3.5-5.1) 4.3 mmol/L (3.5-5.1) Chloride Level 103 mmol/L (98-107) 108 mmol/L (98-107) Carbon Dioxide Level 19 mmol/L (21-32) 20 mmol/L (21-32) Anion Gap 13 (6-14) 11 (6-14) Blood Urea Nitrogen 32 mg/dL (7-20) 49 mg/dL (7-20) Creatinine 5.9 mg/dL (0.6-1.0) 7.5 mg/dL (0.6-1.0) Estimated GFR (Cockcroft-Gault) 9.0 6.8 Glucose Level 106 mg/dL (70-99) 105 mg/dL (70-99) Lactic Acid Level 0.6 mmol/L (0.4-2.0) Calcium Level 8.4 mg/dL (8.5-10.1) 7.7 mg/dL (8.5-10.1) Total Bilirubin 0.7 mg/dL (0.2-1.0) 0.3 mg/dL (0.2-1.0) Direct Bilirubin 0.4 mg/dL (0.0-0.2) Aspartate Amino Transf (AST/SGOT) 39 U/L (15-37) 27 U/L (15-37) Alanine Aminotransferase (ALT/SGPT) 24 U/L (14-59) 20 U/L (14-59) Alkaline Phosphatase 185 U/L (46-116) 153 U/L (46-116) Total Protein 7.3 g/dL (6.4-8.2) 6.5 g/dL (6.4-8.2) Albumin 2.8 g/dL (3.4-5.0) 2.1 g/dL (3.4-5.0) BUN/Creatinine Ratio 7 (6-20) Phosphorus Level 3.8 mg/dL (2.6-4.7) Magnesium Level 2.1 mg/dL (1.8-2.4) Gamma Glutamyl Transpeptidase 225 U/L (5-55) Albumin/Globulin Ratio 0.5 (1.0-1.7) Laboratory Tests Test 04/03/18 06:45 White Blood Count 32.4 x10^3/uL (4.0-11.0) Red Blood Count 2.42 x10^6/uL (3.50-5.40) Hemoglobin 7.7 g/dL (12.0-15.5) Hematocrit 23.8 % (36.0-47.0) Mean Corpuscular Volume 98 fL (79-100) Mean Corpuscular Hemoglobin 32 pg (25-35) Mean Corpuscular Hemoglobin Concent 32 g/dL (31-37) Red Cell Distribution Width 16.2 % (11.5-14.5) Platelet Count 224 x10^3/uL (140-400) Neutrophils (%) (Auto) 84 % (31-73) Lymphocytes (%) (Auto) 7 % (24-48) Monocytes (%) (Auto) 8 % (0-9) Eosinophils (%) (Auto) 0 % (0-3) Basophils (%) (Auto) 0 % (0-3) Neutrophils # (Auto) 27.3 x10^3uL (1.8-7.7) Lymphocytes # (Auto) 2.3 x10^3/uL (1.0-4.8) Monocytes # (Auto) 2.7 x10^3/uL (0.0-1.1) Eosinophils # (Auto) 0.0 x10^3/uL (0.0-0.7) Basophils # (Auto) 0.1 x10^3/uL (0.0-0.2) Sodium Level 139 mmol/L (136-145) Potassium Level 4.3 mmol/L (3.5-5.1) Chloride Level 108 mmol/L (98-107) Carbon Dioxide Level 20 mmol/L (21-32) Anion Gap 11 (6-14) Blood Urea Nitrogen 49 mg/dL (7-20) Creatinine 7.5 mg/dL (0.6-1.0) Estimated GFR (Cockcroft-Gault) 6.8 BUN/Creatinine Ratio 7 (6-20) Glucose Level 105 mg/dL (70-99) Calcium Level 7.7 mg/dL (8.5-10.1) Phosphorus Level 3.8 mg/dL (2.6-4.7) Magnesium Level 2.1 mg/dL (1.8-2.4) Total Bilirubin 0.3 mg/dL (0.2-1.0) Gamma Glutamyl Transpeptidase 225 U/L (5-55) Aspartate Amino Transf (AST/SGOT) 27 U/L (15-37) Alanine Aminotransferase (ALT/SGPT) 20 U/L (14-59) Alkaline Phosphatase 153 U/L (46-116) Total Protein 6.5 g/dL (6.4-8.2) Albumin 2.1 g/dL (3.4-5.0) Albumin/Globulin Ratio 0.5 (1.0-1.7) Microbiology 04/02/18 Blood Culture - Preliminary, Resulted NO GROWTH AFTER 1 DAY Medications Current Medications Piperacillin Sod/ Tazobactam Sod 3.375 gm/Sodium Chloride 50 ml @ 100 mls/hr 1X ONCE IV Last administered on 04/01/18at 09:23; Start 04/01/18 at 09:15; Stop 04/01/18 at 09:44; Status DC Piperacillin Sod/ Tazobactam Sod (Zosyn Per Pharmacy) 1 each PRN DAILY PRN MC SEE COMMENTS; Start 04/01/18 at 12:15; Stop 04/02/18 at 09:21; Status DC Ondansetron HCl (Zofran) 4 mg PRN Q6HRS PRN IV NAUSEA/VOMITING 1ST CHOICE; Start 04/01/18 at 12:15 Fentanyl Citrate (Fentanyl 2ml Vial) 25 mcg PRN Q2HR PRN IV PAIN MILD Last administered on 04/02/18at 05:31; Start 04/01/18 at 12:15; Stop 04/02/18 at 11:58 ; Status DC Albuterol/ Ipratropium (Duoneb) 3 ml RTQID NEB Last administered on 04/03/18at 08:38; Start 04/01/18 at 16:00 Guaifenesin (Robitussin Dm) 10 ml PRN Q6HRS PRN PO COUGH 1ST CHOICE; Start at 12:15 Heparin Sodium (Porcine) (Heparin Sq) 5,000 unit Q8HRS SQ Last administered on 04/02/18at 16:00; Start 04/01/18 at 14:00 Amlodipine Besylate (Norvasc) 10 mg DAILY PO ; Start 04/01/18 at 13:00 Diclofenac Sodium (Voltaren) 1 chris BID TP Last administered on 04/02/18at 12:12 ; Start 04/01/18 at 21:00 Lisinopril (Prinivil) 20 mg DAILY PO ; Start 04/01/18 at 13:00 Prednisone (Prednisone) 10 mg DAILY PO Last administered on 04/02/18at 08:10; Start 04/01/18 at 13:00 Tramadol HCl (Ultram) 50 mg PRN Q6HRS PRN PO PAIN MILD-MODERATE; Start at 12:15; Stop 04/02/18 at 11:56; Status DC Carvedilol (Coreg) 25 mg BIDWMEALS PO ; Start 04/01/18 at 17:00 Budesonide (Pulmicort) 0.5 mg RTBID NEB Last administered on 04/03/18at 08:39; Start 04/01/18 at 20:00 Guaifenesin/ Codeine Phosphate (Robitussin Ac) 5 ml PRN Q6HRS PRN PO COUGH 2ND CHOICE; Start 04/01/18 at 12:30 Pantoprazole Sodium (Protonix) 40 mg BIDAC PO Last administered on 04/02/18at 15 :59; Start 04/02/18 at 07:30 Oxycodone HCl (Roxicodone) 20 mg PRN Q4HRS PRN PO PAIN SEVERE Last administered on 04/02/18at 08:10; Start 04/01/18 at 12:30; Stop 04/02/18 at 11:56 ; Status DC Sodium Polystyrene Sulfonate (Kayexalate) 15 gm 1X ONCE PO ; Start 04/01/18 at 12:30; Stop 04/01/18 at 12:31; Status DC Piperacillin Sod/ Tazobactam Sod 2.25 gm/Sodium Chloride 50 ml @ 100 mls/hr Q6HRS IV Last administered on 04/02/18at 05:30; Start 04/01/18 at 18:00; Stop at 09:21; Status DC Albuterol Sulfate (Ventolin Neb Soln) 2.5 mg PRN Q4HRS PRN NEB SHORTNESS OF BREATH Last administered on 04/01/18at 12:35; Start 04/01/18 at 12:30 Sodium Chloride 1,000 ml @ 1,000 mls/hr Q1H PRN IV hypotension; Start 04/01/18 at 12:50; Stop 04/01/18 at 18:54; Status DC Info (PHARMACY MONITORING -- do not chart) 1 each PRN DAILY PRN MC SEE COMMENTS ; Start 04/01/18 at 13:00 Info (PHARMACY MONITORING -- do not chart) 1 each PRN DAILY PRN MC SEE COMMENTS ; Start 04/01/18 at 13:00; Stop 04/01/18 at 13:00; Status DC Norepinephrine Bitartrate 250 ml @ 0 mls/hr 1X ONCE IV Last administered on at 13:23; Start 04/01/18 at 13:15; Stop 04/01/18 at 13:16; Status DC Vancomycin HCl (Vanco Per Pharmacy) 1 each PRN DAILY PRN MC SEE COMMENTS Last administered on 04/01/18at 13:49; Start 04/01/18 at 13:45; Stop 04/02/18 at 09:21 ; Status DC Vancomycin HCl 1.25 gm/Sodium Chloride 250 ml @ 167 mls/hr ONCE ONCE IV Last administered on 04/01/18at 18:03; Start 04/01/18 at 14:00; Stop 04/01/18 at 15:29 ; Status DC Lactobacillus Rhamnosus (Culturelle) 1 cap BID PO Last administered on at 21:20; Start 04/01/18 at 21:00 Norepinephrine Bitartrate 250 ml @ 1.875 mls/ hr CONT PRN IV SEE I/O RECORD Last administered on 04/03/18at 00:41; Start 04/01/18 at 22:15 Meropenem 500 mg/ Sodium Chloride 50 ml @ 100 mls/hr DAILY IV Last administered on 04/02/18at 12:12; Start 04/02/18 at 12:00 Darbepoetin Norris (Aranesp) 60 mcg WEEKLYHS SQ Last administered on 04/02/18at 21 :20; Start 04/02/18 at 21:00 Info (PHARMACY MONITORING -- do not chart) 1 each PRN DAILY PRN MC SEE COMMENTS ; Start 04/03/18 at 08:15; Status UNV Info (PHARMACY MONITORING -- do not chart) 1 each PRN DAILY PRN MC SEE COMMENTS ; Start 04/03/18 at 08:15; Status UNV Active Scripts Active Tramadol Hcl 50 Mg Tablet 50 Mg PO Q6HRS PRN Codeine-Guaifen 10-100 mg/5 ml (Guaifenesin/Codeine Phosphate) 120 Ml Liquid 5 Ml PO Q6HRS PRN Oxycodone Hcl 5 Mg Capsule 20 Mg PO PRN Q4HRS PRN Ambien (Zolpidem Tartrate) 10 Mg Tablet 1 Tab PO QHS Amox Tr-K Clv 500-125 Mg Tab (Amoxicillin/Potassium Clav) 1 Each Tablet 1 Tab PO BID Prednisone (Prednisone) 10 Mg Tablet 10 Mg PO UD Take 5 tablets by mouth daily for 2 days, then take 4 tablets by mouth daily for 2 days, then take 3 tablets by mouth daily for 2 days, then take 2 tablets by mouth daily for 2 days, then take 1 tablets by mouth daily for 2 days, then stop. Guaifenesin Dm Syrup (Guaifenesin/Dextromethorphan) 5 Ml Syrup 10 Ml PO QID Voltaren (Diclofenac Sodium) 100 Gm Gel..gram. 1 Chris TP BID 30 Days Amlodipine Besylate 10 Mg Tablet 10 Mg PO DAILY 30 Days Omeprazole 20 Mg Capsule.dr 1 Cap PO BID Duoneb 0.5-3(2.5) Mg/3 Ml (Albuterol/Ipratropium) 3 Ml Ampul.neb 3 Ml NEB RTQID 30 Days Advair 250-50 Diskus (Fluticasone/Salmeterol) 1 Puff Puff 1 Puff INH BID 30 Days Albuterol Sulfate Conc Neb Soln (Albuterol Sulfate) 2.5 Mg/0.5 Ml Vial.neb 1 Vial NEB Q4HRS PRN Reported Meloxicam 7.5 Mg Tablet 1 Tab PO DAILY Lisinopril 20 Mg Tablet 1 Tab PO DAILY Tramadol Hcl 50 Mg Tablet 50 Mg PO Q6H PRN Carvedilol 25 Mg Tablet 25 Mg PO BIDWMEALS Vitals/I & O Vital Sign - Last 24 Hours 04/02/18 04/02/18 04/02/18 04/02/18 09:00 09:17 09:30 10:00 Pulse 76 75 Resp 15 16 12 B/P (MAP) 80/40 (53) 95/45 (62) Pulse Ox 100 100 100 100 O2 Delivery Nasal Cannula Nasal Cannula Nasal Cannula Nasal Cannula O2 Flow Rate 2.0 5.0 3.0 04/02/18 04/02/18 04/02/18 04/02/18 11:00 12:00 12:00 12:00 Temp 98.7 98.7 Pulse 82 80 Resp 15 20 B/P (MAP) 90/46 (61) 107/52 (70) Pulse Ox 100 100 O2 Delivery Nasal Cannula Nasal Cannula Nasal Cannula O2 Flow Rate 2.0 2.0 2.0 2.0 04/02/18 04/02/18 04/02/18 04/02/18 13:00 13:05 14:00 15:00 Pulse 80 68 67 Resp 20 18 20 B/P (MAP) 107/52 (70) 77/40 (52) 82/46 (58) Pulse Ox 100 100 100 100 O2 Delivery Nasal Cannula Nasal Cannula Nasal Cannula Nasal Cannula O2 Flow Rate 2.0 2.0 2.0 2.0 04/02/18 04/02/18 04/02/18 04/02/18 16:00 16:00 16:00 17:00 Temp 98.6 98.6 Pulse 68 68 Resp 12 20 B/P (MAP) 95/49 (64) 99/50 (66) Pulse Ox 94 92 O2 Delivery Nasal Cannula Nasal Cannula Nasal Cannula O2 Flow Rate 2.0 2.0 2.0 2.0 04/02/18 04/02/18 04/02/18 04/02/18 18:00 19:00 19:40 19:40 Pulse 84 84 Resp 20 20 B/P (MAP) 94/50 (65) 119/53 (75) Pulse Ox 89 95 94 94 O2 Delivery Nasal Cannula Nasal Cannula Nasal Cannula Nasal Cannula O2 Flow Rate 2.0 2.0 2.0 2.0 04/02/18 04/02/18 04/02/18 04/02/18 20:00 20:02 21:14 22:05 Temp 98.3 98.3 Pulse 75 66 67 Resp 20 18 18 B/P (MAP) 93/47 (62) 92/47 (62) 96/47 (63) Pulse Ox 95 96 96 O2 Delivery Nasal Cannula Nasal Cannula Nasal Cannula Nasal Cannula O2 Flow Rate 2.0 2.0 2.0 2.0 04/02/18 04/02/18 04/03/18 04/03/18 23:03 23:48 00:00 00:15 Temp 98.1 98.1 Pulse 66 66 Resp 18 18 B/P (MAP) 101/53 (69) 134/66 (88) 136/60 (85) Pulse Ox 96 96 O2 Delivery Nasal Cannula Nasal Cannula Nasal Cannula O2 Flow Rate 2.0 2.0 2.0 04/03/18 04/03/18 04/03/18 04/03/18 00:30 01:00 02:00 02:59 Pulse 66 76 74 Resp 18 18 18 B/P (MAP) 121/58 (79) 109/52 (71) 102/50 (67) 103/51 (68) Pulse Ox 96 96 96 O2 Delivery Nasal Cannula Nasal Cannula Nasal Cannula O2 Flow Rate 2.0 2.0 2.0 04/03/18 04/03/18 04/03/18 04/03/18 03:15 03:45 04:00 04:00 Temp 98.6 98.6 Pulse 76 Resp 18 B/P (MAP) 97/47 (64) 113/55 (74) 98/52 (67) Pulse Ox 96 O2 Delivery Nasal Cannula Nasal Cannula O2 Flow Rate 2.0 2.0 04/03/18 04/03/18 04/03/18 04/03/18 04:15 05:04 05:15 08:43 Pulse 80 Resp 14 B/P (MAP) 94/49 (64) 102/48 (66) 94/46 (62) Pulse Ox 96 94 O2 Delivery Nasal Cannula Nasal Cannula O2 Flow Rate 2.0 2.0 Intake and Output 04/02/18 04/02/18 04/03/18 15:00 23:00 07:00 Intake Total 530 ml 298 ml 381.5 ml Output Total 0 ml 0 ml 0 ml Balance 530 ml 298 ml 381.5 ml Nutrition Consultation Dietary Evaluation: Recommendations by RD: Protein supplementation Comments: Continue w/renal diet Will add Nepro TID Expected Outcomes/Goals: PO intake to meet >75% est needs Diet education if pt appropriate Malnutrition Findings: Body Fat Depletion (Non Severe: Mild Depletion Weight Status: Appropriate GABRIELLE JOE MD Apr 03, 2018 08:47
[2018-04-03] MEDS ORDERED: LIDOCAINE 1% PF 2 ML VIAL. ONE (08:56)
--- NOTE | 2018-04-03 09:31 | PDOC ---
ELISABETH SHINE HEEL GUMMER 04/03/18 0931: SURGICAL PROGRESS NOTE Subjective pain all over some nausea Vital Signs Vital Signs Date Time Temp Pulse Resp B/P (MAP) Pulse Ox O2 Delivery O2 Flow Rate FiO2 04/03/18 08:43 94 Nasal Cannula 2.0 04/03/18 05:15 94/46 (62) 04/03/18 05:04 80 14 04/03/18 04:00 98.6 98.6 I&O Intake and Output 04/03/18 07:00 Intake Total 1209.5 ml Output Total 0 ml Balance 1209.5 ml Intake Oral 480 ml IV Total 729.5 ml Output Urine Total 0 ml General: Alert, Cooperative Abdomen: Soft, Other (diffusely ttp) Labs Laboratory Tests Test 04/01/18 10:40 04/01/18 13:50 04/02/18 05:10 04/03/18 06:45 Urine Collection Type U cath Urine Color [place] Urine Clarity Clear Urine pH 5.5 Urine Specific [place] 1.025 Urine Protein 100 mg/dL (NEG-TRACE) Urine Glucose (UA) Negative mg/dL (NEG) Urine Ketones (Stick) Negative mg/dL (NEG) Urine Blood Negative (NEG) Urine Nitrite Negative (NEG) Urine Bilirubin Small (NEG) Urine Urobilinogen Dipstick 0.2 mg/dL (0.2 mg/dL) Urine Leukocyte Esterase Small (NEG) Urine RBC Occ /HPF (0-2) Urine WBC 1-4 /HPF (0-4) Urine Squamous Epithelial Cells Mod /LPF Urine Bacteria Few /HPF (0-FEW) Urine Mucus Slight /LPF Stool Occult Blood Negative (NEG) Nasal Screen MRSA (PCR) Negative (Negative) White Blood Count 31.0 x10^3/uL (4.0-11.0) 32.4 x10^3/uL (4.0-11.0) Red Blood Count 2.53 x10^6/uL (3.50-5.40) 2.42 x10^6/uL (3.50-5.40) Hemoglobin 8.1 g/dL (12.0-15.5) 7.7 g/dL (12.0-15.5) Hematocrit 24.7 % (36.0-47.0) 23.8 % (36.0-47.0) Mean Corpuscular Volume 98 fL (79-100) 98 fL (79-100) Mean Corpuscular Hemoglobin 32 pg (25-35) 32 pg (25-35) Mean Corpuscular Hemoglobin Concent 33 g/dL (31-37) 32 g/dL (31-37) Red Cell Distribution Width 15.7 % (11.5-14.5) 16.2 % (11.5-14.5) Platelet Count 236 x10^3/uL (140-400) 224 x10^3/uL (140-400) Neutrophils (%) (Auto) 85 % (31-73) 84 % (31-73) Lymphocytes (%) (Auto) 5 % (24-48) 7 % (24-48) Monocytes (%) (Auto) 9 % (0-9) 8 % (0-9) Eosinophils (%) (Auto) 0 % (0-3) 0 % (0-3) Basophils (%) (Auto) 0 % (0-3) 0 % (0-3) Neutrophils # (Auto) 26.4 x10^3uL (1.8-7.7) 27.3 x10^3uL (1.8-7.7) Lymphocytes # (Auto) 1.7 x10^3/uL (1.0-4.8) 2.3 x10^3/uL (1.0-4.8) Monocytes # (Auto) 2.9 x10^3/uL (0.0-1.1) 2.7 x10^3/uL (0.0-1.1) Eosinophils # (Auto) 0.0 x10^3/uL (0.0-0.7) 0.0 x10^3/uL (0.0-0.7) Basophils # (Auto) 0.1 x10^3/uL (0.0-0.2) 0.1 x10^3/uL (0.0-0.2) Sodium Level 135 mmol/L (136-145) 139 mmol/L (136-145) Potassium Level 4.8 mmol/L (3.5-5.1) 4.3 mmol/L (3.5-5.1) Chloride Level 103 mmol/L (98-107) 108 mmol/L (98-107) Carbon Dioxide Level 19 mmol/L (21-32) 20 mmol/L (21-32) Anion Gap 13 (6-14) 11 (6-14) Blood Urea Nitrogen 32 mg/dL (7-20) 49 mg/dL (7-20) Creatinine 5.9 mg/dL (0.6-1.0) 7.5 mg/dL (0.6-1.0) Estimated GFR (Cockcroft-Gault) 9.0 6.8 Glucose Level 106 mg/dL (70-99) 105 mg/dL (70-99) Lactic Acid Level 0.6 mmol/L (0.4-2.0) Calcium Level 8.4 mg/dL (8.5-10.1) 7.7 mg/dL (8.5-10.1) Total Bilirubin 0.7 mg/dL (0.2-1.0) 0.3 mg/dL (0.2-1.0) Direct Bilirubin 0.4 mg/dL (0.0-0.2) Aspartate Amino Transf (AST/SGOT) 39 U/L (15-37) 27 U/L (15-37) Alanine Aminotransferase (ALT/SGPT) 24 U/L (14-59) 20 U/L (14-59) Alkaline Phosphatase 185 U/L (46-116) 153 U/L (46-116) Total Protein 7.3 g/dL (6.4-8.2) 6.5 g/dL (6.4-8.2) Albumin 2.8 g/dL (3.4-5.0) 2.1 g/dL (3.4-5.0) BUN/Creatinine Ratio 7 (6-20) Phosphorus Level 3.8 mg/dL (2.6-4.7) Magnesium Level 2.1 mg/dL (1.8-2.4) Gamma Glutamyl Transpeptidase 225 U/L (5-55) Albumin/Globulin Ratio 0.5 (1.0-1.7) Laboratory Tests Test 04/03/18 06:45 White Blood Count 32.4 x10^3/uL (4.0-11.0) Red Blood Count 2.42 x10^6/uL (3.50-5.40) Hemoglobin 7.7 g/dL (12.0-15.5) Hematocrit 23.8 % (36.0-47.0) Mean Corpuscular Volume 98 fL (79-100) Mean Corpuscular Hemoglobin 32 pg (25-35) Mean Corpuscular Hemoglobin Concent 32 g/dL (31-37) Red Cell Distribution Width 16.2 % (11.5-14.5) Platelet Count 224 x10^3/uL (140-400) Neutrophils (%) (Auto) 84 % (31-73) Lymphocytes (%) (Auto) 7 % (24-48) Monocytes (%) (Auto) 8 % (0-9) Eosinophils (%) (Auto) 0 % (0-3) Basophils (%) (Auto) 0 % (0-3) Neutrophils # (Auto) 27.3 x10^3uL (1.8-7.7) Lymphocytes # (Auto) 2.3 x10^3/uL (1.0-4.8) Monocytes # (Auto) 2.7 x10^3/uL (0.0-1.1) Eosinophils # (Auto) 0.0 x10^3/uL (0.0-0.7) Basophils # (Auto) 0.1 x10^3/uL (0.0-0.2) Sodium Level 139 mmol/L (136-145) Potassium Level 4.3 mmol/L (3.5-5.1) Chloride Level 108 mmol/L (98-107) Carbon Dioxide Level 20 mmol/L (21-32) Anion Gap 11 (6-14) Blood Urea Nitrogen 49 mg/dL (7-20) Creatinine 7.5 mg/dL (0.6-1.0) Estimated GFR (Cockcroft-Gault) 6.8 BUN/Creatinine Ratio 7 (6-20) Glucose Level 105 mg/dL (70-99) Calcium Level 7.7 mg/dL (8.5-10.1) Phosphorus Level 3.8 mg/dL (2.6-4.7) Magnesium Level 2.1 mg/dL (1.8-2.4) Total Bilirubin 0.3 mg/dL (0.2-1.0) Gamma Glutamyl Transpeptidase 225 U/L (5-55) Aspartate Amino Transf (AST/SGOT) 27 U/L (15-37) Alanine Aminotransferase (ALT/SGPT) 20 U/L (14-59) Alkaline Phosphatase 153 U/L (46-116) Total Protein 6.5 g/dL (6.4-8.2) Albumin 2.1 g/dL (3.4-5.0) Albumin/Globulin Ratio 0.5 (1.0-1.7) Problem List Problems Medical Problems: (1) Altered mental status Status: Acute (2) Dyspnea Status: Acute (3) ESRD (end stage renal disease) on dialysis Status: Acute (4) Noncompliance Status: Acute Assessment/Plan sepsis off pressors could consider HIDA if concerns for cholecystitis--will defer to IPC--noted plans for CT chest no surgical plans, would rec matias tube if findings of cholecystitis NATHEN GUEVARA MD 04/03/18 1208: SURGICAL PROGRESS NOTE Assessment/Plan pt seen as above d/w Dr Michaela Bundy to cover in my absence ELISABETH SHINE APRN Apr 03, 2018 09:31 NATHEN GUEVARA MD Apr 03, 2018 12:08
[2018-04-03] MEDS: fentaNYL PF VIAL 100 MCG/2 ML VIAL IV PRN ×4 (09:39→20:00)
--- NOTE | 2018-04-03 09:49 | RAD ---
CHEST AP ONLY dated 04/03/2018 9:33 AM. Comparison: 04/01/2018 Clinical Indication: sepsis. Findings: Single upright portable exam performed. Heart and mediastinal contours are stable. Right internal jugular catheter in place, unchanged. There is patchy and linear perihilar and right basilar opacity, not significantly changed given differences in technique. No new infiltrate or pneumothorax. Impression: No significant interval change compared to 04/01/2018. Electronically signed by: Marty Williamson MD (04/03/2018 9:46 AM) [id number]
[2018-04-03] MEDS ORDERED: LIDOCAINE 2% PF 2ML VIAL. INJ ONE (10:30)
--- NOTE | 2018-04-03 11:12 | PDOC ---
Renal-Progress Notes Subjective Notes Notes SITTING UP History of Present Illness Hx of present illness STABLE BUT STILL VERY ILL Vitals Vitals Vital Signs Date Time Temp Pulse Resp B/P (MAP) Pulse Ox O2 Delivery O2 Flow Rate FiO2 04/03/18 10:00 90 16 137/72 (93) Room Air 04/03/18 09:00 92 04/03/18 08:43 2.0 04/03/18 08:00 98.5 98.5 Weight Weight [ ] I.O. Intake and Output Intake and Output 04/03/18 07:00 Intake Total 1409.5 ml Output Total 0 ml Balance 1409.5 ml Intake Oral 680 ml IV Total 729.5 ml Output Urine Total 0 ml Labs Labs Laboratory Tests Test 04/03/18 06:45 White Blood Count 32.4 x10^3/uL (4.0-11.0) Red Blood Count 2.42 x10^6/uL (3.50-5.40) Hemoglobin 7.7 g/dL (12.0-15.5) Hematocrit 23.8 % (36.0-47.0) Mean Corpuscular Volume 98 fL (79-100) Mean Corpuscular Hemoglobin 32 pg (25-35) Mean Corpuscular Hemoglobin Concent 32 g/dL (31-37) Red Cell Distribution Width 16.2 % (11.5-14.5) Platelet Count 224 x10^3/uL (140-400) Neutrophils (%) (Auto) 84 % (31-73) Lymphocytes (%) (Auto) 7 % (24-48) Monocytes (%) (Auto) 8 % (0-9) Eosinophils (%) (Auto) 0 % (0-3) Basophils (%) (Auto) 0 % (0-3) Neutrophils # (Auto) 27.3 x10^3uL (1.8-7.7) Lymphocytes # (Auto) 2.3 x10^3/uL (1.0-4.8) Monocytes # (Auto) 2.7 x10^3/uL (0.0-1.1) Eosinophils # (Auto) 0.0 x10^3/uL (0.0-0.7) Basophils # (Auto) 0.1 x10^3/uL (0.0-0.2) Sodium Level 139 mmol/L (136-145) Potassium Level 4.3 mmol/L (3.5-5.1) Chloride Level 108 mmol/L (98-107) Carbon Dioxide Level 20 mmol/L (21-32) Anion Gap 11 (6-14) Blood Urea Nitrogen 49 mg/dL (7-20) Creatinine 7.5 mg/dL (0.6-1.0) Estimated GFR (Cockcroft-Gault) 6.8 BUN/Creatinine Ratio 7 (6-20) Glucose Level 105 mg/dL (70-99) Calcium Level 7.7 mg/dL (8.5-10.1) Phosphorus Level 3.8 mg/dL (2.6-4.7) Magnesium Level 2.1 mg/dL (1.8-2.4) Total Bilirubin 0.3 mg/dL (0.2-1.0) Gamma Glutamyl Transpeptidase 225 U/L (5-55) Aspartate Amino Transf (AST/SGOT) 27 U/L (15-37) Alanine Aminotransferase (ALT/SGPT) 20 U/L (14-59) Alkaline Phosphatase 153 U/L (46-116) Total Protein 6.5 g/dL (6.4-8.2) Albumin 2.1 g/dL (3.4-5.0) Albumin/Globulin Ratio 0.5 (1.0-1.7) Micro Micro Microbiology 04/02/18 Blood Culture - Preliminary, Resulted NO GROWTH AFTER 1 DAY Review of Systems Constitutional: yes: weakness, alert Ears/Nose/Throat: Yes: no symptom reported Eyes: Yes: no symptom reported Pulmonary: Yes dyspnea Cardiovascular: Yes no symptom reported Gastrointestional: Yes: no symptom reported Genitourinary: Yes: no symptom reported Skin: Yes no symptom reported Psychiatric/Neurological: Yes: no symptom reported Endocrine: Yes: no symptom reported Physical Exam General Appearance: no apparent distress Skin: warm Respiratory: decreased breath sounds Heart: S1S2 Abdomen: soft, bowel sounds present Genitourinary: bladder flat Extremities: pulses present Neurology: alert Musculoskeletal: Other Assessment Assessment IMP SEPSIS HYPOTENSION ESRD ANEMIA LEUCOCYTOSIS PLAN CT PENDING HD TODAY UF ABOUT 2 TO 2.5 LITERS CONT ARANESP ANTIBIOTICS WILL FOLLOW VÍCTOR PERRY MD Apr 03, 2018 11:12
[2018-04-03] MEDS: DICLOFENAC SODIUM 1% TOPICAL GEL 100GM TUBE. TP SCH ×2 (11:39→20:47)
[2018-04-03] MEDS ORDERED: IOHEXOL 300 MG/ML 100ML VIAL. IV ONE (12:00)
--- NOTE | 2018-04-03 14:15 | RAD ---
Exam performed: Limited Nuclear medicine hepatobiliary scan. History: Cholecystitis, abdominal pain Following intravenous administration of 5.5 mCi of Choletec tagged with Tc, sequential gamma camera images of the right upper quadrant of the abdomen were obtained. The exam was terminated after the appearance of the gallbladder and the small bowel. There is prompt accumulation of radionuclide in the liver which appears to be unremarkable Prompt accumulation in the central intrahepatic biliary radicals, gallbladder, common bile duct and small bowel is noted. Impression: No evidence of cystic duct obstruction. Electronically signed by: Danilo Alva MD (04/03/2018 2:12 PM) [id number]
[2018-04-03] MEDS: MEROPENEM 500 MG in IV NORMAL SALINE 50ML 50 ML IV SCH (14:26)
[2018-04-03] MEDS: LINEZOLID 600 MG TABLET PO SCH ×2 (14:26→19:59)
[2018-04-03] MEDS: predniSONE 10 MG TABLET PO SCH (14:26)
[2018-04-03] MEDS: LACTOBACILLUS RHAMNOSUS GG 1 CAPSULE. PO SCH ×2 (14:26→19:59)
[2018-04-03] MEDS: amLODIPine BESYLATE 10 MG TABLET PO SCH (14:27)
[2018-04-03] MEDS: LISINOPRIL 20 MG TABLET PO SCH (14:27)
[2018-04-03] MEDS: HEPARIN PF for SUB-Q USE 5,000 UNIT/0.5 ML VIAL. SQ SCH ×2 (14:36→21:45)
--- NOTE | 2018-04-03 14:43 | PDOC2 ---
GI CONSULT Reason For Consult: Abnormal GB sono HPI: HPI: 52 y/o female who we've seen in the past. This admitted w/ AMS and possible sepsis (gram neg rods 1/4 bottles). We just saw her last week for anemia (h/o anemia of chronic disease) and ?melena w/ questionable dialysis compliance. H/ o cirrhosis from Hep C and alcohol w/ past ascites/paracentesis (but not since on dialysis). In 07/2017, EGD w/ Grade III reflux esophagitis, portal gastropathy, and severe edema w/ multiple non-bleeding 4-8mm ulcers in distal duodenal bulb. No varices and normal AFP. Colonoscopy in 2013 w/ diverticulosis, hemorrhoids, and adenomatous polyp. No pancreas history. Asked to see this time re: moderately distended GB on US. Had HIDA today which was normal - no cystic duct obstruction. History is challenging. She tells me no n/v and no abd pain. She does not take any "stomach" meds at home. She has black watery stools. Fecal occult was negative. She wants to eat now - she says she ate yesterday in the hospital but doesn't eat at home because she doesn't feel like it. PMH: PMH: HCV, alcoholism, cirrhosis, ESRD on HD, chronic anemia (past iron studies w/ ACD ), COPD, CHF, HTN, HLD, DM, secondary hyperPTH, suspicious spinal lesion in the past, HD access procedures, left hip hemiarthroplasty FH: Family History: DM Social History: Smoke: No ALCOHOL: other Drugs: None ROS: Difficult to obtain - chronic pain (but denies abd pain), has a cough. Vitals: Vitals: Vital Signs Date Time Temp Pulse Resp B/P (MAP) Pulse Ox O2 Delivery O2 Flow Rate FiO2 04/03/18 12:00 Room Air 04/03/18 10:00 90 16 137/72 (93) 04/03/18 09:00 92 04/03/18 08:43 2.0 04/03/18 08:00 98.5 98.5 Labs: Labs: Laboratory Tests Test 04/03/18 06:45 04/03/18 11:00 White Blood Count 32.4 x10^3/uL (4.0-11.0) Red Blood Count 2.42 x10^6/uL (3.50-5.40) Hemoglobin 7.7 g/dL (12.0-15.5) Hematocrit 23.8 % (36.0-47.0) Mean Corpuscular Volume 98 fL (79-100) Mean Corpuscular Hemoglobin 32 pg (25-35) Mean Corpuscular Hemoglobin Concent 32 g/dL (31-37) Red Cell Distribution Width 16.2 % (11.5-14.5) Platelet Count 224 x10^3/uL (140-400) Neutrophils (%) (Auto) 84 % (31-73) Lymphocytes (%) (Auto) 7 % (24-48) Monocytes (%) (Auto) 8 % (0-9) Eosinophils (%) (Auto) 0 % (0-3) Basophils (%) (Auto) 0 % (0-3) Neutrophils # (Auto) 27.3 x10^3uL (1.8-7.7) Lymphocytes # (Auto) 2.3 x10^3/uL (1.0-4.8) Monocytes # (Auto) 2.7 x10^3/uL (0.0-1.1) Eosinophils # (Auto) 0.0 x10^3/uL (0.0-0.7) Basophils # (Auto) 0.1 x10^3/uL (0.0-0.2) Sodium Level 139 mmol/L (136-145) Potassium Level 4.3 mmol/L (3.5-5.1) Chloride Level 108 mmol/L (98-107) Carbon Dioxide Level 20 mmol/L (21-32) Anion Gap 11 (6-14) Blood Urea Nitrogen 49 mg/dL (7-20) Creatinine 7.5 mg/dL (0.6-1.0) Estimated GFR (Cockcroft-Gault) 6.8 BUN/Creatinine Ratio 7 (6-20) Glucose Level 105 mg/dL (70-99) Calcium Level 7.7 mg/dL (8.5-10.1) Phosphorus Level 3.8 mg/dL (2.6-4.7) Magnesium Level 2.1 mg/dL (1.8-2.4) Total Bilirubin 0.3 mg/dL (0.2-1.0) Gamma Glutamyl Transpeptidase 225 U/L (5-55) Aspartate Amino Transf (AST/SGOT) 27 U/L (15-37) Alanine Aminotransferase (ALT/SGPT) 20 U/L (14-59) Alkaline Phosphatase 153 U/L (46-116) Total Protein 6.5 g/dL (6.4-8.2) Albumin 2.1 g/dL (3.4-5.0) Albumin/Globulin Ratio 0.5 (1.0-1.7) Lactic Acid Level 0.8 mmol/L (0.4-2.0) Allergies: Coded Allergies: No Known Medication Allergies (Verified Allergy, Unknown, 02/17/18) acetaminophen (Verified Adverse Reaction, Severe, increased liver enzymes , 07/19/17) Medications: Current Medications Medications (Trade) Dose Ordered Sig/Carmenza Route PRN Reason Start Time Stop Time Status Last Admin Dose Admin Darbepoetin Norris (Aranesp) 60 mcg WEEKLYHS SQ 04/02/18 21:00 04/02/18 21:20 Fentanyl Citrate (Fentanyl 2ml Vial) 25 mcg PRN Q4HRS PRN IV PAIN 04/03/18 09:15 04/03/18 11:39 Imaging: Imaging: HIDA w/o EF Impression: No evidence of cystic duct obstruction. Chest/A/P CT PENDING CXR Impression: No significant interval change compared to 04/01/2018. Head CT Impression: 1. There is no evidence of acute intracranial hemorrhage. There is again some scattered ill-defined low-density of the supratentorial parenchyma, may be due to chronic microvascular ischemic disease versus other white matter disease such as from an inflammatory demyelinating disease. MRI would more accurately evaluate for more recent or acute ischemia if this is of clinical concern. US IMPRESSION: 1. Limited examination as patient was uncooperative and images were performed in sitting position. Moderately distended gallbladder. 2. Partially visualized right kidney appears echogenic could be due to medical renal disease. PE: GEN: NAD HEENT: Atraumatic, PERRL LUNGS: congested HEART: RRR ABD: NABS, soft, perhaps mild distention, "ow!" when I touch RUQ area EXTREMITY: No edema SKIN: No rashes, no jaundice NEURO/PSYCH: A & O 3 A/P: A/P: Bacteremia ESRD on HD ACD, fecal occult negative Cirrhosis - Hep C, alcohol - past ascites/paracentesis GERD - suspect non-compliance w/ PPI CRC screen, h/o adenomatous polyp - UTD Diverticulosis -- Reviewed w/ Dr. Tyson - HIDA negative, unlikely SBP/ascites - consider straight cath/urine cx re: gram neg rods. Agree w/ PPI. Okay to feed per GI. ALLIE ROBLES Apr 03, 2018 14:43
--- NOTE | 2018-04-03 14:49 | RAD ---
CT CHEST ABD PELVIS W/CONTRAST Indication: Sepsis Technique: Postcontrast CT imaging was performed of the chest, abdomen, pelvis, multiplanar reconstruction images submitted. One or more of the following individualized dose reduction techniques were utilized for this examination: 1. Automated exposure control 2. Adjustment of the mA and/or kV according to patient size 3. Use of iterative reconstruction technique. Contrast: 60 cc Omnipaque 300 Comparison: Chest CT February 17, [address] abdomen pelvis 09/19/[address] Findings: There is some motion degradation. There are now small dependent bilateral pleural effusions. There is mild atelectasis and infiltrate near the effusions bilaterally, also mild left perihilar infiltrate of the left upper lobe. There is no pneumothorax. There is coronary calcification. There is no pericardial effusion. There is some minimal density of the right lateral trachea lumen probably due to mucus. There is again compression deformity T9 and T7 vertebral bodies. IMPRESSION: 1. There are small bilateral pleural effusions, also mild atelectasis and infiltrate near the effusions and also mild left perihilar infiltrate of the left upper lobe for which attention on follow-up after treatment advised. 2. There is again compression deformity of T7 and T9 vertebral bodies. Abdomen and pelvis: FINDINGS: Accurate evaluation of abdominal visceral organs is limited without intravenous contrast, no new obvious abnormality of the liver, spleen, pancreas. Gallbladder is present, appearance of probable mild pericholecystic fluid although similar in appearance compared with previous exam. There is no hydronephrosis of either kidney. There is strandy change of the perinephric fat bilaterally although similar. There is no adrenal nodularity. Evaluation of bowel is limited without oral contrast. No free air is identified. There is mild dependent free fluid in the pelvis.. There is artifact in the pelvis created by left hip arthroplasty. There is again likely ventral hernia near the umbilicus with small bowel at the margin. Minimal gas in the right ventral subcutaneous fat of the abdomen is probably due to site of medication injection. There are some air-fluid levels in the nondilated small bowel. There is hepatomegaly. Appendix cannot be confidently identified on this exam. There is atherosclerotic calcification abdominal aorta and iliac arteries. IMPRESSION: 1. There is mild nonspecific dependent free fluid in the pelvis. There are some nonspecific air-fluid levels in the nondilated small bowel. Appendix cannot be identified to exclude acute appendicitis by imaging. 2. There is again appearance of nonspecific pericholecystic fluid. 3. There is hepatomegaly. Electronically signed by: Dayron Piña MD (04/03/2018 2:46 PM) [email or web address]
[2018-04-04] MEDS: fentaNYL PF VIAL 100 MCG/2 ML VIAL IV PRN ×3 (00:21→08:53)
[2018-04-04 03:00] VITALS: BP 96/48
[2018-04-04] MEDS: HEPARIN PF for SUB-Q USE 5,000 UNIT/0.5 ML VIAL. SQ SCH ×3 (05:56→21:39)
[2018-04-04 06:36] LABS: ALBUMIN 2.4 g/dL (3.4-5.0); ALBUMIN/GLOBULIN RATIO 0.6 (1.0-1.7); CALCIUM 7.1 mg/dL (8.5-10.1); CREATININE 4.4 mg/dL (0.6-1.0); GFR 12.6; POTASSIUM 3.4 mmol/L (3.5-5.1); TOTAL BILIRUBIN 0.4 mg/dL (0.2-1.0); TOTAL PROTEIN 6.6 g/dL (6.4-8.2)
[2018-04-04] MEDS ORDERED: IV NORMAL SALINE 1000ML BAG 1,000 ML IV PRN ×2 (06:56)
[2018-04-04] MEDS ORDERED: 0.9 % SODIUM CHLORIDE 10 ML DISP.SYRIN. IV PRN (07:00)
[2018-04-04] MEDS ORDERED: DIALYSIS PATIENT. MC PRN ×2 (07:00)
[2018-04-04] MEDS ORDERED: ALBUMIN HUMAN 25% 200 ML IV PRN (07:00)
[2018-04-04 07:02] LABS: BASO # 0.1 x10^3/uL (0.0-0.2); BASO % 0 % (0-3); EOS # 0.1 x10^3/uL (0.0-0.7); EOS % 0 % (0-3); HEMATOCRIT 25.4 % (36.0-47.0); HEMOGLOBIN 8.4 g/dL (12.0-15.5); LYMPH # 3.1 x10^3/uL (1.0-4.8); LYMPH % 10 % (24-48); MEAN CORPUSCULAR HEMOGLOBIN 32 pg (25-35); MEAN CORPUSCULAR HGB CONC 33 g/dL (31-37); MEAN CORPUSCULAR VOLUME 96 fL (79-100); MONO # 1.9 x10^3/uL (0.0-1.1); MONO % 6 % (0-9); NEUT # 27.1 x10^3uL (1.8-7.7); NEUT % 84 % (31-73); PLATELET COUNT 236 x10^3/uL (140-400); RED BLOOD COUNT 2.66 x10^6/uL (3.50-5.40); RED CELL DISTRIBUTION WIDTH 15.8 % (11.5-14.5); WHITE BLOOD COUNT 32.4 x10^3/uL (4.0-11.0)
[2018-04-04] MEDS: PANTOPRAZOLE 40 MG TABLET.DR. PO SCH ×2 (07:30→12:22)
[2018-04-04] MEDS: BUDESONIDE 0.5 MG/2 ML NEBU. NEB SCH ×3 (07:52→20:03)
[2018-04-04] MEDS: IPRATRPIUM/ALBUTEROL 0.5/2.5MG 3 ML NEBU. NEB SCH ×4 (07:52→20:03)
[2018-04-04] MEDS: CARVEDILOL 12.5 MG TABLET. PO SCH ×2 (08:00→17:23)
[2018-04-04] MEDS ORDERED: LIDOCAINE 2% 100 MG/5 ML SYRINGE. ONE ×2 (08:09→08:10)
--- NOTE | 2018-04-04 08:37 | PDOC ---
ELISABETH SHINE PULL UP HAND 04/04/18 0837: SURGICAL PROGRESS NOTE Subjective seen during dialysis continues to complain of abdominal pain Vital Signs Vital Signs Date Time Temp Pulse Resp B/P (MAP) Pulse Ox O2 Delivery O2 Flow Rate FiO2 04/04/18 05:10 Room Air 04/04/18 03:00 98.8 91 96/48 (64) 93 98.8 04/03/18 23:07 18 04/03/18 20:00 2.0 I&O Intake and Output 04/04/18 07:00 Intake Total 320 ml Output Total 350 ml Balance -30 ml Intake Oral 320 ml Output Urine Total 0 ml Stool Total 350 ml General: Alert, Oriented X3, Cooperative, No acute distress Abdomen: Soft, Other (ttp diffusely ) Labs Laboratory Tests Test 04/03/18 06:45 04/03/18 11:00 04/04/18 06:00 White Blood Count 32.4 x10^3/uL (4.0-11.0) 32.4 x10^3/uL (4.0-11.0) Red Blood Count 2.42 x10^6/uL (3.50-5.40) 2.66 x10^6/uL (3.50-5.40) Hemoglobin 7.7 g/dL (12.0-15.5) 8.4 g/dL (12.0-15.5) Hematocrit 23.8 % (36.0-47.0) 25.4 % (36.0-47.0) Mean Corpuscular Volume 98 fL (79-100) 96 fL (79-100) Mean Corpuscular Hemoglobin 32 pg (25-35) 32 pg (25-35) Mean Corpuscular Hemoglobin Concent 32 g/dL (31-37) 33 g/dL (31-37) Red Cell Distribution Width 16.2 % (11.5-14.5) 15.8 % (11.5-14.5) Platelet Count 224 x10^3/uL (140-400) 236 x10^3/uL (140-400) Neutrophils (%) (Auto) 84 % (31-73) 84 % (31-73) Lymphocytes (%) (Auto) 7 % (24-48) 10 % (24-48) Monocytes (%) (Auto) 8 % (0-9) 6 % (0-9) Eosinophils (%) (Auto) 0 % (0-3) 0 % (0-3) Basophils (%) (Auto) 0 % (0-3) 0 % (0-3) Neutrophils # (Auto) 27.3 x10^3uL (1.8-7.7) 27.1 x10^3uL (1.8-7.7) Lymphocytes # (Auto) 2.3 x10^3/uL (1.0-4.8) 3.1 x10^3/uL (1.0-4.8) Monocytes # (Auto) 2.7 x10^3/uL (0.0-1.1) 1.9 x10^3/uL (0.0-1.1) Eosinophils # (Auto) 0.0 x10^3/uL (0.0-0.7) 0.1 x10^3/uL (0.0-0.7) Basophils # (Auto) 0.1 x10^3/uL (0.0-0.2) 0.1 x10^3/uL (0.0-0.2) Sodium Level 139 mmol/L (136-145) 139 mmol/L (136-145) Potassium Level 4.3 mmol/L (3.5-5.1) 3.4 mmol/L (3.5-5.1) Chloride Level 108 mmol/L (98-107) 99 mmol/L (98-107) Carbon Dioxide Level 20 mmol/L (21-32) 32 mmol/L (21-32) Anion Gap 11 (6-14) 8 (6-14) Blood Urea Nitrogen 49 mg/dL (7-20) 21 mg/dL (7-20) Creatinine 7.5 mg/dL (0.6-1.0) 4.4 mg/dL (0.6-1.0) Estimated GFR (Cockcroft-Gault) 6.8 12.6 BUN/Creatinine Ratio 7 (6-20) 5 (6-20) Glucose Level 105 mg/dL (70-99) 155 mg/dL (70-99) Calcium Level 7.7 mg/dL (8.5-10.1) 7.1 mg/dL (8.5-10.1) Phosphorus Level 3.8 mg/dL (2.6-4.7) Magnesium Level 2.1 mg/dL (1.8-2.4) Total Bilirubin 0.3 mg/dL (0.2-1.0) 0.4 mg/dL (0.2-1.0) Gamma Glutamyl Transpeptidase 225 U/L (5-55) Aspartate Amino Transf (AST/SGOT) 27 U/L (15-37) 44 U/L (15-37) Alanine Aminotransferase (ALT/SGPT) 20 U/L (14-59) 27 U/L (14-59) Alkaline Phosphatase 153 U/L (46-116) 174 U/L (46-116) Total Protein 6.5 g/dL (6.4-8.2) 6.6 g/dL (6.4-8.2) Albumin 2.1 g/dL (3.4-5.0) 2.4 g/dL (3.4-5.0) Albumin/Globulin Ratio 0.5 (1.0-1.7) 0.6 (1.0-1.7) Lactic Acid Level 0.8 mmol/L (0.4-2.0) Laboratory Tests Test 04/03/18 11:00 04/04/18 06:00 Lactic Acid Level 0.8 mmol/L (0.4-2.0) White Blood Count 32.4 x10^3/uL (4.0-11.0) Red Blood Count 2.66 x10^6/uL (3.50-5.40) Hemoglobin 8.4 g/dL (12.0-15.5) Hematocrit 25.4 % (36.0-47.0) Mean Corpuscular Volume 96 fL (79-100) Mean Corpuscular Hemoglobin 32 pg (25-35) Mean Corpuscular Hemoglobin Concent 33 g/dL (31-37) Red Cell Distribution Width 15.8 % (11.5-14.5) Platelet Count 236 x10^3/uL (140-400) Neutrophils (%) (Auto) 84 % (31-73) Lymphocytes (%) (Auto) 10 % (24-48) Monocytes (%) (Auto) 6 % (0-9) Eosinophils (%) (Auto) 0 % (0-3) Basophils (%) (Auto) 0 % (0-3) Neutrophils # (Auto) 27.1 x10^3uL (1.8-7.7) Lymphocytes # (Auto) 3.1 x10^3/uL (1.0-4.8) Monocytes # (Auto) 1.9 x10^3/uL (0.0-1.1) Eosinophils # (Auto) 0.1 x10^3/uL (0.0-0.7) Basophils # (Auto) 0.1 x10^3/uL (0.0-0.2) Sodium Level 139 mmol/L (136-145) Potassium Level 3.4 mmol/L (3.5-5.1) Chloride Level 99 mmol/L (98-107) Carbon Dioxide Level 32 mmol/L (21-32) Anion Gap 8 (6-14) Blood Urea Nitrogen 21 mg/dL (7-20) Creatinine 4.4 mg/dL (0.6-1.0) Estimated GFR (Cockcroft-Gault) 12.6 BUN/Creatinine Ratio 5 (6-20) Glucose Level 155 mg/dL (70-99) Calcium Level 7.1 mg/dL (8.5-10.1) Total Bilirubin 0.4 mg/dL (0.2-1.0) Aspartate Amino Transf (AST/SGOT) 44 U/L (15-37) Alanine Aminotransferase (ALT/SGPT) 27 U/L (14-59) Alkaline Phosphatase 174 U/L (46-116) Total Protein 6.6 g/dL (6.4-8.2) Albumin 2.4 g/dL (3.4-5.0) Albumin/Globulin Ratio 0.6 (1.0-1.7) Problem List Problems Medical Problems: (1) Altered mental status Status: Acute (2) Dyspnea Status: Acute (3) ESRD (end stage renal disease) on dialysis Status: Acute (4) Noncompliance Status: Acute Assessment/Plan HIDA without cystic duct obstruction no surgical plans RACHELLE CHAMPION MD 04/04/18 8765: SURGICAL PROGRESS NOTE Assessment/Plan Pt seen and examined. Agree with Ms. Shine's note Pt with c/o diffuse abd pain abd soft, mild TTP HIDA wnl given cirrhosis and comorbidity, pt is high risk for surgical intervention cont abx ELISABETH SHINE APRN Apr 04, 2018 08:37 RACHELLE CHAMPINO MD Apr 04, 2018 15:51
[2018-04-04] MEDS ORDERED: LIDOCAINE 2% PF 2ML VIAL. INJ ONE (08:45)
[2018-04-04] MEDS: amLODIPine BESYLATE 10 MG TABLET PO SCH (08:55)
[2018-04-04] MEDS: LACTOBACILLUS RHAMNOSUS GG 1 CAPSULE. PO SCH ×2 (08:55→21:35)
[2018-04-04] MEDS: predniSONE 10 MG TABLET PO SCH (08:56)
[2018-04-04] MEDS: LISINOPRIL 20 MG TABLET PO SCH (08:56)
[2018-04-04] MEDS: DICLOFENAC SODIUM 1% TOPICAL GEL 100GM TUBE. TP SCH ×2 (08:56→21:40)
[2018-04-04] MEDS: LINEZOLID 600 MG TABLET PO SCH ×2 (09:00→21:35)
[2018-04-04] MEDS: MEROPENEM 500 MG in IV NORMAL SALINE 50ML 50 ML IV SCH (09:00)
--- NOTE | 2018-04-04 09:14 | PDOC ---
Infectious Disease Note Subjective: Subjective Pt says has abdominal pain pain med is not helping had a bm this am,liquid off pressors no nausea or vomiting ROS: ROS Negative except for above. Vital Signs: Vital Signs Vital Signs Date Time Temp Pulse Resp B/P (MAP) Pulse Ox O2 Delivery O2 Flow Rate FiO2 04/04/18 08:53 93 Room Air 2.0 04/04/18 03:00 98.8 91 96/48 (64) 98.8 04/03/18 23:07 18 Physical Exam: PHYSICAL EXAM GENERAL: thin alert awake in nad HEENT: Normocephalic, atraumatic. Sclerae are muddy. No thrush. NECK: Supple, no JVD. LUNGS: Decreased breath sound at the bases. A few scattered rhonchi. HEART: S1, S2, RRR. No murmurs. ABDOMEN: Thin, soft, bowel sounds present. Mildly tender in both upper quadrant and lower quadrant. EXTREMITIES: No edema, no cyanosis. thin DERM: Dry skin. No generalized rash. No skin breakdown noted or ulcerations noted. 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 grossly PSYCHIATRIC: cooperative Medications: Inpatient Meds: Current Medications Medications (Trade) Dose Ordered Sig/Carmenza Start Time Stop Time Status Last Admin Dose Admin Albumin Human 200 ml @ 200 mls/hr 1X PRN PRN 04/04/18 07:00 04/04/18 12:59 Albuterol Sulfate (Ventolin Neb Soln) 2.5 mg PRN Q4HRS PRN 04/01/18 12:30 04/01/18 12:35 2.5 MG Albuterol/ Ipratropium (Duoneb) 3 ml RTQID 04/01/18 16:00 04/03/18 16:07 3 ML Amlodipine Besylate (Norvasc) 10 mg DAILY 04/01/18 13:00 04/03/18 14:27 10 MG Budesonide (Pulmicort) 0.5 mg RTBID 04/01/18 20:00 04/03/18 08:39 0.5 MG Carvedilol (Coreg) 25 mg BIDWMEALS 04/01/18 17:00 04/03/18 18:26 25 MG Darbepoetin Norris (Aranesp) 60 mcg WEEKLYHS 04/02/18 21:00 04/02/18 21:20 60 MCG Diclofenac Sodium (Voltaren) 1 garrison BID 04/01/18 21:00 04/03/18 11:39 1 GARRISON Fentanyl Citrate (Fentanyl 2ml Vial) 25 mcg PRN Q4HRS PRN 04/03/18 09:15 04/04/18 08:53 25 MCG Guaifenesin (Robitussin Dm) 10 ml PRN Q6HRS PRN 04/01/18 12:15 Guaifenesin/ Codeine Phosphate (Robitussin Ac) 5 ml PRN Q6HRS PRN 04/01/18 12:30 Heparin Sodium (Porcine) (Heparin Sq) 5,000 unit Q8HRS 04/01/18 14:00 04/04/18 05:56 5,000 UNIT Info (PHARMACY MONITORING -- do not chart) 1 each PRN DAILY PRN 04/04/18 07:00 UNV Iohexol (Omnipaque 300 Mg/ml) 60 ml 1X ONCE 04/03/18 12:00 04/03/18 12:01 DC Lactobacillus Rhamnosus (Culturelle) 1 cap BID 04/01/18 21:00 04/03/18 19:59 1 CAP Lidocaine HCl (Lidocaine HCl 2% Abboject) 100 mg STK-MED ONCE 04/04/18 08:09 04/04/18 08:10 DC Lidocaine HCl (Xylocaine-Mpf 1% 2ml Vial) 2 ml STK-MED ONCE 04/03/18 08:56 04/03/18 08:57 DC Lidocaine HCl (Xylocaine-Mpf 2% Vial) 2 ml 1X ONCE 04/04/18 08:45 04/04/18 08:46 DC Linezolid (Zyvox) 600 mg BID 04/03/18 10:00 04/03/18 19:59 600 MG Lisinopril (Prinivil) 20 mg DAILY 04/01/18 13:00 04/03/18 14:27 20 MG Meropenem 500 mg/ Sodium Chloride 50 ml @ 100 mls/hr DAILY 04/02/18 12:00 04/03/18 14:26 100 MLS/HR Norepinephrine Bitartrate 250 ml @ 1.875 mls/ hr CONT PRN 04/01/18 22:15 04/03/18 19:22 DC 04/03/18 00:41 33.75 MLS/HR Ondansetron HCl (Zofran) 4 mg PRN Q6HRS PRN 04/01/18 12:15 Oxycodone HCl (Roxicodone) 20 mg PRN Q4HRS PRN 04/01/18 12:30 04/02/18 11:56 DC 04/02/18 08:10 20 MG Pantoprazole Sodium (Protonix) 40 mg BIDAC 04/02/18 07:30 04/03/18 18:26 40 MG Piperacillin Sod/ Tazobactam Sod (Zosyn Per Pharmacy) 1 each PRN DAILY PRN 04/01/18 12:15 04/02/18 09:21 DC Piperacillin Sod/ Tazobactam Sod 2.25 gm/Sodium Chloride 50 ml @ 100 mls/hr Q6HRS 04/01/18 18:00 04/02/18 09:21 DC 04/02/18 05:30 100 MLS/HR Piperacillin Sod/ Tazobactam Sod 3.375 gm/Sodium Chloride 50 ml @ 100 mls/hr 1X ONCE 04/01/18 09:15 04/01/18 09:44 DC 04/01/18 09:23 100 MLS/HR Prednisone (Prednisone) 10 mg DAILY 04/01/18 13:00 04/03/18 14:26 10 MG Sodium Polystyrene Sulfonate (Kayexalate) 15 gm 1X ONCE 04/01/18 12:30 04/01/18 12:31 DC Sodium Chloride 1,000 ml @ 400 mls/hr Q2H30M PRN 04/04/18 06:56 04/04/18 18:55 Sodium Chloride (Normal Saline Flush) 10 ml 1X PRN PRN 04/04/18 07:00 04/05/18 06:59 Tramadol HCl (Ultram) 50 mg PRN Q6HRS PRN 04/01/18 12:15 04/02/18 11:56 DC Vancomycin HCl (Vanco Per Pharmacy) 1 each PRN DAILY PRN 04/01/18 13:45 04/02/18 09:21 DC 04/01/18 13:49 1 EACH Vancomycin HCl 1.25 gm/Sodium Chloride 250 ml @ 167 mls/hr ONCE ONCE 04/01/18 14:00 04/01/18 15:29 DC 04/01/18 18:03 167 MLS/HR Labs: Lab Laboratory Tests Test 04/03/18 11:00 04/04/18 06:00 Lactic Acid Level 0.8 mmol/L (0.4-2.0) White Blood Count 32.4 x10^3/uL (4.0-11.0) Red Blood Count 2.66 x10^6/uL (3.50-5.40) Hemoglobin 8.4 g/dL (12.0-15.5) Hematocrit 25.4 % (36.0-47.0) Mean Corpuscular Volume 96 fL (79-100) Mean Corpuscular Hemoglobin 32 pg (25-35) Mean Corpuscular Hemoglobin Concent 33 g/dL (31-37) Red Cell Distribution Width 15.8 % (11.5-14.5) Platelet Count 236 x10^3/uL (140-400) Neutrophils (%) (Auto) 84 % (31-73) Lymphocytes (%) (Auto) 10 % (24-48) Monocytes (%) (Auto) 6 % (0-9) Eosinophils (%) (Auto) 0 % (0-3) Basophils (%) (Auto) 0 % (0-3) Neutrophils # (Auto) 27.1 x10^3uL (1.8-7.7) Lymphocytes # (Auto) 3.1 x10^3/uL (1.0-4.8) Monocytes # (Auto) 1.9 x10^3/uL (0.0-1.1) Eosinophils # (Auto) 0.1 x10^3/uL (0.0-0.7) Basophils # (Auto) 0.1 x10^3/uL (0.0-0.2) Sodium Level 139 mmol/L (136-145) Potassium Level 3.4 mmol/L (3.5-5.1) Chloride Level 99 mmol/L (98-107) Carbon Dioxide Level 32 mmol/L (21-32) Anion Gap 8 (6-14) Blood Urea Nitrogen 21 mg/dL (7-20) Creatinine 4.4 mg/dL (0.6-1.0) Estimated GFR (Cockcroft-Gault) 12.6 BUN/Creatinine Ratio 5 (6-20) Glucose Level 155 mg/dL (70-99) Calcium Level 7.1 mg/dL (8.5-10.1) Total Bilirubin 0.4 mg/dL (0.2-1.0) Aspartate Amino Transf (AST/SGOT) 44 U/L (15-37) Alanine Aminotransferase (ALT/SGPT) 27 U/L (14-59) Alkaline Phosphatase 174 U/L (46-116) Total Protein 6.6 g/dL (6.4-8.2) Albumin 2.4 g/dL (3.4-5.0) Albumin/Globulin Ratio 0.6 (1.0-1.7) Micro BC 1/4 GNR ID and SUSIE pending Objective: Assessment: 1. Gram neg bacteremia,source likely GI, ID and SUSIE still pending, UA neg 2. Fever resolved 3. End-stage renal disease, on hemodialysis with noncompliance. 4. Leucocytosis worsening. CT Chest and A/P reviewed, 5. Anemia with recent 2 units of packed RBC given during last hospitalization. 6. History of smoking. 7. History of dyspnea. 8. Increased BNP, increased troponin. 9. Cirrhosis.abn GB distention, Abdominal pain ,CT pericholecystic fluid, HIDA neg 10. Perihilar interstitial pulmonary infiltrates. Plan: Plan of Care 1. cont merrem, zyvox add empiric micafungin 2 Follow up cultures and lab in a.m. 3. Gen surgery, GI following Discussed with JOSÉ MIGUEL ZUNIGA MD Apr 04, 2018 09:13
--- NOTE | 2018-04-04 10:49 | PDOC ---
PROGRESS NOTES Chief Complaint Chief Complaint Sepsis POA GNR bacteremia ESRD on dialysis question compliance Hyperkalemia Elevated anion gap acidosis Metabolic encephalopathy with normal lactate and normal ammonia and normal CT Cirrhosis Noncompliance Fever, lethargy History of Present Illness History of Present Illness Transferred out of ICU 04/03/18 Did need pressors for hypotension in ICU Also needed some blood transfusion Seen at dialysis, back to her normal baseline GNR bacteremia on blood culture Hemoglobin stable, WBC 32 with infectious disease on board COnt to have abdominal pain with negative workup. GI GS both on board Plan: Okay to resume oxycodone home dose Will be here over the weekend because of the GNR bacteremia, needs to have speciation etc. PT OT Supportive meds Compliance emphasized again today Vitals Vitals Vital Signs Date Time Temp Pulse Resp B/P (MAP) Pulse Ox O2 Delivery O2 Flow Rate FiO2 04/04/18 10:21 93 Room Air 2.0 04/04/18 03:00 98.8 91 96/48 (64) 98.8 04/03/18 23:07 18 Physical Exam Physical Exam GENERAL: thin alert awake in nad HEENT: Normocephalic, atraumatic. Sclerae are muddy. No thrush. NECK: Supple, no JVD. LUNGS: Decreased breath sound at the bases. A few scattered rhonchi. HEART: S1, S2, RRR. No murmurs. ABDOMEN: Thin, soft, bowel sounds present. Mildly tender in both upper quadrant and lower quadrant. EXTREMITIES: No edema, no cyanosis. thin DERM: Dry skin. No generalized rash. No skin breakdown noted or ulcerations noted. 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 PSYCHIATRIC: cooperative General: Alert, Oriented X3, Cooperative, No acute distress Heart: Regular rate, Normal S1 Lungs: Clear Abdomen: Soft, Other (ttp diffusely ) Extremities: No clubbing, Normal pulses Skin: No breakdown Labs LABS Laboratory Tests Test 04/03/18 11:00 04/04/18 06:00 Lactic Acid Level 0.8 mmol/L (0.4-2.0) White Blood Count 32.4 x10^3/uL (4.0-11.0) Red Blood Count 2.66 x10^6/uL (3.50-5.40) Hemoglobin 8.4 g/dL (12.0-15.5) Hematocrit 25.4 % (36.0-47.0) Mean Corpuscular Volume 96 fL (79-100) Mean Corpuscular Hemoglobin 32 pg (25-35) Mean Corpuscular Hemoglobin Concent 33 g/dL (31-37) Red Cell Distribution Width 15.8 % (11.5-14.5) Platelet Count 236 x10^3/uL (140-400) Neutrophils (%) (Auto) 84 % (31-73) Lymphocytes (%) (Auto) 10 % (24-48) Monocytes (%) (Auto) 6 % (0-9) Eosinophils (%) (Auto) 0 % (0-3) Basophils (%) (Auto) 0 % (0-3) Neutrophils # (Auto) 27.1 x10^3uL (1.8-7.7) Lymphocytes # (Auto) 3.1 x10^3/uL (1.0-4.8) Monocytes # (Auto) 1.9 x10^3/uL (0.0-1.1) Eosinophils # (Auto) 0.1 x10^3/uL (0.0-0.7) Basophils # (Auto) 0.1 x10^3/uL (0.0-0.2) Sodium Level 139 mmol/L (136-145) Potassium Level 3.4 mmol/L (3.5-5.1) Chloride Level 99 mmol/L (98-107) Carbon Dioxide Level 32 mmol/L (21-32) Anion Gap 8 (6-14) Blood Urea Nitrogen 21 mg/dL (7-20) Creatinine 4.4 mg/dL (0.6-1.0) Estimated GFR (Cockcroft-Gault) 12.6 BUN/Creatinine Ratio 5 (6-20) Glucose Level 155 mg/dL (70-99) Calcium Level 7.1 mg/dL (8.5-10.1) Total Bilirubin 0.4 mg/dL (0.2-1.0) Aspartate Amino Transf (AST/SGOT) 44 U/L (15-37) Alanine Aminotransferase (ALT/SGPT) 27 U/L (14-59) Alkaline Phosphatase 174 U/L (46-116) Total Protein 6.6 g/dL (6.4-8.2) Albumin 2.4 g/dL (3.4-5.0) Albumin/Globulin Ratio 0.6 (1.0-1.7) Review of Systems Review of Systems abd pain, the rest of ROS 14 point negative Assessment and Plan Assessmemt and Plan Problems Medical Problems: (1) Altered mental status Status: Acute (2) Dyspnea Status: Acute (3) ESRD (end stage renal disease) on dialysis Status: Acute (4) Noncompliance Status: Acute Comment Review of Relevant I have reviewed the following items issac (where applicable) has been applied. Labs Laboratory Tests Test 04/03/18 06:45 04/03/18 11:00 04/04/18 06:00 White Blood Count 32.4 x10^3/uL (4.0-11.0) 32.4 x10^3/uL (4.0-11.0) Red Blood Count 2.42 x10^6/uL (3.50-5.40) 2.66 x10^6/uL (3.50-5.40) Hemoglobin 7.7 g/dL (12.0-15.5) 8.4 g/dL (12.0-15.5) Hematocrit 23.8 % (36.0-47.0) 25.4 % (36.0-47.0) Mean Corpuscular Volume 98 fL (79-100) 96 fL (79-100) Mean Corpuscular Hemoglobin 32 pg (25-35) 32 pg (25-35) Mean Corpuscular Hemoglobin Concent 32 g/dL (31-37) 33 g/dL (31-37) Red Cell Distribution Width 16.2 % (11.5-14.5) 15.8 % (11.5-14.5) Platelet Count 224 x10^3/uL (140-400) 236 x10^3/uL (140-400) Neutrophils (%) (Auto) 84 % (31-73) 84 % (31-73) Lymphocytes (%) (Auto) 7 % (24-48) 10 % (24-48) Monocytes (%) (Auto) 8 % (0-9) 6 % (0-9) Eosinophils (%) (Auto) 0 % (0-3) 0 % (0-3) Basophils (%) (Auto) 0 % (0-3) 0 % (0-3) Neutrophils # (Auto) 27.3 x10^3uL (1.8-7.7) 27.1 x10^3uL (1.8-7.7) Lymphocytes # (Auto) 2.3 x10^3/uL (1.0-4.8) 3.1 x10^3/uL (1.0-4.8) Monocytes # (Auto) 2.7 x10^3/uL (0.0-1.1) 1.9 x10^3/uL (0.0-1.1) Eosinophils # (Auto) 0.0 x10^3/uL (0.0-0.7) 0.1 x10^3/uL (0.0-0.7) Basophils # (Auto) 0.1 x10^3/uL (0.0-0.2) 0.1 x10^3/uL (0.0-0.2) Sodium Level 139 mmol/L (136-145) 139 mmol/L (136-145) Potassium Level 4.3 mmol/L (3.5-5.1) 3.4 mmol/L (3.5-5.1) Chloride Level 108 mmol/L (98-107) 99 mmol/L (98-107) Carbon Dioxide Level 20 mmol/L (21-32) 32 mmol/L (21-32) Anion Gap 11 (6-14) 8 (6-14) Blood Urea Nitrogen 49 mg/dL (7-20) 21 mg/dL (7-20) Creatinine 7.5 mg/dL (0.6-1.0) 4.4 mg/dL (0.6-1.0) Estimated GFR (Cockcroft-Gault) 6.8 12.6 BUN/Creatinine Ratio 7 (6-20) 5 (6-20) Glucose Level 105 mg/dL (70-99) 155 mg/dL (70-99) Calcium Level 7.7 mg/dL (8.5-10.1) 7.1 mg/dL (8.5-10.1) Phosphorus Level 3.8 mg/dL (2.6-4.7) Magnesium Level 2.1 mg/dL (1.8-2.4) Total Bilirubin 0.3 mg/dL (0.2-1.0) 0.4 mg/dL (0.2-1.0) Gamma Glutamyl Transpeptidase 225 U/L (5-55) Aspartate Amino Transf (AST/SGOT) 27 U/L (15-37) 44 U/L (15-37) Alanine Aminotransferase (ALT/SGPT) 20 U/L (14-59) 27 U/L (14-59) Alkaline Phosphatase 153 U/L (46-116) 174 U/L (46-116) Total Protein 6.5 g/dL (6.4-8.2) 6.6 g/dL (6.4-8.2) Albumin 2.1 g/dL (3.4-5.0) 2.4 g/dL (3.4-5.0) Albumin/Globulin Ratio 0.5 (1.0-1.7) 0.6 (1.0-1.7) Lactic Acid Level 0.8 mmol/L (0.4-2.0) Laboratory Tests Test 04/03/18 11:00 04/04/18 06:00 Lactic Acid Level 0.8 mmol/L (0.4-2.0) White Blood Count 32.4 x10^3/uL (4.0-11.0) Red Blood Count 2.66 x10^6/uL (3.50-5.40) Hemoglobin 8.4 g/dL (12.0-15.5) Hematocrit 25.4 % (36.0-47.0) Mean Corpuscular Volume 96 fL (79-100) Mean Corpuscular Hemoglobin 32 pg (25-35) Mean Corpuscular Hemoglobin Concent 33 g/dL (31-37) Red Cell Distribution Width 15.8 % (11.5-14.5) Platelet Count 236 x10^3/uL (140-400) Neutrophils (%) (Auto) 84 % (31-73) Lymphocytes (%) (Auto) 10 % (24-48) Monocytes (%) (Auto) 6 % (0-9) Eosinophils (%) (Auto) 0 % (0-3) Basophils (%) (Auto) 0 % (0-3) Neutrophils # (Auto) 27.1 x10^3uL (1.8-7.7) Lymphocytes # (Auto) 3.1 x10^3/uL (1.0-4.8) Monocytes # (Auto) 1.9 x10^3/uL (0.0-1.1) Eosinophils # (Auto) 0.1 x10^3/uL (0.0-0.7) Basophils # (Auto) 0.1 x10^3/uL (0.0-0.2) Sodium Level 139 mmol/L (136-145) Potassium Level 3.4 mmol/L (3.5-5.1) Chloride Level 99 mmol/L (98-107) Carbon Dioxide Level 32 mmol/L (21-32) Anion Gap 8 (6-14) Blood Urea Nitrogen 21 mg/dL (7-20) Creatinine 4.4 mg/dL (0.6-1.0) Estimated GFR (Cockcroft-Gault) 12.6 BUN/Creatinine Ratio 5 (6-20) Glucose Level 155 mg/dL (70-99) Calcium Level 7.1 mg/dL (8.5-10.1) Total Bilirubin 0.4 mg/dL (0.2-1.0) Aspartate Amino Transf (AST/SGOT) 44 U/L (15-37) Alanine Aminotransferase (ALT/SGPT) 27 U/L (14-59) Alkaline Phosphatase 174 U/L (46-116) Total Protein 6.6 g/dL (6.4-8.2) Albumin 2.4 g/dL (3.4-5.0) Albumin/Globulin Ratio 0.6 (1.0-1.7) Microbiology 04/02/18 Blood Culture - Preliminary, Resulted NO GROWTH AFTER 2 DAYS 04/01/18 Urine Culture - Final, Complete 04/01/18 Urine Culture Result 1 (SUSIE) - Final, Complete Medications Current Medications Piperacillin Sod/ Tazobactam Sod 3.375 gm/Sodium Chloride 50 ml @ 100 mls/hr 1X ONCE IV Last administered on 04/01/18at 09:23; Start 04/01/18 at 09:15; Stop 04/01/18 at 09:44; Status DC Piperacillin Sod/ Tazobactam Sod (Zosyn Per Pharmacy) 1 each PRN DAILY PRN MC SEE COMMENTS; Start 04/01/18 at 12:15; Stop 04/02/18 at 09:21; Status DC Ondansetron HCl (Zofran) 4 mg PRN Q6HRS PRN IV NAUSEA/VOMITING 1ST CHOICE; Start 04/01/18 at 12:15 Fentanyl Citrate (Fentanyl 2ml Vial) 25 mcg PRN Q2HR PRN IV PAIN MILD Last administered on 04/02/18at 05:31; Start 04/01/18 at 12:15; Stop 04/02/18 at 11:58 ; Status DC Albuterol/ Ipratropium (Duoneb) 3 ml RTQID NEB Last administered on 04/03/18at 16:07; Start 04/01/18 at 16:00 Guaifenesin (Robitussin Dm) 10 ml PRN Q6HRS PRN PO COUGH 1ST CHOICE; Start at 12:15 Heparin Sodium (Porcine) (Heparin Sq) 5,000 unit Q8HRS SQ Last administered on 04/04/18 05:56; Start 04/01/18 at 14:00 Amlodipine Besylate (Norvasc) 10 mg DAILY PO Last administered on 04/03/18 14: 27; Start 04/01/18 at 13:00 Diclofenac Sodium (Voltaren) 1 chris BID TP Last administered on 04/03/18at 11:39 ; Start 04/01/18 at 21:00 Lisinopril (Prinivil) 20 mg DAILY PO Last administered on 04/03/18 14:27; Start 04/01/18 at 13:00 Prednisone (Prednisone) 10 mg DAILY PO Last administered on 04/03/18 14:26; Start 04/01/18 at 13:00 Tramadol HCl (Ultram) 50 mg PRN Q6HRS PRN PO PAIN MILD-MODERATE; Start at 12:15; Stop 04/02/18 at 11:56; Status DC Carvedilol (Coreg) 25 mg BIDWMEALS PO Last administered on 04/03/18 18:26; Start 04/01/18 at 17:00 Budesonide (Pulmicort) 0.5 mg RTBID NEB Last administered on 04/03/18at 08:39; Start 04/01/18 at 20:00 Guaifenesin/ Codeine Phosphate (Robitussin Ac) 5 ml PRN Q6HRS PRN PO COUGH 2ND CHOICE; Start 04/01/18 at 12:30 Pantoprazole Sodium (Protonix) 40 mg BIDAC PO Last administered on 04/03/18at 18 :26; Start 04/02/18 at 07:30 Oxycodone HCl (Roxicodone) 20 mg PRN Q4HRS PRN PO PAIN SEVERE Last administered on 04/02/18at 08:10; Start 04/01/18 at 12:30; Stop 04/02/18 at 11:56 ; Status DC Sodium Polystyrene Sulfonate (Kayexalate) 15 gm 1X ONCE PO ; Start 04/01/18 at 12:30; Stop 04/01/18 at 12:31; Status DC Piperacillin Sod/ Tazobactam Sod 2.25 gm/Sodium Chloride 50 ml @ 100 mls/hr Q6HRS IV Last administered on 04/02/18at 05:30; Start 04/01/18 at 18:00; Stop at 09:21; Status DC Albuterol Sulfate (Ventolin Neb Soln) 2.5 mg PRN Q4HRS PRN NEB SHORTNESS OF BREATH Last administered on 04/01/18at 12:35; Start 04/01/18 at 12:30 Sodium Chloride 1,000 ml @ 1,000 mls/hr Q1H PRN IV hypotension; Start 04/01/18 at 12:50; Stop 04/01/18 at 18:54; Status DC Info (PHARMACY MONITORING -- do not chart) 1 each PRN DAILY PRN MC SEE COMMENTS ; Start 04/01/18 at 13:00 Info (PHARMACY MONITORING -- do not chart) 1 each PRN DAILY PRN MC SEE COMMENTS ; Start 04/01/18 at 13:00; Stop 04/01/18 at 13:00; Status DC Norepinephrine Bitartrate 250 ml @ 0 mls/hr 1X ONCE IV Last administered on at 13:23; Start 04/01/18 at 13:15; Stop 04/01/18 at 13:16; Status DC Vancomycin HCl (Vanco Per Pharmacy) 1 each PRN DAILY PRN MC SEE COMMENTS Last administered on 04/01/18at 13:49; Start 04/01/18 at 13:45; Stop 04/02/18 at 09:21 ; Status DC Vancomycin HCl 1.25 gm/Sodium Chloride 250 ml @ 167 mls/hr ONCE ONCE IV Last administered on 04/01/18at 18:03; Start 04/01/18 at 14:00; Stop 04/01/18 at 15:29 ; Status DC Lactobacillus Rhamnosus (Culturelle) 1 cap BID PO Last administered on at 19:59; Start 04/01/18 at 21:00 Norepinephrine Bitartrate 250 ml @ 1.875 mls/ hr CONT PRN IV SEE I/O RECORD Last administered on 04/03/18at 00:41; Start 04/01/18 at 22:15; Stop 04/03/18 at 19:22; Status DC Meropenem 500 mg/ Sodium Chloride 50 ml @ 100 mls/hr DAILY IV Last administered on 04/03/18at 14:26; Start 04/02/18 at 12:00 Darbepoetin Norris (Aranesp) 60 mcg WEEKLYHS SQ Last administered on 04/02/18at 21 :20; Start 04/02/18 at 21:00 Info (PHARMACY MONITORING -- do not chart) 1 each PRN DAILY PRN MC SEE COMMENTS ; Start 04/03/18 at 08:15; Status UNV Info (PHARMACY MONITORING -- do not chart) 1 each PRN DAILY PRN MC SEE COMMENTS ; Start 04/03/18 at 08:15; Status UNV Lidocaine HCl (Xylocaine-Mpf 1% 2ml Vial) 2 ml STK-MED ONCE .ROUTE ; Start 04/03 at 08:56; Stop 04/03/18 at 08:57; Status DC Linezolid (Zyvox) 600 mg BID PO Last administered on 04/03/18at 19:59; Start at 10:00 Fentanyl Citrate (Fentanyl 2ml Vial) 25 mcg PRN Q4HRS PRN IV PAIN Last administered on 04/04/18at 08:53; Start 04/03/18 at 09:15 Lidocaine HCl (Xylocaine-Mpf 2% Vial) 2 ml 1X ONCE INJ ; Start 04/03/18 at 10: 30; Stop 04/03/18 at 10:31; Status DC Iohexol (Omnipaque 300 Mg/ml) 60 ml 1X ONCE IV ; Start 04/03/18 at 12:00; Stop 04/03/18 at 12:01; Status DC Sodium Chloride 1,000 ml @ 1,000 mls/hr Q1H PRN IV hypotension; Start 04/04/18 at 06:56; Stop 04/04/18 at 12:55 Albumin Human 200 ml @ 200 mls/hr 1X PRN PRN IV Hypotension; Start 04/04/18 at 07:00; Stop 04/04/18 at 12:59 Sodium Chloride (Normal Saline Flush) 10 ml 1X PRN PRN IV AP catheter pack; Start 04/04/18 at 07:00; Stop 04/05/18 at 06:59 Sodium Chloride 1,000 ml @ 400 mls/hr Q2H30M PRN IV PATENCY; Start 04/04/18 at 06:56; Stop 04/04/18 at 18:55 Info (PHARMACY MONITORING -- do not chart) 1 each PRN DAILY PRN MC SEE COMMENTS ; Start 04/04/18 at 07:00; Status UNV Info (PHARMACY MONITORING -- do not chart) 1 each PRN DAILY PRN MC SEE COMMENTS ; Start 04/04/18 at 07:00; Status UNV Lidocaine HCl (Lidocaine HCl 2% Abboject) 100 mg STK-MED ONCE .ROUTE ; Start at 08:09; Stop 04/04/18 at 08:10; Status DC Lidocaine HCl (Xylocaine-Mpf 2% Vial) 2 ml 1X ONCE INJ ; Start 04/04/18 at 08: 45; Stop 04/04/18 at 08:46; Status DC Micafungin Sodium 100 mg/Dextrose 100 ml @ 100 mls/hr Q24H IV ; Start 04/04/18 at 12:00 Active Scripts Active Tramadol Hcl 50 Mg Tablet 50 Mg PO Q6HRS PRN Codeine-Guaifen 10-100 mg/5 ml (Guaifenesin/Codeine Phosphate) 120 Ml Liquid 5 Ml PO Q6HRS PRN Oxycodone Hcl 5 Mg Capsule 20 Mg PO PRN Q4HRS PRN Ambien (Zolpidem Tartrate) 10 Mg Tablet 1 Tab PO QHS Amox Tr-K Clv 500-125 Mg Tab (Amoxicillin/Potassium Clav) 1 Each Tablet 1 Tab PO BID Prednisone (Prednisone) 10 Mg Tablet 10 Mg PO UD Take 5 tablets by mouth daily for 2 days, then take 4 tablets by mouth daily for 2 days, then take 3 tablets by mouth daily for 2 days, then take 2 tablets by mouth daily for 2 days, then take 1 tablets by mouth daily for 2 days, then stop. Guaifenesin Dm Syrup (Guaifenesin/Dextromethorphan) 5 Ml Syrup 10 Ml PO QID Voltaren (Diclofenac Sodium) 100 Gm Gel..gram. 1 Chris TP BID 30 Days Amlodipine Besylate 10 Mg Tablet 10 Mg PO DAILY 30 Days Omeprazole 20 Mg Capsule.dr 1 Cap PO BID Duoneb 0.5-3(2.5) Mg/3 Ml (Albuterol/Ipratropium) 3 Ml Ampul.neb 3 Ml NEB RTQID 30 Days Advair 250-50 Diskus (Fluticasone/Salmeterol) 1 Puff Puff 1 Puff INH BID 30 Days Albuterol Sulfate Conc Neb Soln (Albuterol Sulfate) 2.5 Mg/0.5 Ml Vial.neb 1 Vial NEB Q4HRS PRN Reported Meloxicam 7.5 Mg Tablet 1 Tab PO DAILY Lisinopril 20 Mg Tablet 1 Tab PO DAILY Tramadol Hcl 50 Mg Tablet 50 Mg PO Q6H PRN Carvedilol 25 Mg Tablet 25 Mg PO BIDWMEALS Vitals/I & O Vital Sign - Last 24 Hours 04/03/18 04/03/18 04/03/18 04/03/18 11:00 12:00 12:00 14:00 Temp 98.6 98.6 Pulse 110 106 110 Resp 17 22 22 B/P (MAP) 114/63 (80) 133/70 (91) 156/66 (96) Pulse Ox 98 95 98 O2 Delivery Nasal Cannula Nasal Cannula Room Air Nasal Cannula O2 Flow Rate 2.0 2.0 2.0 04/03/18 04/03/18 04/03/18 04/03/18 14:27 14:27 16:00 16:10 Temp 98.7 98.7 Pulse 104 Resp 20 B/P (MAP) 161/69 161/69 161/69 (99) Pulse Ox 93 94 O2 Delivery Room Air Nasal Cannula O2 Flow Rate 2.0 04/03/18 04/03/18 04/03/18 04/03/18 18:26 19:00 20:00 20:00 Temp 98.1 98.1 Pulse 110 92 Resp 20 B/P (MAP) 161/69 112/55 (74) Pulse Ox 95 O2 Delivery Room Air Room Air Room Air O2 Flow Rate 2.0 04/03/18 04/04/18 04/04/18 04/04/18 23:07 00:21 03:00 04:34 Temp 97.3 98.8 97.3 98.8 Pulse 92 91 Resp 18 B/P (MAP) 119/56 (77) 96/48 (64) Pulse Ox 94 93 O2 Delivery Room Air Room Air Room Air Room Air 04/04/18 04/04/18 04/04/18 08:00 08:53 10:21 Pulse Ox 93 93 O2 Delivery Room Air Room Air Room Air O2 Flow Rate 2.0 2.0 Intake and Output 04/03/18 04/03/18 04/04/18 15:00 23:00 07:00 Intake Total 200 ml 120 ml Output Total 0 ml 350 ml Balance 0 ml 200 ml -230 ml Nutrition Consultation Dietary Evaluation: Recommendations by RD: Increase Calorie Intake, Protein supplementation Comments: Continue Nepro tid added DBL meat portions Expected Outcomes/Goals: PO intake to meet >75% est needs- met, goal ongoing Malnutrition Findings: Body Fat Depletion (Non Severe: Mild Depletion Weight Status: Appropriate SANJANA HENRY MD Apr 04, 2018 10:49
--- NOTE | 2018-04-04 11:36 | PDOC ---
Renal-Progress Notes Subjective Notes Notes NO NEW COMPLAINTS History of Present Illness Hx of present illness STABLE Vitals Vitals Vital Signs Date Time Temp Pulse Resp B/P (MAP) Pulse Ox O2 Delivery O2 Flow Rate FiO2 04/04/18 10:21 93 Room Air 2.0 04/04/18 03:00 98.8 91 96/48 (64) 98.8 04/03/18 23:07 18 Weight Weight [ ] I.O. Intake and Output Intake and Output 04/04/18 07:00 Intake Total 320 ml Output Total 350 ml Balance -30 ml Intake Oral 320 ml Output Urine Total 0 ml Stool Total 350 ml Labs Labs Laboratory Tests Test 04/04/18 06:00 White Blood Count 32.4 x10^3/uL (4.0-11.0) Red Blood Count 2.66 x10^6/uL (3.50-5.40) Hemoglobin 8.4 g/dL (12.0-15.5) Hematocrit 25.4 % (36.0-47.0) Mean Corpuscular Volume 96 fL (79-100) Mean Corpuscular Hemoglobin 32 pg (25-35) Mean Corpuscular Hemoglobin Concent 33 g/dL (31-37) Red Cell Distribution Width 15.8 % (11.5-14.5) Platelet Count 236 x10^3/uL (140-400) Neutrophils (%) (Auto) 84 % (31-73) Lymphocytes (%) (Auto) 10 % (24-48) Monocytes (%) (Auto) 6 % (0-9) Eosinophils (%) (Auto) 0 % (0-3) Basophils (%) (Auto) 0 % (0-3) Neutrophils # (Auto) 27.1 x10^3uL (1.8-7.7) Lymphocytes # (Auto) 3.1 x10^3/uL (1.0-4.8) Monocytes # (Auto) 1.9 x10^3/uL (0.0-1.1) Eosinophils # (Auto) 0.1 x10^3/uL (0.0-0.7) Basophils # (Auto) 0.1 x10^3/uL (0.0-0.2) Sodium Level 139 mmol/L (136-145) Potassium Level 3.4 mmol/L (3.5-5.1) Chloride Level 99 mmol/L (98-107) Carbon Dioxide Level 32 mmol/L (21-32) Anion Gap 8 (6-14) Blood Urea Nitrogen 21 mg/dL (7-20) Creatinine 4.4 mg/dL (0.6-1.0) Estimated GFR (Cockcroft-Gault) 12.6 BUN/Creatinine Ratio 5 (6-20) Glucose Level 155 mg/dL (70-99) Calcium Level 7.1 mg/dL (8.5-10.1) Total Bilirubin 0.4 mg/dL (0.2-1.0) Aspartate Amino Transf (AST/SGOT) 44 U/L (15-37) Alanine Aminotransferase (ALT/SGPT) 27 U/L (14-59) Alkaline Phosphatase 174 U/L (46-116) Total Protein 6.6 g/dL (6.4-8.2) Albumin 2.4 g/dL (3.4-5.0) Albumin/Globulin Ratio 0.6 (1.0-1.7) Micro Micro Microbiology 04/03/18 Blood Culture - Preliminary, Resulted NO GROWTH AFTER 1 DAY 04/01/18 Urine Culture - Final, Complete 04/01/18 Urine Culture Result 1 (SUSIE) - Final, Complete Review of Systems Constitutional: yes: weakness, alert Ears/Nose/Throat: Yes: no symptom reported Eyes: Yes: no symptom reported Pulmonary: Yes dyspnea Cardiovascular: Yes no symptom reported Gastrointestional: Yes: no symptom reported Genitourinary: Yes: no symptom reported Skin: Yes no symptom reported Psychiatric/Neurological: Yes: no symptom reported Endocrine: Yes: no symptom reported Physical Exam General Appearance: no apparent distress Skin: warm Respiratory: decreased breath sounds Heart: S1S2 Abdomen: soft, bowel sounds present Genitourinary: bladder flat Extremities: pulses present Neurology: alert Musculoskeletal: Other Assessment Assessment IMP SEPSIS HYPOTENSION ESRD ANEMIA LEUCOCYTOSIS PLAN HD TODAY CONT ARANESP ANTIBIOTICS WILL FOLLOW VÍCTOR PERRY MD Apr 04, 2018 11:36
[2018-04-04] MEDS: MICAFUNGIN 100 MG in IV DEXTROSE 5% 100ML 100 ML IV SCH (11:59)
[2018-04-04] MEDS: MORPHINE SULFATE 2 MG/ML VIAL. IV PRN ×5 (12:24→22:52)
--- NOTE | 2018-04-04 12:45 | PDOC ---
Subjective: Subjective: Hurts all over. Didn't eat breakfast because it's cold, lunch not delivered yet. Objective: Objective: Refusing all meds until she gets something for pain. Vital Signs: Vital Signs Date Time Temp Pulse Resp B/P (MAP) Pulse Ox O2 Delivery O2 Flow Rate FiO2 04/04/18 12:24 93 Room Air 2.0 04/04/18 03:00 98.8 91 96/48 (64) 98.8 04/03/18 23:07 18 Labs: Laboratory Tests Test 04/04/18 06:00 White Blood Count 32.4 x10^3/uL Red Blood Count 2.66 x10^6/uL Hemoglobin 8.4 g/dL Hematocrit 25.4 % Mean Corpuscular Volume 96 fL Mean Corpuscular Hemoglobin 32 pg Mean Corpuscular Hemoglobin Concent 33 g/dL Red Cell Distribution Width 15.8 % Platelet Count 236 x10^3/uL Neutrophils (%) (Auto) 84 % Lymphocytes (%) (Auto) 10 % Monocytes (%) (Auto) 6 % Eosinophils (%) (Auto) 0 % Basophils (%) (Auto) 0 % Neutrophils # (Auto) 27.1 x10^3uL Lymphocytes # (Auto) 3.1 x10^3/uL Monocytes # (Auto) 1.9 x10^3/uL Eosinophils # (Auto) 0.1 x10^3/uL Basophils # (Auto) 0.1 x10^3/uL Sodium Level 139 mmol/L Potassium Level 3.4 mmol/L Chloride Level 99 mmol/L Carbon Dioxide Level 32 mmol/L Anion Gap 8 Blood Urea Nitrogen 21 mg/dL Creatinine 4.4 mg/dL Estimated GFR (Cockcroft-Gault) 12.6 BUN/Creatinine Ratio 5 Glucose Level 155 mg/dL Calcium Level 7.1 mg/dL Total Bilirubin 0.4 mg/dL Aspartate Amino Transf (AST/SGOT) 44 U/L Alanine Aminotransferase (ALT/SGPT) 27 U/L Alkaline Phosphatase 174 U/L Total Protein 6.6 g/dL Albumin 2.4 g/dL Albumin/Globulin Ratio 0.6 URINE CULTURE RES 1 Final No growth Performed at: - [facility] [address], [place], [place] [id number] Food Counter Attendant: RON Alexander MD, Phone: [phone] Imaging: CT IMPRESSION: 1. There is mild nonspecific dependent free fluid in the pelvis. There are some nonspecific air-fluid levels in the nondilated small bowel. Appendix cannot be identified to exclude acute appendicitis by imaging. 2. There is again appearance of nonspecific pericholecystic fluid. 3. There is hepatomegaly. PE: GEN: NAD NEURO/PSYCH: A & O 3, frustrated A/P: Bacteremia, chronic pain -h/o GERD, cirrhosis -- Non-compliant except for pain meds. Other per Dr. Tyson. ALLIE ROBLES Apr 04, 2018 12:45
[2018-04-04 15:23] VITALS: BP 120/50
[2018-04-04] MEDS: oxyCODONE IR 5 MG TABLET PO SCH ×2 (17:23→21:35)
[2018-04-04 19:00] VITALS: BP 126/65
[2018-04-04] MEDS: ZOLPIDEM 5 MG TABLET. PO PRN (21:35)
[2018-04-04 23:00] VITALS: BP 116/55
[2018-04-05] MEDS: MORPHINE SULFATE 2 MG/ML VIAL. IV PRN ×4 (02:00→20:31)
[2018-04-05 03:00] VITALS: BP 137/68
[2018-04-05] MEDS: HEPARIN PF for SUB-Q USE 5,000 UNIT/0.5 ML VIAL. SQ SCH ×3 (06:11→20:38)
[2018-04-05 06:22] LABS: BASO # 0.1 x10^3/uL (0.0-0.2); BASO % 1 % (0-3); EOS # 0.1 x10^3/uL (0.0-0.7); EOS % 1 % (0-3); HEMATOCRIT 23.8 % (36.0-47.0); HEMOGLOBIN 7.8 g/dL (12.0-15.5); LYMPH # 3.1 x10^3/uL (1.0-4.8); LYMPH % 15 % (24-48); MEAN CORPUSCULAR HEMOGLOBIN 31 pg (25-35); MEAN CORPUSCULAR HGB CONC 33 g/dL (31-37); MEAN CORPUSCULAR VOLUME 96 fL (79-100); MONO # 1.8 x10^3/uL (0.0-1.1); MONO % 9 % (0-9); NEUT # 15.4 x10^3uL (1.8-7.7); NEUT % 75 % (31-73); PLATELET COUNT 205 x10^3/uL (140-400); RED BLOOD COUNT 2.48 x10^6/uL (3.50-5.40); RED CELL DISTRIBUTION WIDTH 15.6 % (11.5-14.5); WHITE BLOOD COUNT 20.6 x10^3/uL (4.0-11.0)
[2018-04-05 06:35] LABS: ALBUMIN 2.3 g/dL (3.4-5.0); CALCIUM 7.8 mg/dL (8.5-10.1); CREATININE 3.4 mg/dL (0.6-1.0); PHOSPHORUS 1.4 mg/dL (2.6-4.7)
[2018-04-05 07:00] VITALS: BP 132/67
[2018-04-05] MEDS: IPRATRPIUM/ALBUTEROL 0.5/2.5MG 3 ML NEBU. NEB SCH ×4 (07:32→20:00)
[2018-04-05] MEDS: BUDESONIDE 0.5 MG/2 ML NEBU. NEB SCH ×2 (07:32→20:00)
[2018-04-05] MEDS: PANTOPRAZOLE 40 MG TABLET.DR. PO SCH ×2 (07:56→16:15)
[2018-04-05] MEDS: NICOTINE 21MG PATCH. TD PRN (07:57)
[2018-04-05] MEDS: DICLOFENAC SODIUM 1% TOPICAL GEL 100GM TUBE. TP SCH ×2 (07:58→20:36)
[2018-04-05] MEDS: LACTOBACILLUS RHAMNOSUS GG 1 CAPSULE. PO SCH ×2 (07:58→20:30)
[2018-04-05] MEDS: oxyCODONE IR 5 MG TABLET PO SCH ×4 (07:58→20:30)
[2018-04-05] MEDS: LISINOPRIL 20 MG TABLET PO SCH (09:10)
[2018-04-05] MEDS: predniSONE 10 MG TABLET PO SCH (09:10)
[2018-04-05] MEDS: LINEZOLID 600 MG TABLET PO SCH ×2 (09:10→20:30)
[2018-04-05] MEDS: CARVEDILOL 12.5 MG TABLET. PO SCH ×2 (09:11→16:16)
[2018-04-05] MEDS: MEROPENEM 500 MG in IV NORMAL SALINE 50ML 50 ML IV SCH (09:12)
[2018-04-05] MEDS: amLODIPine BESYLATE 10 MG TABLET PO SCH (09:12)
--- NOTE | 2018-04-05 09:44 | PDOC ---
PROGRESS NOTES Chief Complaint Chief Complaint Sepsis POA GNR bacteremia ESRD on dialysis question compliance Hyperkalemia Elevated anion gap acidosis Metabolic encephalopathy with normal lactate and normal ammonia and normal CT Cirrhosis Noncompliance Fever, lethargy History of Present Illness History of Present Illness Transferred out of ICU 04/03/18 Did need pressors for hypotension in ICU Also needed some blood transfusion Seen at dialysis, back to her normal baseline GNR bacteremia on blood culture Hemoglobin stable, WBC 32 with infectious disease on board COnt to have abdominal pain with negative workup. GI GS both on board Same, I did reconcile her home oxycodone 20 PO QID Plan: Will be here over the weekend because of the GNR bacteremia, needs to have speciation etc. PT OT Supportive meds Compliance emphasized again today Vitals Vitals Vital Signs Date Time Temp Pulse Resp B/P (MAP) Pulse Ox O2 Delivery O2 Flow Rate FiO2 04/05/18 09:14 Room Air 04/05/18 09:12 99 132/67 04/05/18 07:35 89 04/05/18 07:00 96.4 18 96.4 04/04/18 20:15 2.0 Physical Exam Physical Exam GENERAL: thin alert awake in nad HEENT: Normocephalic, atraumatic. Sclerae are muddy. No thrush. NECK: Supple, no JVD. LUNGS: Decreased breath sound at the bases. A few scattered rhonchi. HEART: S1, S2, RRR. No murmurs. ABDOMEN: Thin, soft, bowel sounds present. Mildly tender in both upper quadrant and lower quadrant. EXTREMITIES: No edema, no cyanosis. thin DERM: Dry skin. No generalized rash. No skin breakdown noted or ulcerations noted. 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 PSYCHIATRIC: cooperative General: Alert, Oriented X3, Cooperative, No acute distress Heart: Regular rate, Normal S1 Lungs: Clear Abdomen: Soft, Other (ttp diffusely ) Extremities: No clubbing, Normal pulses Skin: No breakdown Labs LABS Laboratory Tests Test 04/05/18 06:15 White Blood Count 20.6 x10^3/uL (4.0-11.0) Red Blood Count 2.48 x10^6/uL (3.50-5.40) Hemoglobin 7.8 g/dL (12.0-15.5) Hematocrit 23.8 % (36.0-47.0) Mean Corpuscular Volume 96 fL (79-100) Mean Corpuscular Hemoglobin 31 pg (25-35) Mean Corpuscular Hemoglobin Concent 33 g/dL (31-37) Red Cell Distribution Width 15.6 % (11.5-14.5) Platelet Count 205 x10^3/uL (140-400) Neutrophils (%) (Auto) 75 % (31-73) Lymphocytes (%) (Auto) 15 % (24-48) Monocytes (%) (Auto) 9 % (0-9) Eosinophils (%) (Auto) 1 % (0-3) Basophils (%) (Auto) 1 % (0-3) Neutrophils # (Auto) 15.4 x10^3uL (1.8-7.7) Lymphocytes # (Auto) 3.1 x10^3/uL (1.0-4.8) Monocytes # (Auto) 1.8 x10^3/uL (0.0-1.1) Eosinophils # (Auto) 0.1 x10^3/uL (0.0-0.7) Basophils # (Auto) 0.1 x10^3/uL (0.0-0.2) Erythrocyte Sedimentation Rate 125 (0-25) Sodium Level 141 mmol/L (136-145) Potassium Level 4.0 mmol/L (3.5-5.1) Chloride Level 103 mmol/L (98-107) Carbon Dioxide Level 33 mmol/L (21-32) Anion Gap 5 (6-14) Blood Urea Nitrogen 16 mg/dL (7-20) Creatinine 3.4 mg/dL (0.6-1.0) Estimated GFR (Cockcroft-Gault) 17.0 Glucose Level 145 mg/dL (70-99) Calcium Level 7.8 mg/dL (8.5-10.1) Phosphorus Level 1.4 mg/dL (2.6-4.7) Albumin 2.3 g/dL (3.4-5.0) Review of Systems Review of Systems chronic pain, otherwise rest of the review of systems negative Assessment and Plan Assessmemt and Plan Problems Medical Problems: (1) Altered mental status Status: Acute (2) Dyspnea Status: Acute (3) ESRD (end stage renal disease) on dialysis Status: Acute (4) Noncompliance Status: Acute Comment Review of Relevant I have reviewed the following items issac (where applicable) has been applied. Labs Laboratory Tests Test 04/03/18 11:00 04/04/18 06:00 04/05/18 06:15 Lactic Acid Level 0.8 mmol/L (0.4-2.0) White Blood Count 32.4 x10^3/uL (4.0-11.0) 20.6 x10^3/uL (4.0-11.0) Red Blood Count 2.66 x10^6/uL (3.50-5.40) 2.48 x10^6/uL (3.50-5.40) Hemoglobin 8.4 g/dL (12.0-15.5) 7.8 g/dL (12.0-15.5) Hematocrit 25.4 % (36.0-47.0) 23.8 % (36.0-47.0) Mean Corpuscular Volume 96 fL (79-100) 96 fL (79-100) Mean Corpuscular Hemoglobin 32 pg (25-35) 31 pg (25-35) Mean Corpuscular Hemoglobin Concent 33 g/dL (31-37) 33 g/dL (31-37) Red Cell Distribution Width 15.8 % (11.5-14.5) 15.6 % (11.5-14.5) Platelet Count 236 x10^3/uL (140-400) 205 x10^3/uL (140-400) Neutrophils (%) (Auto) 84 % (31-73) 75 % (31-73) Lymphocytes (%) (Auto) 10 % (24-48) 15 % (24-48) Monocytes (%) (Auto) 6 % (0-9) 9 % (0-9) Eosinophils (%) (Auto) 0 % (0-3) 1 % (0-3) Basophils (%) (Auto) 0 % (0-3) 1 % (0-3) Neutrophils # (Auto) 27.1 x10^3uL (1.8-7.7) 15.4 x10^3uL (1.8-7.7) Lymphocytes # (Auto) 3.1 x10^3/uL (1.0-4.8) 3.1 x10^3/uL (1.0-4.8) Monocytes # (Auto) 1.9 x10^3/uL (0.0-1.1) 1.8 x10^3/uL (0.0-1.1) Eosinophils # (Auto) 0.1 x10^3/uL (0.0-0.7) 0.1 x10^3/uL (0.0-0.7) Basophils # (Auto) 0.1 x10^3/uL (0.0-0.2) 0.1 x10^3/uL (0.0-0.2) Sodium Level 139 mmol/L (136-145) 141 mmol/L (136-145) Potassium Level 3.4 mmol/L (3.5-5.1) 4.0 mmol/L (3.5-5.1) Chloride Level 99 mmol/L (98-107) 103 mmol/L (98-107) Carbon Dioxide Level 32 mmol/L (21-32) 33 mmol/L (21-32) Anion Gap 8 (6-14) 5 (6-14) Blood Urea Nitrogen 21 mg/dL (7-20) 16 mg/dL (7-20) Creatinine 4.4 mg/dL (0.6-1.0) 3.4 mg/dL (0.6-1.0) Estimated GFR (Cockcroft-Gault) 12.6 17.0 BUN/Creatinine Ratio 5 (6-20) Glucose Level 155 mg/dL (70-99) 145 mg/dL (70-99) Calcium Level 7.1 mg/dL (8.5-10.1) 7.8 mg/dL (8.5-10.1) Total Bilirubin 0.4 mg/dL (0.2-1.0) Aspartate Amino Transf (AST/SGOT) 44 U/L (15-37) Alanine Aminotransferase (ALT/SGPT) 27 U/L (14-59) Alkaline Phosphatase 174 U/L (46-116) Total Protein 6.6 g/dL (6.4-8.2) Albumin 2.4 g/dL (3.4-5.0) 2.3 g/dL (3.4-5.0) Albumin/Globulin Ratio 0.6 (1.0-1.7) Erythrocyte Sedimentation Rate 125 (0-25) Phosphorus Level 1.4 mg/dL (2.6-4.7) Laboratory Tests Test 04/05/18 06:15 White Blood Count 20.6 x10^3/uL (4.0-11.0) Red Blood Count 2.48 x10^6/uL (3.50-5.40) Hemoglobin 7.8 g/dL (12.0-15.5) Hematocrit 23.8 % (36.0-47.0) Mean Corpuscular Volume 96 fL (79-100) Mean Corpuscular Hemoglobin 31 pg (25-35) Mean Corpuscular Hemoglobin Concent 33 g/dL (31-37) Red Cell Distribution Width 15.6 % (11.5-14.5) Platelet Count 205 x10^3/uL (140-400) Neutrophils (%) (Auto) 75 % (31-73) Lymphocytes (%) (Auto) 15 % (24-48) Monocytes (%) (Auto) 9 % (0-9) Eosinophils (%) (Auto) 1 % (0-3) Basophils (%) (Auto) 1 % (0-3) Neutrophils # (Auto) 15.4 x10^3uL (1.8-7.7) Lymphocytes # (Auto) 3.1 x10^3/uL (1.0-4.8) Monocytes # (Auto) 1.8 x10^3/uL (0.0-1.1) Eosinophils # (Auto) 0.1 x10^3/uL (0.0-0.7) Basophils # (Auto) 0.1 x10^3/uL (0.0-0.2) Erythrocyte Sedimentation Rate 125 (0-25) Sodium Level 141 mmol/L (136-145) Potassium Level 4.0 mmol/L (3.5-5.1) Chloride Level 103 mmol/L (98-107) Carbon Dioxide Level 33 mmol/L (21-32) Anion Gap 5 (6-14) Blood Urea Nitrogen 16 mg/dL (7-20) Creatinine 3.4 mg/dL (0.6-1.0) Estimated GFR (Cockcroft-Gault) 17.0 Glucose Level 145 mg/dL (70-99) Calcium Level 7.8 mg/dL (8.5-10.1) Phosphorus Level 1.4 mg/dL (2.6-4.7) Albumin 2.3 g/dL (3.4-5.0) Microbiology 04/03/18 Blood Culture - Preliminary, Resulted NO GROWTH AFTER 1 DAY 04/01/18 Urine Culture - Final, Complete 04/01/18 Urine Culture Result 1 (SUSIE) - Final, Complete Medications Current Medications Piperacillin Sod/ Tazobactam Sod 3.375 gm/Sodium Chloride 50 ml @ 100 mls/hr 1X ONCE IV Last administered on 04/01/18at 09:23; Start 04/01/18 at 09:15; Stop 04/01/18 at 09:44; Status DC Piperacillin Sod/ Tazobactam Sod (Zosyn Per Pharmacy) 1 each PRN DAILY PRN MC SEE COMMENTS; Start 04/01/18 at 12:15; Stop 04/02/18 at 09:21; Status DC Ondansetron HCl (Zofran) 4 mg PRN Q6HRS PRN IV NAUSEA/VOMITING 1ST CHOICE; Start 04/01/18 at 12:15 Fentanyl Citrate (Fentanyl 2ml Vial) 25 mcg PRN Q2HR PRN IV PAIN MILD Last administered on 04/02/18at 05:31; Start 04/01/18 at 12:15; Stop 04/02/18 at 11:58 ; Status DC Albuterol/ Ipratropium (Duoneb) 3 ml RTQID NEB Last administered on 04/05/18at 07 :32; Start 04/01/18 at 16:00 Guaifenesin (Robitussin Dm) 10 ml PRN Q6HRS PRN PO COUGH 1ST CHOICE; Start at 12:15 Heparin Sodium (Porcine) (Heparin Sq) 5,000 unit Q8HRS SQ Last administered on 04/05/18at 06:11; Start 04/01/18 at 14:00 Amlodipine Besylate (Norvasc) 10 mg DAILY PO Last administered on 04/05/18at 09: 12; Start 04/01/18 at 13:00 Diclofenac Sodium (Voltaren) 1 chris BID TP Last administered on 04/05/18at 07:58; Start 04/01/18 at 21:00 Lisinopril (Prinivil) 20 mg DAILY PO Last administered on 04/05/18at 09:10; Start 04/01/18 at 13:00 Prednisone (Prednisone) 10 mg DAILY PO Last administered on 04/05/18at 09:10; Start 04/01/18 at 13:00 Tramadol HCl (Ultram) 50 mg PRN Q6HRS PRN PO PAIN MILD-MODERATE; Start at 12:15; Stop 04/02/18 at 11:56; Status DC Carvedilol (Coreg) 25 mg BIDWMEALS PO Last administered on 04/05/18at 09:11; Start 04/01/18 at 17:00 Budesonide (Pulmicort) 0.5 mg RTBID NEB Last administered on 04/05/18at 07:32; Start 04/01/18 at 20:00 Guaifenesin/ Codeine Phosphate (Robitussin Ac) 5 ml PRN Q6HRS PRN PO COUGH 2ND CHOICE; Start 04/01/18 at 12:30 Pantoprazole Sodium (Protonix) 40 mg BIDAC PO Last administered on 04/05/18at 07: 56; Start 04/02/18 at 07:30 Oxycodone HCl (Roxicodone) 20 mg PRN Q4HRS PRN PO PAIN SEVERE Last administered on 04/02/18at 08:10; Start 04/01/18 at 12:30; Stop 04/02/18 at 11:56 ; Status DC Sodium Polystyrene Sulfonate (Kayexalate) 15 gm 1X ONCE PO ; Start 04/01/18 at 12:30; Stop 04/01/18 at 12:31; Status DC Piperacillin Sod/ Tazobactam Sod 2.25 gm/Sodium Chloride 50 ml @ 100 mls/hr Q6HRS IV Last administered on 04/02/18at 05:30; Start 04/01/18 at 18:00; Stop at 09:21; Status DC Albuterol Sulfate (Ventolin Neb Soln) 2.5 mg PRN Q4HRS PRN NEB SHORTNESS OF BREATH Last administered on 04/01/18at 12:35; Start 04/01/18 at 12:30 Sodium Chloride 1,000 ml @ 1,000 mls/hr Q1H PRN IV hypotension; Start 04/01/18 at 12:50; Stop 04/01/18 at 18:54; Status DC Info (PHARMACY MONITORING -- do not chart) 1 each PRN DAILY PRN MC SEE COMMENTS ; Start 04/01/18 at 13:00 Info (PHARMACY MONITORING -- do not chart) 1 each PRN DAILY PRN MC SEE COMMENTS ; Start 04/01/18 at 13:00; Stop 04/01/18 at 13:00; Status DC Norepinephrine Bitartrate 250 ml @ 0 mls/hr 1X ONCE IV Last administered on at 13:23; Start 04/01/18 at 13:15; Stop 04/01/18 at 13:16; Status DC Vancomycin HCl (Vanco Per Pharmacy) 1 each PRN DAILY PRN MC SEE COMMENTS Last administered on 04/01/18at 13:49; Start 04/01/18 at 13:45; Stop 04/02/18 at 09:21 ; Status DC Vancomycin HCl 1.25 gm/Sodium Chloride 250 ml @ 167 mls/hr ONCE ONCE IV Last administered on 04/01/18at 18:03; Start 04/01/18 at 14:00; Stop 04/01/18 at 15:29 ; Status DC Lactobacillus Rhamnosus (Culturelle) 1 cap BID PO Last administered on at 07:58; Start 04/01/18 at 21:00 Norepinephrine Bitartrate 250 ml @ 1.875 mls/ hr CONT PRN IV SEE I/O RECORD Last administered on 04/03/18at 00:41; Start 04/01/18 at 22:15; Stop 04/03/18 at 19:22; Status DC Meropenem 500 mg/ Sodium Chloride 50 ml @ 100 mls/hr DAILY IV Last administered on 04/05/18at 09:12; Start 04/02/18 at 12:00 Darbepoetin Norris (Aranesp) 60 mcg WEEKLYHS SQ Last administered on 04/02/18at 21 :20; Start 04/02/18 at 21:00 Info (PHARMACY MONITORING -- do not chart) 1 each PRN DAILY PRN MC SEE COMMENTS ; Start 04/03/18 at 08:15; Status UNV Info (PHARMACY MONITORING -- do not chart) 1 each PRN DAILY PRN MC SEE COMMENTS ; Start 04/03/18 at 08:15; Status UNV Lidocaine HCl (Xylocaine-Mpf 1% 2ml Vial) 2 ml STK-MED ONCE .ROUTE ; Start 04/03 at 08:56; Stop 04/03/18 at 08:57; Status DC Linezolid (Zyvox) 600 mg BID PO Last administered on 04/05/18at 09:10; Start at 10:00 Fentanyl Citrate (Fentanyl 2ml Vial) 25 mcg PRN Q4HRS PRN IV PAIN Last administered on 04/04/18at 08:53; Start 04/03/18 at 09:15; Stop 04/04/18 at 12:02 ; Status DC Lidocaine HCl (Xylocaine-Mpf 2% Vial) 2 ml 1X ONCE INJ ; Start 04/03/18 at 10: 30; Stop 04/03/18 at 10:31; Status DC Iohexol (Omnipaque 300 Mg/ml) 60 ml 1X ONCE IV ; Start 04/03/18 at 12:00; Stop 04/03/18 at 12:01; Status DC Sodium Chloride 1,000 ml @ 1,000 mls/hr Q1H PRN IV hypotension; Start 04/04/18 at 06:56; Stop 04/04/18 at 12:55; Status DC Albumin Human 200 ml @ 200 mls/hr 1X PRN PRN IV Hypotension; Start 04/04/18 at 07:00; Stop 04/04/18 at 12:59; Status DC Sodium Chloride (Normal Saline Flush) 10 ml 1X PRN PRN IV AP catheter pack; Start 04/04/18 at 07:00; Stop 04/05/18 at 06:59; Status DC Sodium Chloride 1,000 ml @ 400 mls/hr Q2H30M PRN IV PATENCY; Start 04/04/18 at 06:56; Stop 04/04/18 at 18:55; Status DC Info (PHARMACY MONITORING -- do not chart) 1 each PRN DAILY PRN MC SEE COMMENTS ; Start 04/04/18 at 07:00; Status UNV Info (PHARMACY MONITORING -- do not chart) 1 each PRN DAILY PRN MC SEE COMMENTS ; Start 04/04/18 at 07:00; Status UNV Lidocaine HCl (Lidocaine HCl 2% Abboject) 100 mg STK-MED ONCE .ROUTE ; Start at 08:09; Stop 04/04/18 at 08:10; Status DC Lidocaine HCl (Xylocaine-Mpf 2% Vial) 2 ml 1X ONCE INJ ; Start 04/04/18 at 08: 45; Stop 04/04/18 at 08:46; Status DC Micafungin Sodium 100 mg/Dextrose 100 ml @ 100 mls/hr Q24H IV ; Start 04/04/18 at 12:00 Fentanyl Citrate (Fentanyl 2ml Vial) 25 mcg PRN Q2HRS PRN IV MODERATE-SEVERE PAIN; Start 04/04/18 at 12:15 Morphine Sulfate (Morphine Sulfate) 2 mg PRN Q2HR PRN IV MILD PAIN Last administered on 04/05/18at 09:14; Start 04/04/18 at 12:15 Oxycodone HCl (Roxicodone) 20 mg QID PO Last administered on 04/05/18at 07:58; Start 04/04/18 at 17:00 Zolpidem Tartrate (Ambien) 5 mg PRN QHS PRN PO INSOMNIA, MAY REPEAT IN 1HR Last administered on 04/04/18at 21:35; Start 04/04/18 at 21:15 Nicotine (Nicoderm Cq 21mg) 1 patch PRN DAILY PRN TD SMOKING CESSATION Last administered on 04/05/18at 07:57; Start 04/04/18 at 21:15 Active Scripts Active Tramadol Hcl 50 Mg Tablet 50 Mg PO Q6HRS PRN Codeine-Guaifen 10-100 mg/5 ml (Guaifenesin/Codeine Phosphate) 120 Ml Liquid 5 Ml PO Q6HRS PRN Oxycodone Hcl 5 Mg Capsule 20 Mg PO PRN Q4HRS PRN Ambien (Zolpidem Tartrate) 10 Mg Tablet 1 Tab PO QHS Amox Tr-K Clv 500-125 Mg Tab (Amoxicillin/Potassium Clav) 1 Each Tablet 1 Tab PO BID Prednisone (Prednisone) 10 Mg Tablet 10 Mg PO UD Take 5 tablets by mouth daily for 2 days, then take 4 tablets by mouth daily for 2 days, then take 3 tablets by mouth daily for 2 days, then take 2 tablets by mouth daily for 2 days, then take 1 tablets by mouth daily for 2 days, then stop. Guaifenesin Dm Syrup (Guaifenesin/Dextromethorphan) 5 Ml Syrup 10 Ml PO QID Voltaren (Diclofenac Sodium) 100 Gm Gel..gram. 1 Chris TP BID 30 Days Amlodipine Besylate 10 Mg Tablet 10 Mg PO DAILY 30 Days Omeprazole 20 Mg Capsule.dr 1 Cap PO BID Duoneb 0.5-3(2.5) Mg/3 Ml (Albuterol/Ipratropium) 3 Ml Ampul.neb 3 Ml NEB RTQID 30 Days Advair 250-50 Diskus (Fluticasone/Salmeterol) 1 Puff Puff 1 Puff INH BID 30 Days Albuterol Sulfate Conc Neb Soln (Albuterol Sulfate) 2.5 Mg/0.5 Ml Vial.neb 1 Vial NEB Q4HRS PRN Reported Meloxicam 7.5 Mg Tablet 1 Tab PO DAILY Lisinopril 20 Mg Tablet 1 Tab PO DAILY Tramadol Hcl 50 Mg Tablet 50 Mg PO Q6H PRN Carvedilol 25 Mg Tablet 25 Mg PO BIDWMEALS Vitals/I & O Vital Sign - Last 24 Hours 04/04/18 04/04/18 04/04/18 04/04/18 10:21 12:24 15:13 15:23 Temp 98.1 98.1 Pulse 95 Resp 20 B/P (MAP) 120/50 (73) Pulse Ox 93 93 93 95 O2 Delivery Room Air Room Air Room Air Room Air O2 Flow Rate 2.0 2.0 2.0 04/04/18 04/04/18 04/04/18 04/04/18 15:43 17:23 17:23 18:15 Pulse 95 B/P (MAP) 120/50 Pulse Ox 95 95 O2 Delivery Nasal Cannula Room Air Room Air O2 Flow Rate 2.0 2.0 2.0 04/04/18 04/04/18 04/04/18 04/04/18 19:00 19:19 19:20 20:15 Temp 98.8 98.8 Pulse 81 Resp 20 B/P (MAP) 126/65 (85) Pulse Ox 96 95 95 O2 Delivery Room Air Nasal Cannula O2 Flow Rate 2.0 2.0 2.0 04/04/18 04/04/18 04/04/18 04/04/18 20:50 21:35 22:48 22:52 Resp 20 20 20 20 O2 Delivery Room Air Room Air Room Air 04/04/18 04/04/18 04/05/18 04/05/18 23:00 23:25 02:00 03:00 Temp 97.8 98.0 97.8 98.0 Pulse 85 93 Resp 20 20 20 20 B/P (MAP) 116/55 (75) 137/68 (91) Pulse Ox 93 96 O2 Delivery Room Air Room Air Room Air 04/05/18 04/05/18 04/05/18 04/05/18 06:07 06:37 07:00 07:35 Temp 96.4 96.4 Pulse 99 Resp 20 18 B/P (MAP) 132/67 (88) Pulse Ox 98 89 O2 Delivery Room Air Room Air Room Air Room Air 04/05/18 04/05/18 04/05/18 04/05/18 07:58 08:00 08:58 09:10 Pulse 99 B/P (MAP) 132/67 O2 Delivery Room Air Room Air Room Air 04/05/18 04/05/18 04/05/18 09:11 09:12 09:14 Pulse 99 99 B/P (MAP) 132/69 132/67 O2 Delivery Room Air Intake and Output 04/04/18 04/04/18 04/05/18 15:00 23:00 07:00 Intake Total 180 ml 720 ml 100 ml Balance 180 ml 720 ml 100 ml Nutrition Consultation Dietary Evaluation: Recommendations by RD: Increase Calorie Intake, Protein supplementation Comments: Continue Nepro tid added DBL meat portions Expected Outcomes/Goals: PO intake to meet >75% est needs- met, goal ongoing Malnutrition Findings: Body Fat Depletion (Non Severe: Mild Depletion Weight Status: Appropriate SANJANA HENRY MD Apr 05, 2018 09:43
[2018-04-05 11:00] VITALS: BP 93/58
--- NOTE | 2018-04-05 11:19 | PDOC ---
Infectious Disease Note Subjective Subjective c/o pain here and there (abdomen, back) + diarrhea No F/C/S/N/V ROS ROS per HPI otherwise neg Vital Sign Vital Signs Vital Signs Date Time Temp Pulse Resp B/P (MAP) Pulse Ox O2 Delivery O2 Flow Rate FiO2 04/05/18 09:44 Room Air 04/05/18 09:12 99 132/67 04/05/18 07:35 89 04/05/18 07:00 96.4 18 96.4 04/04/18 20:15 2.0 Physical Exam PHYSICAL EXAM GENERAL: Propped up in bed, alert, NAD HEENT: Oral cavity clear, No thrush. LUNGS: Decreased breath sound at the bases. HEART: S1, S2, RRR. No murmurs. ABDOMEN: Bowel sounds present. soft EXTREMITIES: No edema, no cyanosis. LUE-AV fistula DERM: Dry skin. No generalized rash. No skin breakdown noted or ulcerations noted. TREE DEADENER Alert, responds appropriately RIJ (04/01) clean Labs Lab Laboratory Tests Test 04/05/18 06:15 White Blood Count 20.6 x10^3/uL (4.0-11.0) Red Blood Count 2.48 x10^6/uL (3.50-5.40) Hemoglobin 7.8 g/dL (12.0-15.5) Hematocrit 23.8 % (36.0-47.0) Mean Corpuscular Volume 96 fL (79-100) Mean Corpuscular Hemoglobin 31 pg (25-35) Mean Corpuscular Hemoglobin Concent 33 g/dL (31-37) Red Cell Distribution Width 15.6 % (11.5-14.5) Platelet Count 205 x10^3/uL (140-400) Neutrophils (%) (Auto) 75 % (31-73) Lymphocytes (%) (Auto) 15 % (24-48) Monocytes (%) (Auto) 9 % (0-9) Eosinophils (%) (Auto) 1 % (0-3) Basophils (%) (Auto) 1 % (0-3) Neutrophils # (Auto) 15.4 x10^3uL (1.8-7.7) Lymphocytes # (Auto) 3.1 x10^3/uL (1.0-4.8) Monocytes # (Auto) 1.8 x10^3/uL (0.0-1.1) Eosinophils # (Auto) 0.1 x10^3/uL (0.0-0.7) Basophils # (Auto) 0.1 x10^3/uL (0.0-0.2) Erythrocyte Sedimentation Rate 125 (0-25) Sodium Level 141 mmol/L (136-145) Potassium Level 4.0 mmol/L (3.5-5.1) Chloride Level 103 mmol/L (98-107) Carbon Dioxide Level 33 mmol/L (21-32) Anion Gap 5 (6-14) Blood Urea Nitrogen 16 mg/dL (7-20) Creatinine 3.4 mg/dL (0.6-1.0) Estimated GFR (Cockcroft-Gault) 17.0 Glucose Level 145 mg/dL (70-99) Calcium Level 7.8 mg/dL (8.5-10.1) Phosphorus Level 1.4 mg/dL (2.6-4.7) Albumin 2.3 g/dL (3.4-5.0) Micro 04/01. BLD CULT RESULT 1 Preliminary Comment Pseudomonas aeruginosa 04/02 & . BLOOD CULTURE Preliminary NO GROWTH Objective Assessment Sepsis w/ pseudomonas bacteremia from 04/01. Repeat BC NGTD 04/02 & th Fever resolved End-stage renal disease, on hemodialysis with noncompliance. Leucocytosis - CT chest/abd/pelvis reviewed. some better Anemia with recent 2 units of packed RBC given during last hospitalization. History of smoking. History of dyspnea. Increased BNP, increased troponin. Cirrhosis.abn GB distention, Abdominal pain ,CT pericholecystic fluid, HIDA neg Perihilar interstitial pulmonary infiltrates. Plan Plan of Care Continue Meropenem Continue Zyvox and micafungin for now f/u cultures Supportive care Pt seen and examined. Chart reviewed in detail. Case discussed with STENCILER. Agree with above plan MIRANDA SINGH APRN Apr 05, 2018 11:18 RUTH STAFFORD MD Apr 05, 2018 21:35
--- NOTE | 2018-04-05 11:57 | PDOC ---
SURGICAL PROGRESS NOTE Subjective Pt with c/o diffuse pains Vital Signs Vital Signs Date Time Temp Pulse Resp B/P (MAP) Pulse Ox O2 Delivery O2 Flow Rate FiO2 04/05/18 09:44 Room Air 04/05/18 09:12 99 132/67 04/05/18 07:35 89 04/05/18 07:00 96.4 18 96.4 04/04/18 20:15 2.0 I&O Intake and Output 04/05/18 07:00 Intake Total 1000 ml Balance 1000 ml Intake Oral 1000 ml General: Alert, Cooperative, No acute distress Abdomen: Soft, No tenderness Labs Laboratory Tests Test 04/04/18 06:00 04/05/18 06:15 White Blood Count 32.4 x10^3/uL (4.0-11.0) 20.6 x10^3/uL (4.0-11.0) Red Blood Count 2.66 x10^6/uL (3.50-5.40) 2.48 x10^6/uL (3.50-5.40) Hemoglobin 8.4 g/dL (12.0-15.5) 7.8 g/dL (12.0-15.5) Hematocrit 25.4 % (36.0-47.0) 23.8 % (36.0-47.0) Mean Corpuscular Volume 96 fL (79-100) 96 fL (79-100) Mean Corpuscular Hemoglobin 32 pg (25-35) 31 pg (25-35) Mean Corpuscular Hemoglobin Concent 33 g/dL (31-37) 33 g/dL (31-37) Red Cell Distribution Width 15.8 % (11.5-14.5) 15.6 % (11.5-14.5) Platelet Count 236 x10^3/uL (140-400) 205 x10^3/uL (140-400) Neutrophils (%) (Auto) 84 % (31-73) 75 % (31-73) Lymphocytes (%) (Auto) 10 % (24-48) 15 % (24-48) Monocytes (%) (Auto) 6 % (0-9) 9 % (0-9) Eosinophils (%) (Auto) 0 % (0-3) 1 % (0-3) Basophils (%) (Auto) 0 % (0-3) 1 % (0-3) Neutrophils # (Auto) 27.1 x10^3uL (1.8-7.7) 15.4 x10^3uL (1.8-7.7) Lymphocytes # (Auto) 3.1 x10^3/uL (1.0-4.8) 3.1 x10^3/uL (1.0-4.8) Monocytes # (Auto) 1.9 x10^3/uL (0.0-1.1) 1.8 x10^3/uL (0.0-1.1) Eosinophils # (Auto) 0.1 x10^3/uL (0.0-0.7) 0.1 x10^3/uL (0.0-0.7) Basophils # (Auto) 0.1 x10^3/uL (0.0-0.2) 0.1 x10^3/uL (0.0-0.2) Sodium Level 139 mmol/L (136-145) 141 mmol/L (136-145) Potassium Level 3.4 mmol/L (3.5-5.1) 4.0 mmol/L (3.5-5.1) Chloride Level 99 mmol/L (98-107) 103 mmol/L (98-107) Carbon Dioxide Level 32 mmol/L (21-32) 33 mmol/L (21-32) Anion Gap 8 (6-14) 5 (6-14) Blood Urea Nitrogen 21 mg/dL (7-20) 16 mg/dL (7-20) Creatinine 4.4 mg/dL (0.6-1.0) 3.4 mg/dL (0.6-1.0) Estimated GFR (Cockcroft-Gault) 12.6 17.0 BUN/Creatinine Ratio 5 (6-20) Glucose Level 155 mg/dL (70-99) 145 mg/dL (70-99) Calcium Level 7.1 mg/dL (8.5-10.1) 7.8 mg/dL (8.5-10.1) Total Bilirubin 0.4 mg/dL (0.2-1.0) Aspartate Amino Transf (AST/SGOT) 44 U/L (15-37) Alanine Aminotransferase (ALT/SGPT) 27 U/L (14-59) Alkaline Phosphatase 174 U/L (46-116) Total Protein 6.6 g/dL (6.4-8.2) Albumin 2.4 g/dL (3.4-5.0) 2.3 g/dL (3.4-5.0) Albumin/Globulin Ratio 0.6 (1.0-1.7) Erythrocyte Sedimentation Rate 125 (0-25) Phosphorus Level 1.4 mg/dL (2.6-4.7) Laboratory Tests Test 04/05/18 06:15 White Blood Count 20.6 x10^3/uL (4.0-11.0) Red Blood Count 2.48 x10^6/uL (3.50-5.40) Hemoglobin 7.8 g/dL (12.0-15.5) Hematocrit 23.8 % (36.0-47.0) Mean Corpuscular Volume 96 fL (79-100) Mean Corpuscular Hemoglobin 31 pg (25-35) Mean Corpuscular Hemoglobin Concent 33 g/dL (31-37) Red Cell Distribution Width 15.6 % (11.5-14.5) Platelet Count 205 x10^3/uL (140-400) Neutrophils (%) (Auto) 75 % (31-73) Lymphocytes (%) (Auto) 15 % (24-48) Monocytes (%) (Auto) 9 % (0-9) Eosinophils (%) (Auto) 1 % (0-3) Basophils (%) (Auto) 1 % (0-3) Neutrophils # (Auto) 15.4 x10^3uL (1.8-7.7) Lymphocytes # (Auto) 3.1 x10^3/uL (1.0-4.8) Monocytes # (Auto) 1.8 x10^3/uL (0.0-1.1) Eosinophils # (Auto) 0.1 x10^3/uL (0.0-0.7) Basophils # (Auto) 0.1 x10^3/uL (0.0-0.2) Erythrocyte Sedimentation Rate 125 (0-25) Sodium Level 141 mmol/L (136-145) Potassium Level 4.0 mmol/L (3.5-5.1) Chloride Level 103 mmol/L (98-107) Carbon Dioxide Level 33 mmol/L (21-32) Anion Gap 5 (6-14) Blood Urea Nitrogen 16 mg/dL (7-20) Creatinine 3.4 mg/dL (0.6-1.0) Estimated GFR (Cockcroft-Gault) 17.0 Glucose Level 145 mg/dL (70-99) Calcium Level 7.8 mg/dL (8.5-10.1) Phosphorus Level 1.4 mg/dL (2.6-4.7) Albumin 2.3 g/dL (3.4-5.0) Problem List Problems Medical Problems: (1) Altered mental status Status: Acute (2) Dyspnea Status: Acute (3) ESRD (end stage renal disease) on dialysis Status: Acute (4) Noncompliance Status: Acute Assessment/Plan abd pain, unknown etiology no surgical plans pt is poor surgical candidate agree with abx will sign off, but please call for questions. RACHELLE CHAMPION MD Apr 05, 2018 11:57
[2018-04-05] MEDS: MICAFUNGIN 100 MG in IV DEXTROSE 5% 100ML 100 ML IV SCH (12:16)
[2018-04-05 15:00] VITALS: BP 109/57
[2018-04-05 19:00] VITALS: BP 97/55
[2018-04-05] MEDS: ZOLPIDEM 5 MG TABLET. PO PRN (20:30)
[2018-04-05 23:00] VITALS: BP 119/71
[2018-04-05] MEDS: fentaNYL PF VIAL 100 MCG/2 ML VIAL IV PRN (23:00)
[2018-04-06] MEDS: MORPHINE SULFATE 2 MG/ML VIAL. IV PRN ×7 (01:14→22:57)
[2018-04-06] MEDS: fentaNYL PF VIAL 100 MCG/2 ML VIAL IV PRN (02:48)
[2018-04-06 03:27] VITALS: BP 106/61
[2018-04-06] MEDS: HEPARIN PF for SUB-Q USE 5,000 UNIT/0.5 ML VIAL. SQ SCH ×3 (05:25→20:46)
[2018-04-06] MEDS: PANTOPRAZOLE 40 MG TABLET.DR. PO SCH ×2 (05:33→16:58)
[2018-04-06 07:00] VITALS: BP 107/50
[2018-04-06] MEDS: IPRATRPIUM/ALBUTEROL 0.5/2.5MG 3 ML NEBU. NEB SCH ×4 (07:08→19:53)
[2018-04-06] MEDS: BUDESONIDE 0.5 MG/2 ML NEBU. NEB SCH ×2 (07:09→19:53)
[2018-04-06] MEDS: CARVEDILOL 12.5 MG TABLET. PO SCH ×3 (08:00→16:58)
[2018-04-06] MEDS: amLODIPine BESYLATE 10 MG TABLET PO SCH ×2 (08:59→09:00)
[2018-04-06] MEDS: NICOTINE 21MG PATCH. TD PRN (08:59)
[2018-04-06] MEDS: oxyCODONE IR 5 MG TABLET PO SCH ×5 (08:59→20:45)
[2018-04-06] MEDS: LACTOBACILLUS RHAMNOSUS GG 1 CAPSULE. PO SCH ×2 (08:59→20:44)
[2018-04-06] MEDS: LINEZOLID 600 MG TABLET PO SCH ×2 (08:59→20:43)
[2018-04-06] MEDS: predniSONE 10 MG TABLET PO SCH (09:00)
[2018-04-06] MEDS: DICLOFENAC SODIUM 1% TOPICAL GEL 100GM TUBE. TP SCH ×2 (09:00→20:45)
[2018-04-06] MEDS: LISINOPRIL 20 MG TABLET PO SCH (09:00)
[2018-04-06] MEDS: MEROPENEM 500 MG in IV NORMAL SALINE 50ML 50 ML IV SCH (09:01)
--- NOTE | 2018-04-06 09:01 | PDOC ---
Infectious Disease Note Subjective Subjective c/o pain buttocks and legs No F/C/S/N/V ROS ROS per HPI otherwise negative Vital Sign Vital Signs Vital Signs Date Time Temp Pulse Resp B/P (MAP) Pulse Ox O2 Delivery O2 Flow Rate FiO2 04/06/18 07:10 92 Room Air 04/06/18 07:00 98.7 89 20 107/50 (69) 98.7 04/06/18 06:02 2.0 Physical Exam PHYSICAL EXAM GENERAL: Propped up in bed, alert, NAD HEENT: Oral cavity clear, No thrush. LUNGS: Decreased breath sound at the bases. HEART: S1, S2, RRR. No murmurs. ABDOMEN: Bowel sounds present. soft EXTREMITIES: No edema, no cyanosis. LUE-AV fistula DERM: Dry skin. No generalized rash. No skin breakdown noted or ulcerations noted. 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 BLD CULT RESULT 1 Final Pseudomonas aeruginosa MICS are expressed in micrograms per mL Antibiotic RSLT#1 Amikacin S<=2 Cefepime S =4 Ceftazidime S =4 Ciprofloxacin S<=0.25 Gentamicin S<=1 Imipenem S =4 Levofloxacin S =1 Meropenem S<=0.25 Piperacillin S =8 Ticarcillin S =32 Tobramycin S<=1 04/02 & . BLOOD CULTURE Preliminary NO GROWTH 04/04. BLOOD CULTURE Final GRAM POSITIVE COCCI IN CLUSTERS IN 1 OF 2 BOTTLES OF A SINGLE SET DRAWN 04/04/18. CALLED TO EULALIA PLUMMER ON 5N 04/06/18 AT 0759 BY Nila MCCULLOUGH. Objective Assessment Sepsis w/ pseudomonas bacteremia from 04/01. Repeat BC NGTD 04/02 & . BC 04/04 GPC in one of 2 bottles Fever resolved End-stage renal disease, on hemodialysis with noncompliance. Leucocytosis - CT chest/abd/pelvis reviewed. some better Anemia with recent 2 units of packed RBC given during last hospitalization. History of smoking. History of dyspnea. Increased BNP, increased troponin. Cirrhosis.and GB distention, Abdominal pain ,CT pericholecystic fluid, HIDA neg Perihilar interstitial pulmonary infiltrates. Plan Plan of Care Continue Meropenem, Zyvox and micafungin for now f/u cultures CBC in am Supportive care Pt seen and examined. Chart reviewed in detail. Case discussed with ENVIRONMENTAL HEALTH AND SAFETY LEADER. Agree with above plan. MIRANDA SNIGH APRN Apr 06, 2018 09:01 RUTH STAFFORD MD Apr 06, 2018 19:37
--- NOTE | 2018-04-06 09:12 | PDOC ---
PROGRESS NOTES Chief Complaint Chief Complaint Pseudomonas bacteremia Sepsis POA - off pressors (transferred out of ICU) ESRD on dialysis question compliance Hyperkalemia, resolved Elevated anion gap acidosis, resolved Metabolic encephalopathy with normal lactate and normal ammonia and normal CT - resolved Cirrhosis Noncompliance Fever, lethargy, former resolved NArc tolerant History of Present Illness History of Present Illness Transferred out of ICU 04/03/18 Did need pressors for hypotension in ICU Also needed some blood transfusion back to her normal baseline mentation VERY TENSE discussion today with her As expected she was still asking for more narcotics from me Blood pressure on the low side I was very giana with my discussion with her about her narcotic addiction/ dependence She also wants to go home - court date etc But GNR sensitivities still pending Plan: Continue present IV antibiotics for now We'll discharge when sensitivities are out and she understands this - hopefully tmr I did not increase any pain medicines today BOlus prn for persistent hypotension Vitals Vitals Vital Signs Date Time Temp Pulse Resp B/P (MAP) Pulse Ox O2 Delivery O2 Flow Rate FiO2 04/06/18 07:10 92 Room Air 04/06/18 07:00 98.7 89 20 107/50 (69) 98.7 04/06/18 06:02 2.0 Physical Exam Physical Exam GENERAL: Propped up in bed, alert, NAD HEENT: Oral cavity clear, No thrush. LUNGS: Decreased breath sound at the bases. HEART: S1, S2, RRR. No murmurs. ABDOMEN: Bowel sounds present. soft EXTREMITIES: No edema, no cyanosis. LUE-AV fistula DERM: Dry skin. No generalized rash. No skin breakdown noted or ulcerations noted. DRUG ABUSE RESISTANCE EDUCATION OFFICER Alert, responds appropriately RI (04/01) clean General: Alert, Cooperative, No acute distress Heart: Regular rate, Normal S1 Lungs: Clear Abdomen: Soft, No tenderness Extremities: No clubbing, Normal pulses Skin: No breakdown Review of Systems Review of Systems abd pain the rest of ROS 14 point negative Assessment and Plan Assessmemt and Plan Problems Medical Problems: (1) Altered mental status Status: Acute (2) Dyspnea Status: Acute (3) ESRD (end stage renal disease) on dialysis Status: Acute (4) Noncompliance Status: Acute Comment Review of Relevant I have reviewed the following items issac (where applicable) has been applied. Labs Laboratory Tests Test 04/05/18 06:15 White Blood Count 20.6 x10^3/uL (4.0-11.0) Red Blood Count 2.48 x10^6/uL (3.50-5.40) Hemoglobin 7.8 g/dL (12.0-15.5) Hematocrit 23.8 % (36.0-47.0) Mean Corpuscular Volume 96 fL (79-100) Mean Corpuscular Hemoglobin 31 pg (25-35) Mean Corpuscular Hemoglobin Concent 33 g/dL (31-37) Red Cell Distribution Width 15.6 % (11.5-14.5) Platelet Count 205 x10^3/uL (140-400) Neutrophils (%) (Auto) 75 % (31-73) Lymphocytes (%) (Auto) 15 % (24-48) Monocytes (%) (Auto) 9 % (0-9) Eosinophils (%) (Auto) 1 % (0-3) Basophils (%) (Auto) 1 % (0-3) Neutrophils # (Auto) 15.4 x10^3uL (1.8-7.7) Lymphocytes # (Auto) 3.1 x10^3/uL (1.0-4.8) Monocytes # (Auto) 1.8 x10^3/uL (0.0-1.1) Eosinophils # (Auto) 0.1 x10^3/uL (0.0-0.7) Basophils # (Auto) 0.1 x10^3/uL (0.0-0.2) Erythrocyte Sedimentation Rate 125 (0-25) Sodium Level 141 mmol/L (136-145) Potassium Level 4.0 mmol/L (3.5-5.1) Chloride Level 103 mmol/L (98-107) Carbon Dioxide Level 33 mmol/L (21-32) Anion Gap 5 (6-14) Blood Urea Nitrogen 16 mg/dL (7-20) Creatinine 3.4 mg/dL (0.6-1.0) Estimated GFR (Cockcroft-Gault) 17.0 Glucose Level 145 mg/dL (70-99) Calcium Level 7.8 mg/dL (8.5-10.1) Phosphorus Level 1.4 mg/dL (2.6-4.7) Albumin 2.3 g/dL (3.4-5.0) Microbiology 8/31/18 Blood Culture - Final, Complete 04/01/18 Urine Culture - Final, Complete 04/01/18 Urine Culture Result 1 (SUSIE) - Final, Complete Medications Current Medications Piperacillin Sod/ Tazobactam Sod 3.375 gm/Sodium Chloride 50 ml @ 100 mls/hr 1X ONCE IV Last administered on 04/01/18at 09:23; Start 04/01/18 at 09:15; Stop 04/01/18 at 09:44; Status DC Piperacillin Sod/ Tazobactam Sod (Zosyn Per Pharmacy) 1 each PRN DAILY PRN MC SEE COMMENTS; Start 04/01/18 at 12:15; Stop 04/02/18 at 09:21; Status DC Ondansetron HCl (Zofran) 4 mg PRN Q6HRS PRN IV NAUSEA/VOMITING 1ST CHOICE; Start 04/01/18 at 12:15 Fentanyl Citrate (Fentanyl 2ml Vial) 25 mcg PRN Q2HR PRN IV PAIN MILD Last administered on 04/02/18at 05:31; Start 04/01/18 at 12:15; Stop 04/02/18 at 11:58 ; Status DC Albuterol/ Ipratropium (Duoneb) 3 ml RTQID NEB Last administered on 04/06/18at 07 :08; Start 04/01/18 at 16:00 Guaifenesin (Robitussin Dm) 10 ml PRN Q6HRS PRN PO COUGH 1ST CHOICE; Start at 12:15 Heparin Sodium (Porcine) (Heparin Sq) 5,000 unit Q8HRS SQ Last administered on 04/05/18at 06:11; Start 04/01/18 at 14:00 Amlodipine Besylate (Norvasc) 10 mg DAILY PO Last administered on 04/05/18 09: 12; Start 04/01/18 at 13:00 Diclofenac Sodium (Voltaren) 1 chris BID TP Last administered on 04/05/18at 20:36; Start 04/01/18 at 21:00 Lisinopril (Prinivil) 20 mg DAILY PO Last administered on 04/05/18at 09:10; Start 04/01/18 at 13:00 Prednisone (Prednisone) 10 mg DAILY PO Last administered on 04/06/18at 09:00; Start 04/01/18 at 13:00 Tramadol HCl (Ultram) 50 mg PRN Q6HRS PRN PO PAIN MILD-MODERATE; Start at 12:15; Stop 04/02/18 at 11:56; Status DC Carvedilol (Coreg) 25 mg BIDWMEALS PO Last administered on 04/05/18at 16:16; Start 04/01/18 at 17:00 Budesonide (Pulmicort) 0.5 mg RTBID NEB Last administered on 04/06/18at 07:09; Start 04/01/18 at 20:00 Guaifenesin/ Codeine Phosphate (Robitussin Ac) 5 ml PRN Q6HRS PRN PO COUGH 2ND CHOICE Last administered on 04/05/18at 20:30; Start 04/01/18 at 12:30 Pantoprazole Sodium (Protonix) 40 mg BIDAC PO Last administered on 04/06/18at 05: 33; Start 04/02/18 at 07:30 Oxycodone HCl (Roxicodone) 20 mg PRN Q4HRS PRN PO PAIN SEVERE Last administered on 04/02/18at 08:10; Start 04/01/18 at 12:30; Stop 04/02/18 at 11:56 ; Status DC Sodium Polystyrene Sulfonate (Kayexalate) 15 gm 1X ONCE PO ; Start 04/01/18 at 12:30; Stop 04/01/18 at 12:31; Status DC Piperacillin Sod/ Tazobactam Sod 2.25 gm/Sodium Chloride 50 ml @ 100 mls/hr Q6HRS IV Last administered on 04/02/18at 05:30; Start 04/01/18 at 18:00; Stop at 09:21; Status DC Albuterol Sulfate (Ventolin Neb Soln) 2.5 mg PRN Q4HRS PRN NEB SHORTNESS OF BREATH Last administered on 04/01/18at 12:35; Start 04/01/18 at 12:30 Sodium Chloride 1,000 ml @ 1,000 mls/hr Q1H PRN IV hypotension; Start 04/01/18 at 12:50; Stop 04/01/18 at 18:54; Status DC Info (PHARMACY MONITORING -- do not chart) 1 each PRN DAILY PRN MC SEE COMMENTS ; Start 04/01/18 at 13:00 Info (PHARMACY MONITORING -- do not chart) 1 each PRN DAILY PRN MC SEE COMMENTS ; Start 04/01/18 at 13:00; Stop 04/01/18 at 13:00; Status DC Norepinephrine Bitartrate 250 ml @ 0 mls/hr 1X ONCE IV Last administered on at 13:23; Start 04/01/18 at 13:15; Stop 04/01/18 at 13:16; Status DC Vancomycin HCl (Vanco Per Pharmacy) 1 each PRN DAILY PRN MC SEE COMMENTS Last administered on 04/01/18at 13:49; Start 04/01/18 at 13:45; Stop 04/02/18 at 09:21 ; Status DC Vancomycin HCl 1.25 gm/Sodium Chloride 250 ml @ 167 mls/hr ONCE ONCE IV Last administered on 04/01/18at 18:03; Start 04/01/18 at 14:00; Stop 04/01/18 at 15:29 ; Status DC Lactobacillus Rhamnosus (Culturelle) 1 cap BID PO Last administered on at 08:59; Start 04/01/18 at 21:00 Norepinephrine Bitartrate 250 ml @ 1.875 mls/ hr CONT PRN IV SEE I/O RECORD Last administered on 04/03/18at 00:41; Start 04/01/18 at 22:15; Stop 04/03/18 at 19:22; Status DC Meropenem 500 mg/ Sodium Chloride 50 ml @ 100 mls/hr DAILY IV Last administered on 04/06/18at 09:01; Start 04/02/18 at 12:00 Darbepoetin Norris (Aranesp) 60 mcg WEEKLYHS SQ Last administered on 04/02/18at 21 :20; Start 04/02/18 at 21:00 Info (PHARMACY MONITORING -- do not chart) 1 each PRN DAILY PRN MC SEE COMMENTS ; Start 04/03/18 at 08:15; Status UNV Info (PHARMACY MONITORING -- do not chart) 1 each PRN DAILY PRN MC SEE COMMENTS ; Start 04/03/18 at 08:15; Status UNV Lidocaine HCl (Xylocaine-Mpf 1% 2ml Vial) 2 ml STK-MED ONCE .ROUTE ; Start 04/03 at 08:56; Stop 04/03/18 at 08:57; Status DC Linezolid (Zyvox) 600 mg BID PO Last administered on 04/06/18at 08:59; Start at 10:00 Fentanyl Citrate (Fentanyl 2ml Vial) 25 mcg PRN Q4HRS PRN IV PAIN Last administered on 04/04/18at 08:53; Start 04/03/18 at 09:15; Stop 04/04/18 at 12:02 ; Status DC Lidocaine HCl (Xylocaine-Mpf 2% Vial) 2 ml 1X ONCE INJ ; Start 04/03/18 at 10: 30; Stop 04/03/18 at 10:31; Status DC Iohexol (Omnipaque 300 Mg/ml) 60 ml 1X ONCE IV ; Start 04/03/18 at 12:00; Stop 04/03/18 at 12:01; Status DC Sodium Chloride 1,000 ml @ 1,000 mls/hr Q1H PRN IV hypotension; Start 04/04/18 at 06:56; Stop 04/04/18 at 12:55; Status DC Albumin Human 200 ml @ 200 mls/hr 1X PRN PRN IV Hypotension; Start 04/04/18 at 07:00; Stop 04/04/18 at 12:59; Status DC Sodium Chloride (Normal Saline Flush) 10 ml 1X PRN PRN IV AP catheter pack; Start 04/04/18 at 07:00; Stop 04/05/18 at 06:59; Status DC Sodium Chloride 1,000 ml @ 400 mls/hr Q2H30M PRN IV PATENCY; Start 04/04/18 at 06:56; Stop 04/04/18 at 18:55; Status DC Info (PHARMACY MONITORING -- do not chart) 1 each PRN DAILY PRN MC SEE COMMENTS ; Start 04/04/18 at 07:00; Status UNV Info (PHARMACY MONITORING -- do not chart) 1 each PRN DAILY PRN MC SEE COMMENTS ; Start 04/04/18 at 07:00; Status UNV Lidocaine HCl (Lidocaine HCl 2% Abboject) 100 mg STK-MED ONCE .ROUTE ; Start at 08:09; Stop 04/04/18 at 08:10; Status DC Lidocaine HCl (Xylocaine-Mpf 2% Vial) 2 ml 1X ONCE INJ ; Start 04/04/18 at 08: 45; Stop 04/04/18 at 08:46; Status DC Micafungin Sodium 100 mg/Dextrose 100 ml @ 100 mls/hr Q24H IV Last administered on 04/05/18at 12:16; Start 04/04/18 at 12:00 Fentanyl Citrate (Fentanyl 2ml Vial) 25 mcg PRN Q2HRS PRN IV MODERATE-SEVERE PAIN Last administered on 04/06/18at 02:48; Start 04/04/18 at 12:15 Morphine Sulfate (Morphine Sulfate) 2 mg PRN Q2HR PRN IV MILD PAIN Last administered on 04/06/18at 05:31; Start 04/04/18 at 12:15 Oxycodone HCl (Roxicodone) 20 mg QID PO Last administered on 04/05/18at 20:30; Start 04/04/18 at 17:00 Zolpidem Tartrate (Ambien) 5 mg PRN QHS PRN PO INSOMNIA, MAY REPEAT IN 1HR Last administered on 04/05/18at 20:30; Start 04/04/18 at 21:15 Nicotine (Nicoderm Cq 21mg) 1 patch PRN DAILY PRN TD SMOKING CESSATION Last administered on 04/06/18at 08:59; Start 04/04/18 at 21:15 Active Scripts Active Tramadol Hcl 50 Mg Tablet 50 Mg PO Q6HRS PRN Codeine-Guaifen 10-100 mg/5 ml (Guaifenesin/Codeine Phosphate) 120 Ml Liquid 5 Ml PO Q6HRS PRN Oxycodone Hcl 5 Mg Capsule 20 Mg PO PRN Q4HRS PRN Ambien (Zolpidem Tartrate) 10 Mg Tablet 1 Tab PO QHS Amox Tr-K Clv 500-125 Mg Tab (Amoxicillin/Potassium Clav) 1 Each Tablet 1 Tab PO BID Prednisone (Prednisone) 10 Mg Tablet 10 Mg PO UD Take 5 tablets by mouth daily for 2 days, then take 4 tablets by mouth daily for 2 days, then take 3 tablets by mouth daily for 2 days, then take 2 tablets by mouth daily for 2 days, then take 1 tablets by mouth daily for 2 days, then stop. Guaifenesin Dm Syrup (Guaifenesin/Dextromethorphan) 5 Ml Syrup 10 Ml PO QID Voltaren (Diclofenac Sodium) 100 Gm Gel..gram. 1 Chris TP BID 30 Days Amlodipine Besylate 10 Mg Tablet 10 Mg PO DAILY 30 Days Omeprazole 20 Mg Capsule.dr 1 Cap PO BID Duoneb 0.5-3(2.5) Mg/3 Ml (Albuterol/Ipratropium) 3 Ml Ampul.neb 3 Ml NEB RTQID 30 Days Advair 250-50 Diskus (Fluticasone/Salmeterol) 1 Puff Puff 1 Puff INH BID 30 Days Albuterol Sulfate Conc Neb Soln (Albuterol Sulfate) 2.5 Mg/0.5 Ml Vial.neb 1 Vial NEB Q4HRS PRN Reported Meloxicam 7.5 Mg Tablet 1 Tab PO DAILY Lisinopril 20 Mg Tablet 1 Tab PO DAILY Tramadol Hcl 50 Mg Tablet 50 Mg PO Q6H PRN Carvedilol 25 Mg Tablet 25 Mg PO BIDWMEALS Vitals/I & O Vital Sign - Last 24 Hours 04/05/18 04/05/18 04/05/18 04/05/18 09:10 09:11 09:12 09:14 Pulse 99 99 99 B/P (MAP) 132/67 132/69 132/67 O2 Delivery Room Air 04/05/18 04/05/18 04/05/18 04/05/18 11:00 12:14 15:00 16:03 Temp 97.5 97.5 97.5 97.5 Pulse 81 91 Resp 16 18 B/P (MAP) 93/58 (70) 109/57 (74) Pulse Ox 98 91 O2 Delivery Room Air Room Air Room Air Room Air 04/05/18 04/05/18 04/05/18 04/05/18 16:16 16:16 19:00 20:00 Temp 99.1 99.1 Pulse 91 85 Resp 20 B/P (MAP) 109/57 97/55 (69) Pulse Ox 93 O2 Delivery Room Air Room Air Room Air 04/05/18 04/05/18 04/05/18 04/05/18 20:30 20:31 21:30 23:00 Resp 18 18 18 18 Pulse Ox 93 93 93 93 O2 Delivery Room Air Room Air Room Air Room Air O2 Flow Rate 2.0 2.0 2.0 2.0 9/1/04/05/18 04/06/18 04/06/18 23:00 23:30 01:14 02:48 Temp 98.4 98.4 Pulse 93 Resp 18 B/P (MAP) 119/71 (87) Pulse Ox 91 93 93 93 O2 Delivery Nasal Cannula Room Air Room Air Room Air O2 Flow Rate 2.0 2.0 2.0 04/06/18 04/06/18 04/06/18 04/06/18 03:27 05:31 06:02 07:00 Temp 97.5 98.7 97.5 98.7 Pulse 89 89 Resp 20 18 20 B/P (MAP) 106/61 (76) 107/50 (69) Pulse Ox 91 91 91 91 O2 Delivery Nasal Cannula Room Air Room Air Nasal Cannula O2 Flow Rate 2.0 2.0 04/06/18 07:10 Pulse Ox 92 O2 Delivery Room Air Intake and Output 04/05/18 04/05/18 04/06/18 15:00 23:00 07:00 Intake Total 600 ml Output Total 1 ml 0 ml Balance 599 ml 0 ml Nutrition Consultation Dietary Evaluation: Recommendations by RD: Increase Calorie Intake, Protein supplementation Comments: Continue Nepro tid added DBL meat portions Expected Outcomes/Goals: PO intake to meet >75% est needs- met, goal ongoing Malnutrition Findings: Body Fat Depletion (Non Severe: Mild Depletion Weight Status: Appropriate SANJANA HENRY MD Apr 06, 2018 09:12
[2018-04-06 11:00] VITALS: BP 128/58
[2018-04-06] MEDS: MICAFUNGIN 100 MG in IV DEXTROSE 5% 100ML 100 ML IV SCH (12:14)
[2018-04-06 15:00] VITALS: BP 116/62
[2018-04-06 19:00] VITALS: BP 105/56
[2018-04-06] MEDS: ZOLPIDEM 5 MG TABLET. PO PRN (20:44)
[2018-04-06 23:00] VITALS: BP 124/61
[2018-04-07] VITALS (8 sets, daily range): BP systolic 102–135; BP diastolic 54–70
[2018-04-07] MEDS: MORPHINE SULFATE 2 MG/ML VIAL. IV PRN ×8 (04:02→23:13)
[2018-04-07 05:09] LABS: BASO % 0 % (0-3); EOS % 0 % (0-3); HEMATOCRIT 24.9 % (36.0-47.0); HEMOGLOBIN 8.2 g/dL (12.0-15.5); LYMPH # 2.6 x10^3/uL (1.0-4.8); LYMPH % 15 % (24-48); MEAN CORPUSCULAR HEMOGLOBIN 32 pg (25-35); MEAN CORPUSCULAR HGB CONC 33 g/dL (31-37); MEAN CORPUSCULAR VOLUME 97 fL (79-100); MONO # 1.1 x10^3/uL (0.0-1.1); MONO % 6 % (0-9); NEUT # 13.9 x10^3uL (1.8-7.7); NEUT % 79 % (31-73); PLATELET COUNT 229 x10^3/uL (140-400); RED BLOOD COUNT 2.57 x10^6/uL (3.50-5.40); RED CELL DISTRIBUTION WIDTH 15.6 % (11.5-14.5); WHITE BLOOD COUNT 17.7 x10^3/uL (4.0-11.0)
[2018-04-07] MEDS: HEPARIN PF for SUB-Q USE 5,000 UNIT/0.5 ML VIAL. SQ SCH ×3 (06:00→21:13)
[2018-04-07] MEDS: IPRATRPIUM/ALBUTEROL 0.5/2.5MG 3 ML NEBU. NEB SCH ×4 (07:48→19:18)
[2018-04-07] MEDS: BUDESONIDE 0.5 MG/2 ML NEBU. NEB SCH ×2 (07:48→19:18)
[2018-04-07] MEDS: LACTOBACILLUS RHAMNOSUS GG 1 CAPSULE. PO SCH ×2 (08:13→21:06)
[2018-04-07] MEDS: oxyCODONE IR 5 MG TABLET PO SCH ×4 (08:14→21:06)
[2018-04-07] MEDS: predniSONE 10 MG TABLET PO SCH (08:15)
[2018-04-07] MEDS: CARVEDILOL 12.5 MG TABLET. PO SCH ×2 (08:16→16:54)
[2018-04-07] MEDS: LISINOPRIL 20 MG TABLET PO SCH (08:16)
[2018-04-07] MEDS: amLODIPine BESYLATE 10 MG TABLET PO SCH (08:16)
[2018-04-07] MEDS: LINEZOLID 600 MG TABLET PO SCH (08:16)
[2018-04-07] MEDS: PANTOPRAZOLE 40 MG TABLET.DR. PO SCH ×2 (08:16→16:51)
[2018-04-07] MEDS: MEROPENEM 500 MG in IV NORMAL SALINE 50ML 50 ML IV SCH (08:24)
[2018-04-07] MEDS: DICLOFENAC SODIUM 1% TOPICAL GEL 100GM TUBE. TP SCH ×2 (10:54→21:00)
--- NOTE | 2018-04-07 10:59 | PDOC ---
Infectious Disease Note Subjective Subjective Doing really well and states she needs to leave today No F/C/S/N/V ROS ROS o/w neg Vital Sign Vital Signs Vital Signs Date Time Temp Pulse Resp B/P (MAP) Pulse Ox O2 Delivery O2 Flow Rate FiO2 04/07/18 10:54 Room Air 04/07/18 08:16 94 135/65 04/07/18 07:58 97.5 16 95 97.5 04/07/18 04:35 2.0 Physical Exam PHYSICAL EXAM GENERAL: Propped up in bed, alert, NAD, smiling HEENT: Oral cavity clear, No thrush. LUNGS: Decreased breath sound at the bases. HEART: S1, S2, RRR. No murmurs. ABDOMEN: Bowel sounds present. soft EXTREMITIES: No edema, no cyanosis. LUE-AV fistula DERM: Dry skin. No generalized rash. No skin breakdown noted or ulcerations noted. PUBLIC HEALTH ASSISTANT Alert, responds appropriately RIJ (04/01) clean Labs Lab Laboratory Tests Test 04/07/18 04:30 White Blood Count 17.7 x10^3/uL (4.0-11.0) Red Blood Count 2.57 x10^6/uL (3.50-5.40) Hemoglobin 8.2 g/dL (12.0-15.5) Hematocrit 24.9 % (36.0-47.0) Mean Corpuscular Volume 97 fL (79-100) Mean Corpuscular Hemoglobin 32 pg (25-35) Mean Corpuscular Hemoglobin Concent 33 g/dL (31-37) Red Cell Distribution Width 15.6 % (11.5-14.5) Platelet Count 229 x10^3/uL (140-400) Neutrophils (%) (Auto) 79 % (31-73) Lymphocytes (%) (Auto) 15 % (24-48) Monocytes (%) (Auto) 6 % (0-9) Eosinophils (%) (Auto) 0 % (0-3) Basophils (%) (Auto) 0 % (0-3) Neutrophils # (Auto) 13.9 x10^3uL (1.8-7.7) Lymphocytes # (Auto) 2.6 x10^3/uL (1.0-4.8) Monocytes # (Auto) 1.1 x10^3/uL (0.0-1.1) Eosinophils # (Auto) 0.0 x10^3/uL (0.0-0.7) Basophils # (Auto) 0.0 x10^3/uL (0.0-0.2) Micro Microbiology 04/04/18 Blood Culture - Final, Complete 04/01/18 Urine Culture - Final, Complete 04/01/18 Urine Culture Result 1 (SUSIE) - Final, Complete 04/01 BLD CULT RESULT 1 Final Comment Pseudomonas aeruginosa ANTIMICROBIAL SUSCEPTIBILITY Final Comment S = Susceptible; I = Intermediate; R = Resistant P = Positive; N = Negative MICS are expressed in micrograms per mL Antibiotic RSLT#1 RSLT#2 RSLT#3 RSLT#4 Amikacin S<=2 Cefepime S =4 Ceftazidime S =4 Ciprofloxacin S<=0.25 Gentamicin S<=1 Imipenem S =4 Levofloxacin S =1 Meropenem S<=0.25 Piperacillin S =8 Ticarcillin S =32 Tobramycin S<=1 Objective Assessment Sepsis w/ pseudomonas bacteremia from 04/01. Repeat BC NGTD 04/02 & . BC 04/04 GPC in one of 2 bottles Fever resolved End-stage renal disease, on hemodialysis with noncompliance. Leukocytosis - CT chest/abd/pelvis reviewed. some better Anemia with recent 2 units of packed RBC given during last hospitalization. History of smoking. History of dyspnea. Increased BNP, increased troponin. Cirrhosis.and GB distention, Abdominal pain ,CT pericholecystic fluid, HIDA neg - surgery signed off Perihilar interstitial pulmonary infiltrates Plan Plan of Care Discontinue Meropenem, Zyvox and micafungin for now Dose Vanc/cefepime (times one) and gent Could d/c with Gent and Vanc with HD for 2 doses if ok with Renal and needs to arranged by Renal F/u ID office next week [phone] DARWIN CARNES MD Apr 07, 2018 10:59
--- NOTE | 2018-04-07 11:12 | PDOC ---
PROGRESS NOTES Chief Complaint Chief Complaint Pseudomonas bacteremia Sepsis POA - off pressors (transferred out of ICU) ESRD on dialysis question compliance Hyperkalemia, resolved Elevated anion gap acidosis, resolved Metabolic encephalopathy with normal lactate and normal ammonia and normal CT - resolved Cirrhosis Noncompliance Fever, lethargy, former resolved NArc tolerant NEED TO ARRANGE IV ANTIBIOTICS WITH NEPHROLOGY ON D/C History of Present Illness History of Present Illness Transferred out of ICU 04/03/18 Did need pressors for hypotension in ICU Also needed some blood transfusion back to her normal baseline mentation VERY TENSE discussion today with her As expected she was still asking for more narcotics from me Blood pressure on the low side I was very giana with my discussion with her about her narcotic addiction/ dependence She also wants to go home - court date etc But GNR sensitivities still pending Plan: Continue present IV antibiotics for now We'll discharge when sensitivities are out and she understands this - hopefully tmr I did not increase any pain medicines today BOlus prn for persistent hypotension Vitals Vitals Vital Signs Date Time Temp Pulse Resp B/P (MAP) Pulse Ox O2 Delivery O2 Flow Rate FiO2 04/07/18 10:54 Room Air 04/07/18 08:16 94 135/65 04/07/18 07:58 97.5 16 95 97.5 04/07/18 04:35 2.0 Physical Exam Physical Exam GENERAL: Propped up in bed, alert, NAD HEENT: Oral cavity clear, No thrush. LUNGS: Decreased breath sound at the bases. HEART: S1, S2, RRR. No murmurs. ABDOMEN: Bowel sounds present. soft EXTREMITIES: No edema, no cyanosis. LUE-AV fistula DERM: Dry skin. No generalized rash. No skin breakdown noted or ulcerations noted. COMMUTATOR TESTER Alert, responds appropriately RI (04/01) clean General: Alert, Oriented X3, Cooperative, No acute distress Heart: Regular rate, Normal S1 Lungs: Clear Abdomen: Soft, No tenderness Extremities: No clubbing, No cyanosis, Normal pulses Skin: No breakdown Labs LABS Laboratory Tests Test 04/07/18 04:30 White Blood Count 17.7 x10^3/uL (4.0-11.0) Red Blood Count 2.57 x10^6/uL (3.50-5.40) Hemoglobin 8.2 g/dL (12.0-15.5) Hematocrit 24.9 % (36.0-47.0) Mean Corpuscular Volume 97 fL (79-100) Mean Corpuscular Hemoglobin 32 pg (25-35) Mean Corpuscular Hemoglobin Concent 33 g/dL (31-37) Red Cell Distribution Width 15.6 % (11.5-14.5) Platelet Count 229 x10^3/uL (140-400) Neutrophils (%) (Auto) 79 % (31-73) Lymphocytes (%) (Auto) 15 % (24-48) Monocytes (%) (Auto) 6 % (0-9) Eosinophils (%) (Auto) 0 % (0-3) Basophils (%) (Auto) 0 % (0-3) Neutrophils # (Auto) 13.9 x10^3uL (1.8-7.7) Lymphocytes # (Auto) 2.6 x10^3/uL (1.0-4.8) Monocytes # (Auto) 1.1 x10^3/uL (0.0-1.1) Eosinophils # (Auto) 0.0 x10^3/uL (0.0-0.7) Basophils # (Auto) 0.0 x10^3/uL (0.0-0.2) Assessment and Plan Assessmemt and Plan Problems Medical Problems: (1) Altered mental status Status: Acute (2) Dyspnea Status: Acute (3) ESRD (end stage renal disease) on dialysis Status: Acute (4) Noncompliance Status: Acute Comment Review of Relevant I have reviewed the following items issac (where applicable) has been applied. Labs Laboratory Tests Test 04/07/18 04:30 White Blood Count 17.7 x10^3/uL (4.0-11.0) Red Blood Count 2.57 x10^6/uL (3.50-5.40) Hemoglobin 8.2 g/dL (12.0-15.5) Hematocrit 24.9 % (36.0-47.0) Mean Corpuscular Volume 97 fL (79-100) Mean Corpuscular Hemoglobin 32 pg (25-35) Mean Corpuscular Hemoglobin Concent 33 g/dL (31-37) Red Cell Distribution Width 15.6 % (11.5-14.5) Platelet Count 229 x10^3/uL (140-400) Neutrophils (%) (Auto) 79 % (31-73) Lymphocytes (%) (Auto) 15 % (24-48) Monocytes (%) (Auto) 6 % (0-9) Eosinophils (%) (Auto) 0 % (0-3) Basophils (%) (Auto) 0 % (0-3) Neutrophils # (Auto) 13.9 x10^3uL (1.8-7.7) Lymphocytes # (Auto) 2.6 x10^3/uL (1.0-4.8) Monocytes # (Auto) 1.1 x10^3/uL (0.0-1.1) Eosinophils # (Auto) 0.0 x10^3/uL (0.0-0.7) Basophils # (Auto) 0.0 x10^3/uL (0.0-0.2) Laboratory Tests Test 04/07/18 04:30 White Blood Count 17.7 x10^3/uL (4.0-11.0) Red Blood Count 2.57 x10^6/uL (3.50-5.40) Hemoglobin 8.2 g/dL (12.0-15.5) Hematocrit 24.9 % (36.0-47.0) Mean Corpuscular Volume 97 fL (79-100) Mean Corpuscular Hemoglobin 32 pg (25-35) Mean Corpuscular Hemoglobin Concent 33 g/dL (31-37) Red Cell Distribution Width 15.6 % (11.5-14.5) Platelet Count 229 x10^3/uL (140-400) Neutrophils (%) (Auto) 79 % (31-73) Lymphocytes (%) (Auto) 15 % (24-48) Monocytes (%) (Auto) 6 % (0-9) Eosinophils (%) (Auto) 0 % (0-3) Basophils (%) (Auto) 0 % (0-3) Neutrophils # (Auto) 13.9 x10^3uL (1.8-7.7) Lymphocytes # (Auto) 2.6 x10^3/uL (1.0-4.8) Monocytes # (Auto) 1.1 x10^3/uL (0.0-1.1) Eosinophils # (Auto) 0.0 x10^3/uL (0.0-0.7) Basophils # (Auto) 0.0 x10^3/uL (0.0-0.2) Microbiology 04/04/18 Blood Culture - Final, Complete 04/01/18 Urine Culture - Final, Complete 04/01/18 Urine Culture Result 1 (SUSIE) - Final, Complete Medications Current Medications Piperacillin Sod/ Tazobactam Sod 3.375 gm/Sodium Chloride 50 ml @ 100 mls/hr 1X ONCE IV Last administered on 04/01/18at 09:23; Start 04/01/18 at 09:15; Stop 04/01/18 at 09:44; Status DC Piperacillin Sod/ Tazobactam Sod (Zosyn Per Pharmacy) 1 each PRN DAILY PRN MC SEE COMMENTS; Start 04/01/18 at 12:15; Stop 04/02/18 at 09:21; Status DC Ondansetron HCl (Zofran) 4 mg PRN Q6HRS PRN IV NAUSEA/VOMITING 1ST CHOICE; Start 04/01/18 at 12:15 Fentanyl Citrate (Fentanyl 2ml Vial) 25 mcg PRN Q2HR PRN IV PAIN MILD Last administered on 04/02/18at 05:31; Start 04/01/18 at 12:15; Stop 04/02/18 at 11:58 ; Status DC Albuterol/ Ipratropium (Duoneb) 3 ml RTQID NEB Last administered on 04/07/18at 07 :48; Start 04/01/18 at 16:00 Guaifenesin (Robitussin Dm) 10 ml PRN Q6HRS PRN PO COUGH 1ST CHOICE; Start at 12:15 Heparin Sodium (Porcine) (Heparin Sq) 5,000 unit Q8HRS SQ Last administered on 04/05/18at 06:11; Start 04/01/18 at 14:00 Amlodipine Besylate (Norvasc) 10 mg DAILY PO Last administered on 04/07/18at 08: 16; Start 04/01/18 at 13:00 Diclofenac Sodium (Voltaren) 1 chris BID TP Last administered on 04/07/18at 10:54; Start 04/01/18 at 21:00 Lisinopril (Prinivil) 20 mg DAILY PO Last administered on 04/07/18at 08:16; Start 04/01/18 at 13:00 Prednisone (Prednisone) 10 mg DAILY PO Last administered on 04/07/18at 08:15; Start 04/01/18 at 13:00 Tramadol HCl (Ultram) 50 mg PRN Q6HRS PRN PO PAIN MILD-MODERATE; Start at 12:15; Stop 04/02/18 at 11:56; Status DC Carvedilol (Coreg) 25 mg BIDWMEALS PO Last administered on 04/07/18at 08:16; Start 04/01/18 at 17:00 Budesonide (Pulmicort) 0.5 mg RTBID NEB Last administered on 04/07/18at 07:48; Start 04/01/18 at 20:00 Guaifenesin/ Codeine Phosphate (Robitussin Ac) 5 ml PRN Q6HRS PRN PO COUGH 2ND CHOICE Last administered on 04/05/18at 20:30; Start 04/01/18 at 12:30 Pantoprazole Sodium (Protonix) 40 mg BIDAC PO Last administered on 04/07/18at 08: 16; Start 04/02/18 at 07:30 Oxycodone HCl (Roxicodone) 20 mg PRN Q4HRS PRN PO PAIN SEVERE Last administered on 04/02/18at 08:10; Start 04/01/18 at 12:30; Stop 04/02/18 at 11:56 ; Status DC Sodium Polystyrene Sulfonate (Kayexalate) 15 gm 1X ONCE PO ; Start 04/01/18 at 12:30; Stop 04/01/18 at 12:31; Status DC Piperacillin Sod/ Tazobactam Sod 2.25 gm/Sodium Chloride 50 ml @ 100 mls/hr Q6HRS IV Last administered on 04/02/18at 05:30; Start 04/01/18 at 18:00; Stop at 09:21; Status DC Albuterol Sulfate (Ventolin Neb Soln) 2.5 mg PRN Q4HRS PRN NEB SHORTNESS OF BREATH Last administered on 04/01/18at 12:35; Start 04/01/18 at 12:30 Sodium Chloride 1,000 ml @ 1,000 mls/hr Q1H PRN IV hypotension; Start 04/01/18 at 12:50; Stop 04/01/18 at 18:54; Status DC Info (PHARMACY MONITORING -- do not chart) 1 each PRN DAILY PRN MC SEE COMMENTS ; Start 04/01/18 at 13:00 Info (PHARMACY MONITORING -- do not chart) 1 each PRN DAILY PRN MC SEE COMMENTS ; Start 04/01/18 at 13:00; Stop 04/01/18 at 13:00; Status DC Norepinephrine Bitartrate 250 ml @ 0 mls/hr 1X ONCE IV Last administered on at 13:23; Start 04/01/18 at 13:15; Stop 04/01/18 at 13:16; Status DC Vancomycin HCl (Vanco Per Pharmacy) 1 each PRN DAILY PRN MC SEE COMMENTS Last administered on 04/01/18at 13:49; Start 04/01/18 at 13:45; Stop 04/02/18 at 09:21 ; Status DC Vancomycin HCl 1.25 gm/Sodium Chloride 250 ml @ 167 mls/hr ONCE ONCE IV Last administered on 04/01/18at 18:03; Start 04/01/18 at 14:00; Stop 04/01/18 at 15:29 ; Status DC Lactobacillus Rhamnosus (Culturelle) 1 cap BID PO Last administered on at 08:13; Start 04/01/18 at 21:00 Norepinephrine Bitartrate 250 ml @ 1.875 mls/ hr CONT PRN IV SEE I/O RECORD Last administered on 04/03/18at 00:41; Start 04/01/18 at 22:15; Stop 04/03/18 at 19:22; Status DC Meropenem 500 mg/ Sodium Chloride 50 ml @ 100 mls/hr DAILY IV Last administered on 04/07/18at 08:24; Start 04/02/18 at 12:00 Darbepoetin Norris (Aranesp) 60 mcg WEEKLYHS SQ Last administered on 04/02/18at 21 :20; Start 04/02/18 at 21:00 Info (PHARMACY MONITORING -- do not chart) 1 each PRN DAILY PRN MC SEE COMMENTS ; Start 04/03/18 at 08:15; Status UNV Info (PHARMACY MONITORING -- do not chart) 1 each PRN DAILY PRN MC SEE COMMENTS ; Start 04/03/18 at 08:15; Status UNV Lidocaine HCl (Xylocaine-Mpf 1% 2ml Vial) 2 ml STK-MED ONCE .ROUTE ; Start 04/03 at 08:56; Stop 04/03/18 at 08:57; Status DC Linezolid (Zyvox) 600 mg BID PO Last administered on 04/07/18at 08:16; Start at 10:00 Fentanyl Citrate (Fentanyl 2ml Vial) 25 mcg PRN Q4HRS PRN IV PAIN Last administered on 04/04/18at 08:53; Start 04/03/18 at 09:15; Stop 04/04/18 at 12:02 ; Status DC Lidocaine HCl (Xylocaine-Mpf 2% Vial) 2 ml 1X ONCE INJ ; Start 04/03/18 at 10: 30; Stop 04/03/18 at 10:31; Status DC Iohexol (Omnipaque 300 Mg/ml) 60 ml 1X ONCE IV ; Start 04/03/18 at 12:00; Stop 04/03/18 at 12:01; Status DC Sodium Chloride 1,000 ml @ 1,000 mls/hr Q1H PRN IV hypotension; Start 04/04/18 at 06:56; Stop 04/04/18 at 12:55; Status DC Albumin Human 200 ml @ 200 mls/hr 1X PRN PRN IV Hypotension; Start 04/04/18 at 07:00; Stop 04/04/18 at 12:59; Status DC Sodium Chloride (Normal Saline Flush) 10 ml 1X PRN PRN IV AP catheter pack; Start 04/04/18 at 07:00; Stop 04/05/18 at 06:59; Status DC Sodium Chloride 1,000 ml @ 400 mls/hr Q2H30M PRN IV PATENCY; Start 04/04/18 at 06:56; Stop 04/04/18 at 18:55; Status DC Info (PHARMACY MONITORING -- do not chart) 1 each PRN DAILY PRN MC SEE COMMENTS ; Start 04/04/18 at 07:00; Status UNV Info (PHARMACY MONITORING -- do not chart) 1 each PRN DAILY PRN MC SEE COMMENTS ; Start 04/04/18 at 07:00; Status UNV Lidocaine HCl (Lidocaine HCl 2% Abboject) 100 mg STK-MED ONCE .ROUTE ; Start at 08:09; Stop 04/04/18 at 08:10; Status DC Lidocaine HCl (Xylocaine-Mpf 2% Vial) 2 ml 1X ONCE INJ ; Start 04/04/18 at 08: 45; Stop 04/04/18 at 08:46; Status DC Micafungin Sodium 100 mg/Dextrose 100 ml @ 100 mls/hr Q24H IV Last administered on 04/06/18at 12:14; Start 04/04/18 at 12:00 Fentanyl Citrate (Fentanyl 2ml Vial) 25 mcg PRN Q2HRS PRN IV MODERATE-SEVERE PAIN Last administered on 04/06/18at 02:48; Start 04/04/18 at 12:15 Morphine Sulfate (Morphine Sulfate) 2 mg PRN Q2HR PRN IV MILD PAIN Last administered on 04/07/18at 10:54; Start 04/04/18 at 12:15 Oxycodone HCl (Roxicodone) 20 mg QID PO Last administered on 04/07/18at 08:14; Start 04/04/18 at 17:00 Zolpidem Tartrate (Ambien) 5 mg PRN QHS PRN PO INSOMNIA, MAY REPEAT IN 1HR Last administered on 04/06/18at 20:44; Start 04/04/18 at 21:15 Nicotine (Nicoderm Cq 21mg) 1 patch PRN DAILY PRN TD SMOKING CESSATION Last administered on 04/06/18at 08:59; Start 04/04/18 at 21:15 Active Scripts Active Tramadol Hcl 50 Mg Tablet 50 Mg PO Q6HRS PRN Codeine-Guaifen 10-100 mg/5 ml (Guaifenesin/Codeine Phosphate) 120 Ml Liquid 5 Ml PO Q6HRS PRN Oxycodone Hcl 5 Mg Capsule 20 Mg PO PRN Q4HRS PRN Ambien (Zolpidem Tartrate) 10 Mg Tablet 1 Tab PO QHS Amox Tr-K Clv 500-125 Mg Tab (Amoxicillin/Potassium Clav) 1 Each Tablet 1 Tab PO BID Prednisone (Prednisone) 10 Mg Tablet 10 Mg PO UD Take 5 tablets by mouth daily for 2 days, then take 4 tablets by mouth daily for 2 days, then take 3 tablets by mouth daily for 2 days, then take 2 tablets by mouth daily for 2 days, then take 1 tablets by mouth daily for 2 days, then stop. Guaifenesin Dm Syrup (Guaifenesin/Dextromethorphan) 5 Ml Syrup 10 Ml PO QID Voltaren (Diclofenac Sodium) 100 Gm Gel..gram. 1 Chris TP BID 30 Days Amlodipine Besylate 10 Mg Tablet 10 Mg PO DAILY 30 Days Omeprazole 20 Mg Capsule.dr 1 Cap PO BID Duoneb 0.5-3(2.5) Mg/3 Ml (Albuterol/Ipratropium) 3 Ml Ampul.neb 3 Ml NEB RTQID 30 Days Advair 250-50 Diskus (Fluticasone/Salmeterol) 1 Puff Puff 1 Puff INH BID 30 Days Albuterol Sulfate Conc Neb Soln (Albuterol Sulfate) 2.5 Mg/0.5 Ml Vial.neb 1 Vial NEB Q4HRS PRN Reported Meloxicam 7.5 Mg Tablet 1 Tab PO DAILY Lisinopril 20 Mg Tablet 1 Tab PO DAILY Tramadol Hcl 50 Mg Tablet 50 Mg PO Q6H PRN Carvedilol 25 Mg Tablet 25 Mg PO BIDWMEALS Vitals/I & O Vital Sign - Last 24 Hours 04/06/18 04/06/18 04/06/18 04/06/18 11:16 12:14 13:30 15:00 Temp 98.5 98.5 Pulse 92 Resp 18 B/P (MAP) 116/62 (80) Pulse Ox 99 O2 Delivery Room Air Room Air Room Air Nasal Cannula 04/06/18 04/06/18 04/06/18 04/06/18 15:59 16:58 16:58 17:30 Pulse 92 B/P (MAP) 116/62 O2 Delivery Room Air Room Air Room Air 04/06/18 04/06/18 04/06/18 04/06/18 19:00 19:53 19:55 20:00 Temp 97.9 97.9 Pulse 78 Resp 18 B/P (MAP) 105/56 (72) Pulse Ox 96 O2 Delivery Room Air Room Air Room Air Room Air 04/06/18 04/06/18 04/06/18 04/06/18 20:44 20:45 21:45 22:57 Resp 18 18 18 18 Pulse Ox 99 99 99 99 O2 Delivery Room Air Room Air Room Air O2 Flow Rate 2.0 2.0 2.0 2.0 9/204/07/18 04/07/18 04/07/18 23:00 03:00 04:02 04:35 Temp 97.7 97.7 97.7 97.7 Pulse 90 88 Resp 18 18 18 B/P (MAP) 124/61 (82) 112/58 (76) Pulse Ox 97 92 92 92 O2 Delivery Room Air Room Air Room Air O2 Flow Rate 2.0 2.0 04/07/18 04/07/18 04/07/18 04/07/18 07:48 07:58 08:14 08:16 Temp 97.5 97.5 Pulse 94 94 Resp 16 B/P (MAP) 135/65 (88) 135/65 Pulse Ox 93 95 O2 Delivery Room Air Room Air Room Air 04/07/18 04/07/18 04/07/18 04/07/18 08:16 08:16 08:24 09:45 Pulse 94 94 B/P (MAP) 135/65 135/65 O2 Delivery Room Air Room Air 04/07/18 04/07/18 09:46 10:54 O2 Delivery Room Air Room Air Intake and Output 04/06/18 04/06/18 04/07/18 15:00 23:00 07:00 Intake Total 800 ml Output Total 0 ml Balance 800 ml 0 ml Nutrition Consultation Dietary Evaluation: Recommendations by RD: Increase Calorie Intake, Protein supplementation Comments: Continue Nepro tid added DBL meat portions Expected Outcomes/Goals: PO intake to meet >75% est needs- met, goal ongoing Malnutrition Findings: Body Fat Depletion (Non Severe: Mild Depletion Weight Status: Appropriate GABRIELLE JOE MD Apr 07, 2018 11:12
[2018-04-07] MEDS ORDERED: CEFEPIME HCL 1 GM in IV DEXTROSE 5% 50 ML IV ONE (11:15)
[2018-04-07] MEDS ORDERED: CEFEPIME HCL IV Push 1 GM VIAL. IVP ONE (11:30)
[2018-04-07] MEDS ORDERED: GENTAMICIN SULFATE IV ONE (12:00)
[2018-04-07] MEDS ORDERED: VANCOMYCIN 1 GM in IV NORMAL SALINE 250ML 250 ML IV ONE (12:00)
[2018-04-07] MEDS ORDERED: DEXTROSE 5% IV ONE (12:00)
[2018-04-07] MEDS: VANCOMYCIN PER PHARMACY MC PRN (12:24)
[2018-04-07] MEDS: GENTAMICIN PER PHARMACY. MC PRN (12:30)
[2018-04-07] MEDS: ZOLPIDEM 5 MG TABLET. PO PRN (23:13)
[2018-04-08 03:00] VITALS: BP 111/61
[2018-04-08] MEDS: MORPHINE SULFATE 2 MG/ML VIAL. IV PRN ×3 (03:24→08:20)
[2018-04-08] MEDS: HEPARIN PF for SUB-Q USE 5,000 UNIT/0.5 ML VIAL. SQ SCH ×2 (05:41→14:00)
[2018-04-08] MEDS ORDERED: VANCOMYCIN RANDOM LEVEL. MC ONE (06:00)
[2018-04-08] MEDS ORDERED: GENTAMICIN RANDOM LEVEL. MC ONE (06:00)
[2018-04-08 07:00] VITALS: BP 136/61
[2018-04-08] MEDS: IPRATRPIUM/ALBUTEROL 0.5/2.5MG 3 ML NEBU. NEB SCH ×3 (07:18→15:09)
[2018-04-08] MEDS: BUDESONIDE 0.5 MG/2 ML NEBU. NEB SCH (07:18)
[2018-04-08] MEDS: PANTOPRAZOLE 40 MG TABLET.DR. PO SCH (07:27)
[2018-04-08] MEDS: predniSONE 10 MG TABLET PO SCH (07:27)
[2018-04-08] MEDS: amLODIPine BESYLATE 10 MG TABLET PO SCH (07:27)
[2018-04-08] MEDS: LISINOPRIL 20 MG TABLET PO SCH (07:27)
[2018-04-08] MEDS: LACTOBACILLUS RHAMNOSUS GG 1 CAPSULE. PO SCH (07:27)
[2018-04-08] MEDS: CARVEDILOL 12.5 MG TABLET. PO SCH (07:27)
[2018-04-08] MEDS: DICLOFENAC SODIUM 1% TOPICAL GEL 100GM TUBE. TP SCH (07:28)
[2018-04-08] MEDS: oxyCODONE IR 5 MG TABLET PO SCH ×2 (07:28→12:57)
[2018-04-08] MEDS ORDERED: LIDOCAINE 2% PF 2ML VIAL. ONE ×2 (08:00→08:12)
[2018-04-08] MEDS ORDERED: IV NORMAL SALINE 1000ML BAG 1,000 ML IV PRN ×2 (08:06)
[2018-04-08] MEDS ORDERED: DIALYSIS PATIENT. MC PRN ×2 (08:15)
[2018-04-08] MEDS ORDERED: diphenhydrAMINE 50 MG/ML VIAL IV PRN (08:15)
[2018-04-08 08:44] LABS: HEMATOCRIT 23.1 % (36.0-47.0); HEMOGLOBIN 7.7 g/dL (12.0-15.5); RED BLOOD COUNT 2.4 x10^6/uL (3.50-5.40); RED CELL DISTRIBUTION WIDTH 15.4 % (11.5-14.5); WHITE BLOOD COUNT 15.1 x10^3/uL (4.0-11.0)
[2018-04-08 08:54] LABS: CALCIUM 6.9 mg/dL (8.5-10.1); CREATININE 5.9 mg/dL (0.6-1.0); POTASSIUM 3.9 mmol/L (3.5-5.1)
[2018-04-08 08:58] LABS: ALBUMIN 2.2 g/dL (3.4-5.0); PHOSPHORUS 1.1 mg/dL (2.6-4.7)
[2018-04-08] MEDS ORDERED: NICOTINE 21MG PATCH. TD SCH (09:00)
--- NOTE | 2018-04-08 10:39 | PDOC ---
Infectious Disease Note Subjective Subjective Doing really well In HD. Eating ok and has been ambulating No F/C/S/N/V ROS ROS o/w neg Vital Sign Vital Signs Vital Signs Date Time Temp Pulse Resp B/P (MAP) Pulse Ox O2 Delivery O2 Flow Rate FiO2 04/08/18 08:54 95 Room Air 2.0 04/08/18 07:00 97.8 87 18 136/61 (86) 97.8 Physical Exam PHYSICAL EXAM GENERAL: Propped up in bed, alert, NAD, smiling HEENT: Oral cavity clear, No thrush. LUNGS: Decreased breath sound at the bases. HEART: S1, S2, RRR. No murmurs. ABDOMEN: Bowel sounds present. soft EXTREMITIES: No edema, no cyanosis. LUE-AV fistula DERM: Dry skin. No generalized rash. No skin breakdown noted or ulcerations noted. TAILMAN Alert, responds appropriately RIJ (04/01) clean Labs Lab Laboratory Tests Test 04/08/18 04:45 04/08/18 08:35 Random Gentamicin Level 6.5 mcg/mL Random Vancomycin Level 31.8 mcg/mL White Blood Count 15.1 x10^3/uL (4.0-11.0) Red Blood Count 2.40 x10^6/uL (3.50-5.40) Hemoglobin 7.7 g/dL (12.0-15.5) Hematocrit 23.1 % (36.0-47.0) Mean Corpuscular Volume 96 fL (79-100) Mean Corpuscular Hemoglobin 32 pg (25-35) Mean Corpuscular Hemoglobin Concent 33 g/dL (31-37) Red Cell Distribution Width 15.4 % (11.5-14.5) Platelet Count 208 x10^3/uL (140-400) Sodium Level 138 mmol/L (136-145) Potassium Level 3.9 mmol/L (3.5-5.1) Chloride Level 103 mmol/L (98-107) Carbon Dioxide Level 27 mmol/L (21-32) Anion Gap 8 (6-14) Blood Urea Nitrogen 51 mg/dL (7-20) Creatinine 5.9 mg/dL (0.6-1.0) Estimated GFR (Cockcroft-Gault) 9.0 Glucose Level 143 mg/dL (70-99) Calcium Level 6.9 mg/dL (8.5-10.1) Phosphorus Level 1.1 mg/dL (2.6-4.7) Albumin 2.2 g/dL (3.4-5.0) Micro Microbiology 04/04/18 Blood Culture - Final, Complete 04/01/18 Urine Culture - Final, Complete 04/01/18 Urine Culture Result 1 (SUSIE) - Final, Complete 04/01 BLD CULT RESULT 1 Final Comment Pseudomonas aeruginosa ANTIMICROBIAL SUSCEPTIBILITY Final Comment S = Susceptible; I = Intermediate; R = Resistant P = Positive; N = Negative MICS are expressed in micrograms per mL Antibiotic RSLT#1 RSLT#2 RSLT#3 RSLT#4 Amikacin S<=2 Cefepime S =4 Ceftazidime S =4 Ciprofloxacin S<=0.25 Gentamicin S<=1 Imipenem S =4 Levofloxacin S =1 Meropenem S<=0.25 Piperacillin S =8 Ticarcillin S =32 Tobramycin S<=1 Objective Assessment Sepsis w/ pseudomonas bacteremia from 04/01. Repeat BC NGTD 04/02 & . BC 04/04 GPC in one of 2 bottles Fever resolved End-stage renal disease, on hemodialysis with noncompliance. Leukocytosis - better Anemia with recent 2 units of packed RBC given during last hospitalization. History of smoking. History of dyspnea. Increased BNP, increased troponin.- per primary Cirrhosis.and GB distention, Abdominal pain ,CT pericholecystic fluid, HIDA neg - surgery signed off Perihilar interstitial pulmonary infiltrates Plan Plan of Care Dosed Vanc/cefepime (times one) and gent 04/07. Will redose Cefepime today Anemia per primary d/w lab oly and ID of Bacteremia from 04/04 is not available. Given late growth and in one bottle unlikely Staph aureus but will need to be f/u'd up Could eventually d/c with Gent and Vanc with HD for 2 additional doses beyond today if ok with Renal and needs to arranged by Renal. F/u ID office next week [phone] DARWIN CARNES MD Apr 08, 2018 10:39
[2018-04-08] MEDS ORDERED: CEFEPIME HCL 1 GM in IV DEXTROSE 5% 50 ML IV ONE (10:45)
[2018-04-08 11:00] VITALS: BP 148/67
[2018-04-08] MEDS ORDERED: CEFEPIME HCL IV Push 1 GM VIAL. IVP ONE (11:00)
--- NOTE | 2018-04-08 11:19 | PDOC ---
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 Anemia - On Aranesp as per protocol Cirrhosis.and GB distention, Abdominal pain ,CT pericholecystic fluid, HIDA neg - surgery 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 COMMENT/RELEVANT DATA Meds Current Medications Medications (Trade) Dose Ordered Sig/Carmenza Start Time Stop Time Status Last Admin Dose Admin Albumin Human 200 ml @ 200 mls/hr 1X PRN PRN 04/04/18 07:00 04/04/18 12:59 DC Albuterol Sulfate (Ventolin Neb Soln) 2.5 mg PRN Q4HRS PRN 04/01/18 12:30 04/01/18 12:35 2.5 MG Albuterol/ Ipratropium (Duoneb) 3 ml RTQID 04/01/18 16:00 04/08/18 07:18 3 ML Amlodipine Besylate (Norvasc) 10 mg DAILY 04/01/18 13:00 04/07/18 08:16 10 MG Budesonide (Pulmicort) 0.5 mg RTBID 04/01/18 20:00 04/08/18 07:18 0.5 MG Carvedilol (Coreg) 25 mg BIDWMEALS 04/01/18 17:00 04/07/18 16:54 25 MG Cefepime HCl (Maxipime) 1 gm ONCE ONCE 04/08/18 11:00 04/08/18 11:01 DC Cefepime HCl 1 gm/ Dextrose 50 ml @ 100 mls/hr ONCE ONCE 04/08/18 10:45 04/08/18 11:14 UNV Darbepoetin Norris (Aranesp) 60 mcg WEEKLYHS 04/02/18 21:00 04/02/18 21:20 60 MCG Diclofenac Sodium (Voltaren) 1 garrison BID 04/01/18 21:00 04/07/18 21:00 1 GARRISON Diphenhydramine HCl (Benadryl) 25 mg 1X PRN PRN 04/08/18 08:15 04/09/18 08:14 04/08/18 08:45 25 MG Fentanyl Citrate (Fentanyl 2ml Vial) 25 mcg PRN Q2HRS PRN 04/04/18 12:15 04/06/18 02:48 25 MCG Gentamicin Sulfate 118 mg/ Dextrose 102.95 ml @ 102.95 mls/hr 1X ONCE 04/07/18 12:00 04/07/18 12:59 DC 04/07/18 12:21 102.95 MLS/HR Gentamicin Sulfate 1 each 1X ONCE 04/08/18 06:00 04/08/18 06:01 DC 04/08/18 06:00 1 EACH Guaifenesin (Robitussin Dm) 10 ml PRN Q6HRS PRN 04/01/18 12:15 Guaifenesin/ Codeine Phosphate (Robitussin Ac) 5 ml PRN Q6HRS PRN 04/01/18 12:30 04/05/18 20:30 5 ML Heparin Sodium (Porcine) (Heparin Sq) 5,000 unit Q8HRS 04/01/18 14:00 04/05/18 06:11 5,000 UNIT Info (PHARMACY MONITORING -- do not chart) 1 each PRN DAILY PRN 04/08/18 08:15 UNV Iohexol (Omnipaque 300 Mg/ml) 60 ml 1X ONCE 04/03/18 12:00 04/03/18 12:01 DC Lactobacillus Rhamnosus (Culturelle) 1 cap BID 04/01/18 21:00 04/07/18 21:06 1 CAP Lidocaine HCl (Lidocaine HCl 2% Abboject) 100 mg STK-MED ONCE 04/04/18 08:10 04/08/18 08:28 DC Lidocaine HCl (Xylocaine-Mpf 1% 2ml Vial) 2 ml STK-MED ONCE 04/03/18 08:56 04/03/18 08:57 DC Lidocaine HCl (Xylocaine-Mpf 2% Vial) 2 ml STK-MED ONCE 04/08/18 08:12 04/08/18 08:13 DC Linezolid (Zyvox) 600 mg BID 04/03/18 10:00 04/07/18 11:15 DC 04/07/18 08:16 600 MG Lisinopril (Prinivil) 20 mg DAILY 04/01/18 13:00 04/07/18 08:16 20 MG Meropenem 500 mg/ Sodium Chloride 50 ml @ 100 mls/hr DAILY 04/02/18 12:00 04/07/18 11:15 DC 04/07/18 08:24 100 MLS/HR Micafungin Sodium 100 mg/Dextrose 100 ml @ 100 mls/hr Q24H 04/04/18 12:00 04/07/18 11:15 DC 04/06/18 12:14 100 MLS/HR Morphine Sulfate (Morphine Sulfate) 2 mg PRN Q2HR PRN 04/04/18 12:15 04/08/18 08:20 2 MG Nicotine (Nicoderm Cq 21mg) 1 patch DAILY 04/08/18 09:00 04/08/18 09:00 DC Norepinephrine Bitartrate 250 ml @ 1.875 mls/ hr CONT PRN 04/01/18 22:15 04/03/18 19:22 DC 04/03/18 00:41 33.75 MLS/HR Ondansetron HCl (Zofran) 4 mg PRN Q6HRS PRN 04/01/18 12:15 Oxycodone HCl (Roxicodone) 20 mg QID 04/04/18 17:00 04/07/18 21:06 20 MG Pantoprazole Sodium (Protonix) 40 mg BIDAC 04/02/18 07:30 04/07/18 16:51 40 MG Piperacillin Sod/ Tazobactam Sod (Zosyn Per Pharmacy) 1 each PRN DAILY PRN 04/01/18 12:15 04/02/18 09:21 DC Piperacillin Sod/ Tazobactam Sod 2.25 gm/Sodium Chloride 50 ml @ 100 mls/hr Q6HRS 04/01/18 18:00 04/02/18 09:21 DC 04/02/18 05:30 100 MLS/HR Piperacillin Sod/ Tazobactam Sod 3.375 gm/Sodium Chloride 50 ml @ 100 mls/hr 1X ONCE 04/01/18 09:15 04/01/18 09:44 DC 04/01/18 09:23 100 MLS/HR Prednisone (Prednisone) 10 mg DAILY 04/01/18 13:00 04/07/18 08:15 10 MG Sodium Polystyrene Sulfonate (Kayexalate) 15 gm 1X ONCE 04/01/18 12:30 04/01/18 12:31 DC Sodium Chloride 1,000 ml @ 400 mls/hr Q2H30M PRN 04/08/18 08:06 04/08/18 20:05 Sodium Chloride (Normal Saline Flush) 10 ml 1X PRN PRN 04/04/18 07:00 04/05/18 06:59 DC Tramadol HCl (Ultram) 50 mg PRN Q6HRS PRN 04/01/18 12:15 04/02/18 11:56 DC Vancomycin HCl (Vanco Per Pharmacy) 1 each PRN DAILY PRN 04/07/18 11:15 04/07/18 12:24 1 EACH Vancomycin HCl (Vancomycin Random Level) 1 each 1X ONCE 04/08/18 06:00 04/08/18 06:01 DC 04/08/18 06:00 1 EACH Vancomycin HCl 1.25 gm/Sodium Chloride 250 ml @ 167 mls/hr ONCE ONCE 04/01/18 14:00 04/01/18 15:29 DC 04/01/18 18:03 167 MLS/HR Vancomycin HCl 1 gm/Sodium Chloride 250 ml @ 250 mls/hr 1X ONCE 04/07/18 12:00 04/07/18 12:59 DC 04/07/18 13:41 250 MLS/HR Zolpidem Tartrate (Ambien) 5 mg PRN QHS PRN 04/04/18 21:15 04/07/18 23:13 5 MG Lab Laboratory Tests Test 04/08/18 04:45 04/08/18 08:35 Random Gentamicin Level 6.5 mcg/mL Random Vancomycin Level 31.8 mcg/mL White Blood Count 15.1 x10^3/uL (4.0-11.0) Red Blood Count 2.40 x10^6/uL (3.50-5.40) Hemoglobin 7.7 g/dL (12.0-15.5) Hematocrit 23.1 % (36.0-47.0) Mean Corpuscular Volume 96 fL (79-100) Mean Corpuscular Hemoglobin 32 pg (25-35) Mean Corpuscular Hemoglobin Concent 33 g/dL (31-37) Red Cell Distribution Width 15.4 % (11.5-14.5) Platelet Count 208 x10^3/uL (140-400) Sodium Level 138 mmol/L (136-145) Potassium Level 3.9 mmol/L (3.5-5.1) Chloride Level 103 mmol/L (98-107) Carbon Dioxide Level 27 mmol/L (21-32) Anion Gap 8 (6-14) Blood Urea Nitrogen 51 mg/dL (7-20) Creatinine 5.9 mg/dL (0.6-1.0) Estimated GFR (Cockcroft-Gault) 9.0 Glucose Level 143 mg/dL (70-99) Calcium Level 6.9 mg/dL (8.5-10.1) Phosphorus Level 1.1 mg/dL (2.6-4.7) Albumin 2.2 g/dL (3.4-5.0) Results All relevant outside records, renal labs, imaging studies, telemetry/EKG's were reviewed. NORMA VICKERS MD Apr 08, 2018 11:19
--- NOTE | 2018-04-08 11:22 | PDOC ---
PROGRESS NOTES Chief Complaint Chief Complaint Pseudomonas bacteremia Sepsis POA - off pressors (transferred out of ICU) ESRD on dialysis question compliance Hyperkalemia, resolved Elevated anion gap acidosis, resolved Metabolic encephalopathy with normal lactate and normal ammonia and normal CT - resolved Cirrhosis Noncompliance Fever, lethargy, former resolved NArc tolerant NEED TO ARRANGE IV ANTIBIOTICS WITH NEPHROLOGY ON D/C, licensed clinical social worker arranging hope for d/c today History of Present Illness History of Present Illness Transferred out of ICU 04/03/18 Did need pressors for hypotension in ICU Also needed some blood transfusion back to her normal baseline mentation VERY TENSE discussion today with her As expected she was still asking for more narcotics from me Blood pressure on the low side I was very giana with my discussion with her about her narcotic addiction/ dependence She also wants to go home - court date etc But GNR sensitivities still pending Plan: Continue present IV antibiotics for now We'll discharge when sensitivities are out and she understands this - hopefully tmr I did not increase any pain medicines today BOlus prn for persistent hypotension Vitals Vitals Vital Signs Date Time Temp Pulse Resp B/P (MAP) Pulse Ox O2 Delivery O2 Flow Rate FiO2 04/08/18 08:54 95 Room Air 2.0 04/08/18 07:00 97.8 87 18 136/61 (86) 97.8 Physical Exam Physical Exam GENERAL: Propped up in bed, alert, NAD, smiling HEENT: Oral cavity clear, No thrush. LUNGS: Decreased breath sound at the bases. HEART: S1, S2, RRR. No murmurs. ABDOMEN: Bowel sounds present. soft EXTREMITIES: No edema, no cyanosis. LUE-AV fistula DERM: Dry skin. No generalized rash. No skin breakdown noted or ulcerations noted. 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 RI (04/01) clean General: Alert, Oriented X3, Cooperative, No acute distress Heart: Regular rate, Normal S1 Lungs: Clear Abdomen: Soft, No tenderness Extremities: No clubbing, No cyanosis, Normal pulses Skin: No breakdown Labs LABS Laboratory Tests Test 04/08/18 04:45 04/08/18 08:35 Random Gentamicin Level 6.5 mcg/mL Random Vancomycin Level 31.8 mcg/mL White Blood Count 15.1 x10^3/uL (4.0-11.0) Red Blood Count 2.40 x10^6/uL (3.50-5.40) Hemoglobin 7.7 g/dL (12.0-15.5) Hematocrit 23.1 % (36.0-47.0) Mean Corpuscular Volume 96 fL (79-100) Mean Corpuscular Hemoglobin 32 pg (25-35) Mean Corpuscular Hemoglobin Concent 33 g/dL (31-37) Red Cell Distribution Width 15.4 % (11.5-14.5) Platelet Count 208 x10^3/uL (140-400) Sodium Level 138 mmol/L (136-145) Potassium Level 3.9 mmol/L (3.5-5.1) Chloride Level 103 mmol/L (98-107) Carbon Dioxide Level 27 mmol/L (21-32) Anion Gap 8 (6-14) Blood Urea Nitrogen 51 mg/dL (7-20) Creatinine 5.9 mg/dL (0.6-1.0) Estimated GFR (Cockcroft-Gault) 9.0 Glucose Level 143 mg/dL (70-99) Calcium Level 6.9 mg/dL (8.5-10.1) Phosphorus Level 1.1 mg/dL (2.6-4.7) Albumin 2.2 g/dL (3.4-5.0) Assessment and Plan Assessmemt and Plan Problems Medical Problems: (1) Altered mental status Status: Acute (2) Dyspnea Status: Acute (3) ESRD (end stage renal disease) on dialysis Status: Acute (4) Noncompliance Status: Acute Comment Review of Relevant I have reviewed the following items issac (where applicable) has been applied. Labs Laboratory Tests Test 04/07/18 04:30 04/08/18 04:45 04/08/18 08:35 White Blood Count 17.7 x10^3/uL (4.0-11.0) 15.1 x10^3/uL (4.0-11.0) Red Blood Count 2.57 x10^6/uL (3.50-5.40) 2.40 x10^6/uL (3.50-5.40) Hemoglobin 8.2 g/dL (12.0-15.5) 7.7 g/dL (12.0-15.5) Hematocrit 24.9 % (36.0-47.0) 23.1 % (36.0-47.0) Mean Corpuscular Volume 97 fL (79-100) 96 fL (79-100) Mean Corpuscular Hemoglobin 32 pg (25-35) 32 pg (25-35) Mean Corpuscular Hemoglobin Concent 33 g/dL (31-37) 33 g/dL (31-37) Red Cell Distribution Width 15.6 % (11.5-14.5) 15.4 % (11.5-14.5) Platelet Count 229 x10^3/uL (140-400) 208 x10^3/uL (140-400) Neutrophils (%) (Auto) 79 % (31-73) Lymphocytes (%) (Auto) 15 % (24-48) Monocytes (%) (Auto) 6 % (0-9) Eosinophils (%) (Auto) 0 % (0-3) Basophils (%) (Auto) 0 % (0-3) Neutrophils # (Auto) 13.9 x10^3uL (1.8-7.7) Lymphocytes # (Auto) 2.6 x10^3/uL (1.0-4.8) Monocytes # (Auto) 1.1 x10^3/uL (0.0-1.1) Eosinophils # (Auto) 0.0 x10^3/uL (0.0-0.7) Basophils # (Auto) 0.0 x10^3/uL (0.0-0.2) Random Gentamicin Level 6.5 mcg/mL Random Vancomycin Level 31.8 mcg/mL Sodium Level 138 mmol/L (136-145) Potassium Level 3.9 mmol/L (3.5-5.1) Chloride Level 103 mmol/L (98-107) Carbon Dioxide Level 27 mmol/L (21-32) Anion Gap 8 (6-14) Blood Urea Nitrogen 51 mg/dL (7-20) Creatinine 5.9 mg/dL (0.6-1.0) Estimated GFR (Cockcroft-Gault) 9.0 Glucose Level 143 mg/dL (70-99) Calcium Level 6.9 mg/dL (8.5-10.1) Phosphorus Level 1.1 mg/dL (2.6-4.7) Albumin 2.2 g/dL (3.4-5.0) Laboratory Tests Test 04/08/18 04:45 04/08/18 08:35 Random Gentamicin Level 6.5 mcg/mL Random Vancomycin Level 31.8 mcg/mL White Blood Count 15.1 x10^3/uL (4.0-11.0) Red Blood Count 2.40 x10^6/uL (3.50-5.40) Hemoglobin 7.7 g/dL (12.0-15.5) Hematocrit 23.1 % (36.0-47.0) Mean Corpuscular Volume 96 fL (79-100) Mean Corpuscular Hemoglobin 32 pg (25-35) Mean Corpuscular Hemoglobin Concent 33 g/dL (31-37) Red Cell Distribution Width 15.4 % (11.5-14.5) Platelet Count 208 x10^3/uL (140-400) Sodium Level 138 mmol/L (136-145) Potassium Level 3.9 mmol/L (3.5-5.1) Chloride Level 103 mmol/L (98-107) Carbon Dioxide Level 27 mmol/L (21-32) Anion Gap 8 (6-14) Blood Urea Nitrogen 51 mg/dL (7-20) Creatinine 5.9 mg/dL (0.6-1.0) Estimated GFR (Cockcroft-Gault) 9.0 Glucose Level 143 mg/dL (70-99) Calcium Level 6.9 mg/dL (8.5-10.1) Phosphorus Level 1.1 mg/dL (2.6-4.7) Albumin 2.2 g/dL (3.4-5.0) Microbiology 04/04/18 Blood Culture - Final, Complete 04/01/18 Urine Culture - Final, Complete 04/01/18 Urine Culture Result 1 (SUSIE) - Final, Complete Medications Current Medications Piperacillin Sod/ Tazobactam Sod 3.375 gm/Sodium Chloride 50 ml @ 100 mls/hr 1X ONCE IV Last administered on 04/01/18at 09:23; Start 04/01/18 at 09:15; Stop 04/01/18 at 09:44; Status DC Piperacillin Sod/ Tazobactam Sod (Zosyn Per Pharmacy) 1 each PRN DAILY PRN MC SEE COMMENTS; Start 04/01/18 at 12:15; Stop 04/02/18 at 09:21; Status DC Ondansetron HCl (Zofran) 4 mg PRN Q6HRS PRN IV NAUSEA/VOMITING 1ST CHOICE; Start 04/01/18 at 12:15 Fentanyl Citrate (Fentanyl 2ml Vial) 25 mcg PRN Q2HR PRN IV PAIN MILD Last administered on 04/02/18at 05:31; Start 04/01/18 at 12:15; Stop 04/02/18 at 11:58 ; Status DC Albuterol/ Ipratropium (Duoneb) 3 ml RTQID NEB Last administered on 04/08/18 07 :18; Start 04/01/18 at 16:00 Guaifenesin (Robitussin Dm) 10 ml PRN Q6HRS PRN PO COUGH 1ST CHOICE; Start at 12:15 Heparin Sodium (Porcine) (Heparin Sq) 5,000 unit Q8HRS SQ Last administered on 04/05/18at 06:11; Start 04/01/18 at 14:00 Amlodipine Besylate (Norvasc) 10 mg DAILY PO Last administered on 04/07/18at 08: 16; Start 04/01/18 at 13:00 Diclofenac Sodium (Voltaren) 1 chris BID TP Last administered on 04/07/18at 21:00; Start 04/01/18 at 21:00 Lisinopril (Prinivil) 20 mg DAILY PO Last administered on 04/07/18 08:16; Start 04/01/18 at 13:00 Prednisone (Prednisone) 10 mg DAILY PO Last administered on 04/07/18 08:15; Start 04/01/18 at 13:00 Tramadol HCl (Ultram) 50 mg PRN Q6HRS PRN PO PAIN MILD-MODERATE; Start at 12:15; Stop 04/02/18 at 11:56; Status DC Carvedilol (Coreg) 25 mg BIDWMEALS PO Last administered on 04/07/18at 16:54; Start 04/01/18 at 17:00 Budesonide (Pulmicort) 0.5 mg RTBID NEB Last administered on 04/08/18 07:18; Start 04/01/18 at 20:00 Guaifenesin/ Codeine Phosphate (Robitussin Ac) 5 ml PRN Q6HRS PRN PO COUGH 2ND CHOICE Last administered on 04/05/18at 20:30; Start 04/01/18 at 12:30 Pantoprazole Sodium (Protonix) 40 mg BIDAC PO Last administered on 04/07/18at 16: 51; Start 04/02/18 at 07:30 Oxycodone HCl (Roxicodone) 20 mg PRN Q4HRS PRN PO PAIN SEVERE Last administered on 04/02/18at 08:10; Start 04/01/18 at 12:30; Stop 04/02/18 at 11:56 ; Status DC Sodium Polystyrene Sulfonate (Kayexalate) 15 gm 1X ONCE PO ; Start 04/01/18 at 12:30; Stop 04/01/18 at 12:31; Status DC Piperacillin Sod/ Tazobactam Sod 2.25 gm/Sodium Chloride 50 ml @ 100 mls/hr Q6HRS IV Last administered on 04/02/18at 05:30; Start 04/01/18 at 18:00; Stop at 09:21; Status DC Albuterol Sulfate (Ventolin Neb Soln) 2.5 mg PRN Q4HRS PRN NEB SHORTNESS OF BREATH Last administered on 04/01/18at 12:35; Start 04/01/18 at 12:30 Sodium Chloride 1,000 ml @ 1,000 mls/hr Q1H PRN IV hypotension; Start 04/01/18 at 12:50; Stop 04/01/18 at 18:54; Status DC Info (PHARMACY MONITORING -- do not chart) 1 each PRN DAILY PRN MC SEE COMMENTS ; Start 04/01/18 at 13:00 Info (PHARMACY MONITORING -- do not chart) 1 each PRN DAILY PRN MC SEE COMMENTS ; Start 04/01/18 at 13:00; Stop 04/01/18 at 13:00; Status DC Norepinephrine Bitartrate 250 ml @ 0 mls/hr 1X ONCE IV Last administered on at 13:23; Start 04/01/18 at 13:15; Stop 04/01/18 at 13:16; Status DC Vancomycin HCl (Vanco Per Pharmacy) 1 each PRN DAILY PRN MC SEE COMMENTS Last administered on 04/01/18at 13:49; Start 04/01/18 at 13:45; Stop 04/02/18 at 09:21 ; Status DC Vancomycin HCl 1.25 gm/Sodium Chloride 250 ml @ 167 mls/hr ONCE ONCE IV Last administered on 04/01/18at 18:03; Start 04/01/18 at 14:00; Stop 04/01/18 at 15:29 ; Status DC Lactobacillus Rhamnosus (Culturelle) 1 cap BID PO Last administered on at 21:06; Start 04/01/18 at 21:00 Norepinephrine Bitartrate 250 ml @ 1.875 mls/ hr CONT PRN IV SEE I/O RECORD Last administered on 04/03/18at 00:41; Start 04/01/18 at 22:15; Stop 04/03/18 at 19:22; Status DC Meropenem 500 mg/ Sodium Chloride 50 ml @ 100 mls/hr DAILY IV Last administered on 04/07/18at 08:24; Start 04/02/18 at 12:00; Stop 04/07/18 at 11:15; Status DC Darbepoetin Norris (Aranesp) 60 mcg WEEKLYHS SQ Last administered on 04/02/18at 21 :20; Start 04/02/18 at 21:00 Info (PHARMACY MONITORING -- do not chart) 1 each PRN DAILY PRN MC SEE COMMENTS ; Start 04/03/18 at 08:15; Status UNV Info (PHARMACY MONITORING -- do not chart) 1 each PRN DAILY PRN MC SEE COMMENTS ; Start 04/03/18 at 08:15; Status UNV Lidocaine HCl (Xylocaine-Mpf 1% 2ml Vial) 2 ml STK-MED ONCE .ROUTE ; Start 04/03 at 08:56; Stop 04/03/18 at 08:57; Status DC Linezolid (Zyvox) 600 mg BID PO Last administered on 04/07/18at 08:16; Start at 10:00; Stop 04/07/18 at 11:15; Status DC Fentanyl Citrate (Fentanyl 2ml Vial) 25 mcg PRN Q4HRS PRN IV PAIN Last administered on 04/04/18at 08:53; Start 04/03/18 at 09:15; Stop 04/04/18 at 12:02 ; Status DC Lidocaine HCl (Xylocaine-Mpf 2% Vial) 2 ml 1X ONCE INJ Last administered on at 10:30; Start 04/03/18 at 10:30; Stop 04/03/18 at 10:31; Status DC Iohexol (Omnipaque 300 Mg/ml) 60 ml 1X ONCE IV ; Start 04/03/18 at 12:00; Stop 04/03/18 at 12:01; Status DC Sodium Chloride 1,000 ml @ 1,000 mls/hr Q1H PRN IV hypotension; Start 04/04/18 at 06:56; Stop 04/04/18 at 12:55; Status DC Albumin Human 200 ml @ 200 mls/hr 1X PRN PRN IV Hypotension; Start 04/04/18 at 07:00; Stop 04/04/18 at 12:59; Status DC Sodium Chloride (Normal Saline Flush) 10 ml 1X PRN PRN IV AP catheter pack; Start 04/04/18 at 07:00; Stop 04/05/18 at 06:59; Status DC Sodium Chloride 1,000 ml @ 400 mls/hr Q2H30M PRN IV PATENCY; Start 04/04/18 at 06:56; Stop 04/04/18 at 18:55; Status DC Info (PHARMACY MONITORING -- do not chart) 1 each PRN DAILY PRN MC SEE COMMENTS ; Start 04/04/18 at 07:00; Status UNV Info (PHARMACY MONITORING -- do not chart) 1 each PRN DAILY PRN MC SEE COMMENTS ; Start 04/04/18 at 07:00; Status UNV Lidocaine HCl (Lidocaine HCl 2% Abboject) 100 mg STK-MED ONCE .ROUTE ; Start at 08:09; Stop 04/04/18 at 08:10; Status DC Lidocaine HCl (Xylocaine-Mpf 2% Vial) 2 ml 1X ONCE INJ ; Start 04/04/18 at 08: 45; Stop 04/04/18 at 08:46; Status DC Micafungin Sodium 100 mg/Dextrose 100 ml @ 100 mls/hr Q24H IV Last administered on 04/06/18at 12:14; Start 04/04/18 at 12:00; Stop 04/07/18 at 11:15; Status DC Fentanyl Citrate (Fentanyl 2ml Vial) 25 mcg PRN Q2HRS PRN IV MODERATE-SEVERE PAIN Last administered on 04/06/18at 02:48; Start 04/04/18 at 12:15 Morphine Sulfate (Morphine Sulfate) 2 mg PRN Q2HR PRN IV MILD PAIN Last administered on 04/08/18 08:20; Start 04/04/18 at 12:15 Oxycodone HCl (Roxicodone) 20 mg QID PO Last administered on 04/07/18 21:06; Start 04/04/18 at 17:00 Zolpidem Tartrate (Ambien) 5 mg PRN QHS PRN PO INSOMNIA, MAY REPEAT IN 1HR Last administered on 04/07/18 23:13; Start 04/04/18 at 21:15 Nicotine (Nicoderm Cq 21mg) 1 patch PRN DAILY PRN TD SMOKING CESSATION Last administered on 04/06/18 08:59; Start 04/04/18 at 21:15 Vancomycin HCl (Vanco Per Pharmacy) 1 each PRN DAILY PRN MC SEE COMMENTS Last administered on 04/07/18 12:24; Start 04/07/18 at 11:15 Cefepime HCl 1 gm/ Dextrose 50 ml @ 100 mls/hr ONCE ONCE IV ; Start 04/07/18 at 11:15; Stop 04/07/18 at 11:44; Status UNV Gentamicin Sulfate 1 each PRN DAILY PRN MC SEE COMMENTS Last administered on 12:30; Start 04/07/18 at 11:15 Cefepime HCl (Maxipime) 1 gm ONCE ONCE IVP Last administered on 04/07/18 15:04 ; Start 04/07/18 at 11:30; Stop 04/07/18 at 11:31; Status DC Vancomycin HCl 1 gm/Sodium Chloride 250 ml @ 250 mls/hr 1X ONCE IV Last administered on 04/07/18 13:41; Start 04/07/18 at 12:00; Stop 04/07/18 at 12:59; Status DC Gentamicin Sulfate 118 mg/ Dextrose 102.95 ml @ 102.95 mls/hr 1X ONCE IV Last administered on 04/07/18 12:21; Start 04/07/18 at 12:00; Stop 04/07/18 at 12: 59; Status DC Vancomycin HCl (Vancomycin Random Level) 1 each 1X ONCE MC Last administered on 04/08/18at 06:00; Start 04/08/18 at 06:00; Stop 04/08/18 at 06:01; Status DC Gentamicin Sulfate 1 each 1X ONCE MC Last administered on 04/08/18at 06:00; Start 04/08/18 at 06:00; Stop 04/08/18 at 06:01; Status DC Nicotine (Nicoderm Cq 21mg) 1 patch DAILY TD ; Start 04/08/18 at 09:00; Stop 04/08 at 09:00; Status DC Sodium Chloride 1,000 ml @ 1,000 mls/hr Q1H PRN IV hypotension; Start 04/08/18 at 08:06; Stop 04/08/18 at 14:05 Diphenhydramine HCl (Benadryl) 25 mg 1X PRN PRN IV ITCHING Last administered on 04/08/18at 08:45; Start 04/08/18 at 08:15; Stop 04/09/18 at 08:14 Sodium Chloride 1,000 ml @ 400 mls/hr Q2H30M PRN IV PATENCY; Start 04/08/18 at 08:06; Stop 04/08/18 at 20:05 Info (PHARMACY MONITORING -- do not chart) 1 each PRN DAILY PRN MC SEE COMMENTS ; Start 04/08/18 at 08:15; Status UNV Info (PHARMACY MONITORING -- do not chart) 1 each PRN DAILY PRN MC SEE COMMENTS ; Start 04/08/18 at 08:15; Status UNV Lidocaine HCl (Xylocaine-Mpf 2% Vial) 2 ml STK-MED ONCE .ROUTE ; Start 04/08/18 at 08:12; Stop 04/08/18 at 08:13; Status DC Lidocaine HCl (Lidocaine HCl 2% Abboject) 100 mg STK-MED ONCE .ROUTE ; Start at 08:10; Stop 04/08/18 at 08:28; Status DC Cefepime HCl 1 gm/ Dextrose 50 ml @ 100 mls/hr ONCE ONCE IV ; Start 04/08/18 at 10:45; Stop 04/08/18 at 11:14; Status UNV Cefepime HCl (Maxipime) 1 gm ONCE ONCE IVP ; Start 04/08/18 at 11:00; Stop at 11:01; Status DC Active Scripts Active Tramadol Hcl 50 Mg Tablet 50 Mg PO Q6HRS PRN Codeine-Guaifen 10-100 mg/5 ml (Guaifenesin/Codeine Phosphate) 120 Ml Liquid 5 Ml PO Q6HRS PRN Oxycodone Hcl 5 Mg Capsule 20 Mg PO PRN Q4HRS PRN Ambien (Zolpidem Tartrate) 10 Mg Tablet 1 Tab PO QHS Amox Tr-K Clv 500-125 Mg Tab (Amoxicillin/Potassium Clav) 1 Each Tablet 1 Tab PO BID Prednisone (Prednisone) 10 Mg Tablet 10 Mg PO UD Take 5 tablets by mouth daily for 2 days, then take 4 tablets by mouth daily for 2 days, then take 3 tablets by mouth daily for 2 days, then take 2 tablets by mouth daily for 2 days, then take 1 tablets by mouth daily for 2 days, then stop. Guaifenesin Dm Syrup (Guaifenesin/Dextromethorphan) 5 Ml Syrup 10 Ml PO QID Voltaren (Diclofenac Sodium) 100 Gm Gel..gram. 1 Chris TP BID 30 Days Amlodipine Besylate 10 Mg Tablet 10 Mg PO DAILY 30 Days Omeprazole 20 Mg Capsule.dr 1 Cap PO BID Duoneb 0.5-3(2.5) Mg/3 Ml (Albuterol/Ipratropium) 3 Ml Ampul.neb 3 Ml NEB RTQID 30 Days Advair 250-50 Diskus (Fluticasone/Salmeterol) 1 Puff Puff 1 Puff INH BID 30 Days Albuterol Sulfate Conc Neb Soln (Albuterol Sulfate) 2.5 Mg/0.5 Ml Vial.neb 1 Vial NEB Q4HRS PRN Reported Meloxicam 7.5 Mg Tablet 1 Tab PO DAILY Lisinopril 20 Mg Tablet 1 Tab PO DAILY Tramadol Hcl 50 Mg Tablet 50 Mg PO Q6H PRN Carvedilol 25 Mg Tablet 25 Mg PO BIDWMEALS Vitals/I & O Vital Sign - Last 24 Hours 04/07/18 04/07/18 04/07/18 04/07/18 12:03 13:39 13:40 15:24 Temp 97.7 97.7 Pulse 85 Resp 16 B/P (MAP) 106/54 (71) Pulse Ox 93 94 O2 Delivery Room Air Room Air Room Air Room Air 04/07/18 04/07/18 04/07/18 04/07/18 15:25 15:38 16:45 16:49 Temp 97.7 97.7 Pulse 85 84 Resp 16 B/P (MAP) 106/54 (71) 119/62 (81) Pulse Ox 94 96 O2 Delivery Room Air Room Air Room Air 04/07/18 04/07/18 04/07/18 04/07/18 16:50 16:54 19:00 19:14 Temp 98.4 98.4 Pulse 84 75 Resp 18 B/P (MAP) 119/62 119/70 (86) Pulse Ox 94 O2 Delivery Room Air Room Air Room Air 04/07/18 04/07/18 04/07/18 04/07/18 19:18 19:20 20:10 21:06 Pulse Ox 98 98 O2 Delivery Room Air Room Air Room Air Room Air 04/07/18 04/07/18 04/07/18 04/07/18 21:07 22:06 23:00 23:13 Temp 98.6 98.6 Pulse 78 B/P (MAP) 112/59 (76) Pulse Ox 98 98 O2 Delivery Room Air Room Air Room Air Room Air 04/08/18 04/08/18 04/08/18 04/08/18 03:00 03:24 06:24 07:00 Temp 97.6 97.8 97.6 97.8 Pulse 87 87 Resp 18 B/P (MAP) 111/61 (78) 136/61 (86) Pulse Ox 96 98 100 O2 Delivery Room Air Room Air Room Air Room Air 04/08/18 04/08/18 04/08/18 04/08/18 07:18 08:00 08:20 08:54 Pulse Ox 95 95 95 O2 Delivery Room Air Room Air Room Air Room Air O2 Flow Rate 2.0 2.0 Nutrition Consultation Dietary Evaluation: Recommendations by RD: Increase Calorie Intake, Protein supplementation Comments: Continue Nepro tid added DBL meat portions Expected Outcomes/Goals: PO intake to meet >75% est needs- met, goal ongoing Malnutrition Findings: Body Fat Depletion (Non Severe: Mild Depletion Weight Status: Appropriate GABRIELLE JOE MD Apr 08, 2018 11:22
--- NOTE | 2018-04-08 13:10 | PDOC ---
Subjective: Subjective: Getting ready to go home. Per RN - plans for outpt atbx at dialysis. Objective: Vital Signs: Vital Signs Date Time Temp Pulse Resp B/P (MAP) Pulse Ox O2 Delivery O2 Flow Rate FiO2 04/08/18 12:57 94 Room Air 2.0 04/08/18 11:00 97.7 90 20 148/67 (94) 97.7 Labs: Laboratory Tests Test 04/08/18 04:45 04/08/18 08:35 Random Gentamicin Level 6.5 mcg/mL Random Vancomycin Level 31.8 mcg/mL White Blood Count 15.1 x10^3/uL Red Blood Count 2.40 x10^6/uL Hemoglobin 7.7 g/dL Hematocrit 23.1 % Mean Corpuscular Volume 96 fL Mean Corpuscular Hemoglobin 32 pg Mean Corpuscular Hemoglobin Concent 33 g/dL Red Cell Distribution Width 15.4 % Platelet Count 208 x10^3/uL Sodium Level 138 mmol/L Potassium Level 3.9 mmol/L Chloride Level 103 mmol/L Carbon Dioxide Level 27 mmol/L Anion Gap 8 Blood Urea Nitrogen 51 mg/dL Creatinine 5.9 mg/dL Estimated GFR (Cockcroft-Gault) 9.0 Glucose Level 143 mg/dL Calcium Level 6.9 mg/dL Phosphorus Level 1.1 mg/dL Albumin 2.2 g/dL PE: GEN: NAD - lunch tray empty LUNGS: CTAB HEART: RRR ABD: NABS, S/ND/NT NEURO/PSYCH: A & O 3 A/P: Pseudomonas sepsis Chronic pain GERD Cirrhosis -- Eating well, DC per primary. ALILE ROBLES Apr 08, 2018 13:10
[2018-04-08 15:00] VITALS: BP 130/70
[2018-04-08] MEDS: VANCOMYCIN PER PHARMACY MC PRN (16:49)
[2018-04-08] MEDS: GENTAMICIN PER PHARMACY. MC PRN (16:50)
[2018-04-09] MEDS ORDERED: GENTAMICIN RANDOM LEVEL. MC ONE (05:00)
[2018-04-09] MEDS ORDERED: VANCOMYCIN RANDOM LEVEL. MC ONE (05:00)
== END 2018-04-08 16:53 | disposition home health service (06) | DRG 871 ==
LOC: ER 08:56 → 1 WEST ICU 10:10 → 5 NORTH 04-03 19:00
PROVIDERS: ADMIT Internal Medicine; ATTEND Internal Medicine
PROC: 02HV33Z Insertion of Infusion Device into Superior Vena Cava, Percutaneous Approach (ICD-10-PCS; principal; 2018-04-01)
PROC: 5A09357 Assistance with Respiratory Ventilation, Less than 24 Consecutive Hours, Continuous Positive Airway Pressure (ICD-10-PCS; 2018-04-02)
PROC: 5A1D70Z Performance of Urinary Filtration, Intermittent, Less than 6 Hours Per Day (ICD-10-PCS; 2018-04-02)
DX: A41.52 Sepsis due to Pseudomonas (principal); G93.41 Metabolic encephalopathy; N18.6 End stage renal disease; J18.9 Pneumonia, unspecified organism; E46 Unspecified protein-calorie malnutrition; F11.20 Opioid dependence, uncomplicated; I13.2 Hypertensive heart and chronic kidney disease with heart failure and with stage 5 chronic kidney disease, or end stage renal disease; J44.0 Chronic obstructive pulmonary disease with (acute) lower respiratory infection; Z68.1 Body mass index [BMI] 19.9 or less, adult; E83.51 Hypocalcemia; E87.5 Hyperkalemia; I50.9 Heart failure, unspecified; I95.9 Hypotension, unspecified; D63.8 Anemia in other chronic diseases classified elsewhere; E78.5 Hyperlipidemia, unspecified; F14.10 Cocaine abuse, uncomplicated; G89.29 Other chronic pain; K21.0 Gastro-esophageal reflux disease with esophagitis; F10.20 Alcohol dependence, uncomplicated; K74.60 Unspecified cirrhosis of liver; E21.3 Hyperparathyroidism, unspecified; F12.90 Cannabis use, unspecified, uncomplicated; K57.90 Diverticulosis of intestine, part unspecified, without perforation or abscess without bleeding; Z86.19 Personal history of other infectious and parasitic diseases; B96.89 Other specified bacterial agents as the cause of diseases classified elsewhere; Z60.2 Problems related to living alone; Z82.49 Family history of ischemic heart disease and other diseases of the circulatory system; F19.10 Other psychoactive substance abuse, uncomplicated; Z83.3 Family history of diabetes mellitus; Z91.15 Patient's noncompliance with renal dialysis; Z99.2 Dependence on renal dialysis; Z72.0 Tobacco use
CPT/HCPCS: 36415; 36600; 51701; 70450; 71045; 71260; 74177; 76705; 78226; 80047; 80048; 80053; 80069; 80076; 80170; 80202; 81001; 82140; 82274; 82553; 82805; 82977; 83605; 83690; 83735; 83880; 84100; 84439; 84443; 84484; 85007; 85025; 85027; 85610; 85651; 86850; 86900; 86901; 87040; 87086; 87186; 87205; 87641; 93005; 94640; 94660; 94760; 96365; 96374; A9537; G0480; J0692; J0881; J1200; J1580; J2001; J2185; J2248; J2270; J2543; J3010; J3370; J7050; J7512; J7613; J7620; J7626; 97110; 97116; 97530; 97535; 99291-25; J7030

== ENCOUNTER 2018-05-31 13:33 | Emergency (ER) | payer MEDICARE, OTHER ==
[~2018-05-31] VITALS: Ht 154.9 cm; Wt 46.3 kg
[2018-05-31] MEDS ORDERED: fentaNYL PF VIAL 100 MCG/2 ML VIAL IM ONE (14:15)
[2018-05-31] MEDS ORDERED: ONDANSETRON ODT 4 MG TAB.RAPDIS. PO ONE (14:15)
[2018-05-31 14:16] VITALS: BP 121/61
--- NOTE | 2018-05-31 14:25 | PHYS DOC ---
Past Medical History Past Medical History: Hypertension, Liver Disease, Renal Failure, Other Additional Past Medical Histor: Hepatitis C and B, dialysis, drug and ETOH use Past Surgical History: Other Additional Past Surgical Histo: permacath, paracentesis, lt arm fistula,L HIP Alcohol Use: None Drug Use: Marijuana Adult General Chief Complaint Chief Complaint: BACK PAIN OR INJURY HPI HPI Patient is a 52 year old F who states 2 days ago she was walking with her scooter and fell landing hard on her R side and buttock. She is here for continued pain in "tailbone". Pt denies hitting her head and she states she is not currently on a blood thinner. Pt does have chronic pain and is on Oxycodone at home but states it wasn't controlling the pain. There are some notes in the computer about concern for misuse of opiates. I discussed that I would give her a pain shot here in ER but would not be dispensing any medicine for home. Review of Systems Review of Systems Constitutional: Denies fever or chills Respiratory: Denies cough or shortness of breath Cardiovascular: Denies chest pain GI: Denies abdominal pain, nausea, vomiting, bloody stools or diarrhea Musculoskeletal: Reports pain in coccyx. Integument: Denies rash or skin lesions Neurologic: Denies headache, focal weakness or sensory changes All other systems were reviewed and found to be within normal limits, except as documented in this note. Current Medications Current Medications Current Medications Medications (Trade) Dose Ordered Sig/Carmenza Start Time Stop Time Status Last Admin Dose Admin Fentanyl Citrate (Fentanyl 2ml Vial) 50 mcg 1X ONCE 05/31/18 14:15 05/31/18 14:20 DC 05/31/18 14:54 50 MCG Ondansetron HCl (Zofran Odt) 4 mg 1X ONCE 05/31/18 14:15 05/31/18 14:19 DC 05/31/18 14:53 4 MG Allergies Allergies Allergies Coded Allergies Type Severity Reaction Last Updated Verified No Known Medication Allergies Allergy Unknown 02/17/18 Yes acetaminophen Adverse Reaction Severe increased liver enzymes 07/19/17 Yes Physical Exam Physical Exam Constitutional: Well developed, well nourished, no acute distress, non-toxic appearance. Thin appearing female in no distress. Ambulating with slow steady gait to room. HENT: Normocephalic, atraumatic, bilateral external ears normal, oropharynx moist, no oral exudates, nose normal. [] Eyes: PERRLA, EOMI Neck: Normal range of motion, no tenderness, supple, no stridor. Cardiovascular:Heart rate regular rhythm, no murmur Lungs & Thorax: Bilateral breath sounds clear to auscultation Abdomen: Bowel sounds normal, soft, no tenderness, no masses, no pulsatile masses. Skin: Warm, dry, no erythema, no rash. No contusion noted, dark skinned female. Tender to touch in coccyx region, no pelvic pain with pelvic rock. Back: Coccyx region tender. Extremities: No tenderness, no cyanosis, no clubbing, ROM intact, no edema. Neurologic: Alert and oriented X 3, normal motor function, normal sensory function, no focal deficits noted. Psychologic: Affect normal, judgement normal, mood normal. Current Patient Data Vital Signs Vital Signs Date Time Temp Pulse Resp B/P (MAP) Pulse Ox O2 Delivery O2 Flow Rate FiO2 05/31/18 14:16 98.1 84 18 121/61 (81) 98 Room Air 98.1 EKG EKG [] Radiology/Procedures Radiology/Procedures coccyx films neg for acute injury Course & Med Decision Making Course & Med Decision Making Pertinent Labs and Imaging studies reviewed. (See chart for details) Discussed rest, donut pillow and Ice/heat therapy. Pt is on oxycodone at home. Discussed adding a muscle relaxer and she states she is on flexeril and it doesn't work. I wrote for Robaxin and discussed that she might have more relief with this but to use with caution and make sure it doesn't affect her gait or balance. Family with her and voice understanding. Pt to f/u with PCP. Batool Disclaimer [place] Disclaimer This electronic medical record was generated, in whole or in part, using a voice recognition dictation system. Departure Departure Impression: Primary Impression: Coccyx contusion Disposition: HOME, SELF-CARE Condition: IMPROVED Referrals: SHARAD COULTER MD (PCP) Patient Instructions: Tailbone Injury, [id number] Additional Instructions: Ice/heat therapy Rest Follow up with your PCP Scripts Methocarbamol (ROBAXIN) 500 Mg Tablet 1 TAB PO BID, #20 TAB Prov: NATO GUPTA 05/31/18 NATO GUPTA May 31, 2018 14:25
[2018-05-31] MEDS ORDERED: METH-37 PO (14:51)
--- NOTE | 2018-05-31 16:12 | RAD ---
Sacrum and coccyx 3 views. HISTORY: Sacral pain after a fall 3 views were taken of the sacrum and coccyx. There is a bipolar hip prosthesis on the left. There is diffuse decreased bone density. Coccyx is in normal alignment. A sacral fracture is not identified. IMPRESSION: 1. No fracture noted in the sacrum or coccyx. Electronically signed by: Samuel Brower MD (05/31/2018 4:08 PM) [facility]
== END 2018-05-31 15:23 | disposition home or self-care (01) ==
LOC: ER 13:33
DX: S30.0XXA Contusion of lower back and pelvis, initial encounter (principal); I12.9 Hypertensive chronic kidney disease with stage 1 through stage 4 chronic kidney disease, or unspecified chronic kidney disease; N18.9 Chronic kidney disease, unspecified; Z88.6 Allergy status to analgesic agent; W18.39XA Other fall on same level, initial encounter; Y93.01 Activity, walking, marching and hiking; Y92.89 Other specified places as the place of occurrence of the external cause; Y99.8 Other external cause status
CPT/HCPCS: 72220; 96372; 99284; J3010; Q0162

== ENCOUNTER 2018-08-28 09:14 | Emergency (ER) | payer MEDICARE, OTHER ==
[~2018-08-28] VITALS: Ht 160 cm; Wt 44.0 kg
[~2018-08-28 09:14] MED LIST changes: +HYDR-2145 PO; -HYDR25TA9 PO; +METH-37 PO; +OXYC5TAB4 PO; -OXYC5TAB95 PO
--- NOTE | 2018-08-28 10:23 | PHYS DOC ---
Past Medical History Past Medical History: Hypertension, Liver Disease, Renal Failure, Other Additional Past Medical Histor: Hepatitis C and B, dialysis, drug and ETOH use Past Surgical History: Other Additional Past Surgical Histo: permacath, paracentesis, lt arm fistula,L HIP Alcohol Use: None Drug Use: Marijuana Adult General Chief Complaint Chief Complaint: MECHANICAL FALL HPI HPI Patient is a 53 year old F who presents with body aches. She ran out of her home oxycodone, she says she takes 25 mg multiple times per day. She is due to refill the medication on Saturday. She took too much because she was in so much pain. She says she is due for dialysis today at 11. She has pain all over her body, nonspecific. Pain is chronic. She did fall a few weeks ago. Per prescription review pt filled 30 x 20 mg oxycodone on Jul 24 and 10 hydrocodone on Jul 20. Review of Systems Review of Systems Constitutional: Denies fever or chills Eyes: Denies change in visual acuity, redness, or eye pain HENT: Denies nasal congestion or sore throat Respiratory: Denies cough or shortness of breath Cardiovascular: No additional information not addressed in HPI GI: Denies abdominal pain, nausea, vomiting, bloody stools or diarrhea : Denies dysuria or hematuria Musculoskeletal: Denies back pain or joint pain Integument: Denies rash or skin lesions Neurologic: Denies headache, focal weakness or sensory changes Endocrine: Denies polyuria or polydipsia All other systems were reviewed and found to be within normal limits, except as documented in this note. Current Medications Current Medications Current Medications Medications (Trade) Dose Ordered Sig/[facility] Start Time Stop Time Status Last Admin Dose Admin Oxycodone HCl (Roxicodone) 20 mg 1X ONCE 08/28/18 10:30 08/28/18 10:31 DC 08/28/18 10:33 20 MG Allergies Allergies Allergies Coded Allergies Type Severity Reaction Last Updated Verified No Known Medication Allergies Allergy Unknown 02/17/18 Yes acetaminophen Adverse Reaction Severe increased liver enzymes 07/19/17 Yes Physical Exam Physical Exam Constitutional: Well developed, well nourished, no acute distress, non-toxic appearance. HENT: Normocephalic, atraumatic, bilateral external ears normal, oropharynx moist, no oral exudates, nose normal. Eyes: PERRL, EOMI, conjunctiva normal, no discharge. Neck: Normal range of motion, no tenderness, supple, no stridor. Cardiovascular:Heart rate regular rhythm, no murmur Lungs & Thorax: Bilateral breath sounds clear to auscultation Abdomen: Bowel sounds normal, soft, no tenderness, no masses, no pulsatile masses. Skin: Warm, dry, no erythema, no rash. Back: No tenderness, no CVA tenderness. Extremities: No tenderness, no cyanosis, no clubbing, ROM intact, no edema. Neurologic: Alert and oriented X 3, normal motor function, normal sensory function, no focal deficits noted. Psychologic: Affect normal, judgement normal, mood normal. Current Patient Data Vital Signs Vital Signs Date Time Temp Pulse Resp B/P (MAP) Pulse Ox O2 Delivery O2 Flow Rate FiO2 08/28/18 10:33 16 100 Room Air 08/28/18 10:25 91 08/28/18 09:36 99.1 210/87 (128) 99.1 EKG EKG [] Radiology/Procedures Radiology/Procedures [] Course & Med Decision Making Course & Med Decision Making Pertinent Labs and Imaging studies reviewed. (See chart for details) 53 y/o F presents for chronic pain, out of home oxycodone. Pt initially dishonest with dose of oxycodone, she says she takes 25 mg. I informed her that oxycodone does not come in a 25 mg tablet and she admits that it is actually 20 mg. I explained that I cannot refill her chronic pain medications and that she must see her doctor for this, she then says she wants to be admitted because she is out of her home pain meds. I explained that this is not an indication for admission. Will give dose of oxycodone here for pain. Transport to at 11 am. Dragon Disclaimer Dragon Disclaimer This electronic medical record was generated, in whole or in part, using a voice recognition dictation system. Departure Departure Impression: Primary Impression: Chronic pain Disposition: HOME, SELF-CARE Condition: IMPROVED Referrals: SHARAD COULTER MD (PCP) Patient Instructions: Chronic Pain Problem Qualifiers Primary Impression: Chronic pain Chronic pain type: chronic pain syndrome Qualified Codes: G89.4 - Chronic pain syndrome MARY WAGONER MD Aug 28, 2018 10:23
[2018-08-28 10:25] VITALS: BP 193/97
[2018-08-28] MEDS ORDERED: oxyCODONE IR 5 MG TABLET PO ONE (10:30)
[2018-08-28] MEDS ORDERED: MECL25TA3 PO (19:11)
[2018-08-28] MEDS ORDERED: ONDA4TAB7 PO (19:11)
== END 2018-08-28 10:35 | disposition home or self-care (01) ==
LOC: ER 09:14
DX: G89.29 Other chronic pain (principal); I12.9 Hypertensive chronic kidney disease with stage 1 through stage 4 chronic kidney disease, or unspecified chronic kidney disease; M79.10 Myalgia, unspecified site; N18.9 Chronic kidney disease, unspecified; Z99.2 Dependence on renal dialysis; Z88.6 Allergy status to analgesic agent
CPT/HCPCS: 99283

== ENCOUNTER 2018-08-28 16:29 | Emergency (ER) | payer MEDICARE ==
[~2018-08-28] VITALS: Ht 160 cm; Wt 44.0 kg
[2018-08-28 17:10] LABS: BASO # 0.1 x10^3/uL (0.0-0.2); BASO % 1 % (0-3); EOS # 0.1 x10^3/uL (0.0-0.7); EOS % 1 % (0-3); HEMATOCRIT 35.4 % (36.0-47.0); HEMOGLOBIN 11.5 g/dL (12.0-15.5); LYMPH % 17 % (24-48); MEAN CORPUSCULAR HEMOGLOBIN 31 pg (25-35); MEAN CORPUSCULAR HGB CONC 33 g/dL (31-37); MEAN CORPUSCULAR VOLUME 96 fL (79-100); MONO # 1.1 x10^3/uL (0.0-1.1); MONO % 10 % (0-9); NEUT # 8.3 x10^3uL (1.8-7.7); NEUT % 72 % (31-73); PLATELET COUNT 236 x10^3/uL (140-400); RED CELL DISTRIBUTION WIDTH 17.1 % (11.5-14.5); WHITE BLOOD COUNT 11.6 x10^3/uL (4.0-11.0)
--- NOTE | 2018-08-28 17:13 | PHYS DOC ---
Past Medical History Past Medical History: Hypertension, Liver Disease, Renal Failure, Other Additional Past Medical Histor: Hepatitis C and B, dialysis, drug and ETOH use Past Surgical History: Other Additional Past Surgical Histo: permacath, paracentesis, lt arm fistula,L HIP Alcohol Use: None Drug Use: Marijuana Adult General Chief Complaint Chief Complaint: DIZZY/LIGHT HEADED HPI HPI Patient is a 53-year-old female who presents with complaint of dizziness and headache that started this morning. Patient states that she had come into the emergency room this morning for the same complaint and states that nothing had been done and she had been sent for dialysis. Patient states that she is feeling a bit worse at this time. She does state they the dizziness is worsened with change of position and if she lies down flat. She does admit some nausea but is had no vomiting. Review of Systems Review of Systems Constitutional: Denies fever or chills [] Respiratory: Denies cough or shortness of breath [] Cardiovascular: No additional information not addressed in HPI [] GI: Denies abdominal pain. Complains of nausea without vomiting or diarrhea [] Integument: Denies rash or skin lesions [] Neurologic: [place] of headache and dizziness without focal weakness or sensory changes [] All other systems were reviewed and found to be within normal limits, except as documented in this note. Current Medications Current Medications Current Medications Medications (Trade) Dose Ordered Sig/Carmenza Start Time Stop Time Status Last Admin Dose Admin Acetaminophen/ Hydrocodone Bitart (Lortab 5/325) 1 tab 1X ONCE 08/28/18 18:15 08/28/18 18:16 DC 08/28/18 18:35 1 TAB Meclizine HCl (Antivert) 25 mg 1X ONCE 08/28/18 17:30 08/28/18 17:31 DC 08/28/18 17:20 25 MG Ondansetron HCl (Zofran Odt) 4 mg 1X ONCE 08/28/18 17:30 08/28/18 17:31 DC 08/28/18 17:20 4 MG Tramadol HCl (Ultram) 50 mg 1X ONCE 08/28/18 17:30 08/28/18 17:31 DC 08/28/18 17:20 50 MG Allergies Allergies Allergies Coded Allergies Type Severity Reaction Last Updated Verified No Known Medication Allergies Allergy Unknown 02/17/18 Yes acetaminophen Adverse Reaction Severe increased liver enzymes 07/19/17 Yes Physical Exam Physical Exam Constitutional: Well developed, well nourished, no acute distress, non-toxic appearance. [] HENT: Normocephalic, atraumatic, bilateral external ears normal, oropharynx moist, no oral exudates, nose normal. [] Eyes: PERRLA, EOMI, conjunctiva normal, no discharge. [] Neck: Normal range of motion, no tenderness, supple, no stridor. [] Cardiovascular: Mildly tachycardic rate with regular rhythm [] Lungs & Thorax: Bilateral breath sounds clear to auscultation [] Abdomen: Bowel sounds normal, soft, no tenderness. [] Skin: Warm, dry, no erythema, no rash. [] Extremities: No tenderness, no cyanosis, no clubbing, ROM intact, no edema. [] Neurologic: Alert and oriented X 3, no focal deficits noted. [] Current Patient Data Vital Signs Vital Signs Date Time Temp Pulse Resp B/P (MAP) Pulse Ox O2 Delivery O2 Flow Rate FiO2 08/28/18 18:35 20 08/28/18 18:00 116 97 08/28/18 17:10 99.0 193/92 (125) Room Air 99.0 Lab Values Laboratory Tests Test 08/28/18 16:57 White Blood Count 11.6 x10^3/uL (4.0-11.0) H Red Blood Count 3.70 x10^6/uL (3.50-5.40) Hemoglobin 11.5 g/dL (12.0-15.5) L Hematocrit 35.4 % (36.0-47.0) L Mean Corpuscular Volume 96 fL (79-100) Mean Corpuscular Hemoglobin 31 pg (25-35) Mean Corpuscular Hemoglobin Concent 33 g/dL (31-37) Red Cell Distribution Width 17.1 % (11.5-14.5) H Platelet Count 236 x10^3/uL (140-400) Neutrophils (%) (Auto) 72 % (31-73) Lymphocytes (%) (Auto) 17 % (24-48) L Monocytes (%) (Auto) 10 % (0-9) H Eosinophils (%) (Auto) 1 % (0-3) Basophils (%) (Auto) 1 % (0-3) Neutrophils # (Auto) 8.3 x10^3uL (1.8-7.7) H Lymphocytes # (Auto) 2.0 x10^3/uL (1.0-4.8) Monocytes # (Auto) 1.1 x10^3/uL (0.0-1.1) Eosinophils # (Auto) 0.1 x10^3/uL (0.0-0.7) Basophils # (Auto) 0.1 x10^3/uL (0.0-0.2) Sodium Level 133 mmol/L (136-145) L Potassium Level 3.6 mmol/L (3.5-5.1) Chloride Level 92 mmol/L (98-107) L Carbon Dioxide Level 27 mmol/L (21-32) Anion Gap 14 (6-14) Blood Urea Nitrogen 54 mg/dL (7-20) H Creatinine 5.2 mg/dL (0.6-1.0) H Estimated GFR (Cockcroft-Gault) 10.4 BUN/Creatinine Ratio 10 (6-20) Glucose Level 86 mg/dL (70-99) Calcium Level 8.6 mg/dL (8.5-10.1) Total Bilirubin 0.7 mg/dL (0.2-1.0) Aspartate Amino Transferase (AST) 97 U/L (15-37) H Alanine Aminotransferase (ALT) 46 U/L (14-59) Alkaline Phosphatase 340 U/L (46-116) H Total Protein 9.1 g/dL (6.4-8.2) H Albumin 3.0 g/dL (3.4-5.0) L Albumin/Globulin Ratio 0.5 (1.0-1.7) L Laboratory Tests 08/28/18 16:57 Laboratory Tests 08/28/18 16:57 EKG EKG EKG demonstrates sinus tachycardia with rate of 113.[] Radiology/Procedures Radiology/Procedures [] Impressions: Examination: CT HEAD WO CONTRAST History: ARMENTA DIZZY PREV SENT Comparison/Correlation: 04/01/2018 CT head without contrast Findings: Axial images of the head were obtained without contrast. Atrophy and chronic ischemic changes white matter noted. No intracranial hemorrhage, midline shift, or mass effect. No acute depressed fracture. Significantly depressed old right medial orbital wall fracture is present. Impression: Atrophy. No intracranial hemorrhage. Right medial orbital wall depressed remote fracture. Electronically signed by: Fabrice Preciado MD (08/28/2018 6:13 PM) [facility] Course & Med Decision Making Course & Med Decision Making Pertinent Labs and Imaging studies reviewed. (See chart for details) [] Dragon Disclaimer Dragon Disclaimer This electronic medical record was generated, in whole or in part, using a voice recognition dictation system. Departure Departure Impression: Primary Impression: Benign positional vertigo Additional Impressions: Headache Chronic pain Disposition: 01 HOME, SELF-CARE Condition: STABLE Referrals: SHARAD COULTER MD (PCP) Patient Instructions: Benign Positional Vertigo, Chronic Pain, Headache, FAQs Scripts Meclizine Hcl (MECLIZINE HCL) 25 Mg Tablet 25 MG PO PRN TID PRN for DIZZINESS, #30 dizziness Prov: LES YA Jr. DO 08/28/18 Ondansetron Hcl (ZOFRAN) 4 Mg Tablet 4 MG PO PRN TID PRN for NAUSEA, #15 nausea/vomiting Prov: LES YA Jr. DO 08/28/18 Problem Qualifiers Primary Impression: Benign positional vertigo Laterality: unspecified laterality Qualified Codes: H81.10 - Benign paroxysmal vertigo, unspecified ear Additional Impressions: Headache Headache type: unspecified Headache chronicity pattern: unspecified pattern Intractability: not intractable Qualified Codes: R51 - Headache Chronic pain Chronic pain type: other chronic pain Qualified Codes: G89.29 - Other chronic pain LES YA Jr. DO Aug 28, 2018 17:12
[2018-08-28 17:18] LABS: CALCIUM 8.6 mg/dL (8.5-10.1); CREATININE 5.2 mg/dL (0.6-1.0); GFR 10.4; POTASSIUM 3.6 mmol/L (3.5-5.1)
--- NOTE | 2018-08-28 17:22 | EKG ---
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
[2018-08-28 17:24] LABS: ALBUMIN/GLOBULIN RATIO 0.5 (1.0-1.7); TOTAL BILIRUBIN 0.7 mg/dL (0.2-1.0); TOTAL PROTEIN 9.1 g/dL (6.4-8.2)
[2018-08-28] MEDS ORDERED: traMADol 50 MG TABLET PO ONE (17:30)
[2018-08-28] MEDS ORDERED: MECLIZINE HCL 12.5 MG TABLET. PO ONE (17:30)
[2018-08-28] MEDS ORDERED: ONDANSETRON ODT 4 MG TAB.RAPDIS. PO ONE (17:30)
[2018-08-28] MEDS ORDERED: HYDROcodone/APAP 5/325MG 1 TAB TABLET PO ONE (18:15)
--- NOTE | 2018-08-28 18:17 | RAD ---
Examination: CT HEAD WO CONTRAST History: ARMENTA DIZZY PREV SENT Comparison/Correlation: 04/01/2018 CT head without contrast Findings: Axial images of the head were obtained without contrast. Atrophy and chronic ischemic changes white matter noted. No intracranial hemorrhage, midline shift, or mass effect. No acute depressed fracture. Significantly depressed old right medial orbital wall fracture is present. Impression: Atrophy. No intracranial hemorrhage. Right medial orbital wall depressed remote fracture. Electronically signed by: Fabrice Preciado MD (08/28/2018 6:13 PM) [facility]
[2018-08-28] MEDS ORDERED: MECL25TA3 PO (19:11)
[2018-08-28] MEDS ORDERED: ONDA4TAB7 PO (19:11)
[2018-08-28 19:30] VITALS: BP 170/81
== END 2018-08-28 20:05 | disposition home or self-care (01) ==
LOC: ER 16:29
DX: H81.10 Benign paroxysmal vertigo, unspecified ear (principal); R51 Headache; G89.29 Other chronic pain; I12.9 Hypertensive chronic kidney disease with stage 1 through stage 4 chronic kidney disease, or unspecified chronic kidney disease; N18.9 Chronic kidney disease, unspecified; Z99.2 Dependence on renal dialysis; Z88.6 Allergy status to analgesic agent
CPT/HCPCS: 36415; 70450; 80053; 85025; 93005; 99284; J8597; Q0162